=== PATIENT | male | born 1945 | race African-American/Black ===

== ENCOUNTER 2019-06-19 14:10 | Inpatient (IN) | payer BC, MEDICARE ==
[2019-06-19] VITALS (7 sets, daily range): BP systolic 67–169; BP diastolic 46–110
[~2019-06-19] VITALS: Ht 175.3 cm; Wt 95.7 kg
[~2019-06-19 14:10] MED LIST: ASPI-482 PO; ATOR40TA59 PO; CARV12.5 PO; RAMI10CA53 PO
[2019-06-19 14:32] LABS: BASO % 0 % (0-3); EOS % 0 % (0-3); HEMATOCRIT 39.2 % (39.0-53.0); HEMOGLOBIN 12.8 g/dL (13.0-17.5); LYMPH # 0.7 x10^3/uL (1.0-4.8); LYMPH % 13 % (24-48); MEAN CORPUSCULAR HEMOGLOBIN 30 pg (25-35); MEAN CORPUSCULAR HGB CONC 33 g/dL (31-37); MEAN CORPUSCULAR VOLUME 92 fL (79-100); MONO # 0.4 x10^3/uL (0.0-1.1); MONO % 8 % (0-9); NEUT # 4.1 x10^3/uL (1.8-7.7); NEUT % 79 % (31-73); PLATELET COUNT 268 x10^3/uL (140-400); RED BLOOD COUNT 4.26 x10^6/uL (4.30-5.70); RED CELL DISTRIBUTION WIDTH 16.9 % (11.5-14.5); WHITE BLOOD COUNT 5.2 x10^3/uL (4.0-11.0)
[2019-06-19 14:36] LABS: BILIRUBIN,URINE SMALL (NEG); CLARITY,URINE CLEAR; COLOR,URINE AMBER; NITRITE,URINE NEGATIVE (NEG); PROTEIN,URINE 30 mg/dL (NEG-TRACE)
[2019-06-19 14:44] LABS: SQUAMOUS EPITHELIAL CELL,UR FEW /LPF
[2019-06-19 14:45] LABS: AMORPHOUS SEDIMENT,UR PRESENT /HPF; BACTERIA,URINE 0 /HPF (0-FEW)
[2019-06-19 14:45] LABS: CALCIUM 8.6 mg/dL (8.5-10.1); GFR 88.1; POTASSIUM 3.9 mmol/L (3.5-5.1)
[2019-06-19 14:59] LABS: ALBUMIN 1.7 g/dL (3.4-5.0); ALBUMIN/GLOBULIN RATIO 0.3 (1.0-1.7); TOTAL BILIRUBIN 0.9 mg/dL (0.2-1.0); TOTAL PROTEIN 6.6 g/dL (6.4-8.2)
--- NOTE | 2019-06-19 15:04 | RAD ---
Single view chest dated 06/19/2019. No comparison available. CLINICAL INDICATION: Shortness breath. FINDINGS: Single upright portable exam performed. Heart and mediastinal contours within normal limits. There is a 3-lead left subclavian pacer/AICD in place with leads projected to the right atrium, right ventricle and coronary sinus. Patchy and linear opacities throughout both lungs, right greater than left. No consolidation or pleural effusion. No pneumothorax. IMPRESSION: Patchy bilateral airspace disease, noncardiogenic edema versus atypical infection. Viral pneumonitis not excluded. Electronically signed by: Iván Sosa MD (06/19/2019 3:01 PM) [facility] [place]
--- NOTE | 2019-06-19 15:21 | PHYS DOC ---
Adult General Chief Complaint Chief Complaint: ALTERED MENTAL STATUS [facility] HPI Patient is a 74 year old male presents via EMS from senior living for evaluation of altered mental status. Per EMS patient with progressively worse altered mental status x24 hours. Patient is alert. But unable to obtain any history from the patient. Patient is also febrile. Patient with a recent pacemaker/defibrillator placement. Review of Systems Review of Systems Constitutional: Denies fever or chills [] Eyes: Denies change in visual acuity, redness, or eye pain [] HENT: Denies nasal congestion or sore throat [] Respiratory: Denies cough or shortness of breath [] Cardiovascular: No additional information not addressed in HPI [] GI: Denies abdominal pain, nausea, vomiting, bloody stools or diarrhea [] : Denies dysuria or hematuria [] Musculoskeletal: Denies back pain or joint pain [] Integument: Denies rash or skin lesions [] Neurologic: Denies headache, focal weakness or sensory changes [] Endocrine: Denies polyuria or polydipsia [] All other systems were reviewed and found to be within normal limits, except as documented in this note. Current Medications Current Medications Current Medications Medications (Trade) Dose Ordered Sig/Evon Start Time Stop Time Status Last Admin Dose Admin Piperacillin Sod/ Tazobactam Sod 4.5 gm/Sodium Chloride 100 ml @ 200 mls/hr 1X ONCE 06/19/19 16:00 06/19/19 16:29 DC 06/19/19 16:50 200 MLS/HR Vancomycin HCl 1.25 gm/Sodium Chloride 250 ml @ 166.667 mls/hr 1X ONCE 06/19/19 16:00 06/19/19 17:29 DC 06/19/19 16:51 166.667 MLS/HR Allergies Allergies Allergies Coded Allergies Type Severity Reaction Last Updated Verified egg Allergy Intermediate Nausea and Vomiting 06/19/19 Yes Physical Exam Physical Exam Constitutional: Well developed, well nourished, no acute distress, non-toxic appearance. [] HENT: Normocephalic, atraumatic, bilateral external ears normal, oropharynx moist, no oral exudates, nose normal. [] Eyes: PERRLA, EOMI, conjunctiva normal, no discharge. [] Neck: Normal range of motion, no tenderness, supple, no stridor. [] Cardiovascular:Heart rate regular rhythm, no murmur [] Lungs & Thorax: Bilateral breath sounds clear to auscultation [] Abdomen: Bowel sounds normal, soft, no tenderness, no masses, no pulsatile masses. [] Skin: Warm, dry, no erythema, no rash. [] Back: No tenderness, no CVA tenderness. [] Extremities: No tenderness, no cyanosis, no clubbing, ROM intact, no edema. [] Neurologic: Alert and oriented X 3, normal motor function, normal sensory function, no focal deficits noted. [] Psychologic: Affect normal, judgement normal, mood normal. [] Current Patient Data Vital Signs Vital Signs Date Time Temp Pulse Resp B/P (MAP) Pulse Ox O2 Delivery O2 Flow Rate FiO2 06/19/19 14:10 100.3 89 22 133/88 (103) 93 Nasal Cannula 4.0 100.3 Lab Values Laboratory Tests Test 06/19/19 14:12 06/19/19 14:30 White Blood Count 5.2 x10^3/uL (4.0-11.0) Red Blood Count 4.26 x10^6/uL (4.30-5.70) L Hemoglobin 12.8 g/dL (13.0-17.5) L Hematocrit 39.2 % (39.0-53.0) Mean Corpuscular Volume 92 fL (79-100) Mean Corpuscular Hemoglobin 30 pg (25-35) Mean Corpuscular Hemoglobin Concent 33 g/dL (31-37) Red Cell Distribution Width 16.9 % (11.5-14.5) H Platelet Count 268 x10^3/uL (140-400) Neutrophils (%) (Auto) 79 % (31-73) H Lymphocytes (%) (Auto) 13 % (24-48) L Monocytes (%) (Auto) 8 % (0-9) Eosinophils (%) (Auto) 0 % (0-3) Basophils (%) (Auto) 0 % (0-3) Neutrophils # (Auto) 4.1 x10^3/uL (1.8-7.7) Lymphocytes # (Auto) 0.7 x10^3/uL (1.0-4.8) L Monocytes # (Auto) 0.4 x10^3/uL (0.0-1.1) Eosinophils # (Auto) 0.0 x10^3/uL (0.0-0.7) Basophils # (Auto) 0.0 x10^3/uL (0.0-0.2) Sodium Level 140 mmol/L (136-145) Potassium Level 3.9 mmol/L (3.5-5.1) Chloride Level 105 mmol/L (98-107) Carbon Dioxide Level 27 mmol/L (21-32) Anion Gap 8 (6-14) Blood Urea Nitrogen 13 mg/dL (8-26) Creatinine 1.0 mg/dL (0.7-1.3) Estimated GFR (Cockcroft-Gault) 88.1 BUN/Creatinine Ratio 13 (6-20) Glucose Level 102 mg/dL (70-99) H Lactic Acid Level 1.6 mmol/L (0.4-2.0) Calcium Level 8.6 mg/dL (8.5-10.1) Total Bilirubin 0.9 mg/dL (0.2-1.0) Aspartate Amino Transferase (AST) 86 U/L (15-37) H Alanine Aminotransferase (ALT) 58 U/L (16-63) Alkaline Phosphatase 68 U/L (46-116) Troponin I Quantitative 2.518 ng/mL (0.000-0.055) LH-Fhd-L-Type Natriuretic Peptide 3527 pg/mL (0-449) H Total Protein 6.6 g/dL (6.4-8.2) Albumin 1.7 g/dL (3.4-5.0) L Albumin/Globulin Ratio 0.3 (1.0-1.7) L Urine Collection Type Unknown Urine Color [place] Urine Clarity Clear Urine pH 6.0 (<5.0-8.0) Urine Specific [place] 1.025 (1.000-1.030) Urine Protein 30 mg/dL (NEG-TRACE) Urine Glucose (UA) Negative mg/dL (NEG) Urine Ketones (Stick) Negative mg/dL (NEG) Urine Blood Negative (NEG) Urine Nitrite Negative (NEG) Urine Bilirubin Small (NEG) Urine Urobilinogen Dipstick 2.0 mg/dL (0.2 mg/dL) Urine Leukocyte Esterase Negative (NEG) Urine RBC 3-5 /HPF (0-2) Urine WBC 1-4 /HPF (0-4) Urine Squamous Epithelial Cells Few /LPF Urine Transitional Epithelial Cells Few /LPF Urine Amorphous Sediment Present /HPF Urine Bacteria 0 /HPF (0-FEW) Urine Mucus Marked /LPF Laboratory Tests 06/19/19 14:12 Laboratory Tests 06/19/19 14:12 EKG EKG [] Radiology/Procedures Radiology/Procedures [] Impressions: IMPRESSION: Patchy bilateral airspace disease, noncardiogenic edema versus atypical infection. Viral pneumonitis not excluded. Course & Med Decision Making Course & Med Decision Making Pertinent Labs and Imaging studies reviewed. (See chart for details) [] Patient admitted to Dr Guthrie-- consult to pulmonology and cardiology. Dr Salazar--- Recommend single dose of Lovenox. Dr Soto-- Recommends treatment with vancomycin and Zosyn and Plaquenil. Dragon Disclaimer Dragon Disclaimer This electronic medical record was generated, in whole or in part, using a voice recognition dictation system. Departure Departure Impression: Primary Impression: Altered mental status Additional Impressions: Elevated brain natriuretic peptide (BNP) level Suspected COVID-19 virus infection Elevated troponin Disposition: ADMITTED INPATIENT Admitting Physician: KATIE Condition: GUARDED Referrals: EDY CUETO MD (PCP) Problem Qualifiers Primary Impression: Altered mental status Altered mental status type: unspecified Qualified Codes: R41.82 - Altered mental status, unspecified MARY MONTERROSO I DO Jun 19, 2019 15:21
--- NOTE | 2019-06-19 15:50 | PDOC1 ---
History and Physical Date of Admission Date of Admission DATE: 06/19/19 TIME: 15:47 Identification/Chief Complaint Chief Complaint ALTERED MENTAL STATUS seen in er 74 year old male presents via EMS from alf for evaluation of altered mental status. Per EMS patient with progressively worse altered mental status x24 hours. Patient is alert. But unable to obtain accurate history from the patient. Patient // febrile. low-grade Patient with a recent pacemaker/defibrillator placement. Past Medical History Past Medical History Colorectal screening, with history of colonic polyps, 2016 Cardiovascular: HTN, Hyperlipidemia Pulmonary: COPD Musculoskeletal: Osteoarthritis Family History Family History: High Cholestrol, Hypertension Social History Smoke: Quit ALCOHOL: none Drugs: None Current Medications Current Medications Current Medications Piperacillin Sod/ Tazobactam Sod 4.5 gm/Sodium Chloride 100 ml @ 200 mls/hr 1X ONCE IV ; Start 06/19/19 at 16:00; Stop 06/19/19 at 16:29 Vancomycin HCl 1.25 gm/Sodium Chloride 250 ml @ 166.667 mls/hr 1X ONCE IV ; Start 06/19/19 at 16:00; Stop 06/19/19 at 17:29 Active Scripts Active Reported Coreg (Carvedilol) 12.5 Mg Tablet 1 Tab PO BID Ramipril 10 Mg Capsule 1 Cap PO DAILY Atorvastatin Calcium 40 Mg Tablet 1 Tab PO DAILY Aspir 81 (Aspirin) 81 Mg Tablet.dr 1 Tab PO DAILY Allergies Allergies: Coded Allergies: egg (Verified Allergy, Intermediate, Nausea and Vomiting, 06/19/19) ROS Review of System HENT: Denies nasal congestion or sore throat [] Respiratory: Denies cough or shortness of breath [] Cardiovascular: No additional information not addressed in HPI [] GI: Denies abdominal pain, nausea, vomiting, bloody stools or diarrhea [] : Denies dysuria or hematuria [] Musculoskeletal: Denies back pain or joint pain [] Integument: Denies rash or skin lesions [] Neurologic: Denies headache, focal weakness or sensory changes [] Endocrine: Denies polyuria or polydipsia [] 14 pt systems were reviewed and found to be within normal limits, except as documented General: YES: Fatigue Hematological and Lymphatic: No: Bleeding Problems, Blood Clots, Blood Transf usions, Brusing, Night Sweats, Pallor, Swollen Lymph Nodes, Other Gastrointestinal: No Nausea, No Vomiting, No Abdominal Pain, No Diarrhea, No Constipation, No Melena, No Hematochezia, No Other Musculoskeletal: Yes Gait Disturbance Physical Exam Physical Exam confused to details HENT: Normocephalic, atraumatic, bilateral external ears normal, oropharynx moist, no oral exudates, nose normal. [] Eyes: PERRLA, EOMI, conjunctiva normal, no discharge. [] Neck: Normal range of motion, no tenderness, supple, no stridor. [] Cardiovascular:Heart rate regular rhythm, no murmur [] Lungs & Thorax: Bilateral breath sounds clear to auscultation, diminished [] Abdomen: Bowel sounds normal, soft, no tenderness, no masses, no pulsatile masses. [] Skin: Warm, dry, no erythema, no rash. [] Back: No tenderness, no CVA tenderness. [] Extremities: No tenderness, no cyanosis, no clubbing, ROM intact, no edema. [] Lungs: Normal air movement Breasts: Not examined Abdomen: Normal bowel sounds, Soft Rectal Exam: not examined Extremities: No cyanosis Neuro: Cranial nerves 3-12 NL Vitals Vitals Vital Signs Date Time Temp Pulse Resp B/P (MAP) Pulse Ox O2 Delivery O2 Flow Rate FiO2 06/19/19 14:10 100.3 89 22 133/88 (103) 93 Nasal Cannula 4.0 100.3 Labs Labs Laboratory Tests Test 06/19/19 14:12 06/19/19 14:30 White Blood Count 5.2 x10^3/uL (4.0-11.0) Red Blood Count 4.26 x10^6/uL (4.30-5.70) Hemoglobin 12.8 g/dL (13.0-17.5) Hematocrit 39.2 % (39.0-53.0) Mean Corpuscular Volume 92 fL (79-100) Mean Corpuscular Hemoglobin 30 pg (25-35) Mean Corpuscular Hemoglobin Concent 33 g/dL (31-37) Red Cell Distribution Width 16.9 % (11.5-14.5) Platelet Count 268 x10^3/uL (140-400) Neutrophils (%) (Auto) 79 % (31-73) Lymphocytes (%) (Auto) 13 % (24-48) Monocytes (%) (Auto) 8 % (0-9) Eosinophils (%) (Auto) 0 % (0-3) Basophils (%) (Auto) 0 % (0-3) Neutrophils # (Auto) 4.1 x10^3/uL (1.8-7.7) Lymphocytes # (Auto) 0.7 x10^3/uL (1.0-4.8) Monocytes # (Auto) 0.4 x10^3/uL (0.0-1.1) Eosinophils # (Auto) 0.0 x10^3/uL (0.0-0.7) Basophils # (Auto) 0.0 x10^3/uL (0.0-0.2) Sodium Level 140 mmol/L (136-145) Potassium Level 3.9 mmol/L (3.5-5.1) Chloride Level 105 mmol/L (98-107) Carbon Dioxide Level 27 mmol/L (21-32) Anion Gap 8 (6-14) Blood Urea Nitrogen 13 mg/dL (8-26) Creatinine 1.0 mg/dL (0.7-1.3) Estimated GFR (Cockcroft-Gault) 88.1 BUN/Creatinine Ratio 13 (6-20) Glucose Level 102 mg/dL (70-99) Lactic Acid Level 1.6 mmol/L (0.4-2.0) Calcium Level 8.6 mg/dL (8.5-10.1) Total Bilirubin 0.9 mg/dL (0.2-1.0) Aspartate Amino Transf (AST/SGOT) 86 U/L (15-37) Alanine Aminotransferase (ALT/SGPT) 58 U/L (16-63) Alkaline Phosphatase 68 U/L (46-116) Troponin I Quantitative 2.518 ng/mL (0.000-0.055) Total Protein 6.6 g/dL (6.4-8.2) Albumin 1.7 g/dL (3.4-5.0) Albumin/Globulin Ratio 0.3 (1.0-1.7) Urine Collection Type Unknown Urine Color [place] Urine Clarity Clear Urine pH 6.0 (<5.0-8.0) Urine Specific [place] 1.025 (1.000-1.030) Urine Protein 30 mg/dL (NEG-TRACE) Urine Glucose (UA) Negative mg/dL (NEG) Urine Ketones (Stick) Negative mg/dL (NEG) Urine Blood Negative (NEG) Urine Nitrite Negative (NEG) Urine Bilirubin Small (NEG) Urine Urobilinogen Dipstick 2.0 mg/dL (0.2 mg/dL) Urine Leukocyte Esterase Negative (NEG) Urine RBC 3-5 /HPF (0-2) Urine WBC 1-4 /HPF (0-4) Urine Squamous Epithelial Cells Few /LPF Urine Transitional Epithelial Cells Few /LPF Urine Amorphous Sediment Present /HPF Urine Bacteria 0 /HPF (0-FEW) Urine Mucus Marked /LPF Laboratory Tests Test 06/19/19 14:12 06/19/19 14:30 White Blood Count 5.2 x10^3/uL (4.0-11.0) Red Blood Count 4.26 x10^6/uL (4.30-5.70) Hemoglobin 12.8 g/dL (13.0-17.5) Hematocrit 39.2 % (39.0-53.0) Mean Corpuscular Volume 92 fL (79-100) Mean Corpuscular Hemoglobin 30 pg (25-35) Mean Corpuscular Hemoglobin Concent 33 g/dL (31-37) Red Cell Distribution Width 16.9 % (11.5-14.5) Platelet Count 268 x10^3/uL (140-400) Neutrophils (%) (Auto) 79 % (31-73) Lymphocytes (%) (Auto) 13 % (24-48) Monocytes (%) (Auto) 8 % (0-9) Eosinophils (%) (Auto) 0 % (0-3) Basophils (%) (Auto) 0 % (0-3) Neutrophils # (Auto) 4.1 x10^3/uL (1.8-7.7) Lymphocytes # (Auto) 0.7 x10^3/uL (1.0-4.8) Monocytes # (Auto) 0.4 x10^3/uL (0.0-1.1) Eosinophils # (Auto) 0.0 x10^3/uL (0.0-0.7) Basophils # (Auto) 0.0 x10^3/uL (0.0-0.2) Sodium Level 140 mmol/L (136-145) Potassium Level 3.9 mmol/L (3.5-5.1) Chloride Level 105 mmol/L (98-107) Carbon Dioxide Level 27 mmol/L (21-32) Anion Gap 8 (6-14) Blood Urea Nitrogen 13 mg/dL (8-26) Creatinine 1.0 mg/dL (0.7-1.3) Estimated GFR (Cockcroft-Gault) 88.1 BUN/Creatinine Ratio 13 (6-20) Glucose Level 102 mg/dL (70-99) Lactic Acid Level 1.6 mmol/L (0.4-2.0) Calcium Level 8.6 mg/dL (8.5-10.1) Total Bilirubin 0.9 mg/dL (0.2-1.0) Aspartate Amino Transf (AST/SGOT) 86 U/L (15-37) Alanine Aminotransferase (ALT/SGPT) 58 U/L (16-63) Alkaline Phosphatase 68 U/L (46-116) Troponin I Quantitative 2.518 ng/mL (0.000-0.055) Total Protein 6.6 g/dL (6.4-8.2) Albumin 1.7 g/dL (3.4-5.0) Albumin/Globulin Ratio 0.3 (1.0-1.7) Urine Collection Type Unknown Urine Color [place] Urine Clarity Clear Urine pH 6.0 (<5.0-8.0) Urine Specific [place] 1.025 (1.000-1.030) Urine Protein 30 mg/dL (NEG-TRACE) Urine Glucose (UA) Negative mg/dL (NEG) Urine Ketones (Stick) Negative mg/dL (NEG) Urine Blood Negative (NEG) Urine Nitrite Negative (NEG) Urine Bilirubin Small (NEG) Urine Urobilinogen Dipstick 2.0 mg/dL (0.2 mg/dL) Urine Leukocyte Esterase Negative (NEG) Urine RBC 3-5 /HPF (0-2) Urine WBC 1-4 /HPF (0-4) Urine Squamous Epithelial Cells Few /LPF Urine Transitional Epithelial Cells Few /LPF Urine Amorphous Sediment Present /HPF Urine Bacteria 0 /HPF (0-FEW) Urine Mucus Marked /LPF Images Images CT HEAD WO CONTRAST History: Altered mental status. Comparison: None. Technique: Noncontrast CT imaging was performed of the head. Exposure: One or more of the following individualized dose reduction techniques were utilized for this examination: 1. Automated exposure control 2. Adjustment of the mA and/or kV according to patient size 3. Use of iterative reconstruction technique. Findings: No intracranial hemorrhage. No mass effect. No hydrocephalus. Several chronic left frontal, parietal and temporal infarcts. Additional chronic right frontal infarcts. Additional foci of decreased attenuation within the hemispheric white matter, most often due to chronic microvascular ischemia. Mild to moderate brain parenchymal volume loss. Imaged orbits are unremarkable. Imaged paranasal sinuses and mastoid air cells are clear. No acute calvarial fracture. Impression: 1. No acute intracranial abnormality. 2. Several chronic infarcts bilaterally. Electronically signed by: Prateek Dukes DO (06/19/2019 3:47 PM) [place] [id number] DICTATED and SIGNED BY: PRATEEK DUKES DO DATE: 06/19/19 1547 Single view chest dated 06/19/2019. No comparison available. CLINICAL INDICATION: Shortness breath. FINDINGS: Single upright portable exam performed. Heart and mediastinal contours within normal limits. There is a 3-lead left subclavian pacer/AICD in place with leads projected to the right atrium, right ventricle and coronary sinus. Patchy and linear opacities throughout both lungs, right greater than left. No consolidation or pleural effusion. No pneumothorax. IMPRESSION: Patchy bilateral airspace disease, noncardiogenic edema versus atypical infection. Viral pneumonitis not excluded. Electronically signed by: Iván Sosa MD (06/19/2019 3:01 PM) [facility] [place] DICTATED and SIGNED BY: IVÁN SOSA MD DATE: 06/19/19 1501 VTE Prophylaxis Ordered VTE Prophylaxis Devices: No VTE Pharmacological Prophylaxi: Yes Assessment/Plan Assessment/Plan IMPRESSION: 1. Patchy bilateral airspace disease, noncardiogenic edema versus atypical infection. POSSIBLE Viral pneumonitis ? covid-19 2. ACUTE HYPOXIC RESP FAILURE 3. ACUTE NSTEMI 4. No acute intracranial abnormality. 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 chronic right frontal infarcts. foci of decreased attenuation within the hemispheric white matter, most often due to chronic microvascular ischemia. Mild to moderate brain parenchymal volume loss. 6. acute metabolic encephalopathy 7. severe protein-caloric malnutrition PLAN ADMIT CONSULT PULM CONSULT CARDIOLOGY NOW D/W ER O2 SUPPORT neurology consult covid 19 ag, cvc bed lovenox 75 mg sq bid emperic iv antibiotics 36 min cc time JACOB LAWSON MD Jun 19, 2019 15:50
[2019-06-19] MEDS ORDERED: VANCOMYCIN 1.25 GM in IV NORMAL SALINE 250ML 250 ML IV ONE (16:00)
[2019-06-19] MEDS ORDERED: PIPERACILLIN/TAZOBACTAM 4.5 GM in IV NORMAL SALINE 100ML 100 ML IV ONE (16:00)
[2019-06-19] MEDS ORDERED: FUROSEMIDE 40 MG/4 ML VIAL. IVP ONE (17:00)
[2019-06-19] MEDS ORDERED: DOCUSATE SODIUM 100 MG CAPSULE. PO PRN (17:45)
[2019-06-19] MEDS ORDERED: cloNIDine HCL 0.1 MG TABLET PO PRN (17:45)
[2019-06-19] MEDS ORDERED: ACETAMINOPHEN 325 MG TABLET. PO PRN (17:45)
[2019-06-19] MEDS ORDERED: 0.9 % SODIUM CHLORIDE 10 ML DISP.SYRIN. IV PRN (17:45)
[2019-06-19] MEDS ORDERED: guaiFENesin ORAL 200 MG/10 ML LIQUID. PO PRN (17:45)
[2019-06-19] MEDS ORDERED: SODIUM PHOSPHATES 19/7GM 133 ML ENEMA. PR PRN (17:45)
[2019-06-19] MEDS ORDERED: ACETAMINOPHEN 650 MG SUPP.RECT. PR PRN (17:45)
[2019-06-19] MEDS: IV NORMAL SALINE 1000ML BAG 1,000 ML IV SCH (18:00)
[2019-06-19] MEDS ORDERED: ENOXAPARIN 40 MG/0.4 ML SYRINGE. SQ SCH (18:00)
[2019-06-19] MEDS: IPRATRPIUM/ALBUTEROL 0.5/2.5MG 3 ML NEBU. NEB SCH ×2 (18:00→21:03)
[2019-06-19] MEDS ORDERED: PIPERACILLIN/TAZOBACTAM 3.375 GM in IV NORMAL SALINE 50ML 50 ML IV SCH (18:00)
[2019-06-19] MEDS: VANCOMYCIN PER PHARMACY MC PRN (19:13)
[2019-06-19 19:32] LABS: BASE EXCESS ABG 2 mmol/L (-3-3); HCO3 ABG 24 mmol/L (21-28); PCO2 ABG 33 mmHg (35-46); SAT O2 ABG 83 % (92-99)
[2019-06-19 19:41] LABS: FIO2 ABG 32
[2019-06-19] MEDS ORDERED: HYDROXYCHLOROQUINE 200 MG TABLET PO ONE (20:00)
[2019-06-19] MEDS ORDERED: PROPOFOL 100 ML IV ONE (20:33)
--- NOTE | 2019-06-19 20:37 | PDOC ---
Provider Note Provider Note Anesthesia note; Called for intubation Covid 19 patient. 7.5 oet #3 Glidescope breath sounds bilateral, equal, positive color change on EtCO2 indicator secured in place by Resp Therapist 223 cm at teeth. Chest x ray to be done. Dariel PRASAD TELECOMMUNICATIONS REPAIRER Jun 19, 2019 20:37
[2019-06-19] MEDS ORDERED: HYDROXYCHLOROQUINE 200 MG TABLET PO SCH (21:00)
[2019-06-19] MEDS ORDERED: MORPHINE SULFATE 4 MG/ML VIAL. IV PRN (21:15)
[2019-06-19] MEDS ORDERED: PROPOFOL 100 ML IV PRN (21:15)
[2019-06-19] MEDS ORDERED: MORPHINE SULFATE 2 MG/ML VIAL. IV PRN (21:15)
[2019-06-19] MEDS ORDERED: fentaNYL PF VIAL 100 MCG/2 ML VIAL IV PRN ×2 (21:15)
[2019-06-19] MEDS: MIDAZOLAM HCL 50 MG in IV NORMAL SALINE 50ML 50 ML IV PRN (21:53)
[2019-06-19 21:54] LABS: BASE EXCESS COOX 0 mmol/L (-3-3); HCO3 COOX 24 mmol/L (21-28); METHEMOGLOBIN 0.7 % (0.0-1.9); PCO2 COOX 36 mmHg (35-46); PO2 COOX 121 mmHg (65-108); SAT O2 COOX 98 % (92-99)
--- NOTE | 2019-06-19 23:56 | RAD ---
INDICATION: Status post intubation and enteric tube placement COMPARISON: Chest x-ray from earlier same day TECHNIQUE: Single view of the chest and abdomen obtained. FINDINGS: CHEST: Single view obtained. AICD is identified. Endotracheal tube midthoracic trachea. Enteric tube is seen coursing towards the diaphragm. Repeat demonstration of patchy opacities at the bilateral lungs. ABDOMEN: Single view obtained. Enteric tube is seen coursing below the diaphragm with the tip near midline projecting over expected location of stomach. IMPRESSION: * Interval placement of endotracheal and enteric tube. * Patchy opacities in bilateral lungs again could be infectious in nature or secondary to edema. Electronically signed by: Kash Gunter MD (06/19/2019 11:53 PM) [id number]
[2019-06-20] VITALS (25 sets, daily range): BP systolic 77–116; BP diastolic 53–72
[2019-06-20] MEDS: PIPERACILLIN/TAZOBACTAM 3.375 GM in IV NORMAL SALINE 50ML 50 ML IV SCH ×5 (00:05→23:57)
[2019-06-20] MEDS ORDERED: ASPI81TA59 PO (00:39)
[2019-06-20] MEDS ORDERED: MEXI250C PO (00:39)
[2019-06-20] MEDS ORDERED: AMIO200T4 PO (00:39)
[2019-06-20] MEDS ORDERED: METO100T7 PO (00:39)
[2019-06-20] MEDS: MIDAZOLAM HCL 50 MG in IV NORMAL SALINE 50ML 50 ML IV PRN (01:38)
[2019-06-20 05:19] LABS: BASO % 1 % (0-3); EOS % 1 % (0-3); HEMATOCRIT 37.4 % (39.0-53.0); HEMOGLOBIN 12.1 g/dL (13.0-17.5); LYMPH # 0.6 x10^3/uL (1.0-4.8); LYMPH % 9 % (24-48); MEAN CORPUSCULAR HEMOGLOBIN 30 pg (25-35); MEAN CORPUSCULAR HGB CONC 33 g/dL (31-37); MEAN CORPUSCULAR VOLUME 92 fL (79-100); MONO # 0.3 x10^3/uL (0.0-1.1); MONO % 5 % (0-9); NEUT # 5.2 x10^3/uL (1.8-7.7); NEUT % 84 % (31-73); PLATELET COUNT 263 x10^3/uL (140-400); RED BLOOD COUNT 4.06 x10^6/uL (4.30-5.70); RED CELL DISTRIBUTION WIDTH 16.9 % (11.5-14.5); WHITE BLOOD COUNT 6.2 x10^3/uL (4.0-11.0)
[2019-06-20] MEDS: IPRATRPIUM/ALBUTEROL 0.5/2.5MG 3 ML NEBU. NEB SCH ×3 (06:00→14:00)
[2019-06-20] MEDS: VANCOMYCIN 1 GM in IV NORMAL SALINE 250ML 250 ML IV SCH ×2 (06:42→16:26)
[2019-06-20] MEDS: IV NORMAL SALINE 1000ML BAG 1,000 ML IV SCH (07:59)
[2019-06-20] MEDS: CHLORHEXIDINE 0.12% 15 ML MOUTHWASH. MM SCH ×2 (08:00→22:08)
[2019-06-20] MEDS: MIDAZOLAM HCL 100 MG in IV NORMAL SALINE 100ML 100 ML IV PRN ×2 (08:00→22:10)
[2019-06-20 08:53] LABS: ALBUMIN 1.6 g/dL (3.4-5.0); ALBUMIN/GLOBULIN RATIO 0.4 (1.0-1.7); CALCIUM 7.9 mg/dL (8.5-10.1); GFR 88.1; POTASSIUM 3.6 mmol/L (3.5-5.1); TOTAL BILIRUBIN 1.5 mg/dL (0.2-1.0); TOTAL PROTEIN 5.5 g/dL (6.4-8.2)
--- NOTE | 2019-06-20 09:15 | RAD ---
PORTABLE CHEST 1V History: Respiratory failure Comparison: June 19, 2019 Findings: Multifocal pulmonary consolidations, increased within the lung bases. Low lung volumes. Small left pleural effusion. Left-sided pacemaker. Stable endotracheal tube and enteric tube. Impression: 1. Multifocal pulmonary consolidations, increased within the lung bases. Electronically signed by: Prateek Valentino DO (06/20/2019 9:12 AM) [id number]
[2019-06-20 09:29] LABS: BASE EXCESS ABG 2 mmol/L (-3-3); HCO3 ABG 26 mmol/L (21-28); PCO2 ABG 38 mmHg (35-46); PO2 ABG 69 mmHg (65-108); SAT O2 ABG 94 % (92-99)
[2019-06-20] MEDS ORDERED: HYDROXYCHLOROQUINE 200 MG TABLET PO ONE (09:30)
--- NOTE | 2019-06-20 09:34 | PDOC ---
PULMONARY PROGRESS NOTES Vitals Vital Signs Date Time Temp Pulse Resp B/P (MAP) Pulse Ox O2 Delivery O2 Flow Rate FiO2 06/20/19 08:00 Mechanical Ventilator 06/20/19 08:00 99.1 95 22 81/58 (66) 100 99.1 06/19/19 20:30 4.0 Labs Laboratory Tests Test 06/19/19 14:12 06/19/19 14:30 06/19/19 19:09 06/19/19 19:40 White Blood Count 5.2 x10^3/uL (4.0-11.0) Red Blood Count 4.26 x10^6/uL (4.30-5.70) Hemoglobin 12.8 g/dL (13.0-17.5) Hematocrit 39.2 % (39.0-53.0) Mean Corpuscular Volume 92 fL (79-100) Mean Corpuscular Hemoglobin 30 pg (25-35) Mean Corpuscular Hemoglobin Concent 33 g/dL (31-37) Red Cell Distribution Width 16.9 % (11.5-14.5) Platelet Count 268 x10^3/uL (140-400) Neutrophils (%) (Auto) 79 % (31-73) Lymphocytes (%) (Auto) 13 % (24-48) Monocytes (%) (Auto) 8 % (0-9) Eosinophils (%) (Auto) 0 % (0-3) Basophils (%) (Auto) 0 % (0-3) Neutrophils # (Auto) 4.1 x10^3/uL (1.8-7.7) Lymphocytes # (Auto) 0.7 x10^3/uL (1.0-4.8) Monocytes # (Auto) 0.4 x10^3/uL (0.0-1.1) Eosinophils # (Auto) 0.0 x10^3/uL (0.0-0.7) Basophils # (Auto) 0.0 x10^3/uL (0.0-0.2) Sodium Level 140 mmol/L (136-145) Potassium Level 3.9 mmol/L (3.5-5.1) Chloride Level 105 mmol/L (98-107) Carbon Dioxide Level 27 mmol/L (21-32) Anion Gap 8 (6-14) Blood Urea Nitrogen 13 mg/dL (8-26) Creatinine 1.0 mg/dL (0.7-1.3) Estimated GFR (Cockcroft-Gault) 88.1 BUN/Creatinine Ratio 13 (6-20) Glucose Level 102 mg/dL (70-99) Lactic Acid Level 1.6 mmol/L (0.4-2.0) Calcium Level 8.6 mg/dL (8.5-10.1) Total Bilirubin 0.9 mg/dL (0.2-1.0) Aspartate Amino Transf (AST/SGOT) 86 U/L (15-37) Alanine Aminotransferase (ALT/SGPT) 58 U/L (16-63) Alkaline Phosphatase 68 U/L (46-116) Troponin I Quantitative 2.518 ng/mL (0.000-0.055) 2.369 ng/mL (0.000-0.055) NV-Jsz-V-Type Natriuretic Peptide 3527 pg/mL (0-449) Total Protein 6.6 g/dL (6.4-8.2) Albumin 1.7 g/dL (3.4-5.0) Albumin/Globulin Ratio 0.3 (1.0-1.7) Urine Collection Type Unknown Urine Color [place] Urine Clarity Clear Urine pH 6.0 (<5.0-8.0) Urine Specific [place] 1.025 (1.000-1.030) Urine Protein 30 mg/dL (NEG-TRACE) Urine Glucose (UA) Negative mg/dL (NEG) Urine Ketones (Stick) Negative mg/dL (NEG) Urine Blood Negative (NEG) Urine Nitrite Negative (NEG) Urine Bilirubin Small (NEG) Urine Urobilinogen Dipstick 2.0 mg/dL (0.2 mg/dL) Urine Leukocyte Esterase Negative (NEG) Urine RBC 3-5 /HPF (0-2) Urine WBC 1-4 /HPF (0-4) Urine Squamous Epithelial Cells Few /LPF Urine Transitional Epithelial Cells Few /LPF Urine Amorphous Sediment Present /HPF Urine Bacteria 0 /HPF (0-FEW) Urine Mucus Marked /LPF O2 Saturation 83 % (92-99) Arterial Blood pH 7.48 (7.35-7.45) Arterial Blood pCO2 at Patient Temp 33 mmHg (35-46) Arterial Blood pO2 at Patient Temp 45 mmHg (65-108) Arterial Blood HCO3 24 mmol/L (21-28) Arterial Blood Base Excess 2 mmol/L (-3-3) FiO2 32 Test 06/19/19 21:05 06/20/19 05:00 O2 Saturation 98 % (92-99) Arterial Blood pH 7.44 (7.35-7.45) Arterial Blood pCO2 at Patient Temp 36 mmHg (35-46) Arterial Blood pO2 at Patient Temp 121 mmHg (65-108) Arterial Blood HCO3 24 mmol/L (21-28) Arterial Blood Base Excess 0 mmol/L (-3-3) Oxyhemoglobin 97.0 % Methemoglobin 0.7 % (0.0-1.9) Carbon Monoxide, Quantitative 0.3 % (0.0-1.9) FiO2 100 White Blood Count 6.2 x10^3/uL (4.0-11.0) Red Blood Count 4.06 x10^6/uL (4.30-5.70) Hemoglobin 12.1 g/dL (13.0-17.5) Hematocrit 37.4 % (39.0-53.0) Mean Corpuscular Volume 92 fL (79-100) Mean Corpuscular Hemoglobin 30 pg (25-35) Mean Corpuscular Hemoglobin Concent 33 g/dL (31-37) Red Cell Distribution Width 16.9 % (11.5-14.5) Platelet Count 263 x10^3/uL (140-400) Neutrophils (%) (Auto) 84 % (31-73) Lymphocytes (%) (Auto) 9 % (24-48) Monocytes (%) (Auto) 5 % (0-9) Eosinophils (%) (Auto) 1 % (0-3) Basophils (%) (Auto) 1 % (0-3) Neutrophils # (Auto) 5.2 x10^3/uL (1.8-7.7) Lymphocytes # (Auto) 0.6 x10^3/uL (1.0-4.8) Monocytes # (Auto) 0.3 x10^3/uL (0.0-1.1) Eosinophils # (Auto) 0.0 x10^3/uL (0.0-0.7) Basophils # (Auto) 0.0 x10^3/uL (0.0-0.2) Sodium Level 141 mmol/L (136-145) Potassium Level 3.6 mmol/L (3.5-5.1) Chloride Level 106 mmol/L (98-107) Carbon Dioxide Level 26 mmol/L (21-32) Anion Gap 9 (6-14) Blood Urea Nitrogen 14 mg/dL (8-26) Creatinine 1.0 mg/dL (0.7-1.3) Estimated GFR (Cockcroft-Gault) 88.1 BUN/Creatinine Ratio 14 (6-20) Glucose Level 95 mg/dL (70-99) Calcium Level 7.9 mg/dL (8.5-10.1) Total Bilirubin 1.5 mg/dL (0.2-1.0) Aspartate Amino Transf (AST/SGOT) 71 U/L (15-37) Alanine Aminotransferase (ALT/SGPT) 57 U/L (16-63) Alkaline Phosphatase 70 U/L (46-116) Troponin I Quantitative 1.815 ng/mL (0.000-0.055) Total Protein 5.5 g/dL (6.4-8.2) Albumin 1.6 g/dL (3.4-5.0) Albumin/Globulin Ratio 0.4 (1.0-1.7) Procalcitonin 0.86 ng/mL (0.00-0.10) Laboratory Tests Test 06/19/19 14:12 06/19/19 14:30 06/19/19 19:09 06/19/19 19:40 White Blood Count 5.2 x10^3/uL (4.0-11.0) Red Blood Count 4.26 x10^6/uL (4.30-5.70) Hemoglobin 12.8 g/dL (13.0-17.5) Hematocrit 39.2 % (39.0-53.0) Mean Corpuscular Volume 92 fL (79-100) Mean Corpuscular Hemoglobin 30 pg (25-35) Mean Corpuscular Hemoglobin Concent 33 g/dL (31-37) Red Cell Distribution Width 16.9 % (11.5-14.5) Platelet Count 268 x10^3/uL (140-400) Neutrophils (%) (Auto) 79 % (31-73) Lymphocytes (%) (Auto) 13 % (24-48) Monocytes (%) (Auto) 8 % (0-9) Eosinophils (%) (Auto) 0 % (0-3) Basophils (%) (Auto) 0 % (0-3) Neutrophils # (Auto) 4.1 x10^3/uL (1.8-7.7) Lymphocytes # (Auto) 0.7 x10^3/uL (1.0-4.8) Monocytes # (Auto) 0.4 x10^3/uL (0.0-1.1) Eosinophils # (Auto) 0.0 x10^3/uL (0.0-0.7) Basophils # (Auto) 0.0 x10^3/uL (0.0-0.2) Sodium Level 140 mmol/L (136-145) Potassium Level 3.9 mmol/L (3.5-5.1) Chloride Level 105 mmol/L (98-107) Carbon Dioxide Level 27 mmol/L (21-32) Anion Gap 8 (6-14) Blood Urea Nitrogen 13 mg/dL (8-26) Creatinine 1.0 mg/dL (0.7-1.3) Estimated GFR (Cockcroft-Gault) 88.1 BUN/Creatinine Ratio 13 (6-20) Glucose Level 102 mg/dL (70-99) Lactic Acid Level 1.6 mmol/L (0.4-2.0) Calcium Level 8.6 mg/dL (8.5-10.1) Total Bilirubin 0.9 mg/dL (0.2-1.0) Aspartate Amino Transf (AST/SGOT) 86 U/L (15-37) Alanine Aminotransferase (ALT/SGPT) 58 U/L (16-63) Alkaline Phosphatase 68 U/L (46-116) Troponin I Quantitative 2.518 ng/mL (0.000-0.055) 2.369 ng/mL (0.000-0.055) IG-Fop-G-Type Natriuretic Peptide 3527 pg/mL (0-449) Total Protein 6.6 g/dL (6.4-8.2) Albumin 1.7 g/dL (3.4-5.0) Albumin/Globulin Ratio 0.3 (1.0-1.7) Urine Collection Type Unknown Urine Color [place] Urine Clarity Clear Urine pH 6.0 (<5.0-8.0) Urine Specific [place] 1.025 (1.000-1.030) Urine Protein 30 mg/dL (NEG-TRACE) Urine Glucose (UA) Negative mg/dL (NEG) Urine Ketones (Stick) Negative mg/dL (NEG) Urine Blood Negative (NEG) Urine Nitrite Negative (NEG) Urine Bilirubin Small (NEG) Urine Urobilinogen Dipstick 2.0 mg/dL (0.2 mg/dL) Urine Leukocyte Esterase Negative (NEG) Urine RBC 3-5 /HPF (0-2) Urine WBC 1-4 /HPF (0-4) Urine Squamous Epithelial Cells Few /LPF Urine Transitional Epithelial Cells Few /LPF Urine Amorphous Sediment Present /HPF Urine Bacteria 0 /HPF (0-FEW) Urine Mucus Marked /LPF O2 Saturation 83 % (92-99) Arterial Blood pH 7.48 (7.35-7.45) Arterial Blood pCO2 at Patient Temp 33 mmHg (35-46) Arterial Blood pO2 at Patient Temp 45 mmHg (65-108) Arterial Blood HCO3 24 mmol/L (21-28) Arterial Blood Base Excess 2 mmol/L (-3-3) FiO2 32 Test 06/19/19 21:05 06/20/19 05:00 O2 Saturation 98 % (92-99) Arterial Blood pH 7.44 (7.35-7.45) Arterial Blood pCO2 at Patient Temp 36 mmHg (35-46) Arterial Blood pO2 at Patient Temp 121 mmHg (65-108) Arterial Blood HCO3 24 mmol/L (21-28) Arterial Blood Base Excess 0 mmol/L (-3-3) Oxyhemoglobin 97.0 % Methemoglobin 0.7 % (0.0-1.9) Carbon Monoxide, Quantitative 0.3 % (0.0-1.9) FiO2 100 White Blood Count 6.2 x10^3/uL (4.0-11.0) Red Blood Count 4.06 x10^6/uL (4.30-5.70) Hemoglobin 12.1 g/dL (13.0-17.5) Hematocrit 37.4 % (39.0-53.0) Mean Corpuscular Volume 92 fL (79-100) Mean Corpuscular Hemoglobin 30 pg (25-35) Mean Corpuscular Hemoglobin Concent 33 g/dL (31-37) Red Cell Distribution Width 16.9 % (11.5-14.5) Platelet Count 263 x10^3/uL (140-400) Neutrophils (%) (Auto) 84 % (31-73) Lymphocytes (%) (Auto) 9 % (24-48) Monocytes (%) (Auto) 5 % (0-9) Eosinophils (%) (Auto) 1 % (0-3) Basophils (%) (Auto) 1 % (0-3) Neutrophils # (Auto) 5.2 x10^3/uL (1.8-7.7) Lymphocytes # (Auto) 0.6 x10^3/uL (1.0-4.8) Monocytes # (Auto) 0.3 x10^3/uL (0.0-1.1) Eosinophils # (Auto) 0.0 x10^3/uL (0.0-0.7) Basophils # (Auto) 0.0 x10^3/uL (0.0-0.2) Sodium Level 141 mmol/L (136-145) Potassium Level 3.6 mmol/L (3.5-5.1) Chloride Level 106 mmol/L (98-107) Carbon Dioxide Level 26 mmol/L (21-32) Anion Gap 9 (6-14) Blood Urea Nitrogen 14 mg/dL (8-26) Creatinine 1.0 mg/dL (0.7-1.3) Estimated GFR (Cockcroft-Gault) 88.1 BUN/Creatinine Ratio 14 (6-20) Glucose Level 95 mg/dL (70-99) Calcium Level 7.9 mg/dL (8.5-10.1) Total Bilirubin 1.5 mg/dL (0.2-1.0) Aspartate Amino Transf (AST/SGOT) 71 U/L (15-37) Alanine Aminotransferase (ALT/SGPT) 57 U/L (16-63) Alkaline Phosphatase 70 U/L (46-116) Troponin I Quantitative 1.815 ng/mL (0.000-0.055) Total Protein 5.5 g/dL (6.4-8.2) Albumin 1.6 g/dL (3.4-5.0) Albumin/Globulin Ratio 0.4 (1.0-1.7) Procalcitonin 0.86 ng/mL (0.00-0.10) Medications Active Scripts Medications Dose Route/Sig Max Daily Dose Days Date Category Mexiletine Hcl 250 Mg Capsule 450 Mg PO BID 06/20/19 Reported Metoprolol Tartrate 100 Mg Tablet 1 Tab PO DAILY 06/20/19 Reported Children's Aspirin (Aspirin) 81 Mg Tab.chew 81 Mg PO DAILY 06/20/19 Reported Amiodarone Hcl 200 Mg Tablet 1 Tab PO DAILY 06/20/19 Reported Impression . Full note dictated, suspect cover 19 viral, with viral pneumonia, sepsis, ISABELL BARCLAY MD Jun 20, 2019 09:34
[2019-06-20 09:51] LABS: FIO2 ABG 60%+5
--- NOTE | 2019-06-20 10:13 | CONS ---
DATE OF CONSULTATION: 06/20/2019 ATTENDING PHYSICIAN: Dr. Geoffrey Guthrie. CONSULTING PHYSICIAN: Isabell Barclay MD REASON FOR CONSULTATION: The patient seen in pulmonary consultation at the request of Dr. Guthrie for vent management, acute respiratory failure, COVID suspect. HISTORY OF PRESENT ILLNESS: The patient is a 74-year-old who presented via EMS from [facility] with comorbidities of hypertension, hyperlipidemia, COPD, osteoarthritis and age over 65. He presented with decreased mental status, progressively worse. No further history was obtained at this time. Apparently, he had a low-grade fever. He also had a recent pacemaker defibrillator placement. The patient initially was hypoxic. He was admitted to the COVID unit and placed on a nonrebreather. He had a T-max of 100.3. He was placed in isolation from the very beginning. His arterial blood gas revealed a pH of 7.48, PaCO2 of 33, pO2 of 45. His white count was not elevated. He was initially empirically started on Plaquenil, a broad spectrum antibiotic, as a result of his previous admission to the hospital for his pacemaker insertion. The patient immediately deteriorated and eventually required intubation by nurse leaf size picker. His imaging studies were reviewed. There are multifocal consolidations in both lungs. This morning, he is on assist control ventilation, tidal volume of 400, rate of 20, 60%, 5 of PEEP. He is sedated. Hemodynamically, he has been stable. PAST MEDICAL HISTORY: 1. Hypertension. 2. Hyperlipidemia. 3. COPD. 4. Osteoarthritis. 5. Recent pacemaker defibrillator placement. Suspect he has coronary artery disease possibly with decreased cardiac function. PAST SURGICAL HISTORY: As above. FAMILY HISTORY: Hyperlipidemia, hypertension. SOCIAL HISTORY: He has a history of tobacco use, but apparently he quit. CURRENT MEDICATIONS: List was reviewed. HOME MEDICATIONS: List was likewise reviewed. REVIEW OF SYSTEMS: Unobtainable secondary to the patient's condition. PHYSICAL EXAMINATION: GENERAL: The patient was in the intensive care unit, on mechanical ventilation. VITAL SIGNS: Noted as indicated above. He is currently hemodynamically stable. HEENT: Eyes, sclerae were nonicteric. NECK: Jugular venous distention is not elevated. No lymphadenopathy. CHEST: Full expansion. LUNGS: Adequate flow with no wheezes. CARDIOVASCULAR: Regular rate and rhythm with S1 and S2. No S3. ABDOMEN: Soft, nontender, nondistended. EXTREMITIES: No clubbing, cyanosis or edema. NEUROLOGIC: The patient was sedated. LABORATORY DATA: Labs were reviewed. White count was not elevated. He did have on the differential decreased lymphocyte count. Arterial blood gas yesterday after intubation, pH 7.44, PaCO2 of 36, pO2 of 121. Electrolytes were noted. Total bilirubin was elevated. Lactic acid was 1.6. Troponin was elevated. Troponin maximum was 2.39. BNP was elevated. Procalcitonin was 0.86. Albumin was low. Chest x-ray, as indicated above. IMPRESSION: 1. Acute respiratory failure, multifactorial. 2. Acute respiratory distress syndrome. 3. COVID-19 suspect. 4. Bilateral infiltrates compatible with pneumonia, gram-negative, possibly gram-positive, possibly viral. 5. Toxic metabolic encephalopathy. 6. Chronic anemia. 7. Elevated troponin. 8. Elevated total bilirubin. 9. Severe protein malnutrition, present upon admission. 10. Recent pacemaker defibrillator placement. DISCUSSION: As indicated above, the patient presents with comorbidities and high suspect for COVID, complex medical decision making. 1. We will proceed with current mechanical ventilation and make adjustments on minute ventilation to normalize pH. 2. Maintain tidal volumes at 4-5 mL/kg. 3. Broad spectrum antibiotics, we will add Zithromax. 4. Continue hydroxychloroquine. 5. Monitor EKG for prolongation of QT interval. 6. If the patient deteriorates, we will consider tocilizumab. We will monitor fibrinogen and Ddimer levels for signs of ongoing inflammatory response. 7. DVT and GI prophylaxis. 8. Nutritional support with tube feeding. Total cumulative critical care time of 65 minutes reviewing data, labs, chest x-ray, making adjustments on mechanical ventilation, and discussing case with Dr. Licea and Dr. Guthrie. ISABELL BARCLAY MD DR: GREER/chris JOB#: [id number] / [id number]
[2019-06-20] MEDS: AZITHROMYCIN 250 MG in IV NORMAL SALINE 250ML 250 ML IV SCH (10:35)
--- NOTE | 2019-06-20 11:34 | PDOC2 ---
CONSULT Date of Consult Date of Consult DATE: 06/20/19 TIME: 11:27 Reason for Consult Reason for Consult: Heart failure, AICD Referring Physician Referring Physician: Dr. Guthrie Identification/Chief Complaint Chief Complaint Decreased level of consciousness Source Source: Chart review History of Present Illness Reason for Visit: The patient is a 74-year-old male who was initially brought to the emergency room from his [place] [facility] for decreased mental status. Patient has progressively deteriorated since admission and required intubation yesterday for respiratory failure. Initial troponin was 2.369 but has decreased to 1.8. BNP is elevated at 3527. Patient is being treated for possible coded 19 infection and remains on a ventilator today. He has a baseline history of hypertension, hyperlipidemia and COPD. We have been able to find some old records. He apparently is usually treated at [facility] where he received a rep lacement of ICD on 06/16/19. He carries a diagnosis of a nonischemic cardiomyopathy with an ejection fraction of 35-40% as well as chronic kidney disease and dementia. Past Medical History Cardiovascular: CHF, HTN, Hyperlipidemia, Other (ventricular tachycardia) Pulmonary: COPD CENTRAL NERVOUS SYSTEM: Dementia Musculoskeletal: Osteoarthritis Past Surgical History Past Surgical History: Other (ICD placement with recent replacement as above.) Family History Family History: High Cholestrol, Hypertension Social History Quit ALCOHOL: none Drugs: None Current Problem List Problem List Problems Medical Problems: (1) Altered mental status Status: Acute (2) Elevated brain natriuretic peptide (BNP) level Status: Acute (3) Elevated troponin Status: Acute (4) Suspected COVID-19 virus infection Status: Acute Current Medications Current Medications Current Medications Piperacillin Sod/ Tazobactam Sod 4.5 gm/Sodium Chloride 100 ml @ 200 mls/hr 1X ONCE IV Last administered on 06/19/19at 16:50; Start 06/19/19 at 16:00; Stop 06/19/19 at 16:29; Status DC Vancomycin HCl 1.25 gm/Sodium Chloride 250 ml @ 166.667 mls/hr 1X ONCE IV Last administered on 06/19/19at 16:51; Start 06/19/19 at 16:00; Stop 06/19/19 at 17:29; Status DC Hydroxychloroquine Sulfate (Plaquenil) 400 mg BID PO ; Start 06/19/19 at 21:00; Status UNV Enoxaparin Sodium (Lovenox 80mg Syringe) 75 mg 1X ONCE SQ Last administered on 06/19/19at 16:51; Start 06/19/19 at 16:30; Stop 06/19/19 at 16:31; Status DC Furosemide (Lasix) 40 mg 1X ONCE IVP Last administered on 06/19/19at 16:51; Start 06/19/19 at 17:00; Stop 06/19/19 at 17:01; Status DC Sodium Chloride (Normal Saline Flush) 3 ml QSHIFT PRN IV AFTER MEDS AND BLOOD DRAWS; Start 06/19/19 at 17:45 Sodium Chloride 1,000 ml @ 65 mls/hr [id number] IV Last administered on 06/20/19at 07:59; Start 06/19/19 at 17:31 Acetaminophen (Tylenol) 650 mg PRN Q4HRS PRN PO TEMP OVER 100.4F OR MILD PAIN; Start 06/19/19 at 17:45 Acetaminophen (Tylenol Supp) 650 mg PRN Q4HRS PRN ID TEMP OVER 100.4F OR MILD PAIN; Start 06/19/19 at 17:45 Clonidine HCl (Catapres) 0.1 mg PRN Q6HRS PRN PO SBP>160 OR DBP>90; Start 06/19/19 at 17:45 Sodium Monofluorophosphate (Fleet Adult) 133 ml PRN DAILY PRN ID CONSTIPATION; Start 06/19/19 at 17:45 Docusate Sodium (Colace) 100 mg PRN BID PRN PO CONSTIPATION; Start 06/19/19 at 17:45 Albuterol/ Ipratropium (Duoneb) 3 ml Q4HRS W/A NEB ; Start 06/19/19 at 18:00 Guaifenesin (Robitussin) 200 mg PRN Q4HRS PRN PO COUGH; Start 06/19/19 at 17:45 Enoxaparin Sodium (Lovenox 40mg Syringe) 40 mg Q24H SQ ; Start 06/19/19 at 18:00; Status UNV Vancomycin HCl (Vanco Per Pharmacy) 1 each PRN DAILY PRN MC SEE COMMENTS Last administered on 06/19/19at 19:13; Start 06/19/19 at 17:45 Piperacillin Sod/ Tazobactam Sod 3.375 gm/Sodium Chloride 50 ml @ 100 mls/hr Q 6HRS IV ; Start 06/19/19 at 18:00; Status Cancel Enoxaparin Sodium (Lovenox Per Pharmacy Treatment Dosing) 1 each PRN DAILY PRN MC SEE COMMENTS; Start 06/19/19 at 17:45 Piperacillin Sod/ Tazobactam Sod 3.375 gm/Sodium Chloride 50 ml @ 100 mls/hr Q6HRS IV Last administered on 06/20/19at 06:18; Start 06/20/19 at 00:00 Enoxaparin Sodium (Lovenox 80mg Syringe) 70 mg Q12HR SQ Last administered on 06/20/19at 08:00; Start 06/20/19 at 09:00 Vancomycin HCl 1 gm/Sodium Chloride 250 ml @ 250 mls/hr Q12H IV Last a dministered on 06/20/19at 06:42; Start 06/20/19 at 05:00 Vancomycin HCl (Vancomycin Trough Level) 1 each 1X ONCE MC ; Start 06/21/19 at 04:30; Stop 06/21/19 at 04:31 Hydroxychloroquine Sulfate (Plaquenil) 400 mg 1X ONCE PO Last administered on 06/20/19at 00:07; Start 06/19/19 at 20:00; Stop 06/19/19 at 20:01; Status DC Propofol 100 ml @ As Directed STK-MED ONCE IV ; Start 06/19/19 at 20:33; Stop 06/19/19 at 20:34; Status DC Fentanyl Citrate 30 ml @ 0 mls/hr CONT PRN IV SEE PROTOCOL Last administered on 06/19/19at 22:22; Start 06/19/19 at 21:15 Propofol 100 ml @ 0 mls/hr CONT PRN IV SEE PROTOCOL; Start 06/19/19 at 21:15 Fentanyl Citrate (Fentanyl 2ml Vial) 25 mcg PRN Q1HR PRN IV SEE COMMENTS; Start 06/19/19 at 21:15 Fentanyl Citrate (Fentanyl 2ml Vial) 50 mcg PRN Q1HR PRN IV SEE COMMENTS; Start 06/19/19 at 21:15 Chlorhexidine Gluconate (Peridex) 15 ml BID MM Last administered on 06/20/19at 08:00; Start 06/20/19 at 09:00 Morphine Sulfate (Morphine Sulfate) 2 mg PRN Q1HR PRN IV SEE COMMENTS.; Start 06/19/19 at 21:15 Morphine Sulfate (Morphine Sulfate) 4 mg PRN Q1HR PRN IV SEE COMMENTS.; Start 06/19/19 at 21:15 Midazolam HCl 50 mg/Sodium Chloride 50 ml @ 0 mls/hr CONT PRN IV SEE PROTOCOL Last administered on 06/20/19at 01:38; Start 06/19/19 at 21:15; Stop 06/20/19 at 07:27; Status DC Midazolam HCl 100 mg/Sodium Chloride 100 ml @ 6 mls/hr CONT PRN IV SEE PROTOCOL Last administered on 06/20/19at 08:00; Start 06/20/19 at 07:30 Hydroxychloroquine Sulfate (Plaquenil) 200 mg BID PO ; Start 06/20/19 at 21:00; Stop 06/24/19 at 09:01 Azithromycin 250 mg/Sodium Chloride 250 ml @ 250 mls/hr Q24H IV Last administered on 06/20/19at 10:35; Start 06/20/19 at 10:00 Hydroxychloroquine Sulfate (Plaquenil) 400 mg 1X ONCE PO Last administered on 06/20/19at 10:35; Start 06/20/19 at 09:30; Stop 06/20/19 at 09:44; Status DC Active Scripts Active Reported Mexiletine Hcl 250 Mg Capsule 450 Mg PO BID Metoprolol Tartrate 100 Mg Tablet 1 Tab PO DAILY Children's Aspirin (Aspirin) 81 Mg Tab.chew 81 Mg PO DAILY Amiodarone Hcl 200 Mg Tablet 1 Tab PO DAILY Allergies Allergies: Coded Allergies: egg (Verified Allergy, Intermediate, Nausea and Vomiting, 06/19/19) ROS Review of System Not obtainable Vitals VITALS Vital Signs Date Time Temp Pulse Resp B/P (MAP) Pulse Ox O2 Delivery O2 Flow Rate FiO2 06/20/19 10:00 90 20 103/61 (75) 96 Ventilator 06/20/19 08:00 99.1 99.1 06/19/19 20:30 4.0 Labs Labs Laboratory Tests Test 06/19/19 14:12 06/19/19 14:30 06/19/19 19:09 06/19/19 19:40 White Blood Count 5.2 x10^3/uL (4.0-11.0) Red Blood Count 4.26 x10^6/uL (4.30-5.70) Hemoglobin 12.8 g/dL (13.0-17.5) Hematocrit 39.2 % (39.0-53.0) Mean Corpuscular Volume 92 fL (79-100) Mean Corpuscular Hemoglobin 30 pg (25-35) Mean Corpuscular Hemoglobin Concent 33 g/dL (31-37) Red Cell Distribution Width 16.9 % (11.5-14.5) Platelet Count 268 x10^3/uL (140-400) Neutrophils (%) (Auto) 79 % (31-73) Lymphocytes (%) (Auto) 13 % (24-48) Monocytes (%) (Auto) 8 % (0-9) Eosinophils (%) (Auto) 0 % (0-3) Basophils (%) (Auto) 0 % (0-3) Neutrophils # (Auto) 4.1 x10^3/uL (1.8-7.7) Lymphocytes # (Auto) 0.7 x10^3/uL (1.0-4.8) Monocytes # (Auto) 0.4 x10^3/uL (0.0-1.1) Eosinophils # (Auto) 0.0 x10^3/uL (0.0-0.7) Basophils # (Auto) 0.0 x10^3/uL (0.0-0.2) Sodium Level 140 mmol/L (136-145) Potassium Level 3.9 mmol/L (3.5-5.1) Chloride Level 105 mmol/L (98-107) Carbon Dioxide Level 27 mmol/L (21-32) Anion Gap 8 (6-14) Blood Urea Nitrogen 13 mg/dL (8-26) Creatinine 1.0 mg/dL (0.7-1.3) Estimated GFR (Cockcroft-Gault) 88.1 BUN/Creatinine Ratio 13 (6-20) Glucose Level 102 mg/dL (70-99) Lactic Acid Level 1.6 mmol/L (0.4-2.0) Calcium Level 8.6 mg/dL (8.5-10.1) Total Bilirubin 0.9 mg/dL (0.2-1.0) Aspartate Amino Transf (AST/SGOT) 86 U/L (15-37) Alanine Aminotransferase (ALT/SGPT) 58 U/L (16-63) Alkaline Phosphatase 68 U/L (46-116) Troponin I Quantitative 2.518 ng/mL (0.000-0.055) 2.369 ng/mL (0.000-0.055) XC-Caq-C-Type Natriuretic Peptide 3527 pg/mL (0-449) Total Protein 6.6 g/dL (6.4-8.2) Albumin 1.7 g/dL (3.4-5.0) Albumin/Globulin Ratio 0.3 (1.0-1.7) Urine Collection Type Unknown Urine Color [place] Urine Clarity Clear Urine pH 6.0 (<5.0-8.0) Urine Specific [place] 1.025 (1.000-1.030) Urine Protein 30 mg/dL (NEG-TRACE) Urine Glucose (UA) Negative mg/dL (NEG) Urine Ketones (Stick) Negative mg/dL (NEG) Urine Blood Negative (NEG) Urine Nitrite Negative (NEG) Urine Bilirubin Small (NEG) Urine Urobilinogen Dipstick 2.0 mg/dL (0.2 mg/dL) Urine Leukocyte Esterase Negative (NEG) Urine RBC 3-5 /HPF (0-2) Urine WBC 1-4 /HPF (0-4) Urine Squamous Epithelial Cells Few /LPF Urine Transitional Epithelial Cells Few /LPF Urine Amorphous Sediment Present /HPF Urine Bacteria 0 /HPF (0-FEW) Urine Mucus Marked /LPF O2 Saturation 83 % (92-99) Arterial Blood pH 7.48 (7.35-7.45) Arterial Blood pCO2 at Patient Temp 33 mmHg (35-46) Arterial Blood pO2 at Patient Temp 45 mmHg (65-108) Arterial Blood HCO3 24 mmol/L (21-28) Arterial Blood Base Excess 2 mmol/L (-3-3) FiO2 32 Test 06/19/19 21:05 06/20/19 05:00 06/20/19 08:00 O2 Saturation 98 % (92-99) 94 % (92-99) Arterial Blood pH 7.44 (7.35-7.45) 7.44 (7.35-7.45) Arterial Blood pCO2 at Patient Temp 36 mmHg (35-46) 38 mmHg (35-46) Arterial Blood pO2 at Patient Temp 121 mmHg (65-108) 69 mmHg (65-108) Arterial Blood HCO3 24 mmol/L (21-28) 26 mmol/L (21-28) Arterial Blood Base Excess 0 mmol/L (-3-3) 2 mmol/L (-3-3) Oxyhemoglobin 97.0 % Methemoglobin 0.7 % (0.0-1.9) Carbon Monoxide, Quantitative 0.3 % (0.0-1.9) FiO2 100 60%+5 White Blood Count 6.2 x10^3/uL (4.0-11.0) Red Blood Count 4.06 x10^6/uL (4.30-5.70) Hemoglobin 12.1 g/dL (13.0-17.5) Hematocrit 37.4 % (39.0-53.0) Mean Corpuscular Volume 92 fL (79-100) Mean Corpuscular Hemoglobin 30 pg (25-35) Mean Corpuscular Hemoglobin Concent 33 g/dL (31-37) Red Cell Distribution Width 16.9 % (11.5-14.5) Platelet Count 263 x10^3/uL (140-400) Neutrophils (%) (Auto) 84 % (31-73) Lymphocytes (%) (Auto) 9 % (24-48) Monocytes (%) (Auto) 5 % (0-9) Eosinophils (%) (Auto) 1 % (0-3) Basophils (%) (Auto) 1 % (0-3) Neutrophils # (Auto) 5.2 x10^3/uL (1.8-7.7) Lymphocytes # (Auto) 0.6 x10^3/uL (1.0-4.8) Monocytes # (Auto) 0.3 x10^3/uL (0.0-1.1) Eosinophils # (Auto) 0.0 x10^3/uL (0.0-0.7) Basophils # (Auto) 0.0 x10^3/uL (0.0-0.2) Sodium Level 141 mmol/L (136-145) Potassium Level 3.6 mmol/L (3.5-5.1) Chloride Level 106 mmol/L (98-107) Carbon Dioxide Level 26 mmol/L (21-32) Anion Gap 9 (6-14) Blood Urea Nitrogen 14 mg/dL (8-26) Creatinine 1.0 mg/dL (0.7-1.3) Estimated GFR (Cockcroft-Gault) 88.1 BUN/Creatinine Ratio 14 (6-20) Glucose Level 95 mg/dL (70-99) Calcium Level 7.9 mg/dL (8.5-10.1) Total Bilirubin 1.5 mg/dL (0.2-1.0) Aspartate Amino Transf (AST/SGOT) 71 U/L (15-37) Alanine Aminotransferase (ALT/SGPT) 57 U/L (16-63) Alkaline Phosphatase 70 U/L (46-116) Troponin I Quantitative 1.815 ng/mL (0.000-0.055) Total Protein 5.5 g/dL (6.4-8.2) Albumin 1.6 g/dL (3.4-5.0) Albumin/Globulin Ratio 0.4 (1.0-1.7) Procalcitonin 0.86 ng/mL (0.00-0.10) Laboratory Tests Test 06/19/19 14:12 06/19/19 14:30 06/19/19 19:09 06/19/19 19:40 White Blood Count 5.2 x10^3/uL (4.0-11.0) Red Blood Count 4.26 x10^6/uL (4.30-5.70) Hemoglobin 12.8 g/dL (13.0-17.5) Hematocrit 39.2 % (39.0-53.0) Mean Corpuscular Volume 92 fL (79-100) Mean Corpuscular Hemoglobin 30 pg (25-35) Mean Corpuscular Hemoglobin Concent 33 g/dL (31-37) Red Cell Distribution Width 16.9 % (11.5-14.5) Platelet Count 268 x10^3/uL (140-400) Neutrophils (%) (Auto) 79 % (31-73) Lymphocytes (%) (Auto) 13 % (24-48) Monocytes (%) (Auto) 8 % (0-9) Eosinophils (%) (Auto) 0 % (0-3) Basophils (%) (Auto) 0 % (0-3) Neutrophils # (Auto) 4.1 x10^3/uL (1.8-7.7) Lymphocytes # (Auto) 0.7 x10^3/uL (1.0-4.8) Monocytes # (Auto) 0.4 x10^3/uL (0.0-1.1) Eosinophils # (Auto) 0.0 x10^3/uL (0.0-0.7) Basophils # (Auto) 0.0 x10^3/uL (0.0-0.2) Sodium Level 140 mmol/L (136-145) Potassium Level 3.9 mmol/L (3.5-5.1) Chloride Level 105 mmol/L (98-107) Carbon Dioxide Level 27 mmol/L (21-32) Anion Gap 8 (6-14) Blood Urea Nitrogen 13 mg/dL (8-26) Creatinine 1.0 mg/dL (0.7-1.3) Estimated GFR (Cockcroft-Gault) 88.1 BUN/Creatinine Ratio 13 (6-20) Glucose Level 102 mg/dL (70-99) Lactic Acid Level 1.6 mmol/L (0.4-2.0) Calcium Level 8.6 mg/dL (8.5-10.1) Total Bilirubin 0.9 mg/dL (0.2-1.0) Aspartate Amino Transf (AST/SGOT) 86 U/L (15-37) Alanine Aminotransferase (ALT/SGPT) 58 U/L (16-63) Alkaline Phosphatase 68 U/L (46-116) Troponin I Quantitative 2.518 ng/mL (0.000-0.055) 2.369 ng/mL (0.000-0.055) CT-Lky-R-Type Natriuretic Peptide 3527 pg/mL (0-449) Total Protein 6.6 g/dL (6.4-8.2) Albumin 1.7 g/dL (3.4-5.0) Albumin/Globulin Ratio 0.3 (1.0-1.7) Urine Collection Type Unknown Urine Color [place] Urine Clarity Clear Urine pH 6.0 (<5.0-8.0) Urine Specific [place] 1.025 (1.000-1.030) Urine Protein 30 mg/dL (NEG-TRACE) Urine Glucose (UA) Negative mg/dL (NEG) Urine Ketones (Stick) Negative mg/dL (NEG) Urine Blood Negative (NEG) Urine Nitrite Negative (NEG) Urine Bilirubin Small (NEG) Urine Urobilinogen Dipstick 2.0 mg/dL (0.2 mg/dL) Urine Leukocyte Esterase Negative (NEG) Urine RBC 3-5 /HPF (0-2) Urine WBC 1-4 /HPF (0-4) Urine Squamous Epithelial Cells Few /LPF Urine Transitional Epithelial Cells Few /LPF Urine Amorphous Sediment Present /HPF Urine Bacteria 0 /HPF (0-FEW) Urine Mucus Marked /LPF O2 Saturation 83 % (92-99) Arterial Blood pH 7.48 (7.35-7.45) Arterial Blood pCO2 at Patient Temp 33 mmHg (35-46) Arterial Blood pO2 at Patient Temp 45 mmHg (65-108) Arterial Blood HCO3 24 mmol/L (21-28) Arterial Blood Base Excess 2 mmol/L (-3-3) FiO2 32 Test 06/19/19 21:05 06/20/19 05:00 06/20/19 08:00 O2 Saturation 98 % (92-99) 94 % (92-99) Arterial Blood pH 7.44 (7.35-7.45) 7.44 (7.35-7.45) Arterial Blood pCO2 at Patient Temp 36 mmHg (35-46) 38 mmHg (35-46) Arterial Blood pO2 at Patient Temp 121 mmHg (65-108) 69 mmHg (65-108) Arterial Blood HCO3 24 mmol/L (21-28) 26 mmol/L (21-28) Arterial Blood Base Excess 0 mmol/L (-3-3) 2 mmol/L (-3-3) Oxyhemoglobin 97.0 % Methemoglobin 0.7 % (0.0-1.9) Carbon Monoxide, Quantitative 0.3 % (0.0-1.9) FiO2 100 60%+5 White Blood Count 6.2 x10^3/uL (4.0-11.0) Red Blood Count 4.06 x10^6/uL (4.30-5.70) Hemoglobin 12.1 g/dL (13.0-17.5) Hematocrit 37.4 % (39.0-53.0) Mean Corpuscular Volume 92 fL (79-100) Mean Corpuscular Hemoglobin 30 pg (25-35) Mean Corpuscular Hemoglobin Concent 33 g/dL (31-37) Red Cell Distribution Width 16.9 % (11.5-14.5) Platelet Count 263 x10^3/uL (140-400) Neutrophils (%) (Auto) 84 % (31-73) Lymphocytes (%) (Auto) 9 % (24-48) Monocytes (%) (Auto) 5 % (0-9) Eosinophils (%) (Auto) 1 % (0-3) Basophils (%) (Auto) 1 % (0-3) Neutrophils # (Auto) 5.2 x10^3/uL (1.8-7.7) Lymphocytes # (Auto) 0.6 x10^3/uL (1.0-4.8) Monocytes # (Auto) 0.3 x10^3/uL (0.0-1.1) Eosinophils # (Auto) 0.0 x10^3/uL (0.0-0.7) Basophils # (Auto) 0.0 x10^3/uL (0.0-0.2) Sodium Level 141 mmol/L (136-145) Potassium Level 3.6 mmol/L (3.5-5.1) Chloride Level 106 mmol/L (98-107) Carbon Dioxide Level 26 mmol/L (21-32) Anion Gap 9 (6-14) Blood Urea Nitrogen 14 mg/dL (8-26) Creatinine 1.0 mg/dL (0.7-1.3) Estimated GFR (Cockcroft-Gault) 88.1 BUN/Creatinine Ratio 14 (6-20) Glucose Level 95 mg/dL (70-99) Calcium Level 7.9 mg/dL (8.5-10.1) Total Bilirubin 1.5 mg/dL (0.2-1.0) Aspartate Amino Transf (AST/SGOT) 71 U/L (15-37) Alanine Aminotransferase (ALT/SGPT) 57 U/L (16-63) Alkaline Phosphatase 70 U/L (46-116) Troponin I Quantitative 1.815 ng/mL (0.000-0.055) Total Protein 5.5 g/dL (6.4-8.2) Albumin 1.6 g/dL (3.4-5.0) Albumin/Globulin Ratio 0.4 (1.0-1.7) Procalcitonin 0.86 ng/mL (0.00-0.10) Images Images CT head scan shows no acute changes. It does show several chronic infarcts bilaterally. Chest x-ray shows patchy bilateral airspace disease. Assessment/Plan Assessment/Plan 1. Respiratory failure. Patient has been intubated. He is continuing on pulmonary treatments. He is a possible Covid 19 patient. From a cardiac viewpoint is ejection fraction is moderately decreased at 35-40%. We continue treatments and will consider mild diuresis as tolerated. 2. Nonischemic cardiomyopathy as per research Hospital Notes. Continue present treatments. Mild diuresis if tolerated. 3. AICD in place. 4. Hypertension. Continue present treatments and monitor. 5. Hyperlipidemia. 6. Minimally elevated troponin at 2.3 on admission which is now decreased to 1.8. We'll continue present medical treatment and monitor. Thank you for allowing us to participate in the care of your patient. JENY DE PAZ MD Jun 20, 2019 11:34
[2019-06-20] MEDS ORDERED: ACETAMINOPHEN 650 MG/20.3 ML SOLUTION. PEG PRN (12:30)
[2019-06-20 13:16] LABS: INFLUENZA A PATIENT NEGATIVE (NEGATIVE); INFLUENZA B PATIENT NEGATIVE (NEGATIVE)
--- NOTE | 2019-06-20 13:40 | PDOC ---
[facility] [facility] PROGRESS NOTE Chief Complaint Chief Complaint Respiratory failure requiring intubation and mechanical ventilation 1. Patchy bilateral airspace disease, noncardiogenic edema versus atypical infection. POSSIBLE Viral pneumonitis ? covid-19 2. ACUTE HYPOXIC RESP FAILURE 3. ACUTE NSTEMI 4. No acute intracranial abnormality. 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 chronic right frontal infarcts. foci of decreased attenuation within the hemispheric white matter, most often due to chronic microvascular ischemia. Mild to moderate brain parenchymal volume loss. 6. acute metabolic encephalopathy 7. severe protein-caloric malnutrition History of Present Illness History of Present Illness [id number] Patient seen in the ICU Currently mechanically ventilated with assist control/20/400/60% Sedated with fentanyl and Versed and propofol Discussed with RN Chart reviewed Vitals/I&O Vitals/I&O: Vital Signs Date Time Temp Pulse Resp B/P (MAP) Pulse Ox O2 Delivery O2 Flow Rate FiO2 06/20/19 13:00 92 20 95/65 (75) 99 Ventilator 06/20/19 12:00 101.5 101.5 06/19/19 20:30 4.0 I & O 06/19/19 06/19/19 06/20/19 15:00 23:00 07:00 Intake Total 100 ml 637 ml Output Total 200 ml 695 ml Balance -100 ml -58 ml Physical Exam General: Other (sedated and intubated) Heart: Regular rate Abdomen: Normal bowel sounds, Soft Extremities: No cyanosis Skin: No rashes, No breakdown Labs Labs: Laboratory Tests Test 06/19/19 14:12 06/19/19 14:30 06/19/19 19:09 06/19/19 19:40 White Blood Count 5.2 x10^3/uL (4.0-11.0) Red Blood Count 4.26 x10^6/uL (4.30-5.70) Hemoglobin 12.8 g/dL (13.0-17.5) Hematocrit 39.2 % (39.0-53.0) Mean Corpuscular Volume 92 fL (79-100) Mean Corpuscular Hemoglobin 30 pg (25-35) Mean Corpuscular Hemoglobin Concent 33 g/dL (31-37) Red Cell Distribution Width 16.9 % (11.5-14.5) Platelet Count 268 x10^3/uL (140-400) Neutrophils (%) (Auto) 79 % (31-73) Lymphocytes (%) (Auto) 13 % (24-48) Monocytes (%) (Auto) 8 % (0-9) Eosinophils (%) (Auto) 0 % (0-3) Basophils (%) (Auto) 0 % (0-3) Neutrophils # (Auto) 4.1 x10^3/uL (1.8-7.7) Lymphocytes # (Auto) 0.7 x10^3/uL (1.0-4.8) Monocytes # (Auto) 0.4 x10^3/uL (0.0-1.1) Eosinophils # (Auto) 0.0 x10^3/uL (0.0-0.7) Basophils # (Auto) 0.0 x10^3/uL (0.0-0.2) Sodium Level 140 mmol/L (136-145) Potassium Level 3.9 mmol/L (3.5-5.1) Chloride Level 105 mmol/L (98-107) Carbon Dioxide Level 27 mmol/L (21-32) Anion Gap 8 (6-14) Blood Urea Nitrogen 13 mg/dL (8-26) Creatinine 1.0 mg/dL (0.7-1.3) Estimated GFR (Cockcroft-Gault) 88.1 BUN/Creatinine Ratio 13 (6-20) Glucose Level 102 mg/dL (70-99) Lactic Acid Level 1.6 mmol/L (0.4-2.0) Calcium Level 8.6 mg/dL (8.5-10.1) Total Bilirubin 0.9 mg/dL (0.2-1.0) Aspartate Amino Transf (AST/SGOT) 86 U/L (15-37) Alanine Aminotransferase (ALT/SGPT) 58 U/L (16-63) Alkaline Phosphatase 68 U/L (46-116) Troponin I Quantitative 2.518 ng/mL (0.000-0.055) 2.369 ng/mL (0.000-0.055) HH-Lsf-Q-Type Natriuretic Peptide 3527 pg/mL (0-449) Total Protein 6.6 g/dL (6.4-8.2) Albumin 1.7 g/dL (3.4-5.0) Albumin/Globulin Ratio 0.3 (1.0-1.7) Urine Collection Type Unknown Urine Color [place] Urine Clarity Clear Urine pH 6.0 (<5.0-8.0) Urine Specific [place] 1.025 (1.000-1.030) Urine Protein 30 mg/dL (NEG-TRACE) Urine Glucose (UA) Negative mg/dL (NEG) Urine Ketones (Stick) Negative mg/dL (NEG) Urine Blood Negative (NEG) Urine Nitrite Negative (NEG) Urine Bilirubin Small (NEG) Urine Urobilinogen Dipstick 2.0 mg/dL (0.2 mg/dL) Urine Leukocyte Esterase Negative (NEG) Urine RBC 3-5 /HPF (0-2) Urine WBC 1-4 /HPF (0-4) Urine Squamous Epithelial Cells Few /LPF Urine Transitional Epithelial Cells Few /LPF Urine Amorphous Sediment Present /HPF Urine Bacteria 0 /HPF (0-FEW) Urine Mucus Marked /LPF O2 Saturation 83 % (92-99) Arterial Blood pH 7.48 (7.35-7.45) Arterial Blood pCO2 at Patient Temp 33 mmHg (35-46) Arterial Blood pO2 at Patient Temp 45 mmHg (65-108) Arterial Blood HCO3 24 mmol/L (21-28) Arterial Blood Base Excess 2 mmol/L (-3-3) FiO2 32 Test 06/19/19 21:05 06/20/19 05:00 06/20/19 08:00 06/20/19 12:15 O2 Saturation 98 % (92-99) 94 % (92-99) Arterial Blood pH 7.44 (7.35-7.45) 7.44 (7.35-7.45) Arterial Blood pCO2 at Patient Temp 36 mmHg (35-46) 38 mmHg (35-46) Arterial Blood pO2 at Patient Temp 121 mmHg (65-108) 69 mmHg (65-108) Arterial Blood HCO3 24 mmol/L (21-28) 26 mmol/L (21-28) Arterial Blood Base Excess 0 mmol/L (-3-3) 2 mmol/L (-3-3) Oxyhemoglobin 97.0 % Methemoglobin 0.7 % (0.0-1.9) Carbon Monoxide, Quantitative 0.3 % (0.0-1.9) FiO2 100 60%+5 White Blood Count 6.2 x10^3/uL (4.0-11.0) Red Blood Count 4.06 x10^6/uL (4.30-5.70) Hemoglobin 12.1 g/dL (13.0-17.5) Hematocrit 37.4 % (39.0-53.0) Mean Corpuscular Volume 92 fL (79-100) Mean Corpuscular Hemoglobin 30 pg (25-35) Mean Corpuscular Hemoglobin Concent 33 g/dL (31-37) Red Cell Distribution Width 16.9 % (11.5-14.5) Platelet Count 263 x10^3/uL (140-400) Neutrophils (%) (Auto) 84 % (31-73) Lymphocytes (%) (Auto) 9 % (24-48) Monocytes (%) (Auto) 5 % (0-9) Eosinophils (%) (Auto) 1 % (0-3) Basophils (%) (Auto) 1 % (0-3) Neutrophils # (Auto) 5.2 x10^3/uL (1.8-7.7) Lymphocytes # (Auto) 0.6 x10^3/uL (1.0-4.8) Monocytes # (Auto) 0.3 x10^3/uL (0.0-1.1) Eosinophils # (Auto) 0.0 x10^3/uL (0.0-0.7) Basophils # (Auto) 0.0 x10^3/uL (0.0-0.2) Sodium Level 141 mmol/L (136-145) Potassium Level 3.6 mmol/L (3.5-5.1) Chloride Level 106 mmol/L (98-107) Carbon Dioxide Level 26 mmol/L (21-32) Anion Gap 9 (6-14) Blood Urea Nitrogen 14 mg/dL (8-26) Creatinine 1.0 mg/dL (0.7-1.3) Estimated GFR (Cockcroft-Gault) 88.1 BUN/Creatinine Ratio 14 (6-20) Glucose Level 95 mg/dL (70-99) Calcium Level 7.9 mg/dL (8.5-10.1) Total Bilirubin 1.5 mg/dL (0.2-1.0) Aspartate Amino Transf (AST/SGOT) 71 U/L (15-37) Alanine Aminotransferase (ALT/SGPT) 57 U/L (16-63) Alkaline Phosphatase 70 U/L (46-116) Troponin I Quantitative 1.815 ng/mL (0.000-0.055) Total Protein 5.5 g/dL (6.4-8.2) Albumin 1.6 g/dL (3.4-5.0) Albumin/Globulin Ratio 0.4 (1.0-1.7) Procalcitonin 0.86 ng/mL (0.00-0.10) Influenza Type A Antigen Negative (NEGATIVE) Influenza Type B Antigen Negative (NEGATIVE) Assessment and Plan Assessmemt and Plan Problems Medical Problems: (1) Altered mental status Status: Acute (2) Elevated brain natriuretic peptide (BNP) level Status: Acute (3) Elevated troponin Status: Acute (4) Suspected COVID-19 virus infection Status: Acute 1. Patchy bilateral airspace disease, noncardiogenic edema versus atypical infection. POSSIBLE Viral pneumonitis ? covid-19 2. ACUTE HYPOXIC RESP FAILURE 3. ACUTE NSTEMI 4. No acute intracranial abnormality. 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 chronic right frontal infarcts. foci of decreased attenuation within the hemispheric white matter, most often due to chronic microvascular ischemia. Mild to moderate brain parenchymal volume loss. 6. acute metabolic encephalopathy 7. severe protein-caloric malnutrition Plan ICU monitoring Vent weaning IV antibiotics Cardiology and pulmonary consultations O2 SUPPORT neurology consult covid 19 ag, cvc bed lovenox 75 mg sq bid emperic iv antibiotics Home meds He is critically ill Total time 32 minutes Comment Review of Relevant I have reviewed the following items abdelrahman (where applicable) has been applied. Medications: Current Medications Medications (Trade) Dose Ordered Sig/Evon Route PRN Reason Start Time Stop Time Status Last Admin Dose Admin Piperacillin Sod/ Tazobactam Sod 4.5 gm/Sodium Chloride 100 ml @ 200 mls/hr 1X ONCE IV 06/19/19 16:00 06/19/19 16:29 DC 06/19/19 16:50 Vancomycin HCl 1.25 gm/Sodium Chloride 250 ml @ 166.667 mls/hr 1X ONCE IV 06/19/19 16:00 06/19/19 17:29 DC 06/19/19 16:51 Enoxaparin Sodium (Lovenox 80mg Syringe) 75 mg 1X ONCE SQ 06/19/19 16:30 06/19/19 16:31 DC 06/19/19 16:51 Furosemide (Lasix) 40 mg 1X ONCE IVP 06/19/19 17:00 06/19/19 17:01 DC 06/19/19 16:51 Sodium Chloride 1,000 ml @ 65 mls/hr [id number] IV 06/19/19 17:31 06/20/19 07:59 Vancomycin HCl (Vanco Per Pharmacy) 1 each PRN DAILY PRN MC SEE COMMENTS 06/19/19 17:45 06/19/19 19:13 Piperacillin Sod/ Tazobactam Sod 3.375 gm/Sodium Chloride 50 ml @ 100 mls/hr Q6HRS IV 06/20/19 00:00 06/20/19 12:01 Enoxaparin Sodium (Lovenox 80mg Syringe) 70 mg Q12HR SQ 06/20/19 09:00 06/20/19 08:00 Vancomycin HCl 1 gm/Sodium Chloride 250 ml @ 250 mls/hr Q12H IV 06/20/19 05:00 06/20/19 06:42 Hydroxychloroquine Sulfate (Plaquenil) 400 mg 1X ONCE PO 06/19/19 20:00 06/19/19 20:01 DC 06/20/19 00:07 Fentanyl Citrate 30 ml @ 0 mls/hr CONT PRN IV SEE PROTOCOL 06/19/19 21:15 06/20/19 11:58 Chlorhexidine Gluconate (Peridex) 15 ml BID MM 06/20/19 09:00 06/20/19 08:00 Midazolam HCl 50 mg/Sodium Chloride 50 ml @ 0 mls/hr CONT PRN IV SEE PROTOCOL 06/19/19 21:15 06/20/19 07:27 DC 06/20/19 01:38 Midazolam HCl 100 mg/Sodium Chloride 100 ml @ 6 mls/hr CONT PRN IV SEE PROTOCOL 06/20/19 07:30 06/20/19 08:00 Azithromycin 250 mg/Sodium Chloride 250 ml @ 250 mls/hr Q24H IV 06/20/19 10:00 06/20/19 10:35 Hydroxychloroquine Sulfate (Plaquenil) 400 mg 1X ONCE PO 06/20/19 09:30 06/20/19 09:44 DC 06/20/19 10:35 YESSICA EUGENE III DO Jun 20, 2019 13:40
[2019-06-20] MEDS ORDERED: ANTI-COAG MONITOR BY PHARMACY. MC PRN (14:30)
[2019-06-20] MEDS: VANCOMYCIN PER PHARMACY MC PRN (14:45)
--- NOTE | 2019-06-20 15:09 | PDOC2 ---
NEUROLOGY CONSULT Date of Admission Date of Admission DATE: 06/20/19 TIME: 14:55 Reason for Consult Reason for Consult: IMPRESSION: Hypoxic encephalopathy. Metabolic encephalopathy. Respiratory failure. Elevated T 99.9 degree. Multifocal pulmonary consolidation. Shock, BP 67/46 mmHg. CHF. Cardiomyopathy. COPD. HTN. HLD. OA. RECOMMENDATIONS/PLAN: Life support in ICU at the present time. Treat medical diseases. Lab: see orders. Poor prognosis. History of Present Illness This is a 74-year-old AA male patient with PMH of hypertension, hyperlipidemia and COPD and other medical diseases was initially brought to the emergency room from his [facility] for decreased mental status. Patient has progressively deteriorated since admission and required intubation due to respiratory failure. His 02 dropped to 45%. Initial troponin was 2.369 but has decreased to 1.8. BNP is elevated at 3527. He was treated at [facility] where he received a replacement of ICD on 06/16/19. He carries a diagnosis of a nonischemic cardiomyopathy with an ejection fraction of 35-40% as well as chronic kidney disease and dementia. Past Medical History Cardiovascular: CHF, HTN, Hyperlipidemia, Other (ventricular tachycardia) Pulmonary: COPD CENTRAL NERVOUS SYSTEM: Dementia Musculoskeletal: Osteoarthritis Past Surgical History ICD placement with recent replacement. Family History High Cholestrol, Hypertension Social History Quit ALCOHOL: none Drugs: None Allergies Coded Allergies: Egg (Verified Allergy, Intermediate, Nausea and Vomiting, 06/19/19) MEDICATIONS: Refer to MAR REVIEW OF SYSTEMS: Constitutional: No malnutrition, weight loss, cachexia. Head: No traumatic brain or head injury. Skin: No edema, or rash. Ear: No infection. Eyes: No vision loss or color blindness. Nose: No bleeding or purulent discharges. Hearing: Hearing decrease. Neck: No injury. Cardiac: CHF, cardiomyopathy, ICD Placement, HTN, HLD. Pulmonary: COPD. GI: No GI ulcer, GI bleeding. Urinary/genital: UTI. Endocrinologic: No cousin face, craniofacial dysmorphism, polydactyly. Skeletomuscular: OA. Neurological: see HP. Psychiatric: Denies drug use/abuse. Otherwise, not [id number] review of systems. PHYSICAL EXAMINATION: General appearance is in subacute distress. HEENT: Normocephalic and nontraumatic. Eyes, nose, ears, and throat are unremarkable. Neck is supple. No lymphadenopathy. Cardiovascular: S1, S2. Pulmonary: On vent.. Abdomen: Bowel sounds are weak. Extremities: No rash, lesions. NEUROLOGICAL EXAMINATION: On vent. Unresponsive. Not oriented to time, place and person. Pupils about 1.5 mm, insensitive to light stimuli. EOMI not able to elicited. CN: no focal findings. Muscle tone: Decreased. Muscle strength: No movements to pain stimuli. DTR: 0-1 Plantar reflex: No response bilaterally Gait: not able to walk. Sensory exam: no response to stimuli. Not able to access cerebellar signs. F-T-N test not performed in unresponsive state. Current Medications Current Medications Current Medications Piperacillin Sod/ Tazobactam Sod 4.5 gm/Sodium Chloride 100 ml @ 200 mls/hr 1X ONCE IV Last administered on 06/19/19at 16:50; Start 06/19/19 at 16:00; Stop 06/19/19 at 16:29; Status DC Vancomycin HCl 1.25 gm/Sodium Chloride 250 ml @ 166.667 mls/hr 1X ONCE IV Last administered on 06/19/19at 16:51; Start 06/19/19 at 16:00; Stop 06/19/19 at 17:29; Status DC Hydroxychloroquine Sulfate (Plaquenil) 400 mg BID PO ; Start 06/19/19 at 21:00; Status UNV Enoxaparin Sodium (Lovenox 80mg Syringe) 75 mg 1X ONCE SQ Last administered on 06/19/19at 16:51; Start 06/19/19 at 16:30; Stop 06/19/19 at 16:31; Status DC Furosemide (Lasix) 40 mg 1X ONCE IVP Last administered on 06/19/19at 16:51; Start 06/19/19 at 17:00; Stop 06/19/19 at 17:01; Status DC Sodium Chloride (Normal Saline Flush) 3 ml QSHIFT PRN IV AFTER MEDS AND BLOOD DRAWS; Start 06/19/19 at 17:45 Sodium Chloride 1,000 ml @ 65 mls/hr [id number] IV Last administered on 06/20/19at 07:59; Start 06/19/19 at 17:31 Acetaminophen (Tylenol) 650 mg PRN Q4HRS PRN PO TEMP OVER 100.4F OR MILD PAIN; Start 06/19/19 at 17:45 Acetaminophen (Tylenol Supp) 650 mg PRN Q4HRS PRN DE TEMP OVER 100.4F OR MILD PAIN; Start 06/19/19 at 17:45 Clonidine HCl (Catapres) 0.1 mg PRN Q6HRS PRN PO SBP>160 OR DBP>90; Start 06/19/19 at 17:45 Sodium Monofluorophosphate (Fleet Adult) 133 ml PRN DAILY PRN DE CONSTIPATION; Start 06/19/19 at 17:45 Docusate Sodium (Colace) 100 mg PRN BID PRN PO CONSTIPATION; Start 06/19/19 at 17:45 Albuterol/ Ipratropium (Duoneb) 3 ml Q4HRS W/A NEB ; Start 06/19/19 at 18:00 Guaifenesin (Robitussin) 200 mg PRN Q4HRS PRN PO COUGH; Start 06/19/19 at 17:45 Enoxaparin Sodium (Lovenox 40mg Syringe) 40 mg Q24H SQ ; Start 06/19/19 at 18:00; Status UNV Vancomycin HCl (Vanco Per Pharmacy) 1 each PRN DAILY PRN MC SEE COMMENTS Last administered on 06/20/19at 14:45; Start 06/19/19 at 17:45 Piperacillin Sod/ Tazobactam Sod 3.375 gm/Sodium Chloride 50 ml @ 100 mls/hr Q6HRS IV ; Start 06/19/19 at 18:00; Status Cancel Enoxaparin Sodium (Lovenox Per Pharmacy Treatment Dosing) 1 each PRN DAILY PRN MC SEE COMMENTS; Start 06/19/19 at 17:45 Piperacillin Sod/ Tazobactam Sod 3.375 gm/Sodium Chloride 50 ml @ 100 mls/hr Q6HRS IV Last administered on 06/20/19at 12:01; Start 06/20/19 at 00:00 Enoxaparin Sodium (Lovenox 80mg Syringe) 70 mg Q12HR SQ Last administered on 06/20/19at 08:00; Start 06/20/19 at 09:00 Vancomycin HCl 1 gm/Sodium Chloride 250 ml @ 250 mls/hr Q12H IV Last administered on 06/20/19at 06:42; Start 06/20/19 at 05:00 Vancomycin HCl (Vancomycin Trough Level) 1 each 1X ONCE MC ; Start 06/21/19 at 04:30; Stop 06/21/19 at 04:31 Hydroxychloroquine Sulfate (Plaquenil) 400 mg 1X ONCE PO Last administered on 06/20/19at 00:07; Start 06/19/19 at 20:00; Stop 06/19/19 at 20:01; Status DC Propofol 100 ml @ As Directed STK-MED ONCE IV ; Start 06/19/19 at 20:33; Stop 06/19/19 at 20:34; Status DC Fentanyl Citrate 30 ml @ 0 mls/hr CONT PRN IV SEE PROTOCOL Last administered on 06/20/19at 11:58; Start 06/19/19 at 21:15 Propofol 100 ml @ 0 mls/hr CONT PRN IV SEE PROTOCOL; Start 06/19/19 at 21:15 Fentanyl Citrate (Fentanyl 2ml Vial) 25 mcg PRN Q1HR PRN IV SEE COMMENTS; Start 06/19/19 at 21:15 Fentanyl Citrate (Fentanyl 2ml Vial) 50 mcg PRN Q1HR PRN IV SEE COMMENTS; Start 06/19/19 at 21:15 Chlorhexidine Gluconate (Peridex) 15 ml BID MM Last administered on 06/20/19at 08:00; Start 06/20/19 at 09:00 Morphine Sulfate (Morphine Sulfate) 2 mg PRN Q1HR PRN IV SEE COMMENTS.; Start 06/19/19 at 21:15 Morphine Sulfate (Morphine Sulfate) 4 mg PRN Q1HR PRN IV SEE COMMENTS.; Start 06/19/19 at 21:15 Midazolam HCl 50 mg/Sodium Chloride 50 ml @ 0 mls/hr CONT PRN IV SEE PROTOCOL Last administered on 06/20/19at 01:38; Start 06/19/19 at 21:15; Stop 06/20/19 at 07:27; Status DC Midazolam HCl 100 mg/Sodium Chloride 100 ml @ 6 mls/hr CONT PRN IV SEE PROTOCOL Last administered on 06/20/19at 08:00; Start 06/20/19 at 07:30 Hydroxychloroquine Sulfate (Plaquenil) 200 mg BID PO ; Start 06/20/19 at 21:00; Stop 06/24/19 at 09:01 Azithromycin 250 mg/Sodium Chloride 250 ml @ 250 mls/hr Q24H IV Last administered on 06/20/19at 10:35; Start 3/29/20 at 10:00 Hydroxychloroquine Sulfate (Plaquenil) 400 mg 1X ONCE PO Last administered on 06/20/19at 10:35; Start 06/20/19 at 09:30; Stop 06/20/19 at 09:44; Status DC Acetaminophen (Tylenol) 650 mg PRN Q6HRS PRN PEG MILD PAIN / TEMP; Start 06/20/19 at 12:30 Info (Anti-Coagulation Monitoring By Pharmacy) 1 each PRN DAILY PRN MC SEE COMMENTS; Start 06/20/19 at 14:30 Active Scripts Active Reported Mexiletine Hcl 250 Mg Capsule 450 Mg PO BID Metoprolol Tartrate 100 Mg Tablet 1 Tab PO DAILY Children's Aspirin (Aspirin) 81 Mg Tab.chew 81 Mg PO DAILY Amiodarone Hcl 200 Mg Tablet 1 Tab PO DAILY Allergies Allergies: Allergies Coded Allergies Type Severity Reaction Last Updated Verified egg Allergy Intermediate Nausea and Vomiting 06/19/19 Yes ROS Review of System The patient denies any associated fevers, chills, headache, ear pain, rhinorrhea, sore throat, stiff neck, productive cough, chest pain, shortness of breath, back or flank pain, abdominal pain, nausea, vomiting, diarrhea, constipation, dysuria, rash, numbness, weakness, tingling, incontinence, difficulty ambulating, or diaphoresis. Physical Exam Physical Exam General: Well developed, well nourished, no acute distress, well appearing HEENT: Pupils equally round and reactive to light, EOMI, no discharge, normal conjunctiva Neck: Supple, no nuchal rigidity, no JVD, trachea midline, no tenderness Cardiac: RRR, no murmurs, no gallops, no rubs Chest/Lungs: CTAB, no wheeze, no rhonchi, no crackles Abdomen: soft, non-distended, no guarding, no peritoneal signs, non-tender Back: No tenderness Extremities: no edema, pulses intact, non-tender,capillary refill <3 sec bilateral upper and lower extremities, Neuro: Alert and oriented x 4, no focal deficits, normal speech Vitals Vitals: Vital Signs Date Time Temp Pulse Resp B/P (MAP) Pulse Ox O2 Delivery O2 Flow Rate FiO2 06/20/19 14:00 93 20 105/69 (81) 99 Ventilator 06/20/19 12:00 101.5 101.5 06/19/19 20:30 4.0 Labs Labs Laboratory Tests Test 06/19/19 14:12 06/19/19 14:30 06/19/19 19:09 06/19/19 19:40 White Blood Count 5.2 x10^3/uL (4.0-11.0) Red Blood Count 4.26 x10^6/uL (4.30-5.70) Hemoglobin 12.8 g/dL (13.0-17.5) Hematocrit 39.2 % (39.0-53.0) Mean Corpuscular Volume 92 fL (79-100) Mean Corpuscular Hemoglobin 30 pg (25-35) Mean Corpuscular Hemoglobin Concent 33 g/dL (31-37) Red Cell Distribution Width 16.9 % (11.5-14.5) Platelet Count 268 x10^3/uL (140-400) Neutrophils (%) (Auto) 79 % (31-73) Lymphocytes (%) (Auto) 13 % (24-48) Monocytes (%) (Auto) 8 % (0-9) Eosinophils (%) (Auto) 0 % (0-3) Basophils (%) (Auto) 0 % (0-3) Neutrophils # (Auto) 4.1 x10^3/uL (1.8-7.7) Lymphocytes # (Auto) 0.7 x10^3/uL (1.0-4.8) Monocytes # (Auto) 0.4 x10^3/uL (0.0-1.1) Eosinophils # (Auto) 0.0 x10^3/uL (0.0-0.7) Basophils # (Auto) 0.0 x10^3/uL (0.0-0.2) Sodium Level 140 mmol/L (136-145) Potassium Level 3.9 mmol/L (3.5-5.1) Chloride Level 105 mmol/L (98-107) Carbon Dioxide Level 27 mmol/L (21-32) Anion Gap 8 (6-14) Blood Urea Nitrogen 13 mg/dL (8-26) Creatinine 1.0 mg/dL (0.7-1.3) Estimated GFR (Cockcroft-Gault) 88.1 BUN/Creatinine Ratio 13 (6-20) Glucose Level 102 mg/dL (70-99) Lactic Acid Level 1.6 mmol/L (0.4-2.0) Calcium Level 8.6 mg/dL (8.5-10.1) Total Bilirubin 0.9 mg/dL (0.2-1.0) Aspartate Amino Transf (AST/SGOT) 86 U/L (15-37) Alanine Aminotransferase (ALT/SGPT) 58 U/L (16-63) Alkaline Phosphatase 68 U/L (46-116) Troponin I Quantitative 2.518 ng/mL (0.000-0.055) 2.369 ng/mL (0.000-0.055) GS-Hio-N-Type Natriuretic Peptide 3527 pg/mL (0-449) Total Protein 6.6 g/dL (6.4-8.2) Albumin 1.7 g/dL (3.4-5.0) Albumin/Globulin Ratio 0.3 (1.0-1.7) Urine Collection Type Unknown Urine Color [place]ár[place] Urine Clarity Clear Urine pH 6.0 (<5.0-8.0) Urine Specific [place] 1.025 (1.000-1.030) Urine Protein 30 mg/dL (NEG-TRACE) Urine Glucose (UA) Negative mg/dL (NEG) Urine Ketones (Stick) Negative mg/dL (NEG) Urine Blood Negative (NEG) Urine Nitrite Negative (NEG) Urine Bilirubin Small (NEG) Urine Urobilinogen Dipstick 2.0 mg/dL (0.2 mg/dL) Urine Leukocyte Esterase Negative (NEG) Urine RBC 3-5 /HPF (0-2) Urine WBC 1-4 /HPF (0-4) Urine Squamous Epithelial Cells Few /LPF Urine Transitional Epithelial Cells Few /LPF Urine Amorphous Sediment Present /HPF Urine Bacteria 0 /HPF (0-FEW) Urine Mucus Marked /LPF O2 Saturation 83 % (92-99) Arterial Blood pH 7.48 (7.35-7.45) Arterial Blood pCO2 at Patient Temp 33 mmHg (35-46) Arterial Blood pO2 at Patient Temp 45 mmHg (65-108) Arterial Blood HCO3 24 mmol/L (21-28) Arterial Blood Base Excess 2 mmol/L (-3-3) FiO2 32 Test 06/19/19 21:05 06/20/19 05:00 06/20/19 08:00 06/20/19 12:15 O2 Saturation 98 % (92-99) 94 % (92-99) Arterial Blood pH 7.44 (7.35-7.45) 7.44 (7.35-7.45) Arterial Blood pCO2 at Patient Temp 36 mmHg (35-46) 38 mmHg (35-46) Arterial Blood pO2 at Patient Temp 121 mmHg (65-108) 69 mmHg (65-108) Arterial Blood HCO3 24 mmol/L (21-28) 26 mmol/L (21-28) Arterial Blood Base Excess 0 mmol/L (-3-3) 2 mmol/L (-3-3) Oxyhemoglobin 97.0 % Methemoglobin 0.7 % (0.0-1.9) Carbon Monoxide, Quantitative 0.3 % (0.0-1.9) FiO2 100 60%+5 White Blood Count 6.2 x10^3/uL (4.0-11.0) Red Blood Count 4.06 x10^6/uL (4.30-5.70) Hemoglobin 12.1 g/dL (13.0-17.5) Hematocrit 37.4 % (39.0-53.0) Mean Corpuscular Volume 92 fL (79-100) Mean Corpuscular Hemoglobin 30 pg (25-35) Mean Corpuscular Hemoglobin Concent 33 g/dL (31-37) Red Cell Distribution Width 16.9 % (11.5-14.5) Platelet Count 263 x10^3/uL (140-400) Neutrophils (%) (Auto) 84 % (31-73) Lymphocytes (%) (Auto) 9 % (24-48) Monocytes (%) (Auto) 5 % (0-9) Eosinophils (%) (Auto) 1 % (0-3) Basophils (%) (Auto) 1 % (0-3) Neutrophils # (Auto) 5.2 x10^3/uL (1.8-7.7) Lymphocytes # (Auto) 0.6 x10^3/uL (1.0-4.8) Monocytes # (Auto) 0.3 x10^3/uL (0.0-1.1) Eosinophils # (Auto) 0.0 x10^3/uL (0.0-0.7) Basophils # (Auto) 0.0 x10^3/uL (0.0-0.2) Sodium Level 141 mmol/L (136-145) Potassium Level 3.6 mmol/L (3.5-5.1) Chloride Level 106 mmol/L (98-107) Carbon Dioxide Level 26 mmol/L (21-32) Anion Gap 9 (6-14) Blood Urea Nitrogen 14 mg/dL (8-26) Creatinine 1.0 mg/dL (0.7-1.3) Estimated GFR (Cockcroft-Gault) 88.1 BUN/Creatinine Ratio 14 (6-20) Glucose Level 95 mg/dL (70-99) Calcium Level 7.9 mg/dL (8.5-10.1) Total Bilirubin 1.5 mg/dL (0.2-1.0) Aspartate Amino Transf (AST/SGOT) 71 U/L (15-37) Alanine Aminotransferase (ALT/SGPT) 57 U/L (16-63) Alkaline Phosphatase 70 U/L (46-116) Troponin I Quantitative 1.815 ng/mL (0.000-0.055) Total Protein 5.5 g/dL (6.4-8.2) Albumin 1.6 g/dL (3.4-5.0) Albumin/Globulin Ratio 0.4 (1.0-1.7) Procalcitonin 0.86 ng/mL (0.00-0.10) Influenza Type A Antigen Negative (NEGATIVE) Influenza Type B Antigen Negative (NEGATIVE) Laboratory Tests Test 06/19/19 19:09 06/19/19 19:40 06/19/19 21:05 06/20/19 05:00 O2 Saturation 83 % (92-99) 98 % (92-99) Arterial Blood pH 7.48 (7.35-7.45) 7.44 (7.35-7.45) Arterial Blood pCO2 at Patient Temp 33 mmHg (35-46) 36 mmHg (35-46) Arterial Blood pO2 at Patient Temp 45 mmHg (65-108) 121 mmHg (65-108) Arterial Blood HCO3 24 mmol/L (21-28) 24 mmol/L (21-28) Arterial Blood Base Excess 2 mmol/L (-3-3) 0 mmol/L (-3-3) FiO2 32 100 Troponin I Quantitative 2.369 ng/mL (0.000-0.055) 1.815 ng/mL (0.000-0.055) Oxyhemoglobin 97.0 % Methemoglobin 0.7 % (0.0-1.9) Carbon Monoxide, Quantitative 0.3 % (0.0-1.9) White Blood Count 6.2 x10^3/uL (4.0-11.0) Red Blood Count 4.06 x10^6/uL (4.30-5.70) Hemoglobin 12.1 g/dL (13.0-17.5) Hematocrit 37.4 % (39.0-53.0) Mean Corpuscular Volume 92 fL (79-100) Mean Corpuscular Hemoglobin 30 pg (25-35) Mean Corpuscular Hemoglobin Concent 33 g/dL (31-37) Red Cell Distribution Width 16.9 % (11.5-14.5) Platelet Count 263 x10^3/uL (140-400) Neutrophils (%) (Auto) 84 % (31-73) Lymphocytes (%) (Auto) 9 % (24-48) Monocytes (%) (Auto) 5 % (0-9) Eosinophils (%) (Auto) 1 % (0-3) Basophils (%) (Auto) 1 % (0-3) Neutrophils # (Auto) 5.2 x10^3/uL (1.8-7.7) Lymphocytes # (Auto) 0.6 x10^3/uL (1.0-4.8) Monocytes # (Auto) 0.3 x10^3/uL (0.0-1.1) Eosinophils # (Auto) 0.0 x10^3/uL (0.0-0.7) Basophils # (Auto) 0.0 x10^3/uL (0.0-0.2) Sodium Level 141 mmol/L (136-145) Potassium Level 3.6 mmol/L (3.5-5.1) Chloride Level 106 mmol/L (98-107) Carbon Dioxide Level 26 mmol/L (21-32) Anion Gap 9 (6-14) Blood Urea Nitrogen 14 mg/dL (8-26) Creatinine 1.0 mg/dL (0.7-1.3) Estimated GFR (Cockcroft-Gault) 88.1 BUN/Creatinine Ratio 14 (6-20) Glucose Level 95 mg/dL (70-99) Calcium Level 7.9 mg/dL (8.5-10.1) Total Bilirubin 1.5 mg/dL (0.2-1.0) Aspartate Amino Transf (AST/SGOT) 71 U/L (15-37) Alanine Aminotransferase (ALT/SGPT) 57 U/L (16-63) Alkaline Phosphatase 70 U/L (46-116) Total Protein 5.5 g/dL (6.4-8.2) Albumin 1.6 g/dL (3.4-5.0) Albumin/Globulin Ratio 0.4 (1.0-1.7) Procalcitonin 0.86 ng/mL (0.00-0.10) Test 06/20/19 08:00 06/20/19 12:15 O2 Saturation 94 % (92-99) Arterial Blood pH 7.44 (7.35-7.45) Arterial Blood pCO2 at Patient Temp 38 mmHg (35-46) Arterial Blood pO2 at Patient Temp 69 mmHg (65-108) Arterial Blood HCO3 26 mmol/L (21-28) Arterial Blood Base Excess 2 mmol/L (-3-3) FiO2 60%+5 Influenza Type A Antigen Negative (NEGATIVE) Influenza Type B Antigen Negative (NEGATIVE) CINDY CANNON MD Jun 20, 2019 15:09
[2019-06-20] MEDS ORDERED: IPRATRPIUM/ALBUTEROL 0.5/2.5MG 3 ML NEBU. NEB PRN (17:15)
[2019-06-20] MEDS: HYDROXYCHLOROQUINE 200 MG TABLET PO SCH (22:08)
[2019-06-21] VITALS (23 sets, daily range): BP systolic 92–147; BP diastolic 52–90
[2019-06-21] MEDS: IV NORMAL SALINE 1000ML BAG 1,000 ML IV SCH ×2 (00:33→22:04)
[2019-06-21 05:03] LABS: CREATININE 0.9 mg/dL (0.7-1.3); GFR 99.5
[2019-06-21] MEDS: VANCOMYCIN PER PHARMACY MC PRN (05:45)
[2019-06-21] MEDS: PIPERACILLIN/TAZOBACTAM 3.375 GM in IV NORMAL SALINE 50ML 50 ML IV SCH ×4 (05:52→23:38)
[2019-06-21] MEDS: VANCOMYCIN 1.25 GM in IV NORMAL SALINE 250ML 250 ML IV SCH ×2 (06:09→17:23)
--- NOTE | 2019-06-21 08:28 | PDOC ---
PULMONARY PROGRESS NOTES Subjective Patient sedated, assist control ventilation. 50% FiO2 5 PEEP Vitals Vital Signs Date Time Temp Pulse Resp B/P (MAP) Pulse Ox O2 Delivery O2 Flow Rate FiO2 06/21/19 06:12 22 100 Ventilator 06/20/19 18:00 88 112/72 (85) 06/20/19 16:00 100.6 100.6 Cardiovascular: S1, S2 Abdomen: Soft Extremities: No Edema Skin: Warm Labs Laboratory Tests Test 06/19/19 14:12 06/19/19 14:30 06/19/19 19:09 06/19/19 19:40 White Blood Count 5.2 x10^3/uL (4.0-11.0) Red Blood Count 4.26 x10^6/uL (4.30-5.70) Hemoglobin 12.8 g/dL (13.0-17.5) Hematocrit 39.2 % (39.0-53.0) Mean Corpuscular Volume 92 fL (79-100) Mean Corpuscular Hemoglobin 30 pg (25-35) Mean Corpuscular Hemoglobin Concent 33 g/dL (31-37) Red Cell Distribution Width 16.9 % (11.5-14.5) Platelet Count 268 x10^3/uL (140-400) Neutrophils (%) (Auto) 79 % (31-73) Lymphocytes (%) (Auto) 13 % (24-48) Monocytes (%) (Auto) 8 % (0-9) Eosinophils (%) (Auto) 0 % (0-3) Basophils (%) (Auto) 0 % (0-3) Neutrophils # (Auto) 4.1 x10^3/uL (1.8-7.7) Lymphocytes # (Auto) 0.7 x10^3/uL (1.0-4.8) Monocytes # (Auto) 0.4 x10^3/uL (0.0-1.1) Eosinophils # (Auto) 0.0 x10^3/uL (0.0-0.7) Basophils # (Auto) 0.0 x10^3/uL (0.0-0.2) Sodium Level 140 mmol/L (136-145) Potassium Level 3.9 mmol/L (3.5-5.1) Chloride Level 105 mmol/L (98-107) Carbon Dioxide Level 27 mmol/L (21-32) Anion Gap 8 (6-14) Blood Urea Nitrogen 13 mg/dL (8-26) Creatinine 1.0 mg/dL (0.7-1.3) Estimated GFR (Cockcroft-Gault) 88.1 BUN/Creatinine Ratio 13 (6-20) Glucose Level 102 mg/dL (70-99) Lactic Acid Level 1.6 mmol/L (0.4-2.0) Calcium Level 8.6 mg/dL (8.5-10.1) Total Bilirubin 0.9 mg/dL (0.2-1.0) Aspartate Amino Transf (AST/SGOT) 86 U/L (15-37) Alanine Aminotransferase (ALT/SGPT) 58 U/L (16-63) Alkaline Phosphatase 68 U/L (46-116) Troponin I Quantitative 2.518 ng/mL (0.000-0.055) 2.369 ng/mL (0.000-0.055) OV-Ekm-[id number]-Type Natriuretic Peptide 3527 pg/mL (0-449) Total Protein 6.6 g/dL (6.4-8.2) Albumin 1.7 g/dL (3.4-5.0) Albumin/Globulin Ratio 0.3 (1.0-1.7) Urine Collection Type Unknown Urine Color [place]ár[place] Urine Clarity Clear Urine pH 6.0 (<5.0-8.0) Urine Specific [place] 1.025 (1.000-1.030) Urine Protein 30 mg/dL (NEG-TRACE) Urine Glucose (UA) Negative mg/dL (NEG) Urine Ketones (Stick) Negative mg/dL (NEG) Urine Blood Negative (NEG) Urine Nitrite Negative (NEG) Urine Bilirubin Small (NEG) Urine Urobilinogen Dipstick 2.0 mg/dL (0.2 mg/dL) Urine Leukocyte Esterase Negative (NEG) Urine RBC 3-5 /HPF (0-2) Urine WBC 1-4 /HPF (0-4) Urine Squamous Epithelial Cells Few /LPF Urine Transitional Epithelial Cells Few /LPF Urine Amorphous Sediment Present /HPF Urine Bacteria 0 /HPF (0-FEW) Urine Mucus Marked /LPF O2 Saturation 83 % (92-99) Arterial Blood pH 7.48 (7.35-7.45) Arterial Blood pCO2 at Patient Temp 33 mmHg (35-46) Arterial Blood pO2 at Patient Temp 45 mmHg (65-108) Arterial Blood HCO3 24 mmol/L (21-28) Arterial Blood Base Excess 2 mmol/L (-3-3) FiO2 32 Test 06/19/19 21:05 06/20/19 05:00 06/20/19 08:00 06/20/19 12:15 O2 Saturation 98 % (92-99) 94 % (92-99) Arterial Blood pH 7.44 (7.35-7.45) 7.44 (7.35-7.45) Arterial Blood pCO2 at Patient Temp 36 mmHg (35-46) 38 mmHg (35-46) Arterial Blood pO2 at Patient Temp 121 mmHg (65-108) 69 mmHg (65-108) Arterial Blood HCO3 24 mmol/L (21-28) 26 mmol/L (21-28) Arterial Blood Base Excess 0 mmol/L (-3-3) 2 mmol/L (-3-3) Oxyhemoglobin 97.0 % Methemoglobin 0.7 % (0.0-1.9) Carbon Monoxide, Quantitative 0.3 % (0.0-1.9) FiO2 100 60%+5 White Blood Count 6.2 x10^3/uL (4.0-11.0) Red Blood Count 4.06 x10^6/uL (4.30-5.70) Hemoglobin 12.1 g/dL (13.0-17.5) Hematocrit 37.4 % (39.0-53.0) Mean Corpuscular Volume 92 fL (79-100) Mean Corpuscular Hemoglobin 30 pg (25-35) Mean Corpuscular Hemoglobin Concent 33 g/dL (31-37) Red Cell Distribution Width 16.9 % (11.5-14.5) Platelet Count 263 x10^3/uL (140-400) Neutrophils (%) (Auto) 84 % (31-73) Lymphocytes (%) (Auto) 9 % (24-48) Monocytes (%) (Auto) 5 % (0-9) Eosinophils (%) (Auto) 1 % (0-3) Basophils (%) (Auto) 1 % (0-3) Neutrophils # (Auto) 5.2 x10^3/uL (1.8-7.7) Lymphocytes # (Auto) 0.6 x10^3/uL (1.0-4.8) Monocytes # (Auto) 0.3 x10^3/uL (0.0-1.1) Eosinophils # (Auto) 0.0 x10^3/uL (0.0-0.7) Basophils # (Auto) 0.0 x10^3/uL (0.0-0.2) Sodium Level 141 mmol/L (136-145) Potassium Level 3.6 mmol/L (3.5-5.1) Chloride Level 106 mmol/L (98-107) Carbon Dioxide Level 26 mmol/L (21-32) Anion Gap 9 (6-14) Blood Urea Nitrogen 14 mg/dL (8-26) Creatinine 1.0 mg/dL (0.7-1.3) Estimated GFR (Cockcroft-Gault) 88.1 BUN/Creatinine Ratio 14 (6-20) Glucose Level 95 mg/dL (70-99) Calcium Level 7.9 mg/dL (8.5-10.1) Total Bilirubin 1.5 mg/dL (0.2-1.0) Aspartate Amino Transf (AST/SGOT) 71 U/L (15-37) Alanine Aminotransferase (ALT/SGPT) 57 U/L (16-63) Alkaline Phosphatase 70 U/L (46-116) Troponin I Quantitative 1.815 ng/mL (0.000-0.055) Total Protein 5.5 g/dL (6.4-8.2) Albumin 1.6 g/dL (3.4-5.0) Albumin/Globulin Ratio 0.4 (1.0-1.7) Procalcitonin 0.86 ng/mL (0.00-0.10) Influenza Type A Antigen Negative (NEGATIVE) Influenza Type B Antigen Negative (NEGATIVE) Test 06/21/19 04:30 Creatinine 0.9 mg/dL (0.7-1.3) Estimated GFR (Cockcroft-Gault) 99.5 Vancomycin Level Trough 12.0 mcg/mL (10.0-20.0) Vancomycin Last Dose Date 06/20/19 Vancomycin Last Dose Time 1700 Laboratory Tests Test 06/20/19 12:15 06/21/19 04:30 Influenza Type A Antigen Negative (NEGATIVE) Influenza Type B Antigen Negative (NEGATIVE) Creatinine 0.9 mg/dL (0.7-1.3) Estimated GFR (Cockcroft-Gault) 99.5 Vancomycin Level Trough 12.0 mcg/mL (10.0-20.0) Vancomycin Last Dose Date 06/20/19 Vancomycin Last Dose Time 1700 Medications Active Scripts Medications Dose Route/Sig Max Daily Dose Days Date Category Mexiletine Hcl 250 Mg Capsule 450 Mg PO BID 06/20/19 Reported Metoprolol Tartrate 100 Mg Tablet 1 Tab PO DAILY 06/20/19 Reported Children's Aspirin (Aspirin) 81 Mg Tab.chew 81 Mg PO DAILY 06/20/19 Reported Amiodarone Hcl 200 Mg Tablet 1 Tab PO DAILY 06/20/19 Reported Impression . IMPRESSION: 1. Acute respiratory failure, multifactorial. 2. Acute respiratory distress syndrome. 3. COVID-19 suspect. 4. Bilateral infiltrates compatible with pneumonia, gram-negative, possibly gram-positive, possibly viral. 5. Toxic metabolic encephalopathy. 6. Chronic anemia. 7. Elevated troponin. 8. Elevated total bilirubin. 9. Severe protein malnutrition, present upon admission. 10. Recent pacemaker defibrillator placement. Labs reviewed white count 5.2 Arterial blood gas PO2 of 55 on 50% Plan . Increase PEEP to 7 Continue assist control ventilation maintain tidal volumes of 4 to 5 cc/kg Continue Zithromax broad-spectrum antibiotics Nutritional support start tube feeding DVT GI prophylaxis Spoke with RN, RT, Dr. Pizarro Total cumulative critical care time of 35 minutes reviewing data, labs, adjusting mechanical ventilation, reviewing x-ray ISABELL BARCLAY MD Jun 21, 2019 08:28
[2019-06-21] MEDS: ENOXAPARIN 40 MG/0.4 ML SYRINGE. SQ SCH (09:26)
[2019-06-21] MEDS: CHLORHEXIDINE 0.12% 15 ML MOUTHWASH. MM SCH ×2 (09:26→22:04)
[2019-06-21] MEDS: HYDROXYCHLOROQUINE 200 MG TABLET PO SCH ×2 (09:27→22:05)
[2019-06-21] MEDS: AZITHROMYCIN 250 MG in IV NORMAL SALINE 250ML 250 ML IV SCH (09:27)
[2019-06-21 09:53] LABS: BASE EXCESS ABG 1 mmol/L (-3-3); HCO3 ABG 26 mmol/L (21-28); PCO2 ABG 41 mmHg (35-46); PO2 ABG 55 mmHg (65-108); SAT O2 ABG 89 % (92-99)
[2019-06-21 10:19] LABS: FIO2 ABG 50
--- NOTE | 2019-06-21 10:46 | EKG ---
[facility] [address] [place] [address] Test Date: 2019-06-19 Test Time: 14:16:35 Pat Name: SOTO GREGG Department: Room: 105 1 Gender: M [employer] [facility] Representative: : [id number] Requested By: JACOB LAWSON Order Number: [id number] Reading MD: Satnam Crockett MD Measurements Intervals [place] Rate: 89 P: 24 CT: 178 QRS: -35 QRSD: 116 T: 87 QT: 400 QTc: 494 Interpretive Statements SINUS RHYTHM NON-SPECIFIC ST/T CHANGES LAD Electronically Signed On 06-21-2019 11:59:32 CDT by Satnam Crockett MD
--- NOTE | 2019-06-21 11:41 | PDOC ---
[employer] PROGRESS NOTE Chief Complaint Chief Complaint Respiratory failure requiring intubation and mechanical ventilation 1. Patchy bilateral airspace disease, noncardiogenic edema versus atypical infection. POSSIBLE Viral pneumonitis ? covid-19 2. ACUTE HYPOXIC RESP FAILURE 3. ACUTE NSTEMI 4. No acute intracranial abnormality. 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 chronic right frontal infarcts. foci of decreased attenuation within the hemispheric white matter, most often due to chronic microvascular ischemia. Mild to moderate brain parenchymal volume loss. 6. acute metabolic encephalopathy 7. severe protein-caloric malnutrition History of Present Illness History of Present Illness [id number] Patient seen and examined in the ICU He is intubated and sedated with fentanyl and Versed Chart reviewed Discussed with RN He is critically ill Covid testing is still pending [id number] Patient seen in the ICU Currently mechanically ventilated with assist control/20/400/60% Sedated with fentanyl and Versed and propofol Discussed with RN Chart reviewed Vitals/I&O Vitals/I&O: Vital Signs Date Time Temp Pulse Resp B/P (MAP) Pulse Ox O2 Delivery O2 Flow Rate FiO2 06/21/19 11:00 93 26 103/60 (74) 99 Ventilator 06/21/19 09:00 98.2 98.2 I & O 06/20/19 06/20/19 06/21/19 15:00 23:00 07:00 Intake Total 1104 ml 1014 ml Output Total 380 ml 160 ml 250 ml Balance -380 ml 944 ml 764 ml Physical Exam General: Other (sedated and intubated) Heart: Regular rate Abdomen: Normal bowel sounds, Soft Extremities: No cyanosis Skin: No rashes, No breakdown Labs Labs: Laboratory Tests Test 06/20/19 12:15 06/21/19 04:30 06/21/19 08:30 Influenza Type A Antigen Negative (NEGATIVE) Influenza Type B Antigen Negative (NEGATIVE) Creatinine 0.9 mg/dL (0.7-1.3) Estimated GFR (Cockcroft-Gault) 99.5 Vancomycin Level Trough 12.0 mcg/mL (10.0-20.0) Vancomycin Last Dose Date 06/20/19 Vancomycin Last Dose Time 1700 O2 Saturation 89 % (92-99) Arterial Blood pH 7.41 (7.35-7.45) Arterial Blood pCO2 at Patient Temp 41 mmHg (35-46) Arterial Blood pO2 at Patient Temp 55 mmHg (65-108) Arterial Blood HCO3 26 mmol/L (21-28) Arterial Blood Base Excess 1 mmol/L (-3-3) FiO2 50 Review of Systems Review of Systems: Unable to obtain Assessment and Plan Assessmemt and Plan Problems Medical Problems: (1) Altered mental status Status: Acute (2) Elevated brain natriuretic peptide (BNP) level Status: Acute (3) Elevated troponin Status: Acute (4) Suspected COVID-19 virus infection Status: Acute 1. Patchy bilateral airspace disease, noncardiogenic edema versus atypical infection. POSSIBLE Viral pneumonitis ? covid-19 2. ACUTE HYPOXIC RESP FAILURE 3. ACUTE NSTEMI 4. No acute intracranial abnormality. 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 chronic right frontal infarcts. foci of decreased attenuation within the hemispheric white matter, most often due to chronic microvascular ischemia. Mild to moderate brain parenchymal volume loss. 6. acute metabolic encephalopathy 7. severe protein-caloric malnutrition Plan ICU monitoring Vent weaning IV antibiotics Cardiology and pulmonary consultations O2 SUPPORT neurology consult covid 19 ag lovenox 75 mg sq bid Home meds He is still very critically ill Total time 31 minutes Comment Review of Relevant I have reviewed the following items abdelrahman (where applicable) has been applied. Medications: Current Medications Medications (Trade) Dose Ordered Sig/Evon Route PRN Reason Start Time Stop Time Status Last Admin Dose Admin Vancomycin HCl (Vancomycin Trough Level) 1 each 1X ONCE MC 06/21/19 04:30 06/21/19 04:31 DC 06/21/19 04:30 Hydroxychloroquine Sulfate (Plaquenil) 200 mg BID PO 06/20/19 21:00 06/24/19 09:01 06/21/19 09:27 Acetaminophen (Tylenol) 650 mg PRN Q6HRS PRN PEG MILD PAIN / TEMP 06/20/19 12:30 06/20/19 16:26 Enoxaparin Sodium (Lovenox 40mg Syringe) 40 mg Q24H SQ 06/21/19 09:00 06/21/19 09:26 Vancomycin HCl 1.25 gm/Sodium Chloride 250 ml @ 167 mls/hr Q12H IV 06/21/19 06:00 06/21/19 06:09 YESSICA EUGENE III DO Jun 21, 2019 11:41
[2019-06-21] MEDS: MIDAZOLAM HCL 100 MG in IV NORMAL SALINE 100ML 100 ML IV PRN (11:45)
--- NOTE | 2019-06-21 14:45 | PDOC ---
PROGRESS NOTES Assessment Assessment Hypoxic encephalopathy. Metabolic encephalopathy. Respiratory failure. Elevated T 99.9 degree. Multifocal pulmonary consolidation. Shock, BP 67/46 mmHg. CHF. Cardiomyopathy. COPD. HTN. HLD. OA. RECOMMENDATIONS/PLAN: Life support in ICU at the present time. Treat medical diseases. Poor prognosis. History of Present Illness This is a 74-year-old AA male patient with PMH of hypertension, hyperlipidemia and COPD and other medical diseases was initially brought to the emergency room from his [facility] for decreased mental status. Patient has progressively deteriorated since admission and required intubation due to respiratory failure. His 02 dropped to 45%. Initial troponin was 2.369 but has decreased to 1.8. BNP is elevated at 3527. He was treated at [facility] where he received a replacement of ICD on 06/16/19. He carries a diagnosis of a non-ischemic cardiomyopathy with an ejection fraction of 35-40% as well as chronic kidney disease and dementia. Past Medical History Cardiovascular: CHF, HTN, Hyperlipidemia, Other (ventricular tachycardia) Pulmonary: COPD CENTRAL NERVOUS SYSTEM: Dementia Musculoskeletal: Osteoarthritis Past Surgical History ICD placement with recent replacement. Family History High Cholestrol, Hypertension Social History Quit ALCOHOL: none Drugs: None Allergies Coded Allergies: Egg (Verified Allergy, Intermediate, Nausea and Vomiting, 06/19/19) MEDICATIONS: Refer to MAR REVIEW OF SYSTEMS: Constitutional: No malnutrition, weight loss, cachexia. Head: No traumatic brain or head injury. Skin: No edema, or rash. Ear: No infection. Eyes: No vision loss or color blindness. Nose: No bleeding or purulent discharges. Hearing: Hearing decrease. Neck: No injury. Cardiac: CHF, cardiomyopathy, ICD Placement, HTN, HLD. Pulmonary: COPD. GI: No GI ulcer, GI bleeding. Urinary/genital: UTI. Endocrinologic: No cousin face, craniofacial dysmorphism, polydactyly. Skeletomuscular: OA. Neurological: see HP. Psychiatric: Denies drug use/abuse. Otherwise, not [id number] review of systems. PHYSICAL EXAMINATION: General appearance is in subacute distress. HEENT: Normocephalic and nontraumatic. Eyes, nose, ears, and throat are unremarkable. Neck is supple. No lymphadenopathy. Cardiovascular: S1, S2. Pulmonary: On vent.. Abdomen: Bowel sounds are weak. Extremities: No rash, lesions. NEUROLOGICAL EXAMINATION: On vent. Unresponsive. Not oriented to time, place and person. Pupils about 1.5 mm, insensitive to light stimuli. EOMI not able to elicited. CN: no focal findings. Muscle tone: Decreased. Muscle strength: No obvious movements to pain stimuli. DTR: 0-1 Plantar reflex: No response bilaterally Gait: not able to walk. Sensory exam: no response to stimuli. Not able to access cerebellar signs. F-T-N test not performed in unresponsive state. Objective Objective Vital Signs Date Time Temp Pulse Resp B/P (MAP) Pulse Ox O2 Delivery O2 Flow Rate FiO2 06/21/19 12:30 99 Ventilator 06/21/19 12:00 98.5 82 24 99/69 (79) 98.5 Intake and Output 06/21/19 07:00 Intake Total 2118 ml Output Total 790 ml Balance 1328 ml Intake IV Total 2118 ml Output Urine Total 790 ml Vitals Signs Vitals VS - Last 72 Hours, by Label Date Time Temp Pulse Resp B/P (MAP) Pulse Ox O2 Delivery O2 Flow Rate FiO2 06/21/19 12:30 99 Ventilator 06/21/19 12:00 98.5 82 24 99/69 (79) 99 Ventilator 98.5 06/21/19 12:00 Mechanical Ventilator 06/21/19 11:00 93 26 103/60 (74) 99 Ventilator 06/21/19 10:00 91 26 103/63 (76) 98 Ventilator 06/21/19 09:00 98.2 90 26 111/61 (78) 98 Ventilator 98.2 06/21/19 08:30 100 Ventilator 06/21/19 08:00 Mechanical Ventilator 06/21/19 08:00 92 23 98/69 (79) 99 Ventilator 06/21/19 07:00 94 28 100/72 (81) 98 Ventilator 06/21/19 06:40 22 98 Ventilator 06/21/19 06:12 22 100 Ventilator 06/21/19 06:00 94 20 99/65 (76) 100 Ventilator 06/21/19 05:00 96 30 127/73 (91) 98 Ventilator 06/21/19 04:33 100 Ventilator 06/21/19 04:00 98.8 94 26 92/57 (69) 98 Ventilator 98.8 06/21/19 04:00 Mechanical Ventilator 06/21/19 03:00 94 22 92/76 (81) 97 Ventilator 06/21/19 02:19 100 Ventilator 06/21/19 02:00 86 22 107/66 (80) 99 Ventilator 06/21/19 01:00 86 22 108/69 (82) 99 Ventilator 06/21/19 00:00 Mechanical Ventilator 06/20/19 23:59 98.9 86 24 116/69 (85) 99 Ventilator 98.9 06/20/19 23:00 86 24 102/57 (72) 100 Ventilator 06/20/19 22:59 100 Ventilator 06/20/19 22:00 84 22 93/53 (66) 100 Ventilator 06/20/19 21:00 84 20 101/65 (77) 100 Ventilator 06/20/19 20:09 100 Ventilator 06/20/19 20:00 97.8 86 20 97/56 (70) 100 Ventilator 97.8 06/20/19 20:00 Mechanical Ventilator 06/20/19 19:00 84 20 100/65 (77) 100 Ventilator 06/20/19 18:00 88 24 112/72 (85) 100 Ventilator 06/20/19 17:00 86 20 79/61 (67) 100 Ventilator 06/20/19 16:00 Mechanical Ventilator 06/20/19 16:00 100.6 92 20 108/69 (82) 99 Ventilator 100.6 06/20/19 15:00 90 20 103/65 (78) 99 Ventilator 06/20/19 14:00 93 20 105/69 (81) 99 Ventilator 06/20/19 13:00 92 20 95/65 (75) 99 Ventilator 06/20/19 12:28 22 99 Ventilator 06/20/19 12:00 101.5 92 20 102/71 (81) 99 Ventilator 101.5 06/20/19 11:58 20 99 Ventilator 06/20/19 11:26 100 Ventilator 06/20/19 11:00 94 20 91/66 (74) 97 Ventilator 06/20/19 10:00 90 20 103/61 (75) 96 Ventilator 06/20/19 09:00 95 20 91/60 (70) 100 Ventilator 06/20/19 08:00 Mechanical Ventilator 06/20/19 08:00 99.1 95 22 81/58 (66) 100 Ventilator 99.1 06/20/19 07:45 99 Ventilator 06/20/19 07:00 92 20 88/63 (71) 100 Ventilator Laboratory Laboratory Laboratory Tests Test 06/21/19 04:30 06/21/19 08:30 Creatinine 0.9 mg/dL (0.7-1.3) Estimated GFR (Cockcroft-Gault) 99.5 Vancomycin Level Trough 12.0 mcg/mL (10.0-20.0) Vancomycin Last Dose Date 06/20/19 Vancomycin Last Dose Time 1700 O2 Saturation 89 % (92-99) Arterial Blood pH 7.41 (7.35-7.45) Arterial Blood pCO2 at Patient Temp 41 mmHg (35-46) Arterial Blood pO2 at Patient Temp 55 mmHg (65-108) Arterial Blood HCO3 26 mmol/L (21-28) Arterial Blood Base Excess 1 mmol/L (-3-3) FiO2 50 Microbiology 06/20/19 Blood Culture - Preliminary, Resulted NO GROWTH AFTER 1 DAY Medication Medications Current Medications Albuterol/ Ipratropium (Duoneb) 3 ml PRN Q4HRS PRN NEB SHORTNESS OF BREATH; Start 06/20/19 at 17:15; Stop 06/20/19 at 17:30; Status DC Enoxaparin Sodium (Lovenox 40mg Syringe) 40 mg Q24H SQ Last administered on 06/21/19at 09:26; Start 06/21/19 at 09:00 Hydroxychloroquine Sulfate (Plaquenil) 200 mg BID PO Last administered on 06/21/19at 09:27; Start 06/20/19 at 21:00; Stop 06/24/19 at 09:01 Vancomycin HCl (Vancomycin Trough Level) 1 each 1X ONCE MC Last administered on 06/21/19at 04:30; Start 06/21/19 at 04:30; Stop 06/21/19 at 04:31; Status DC Vancomycin HCl (Vancomycin Trough Level) 1 each 1X ONCE MC ; Start 06/22/19 at 17:30; Stop 06/22/19 at 17:31 Vancomycin HCl 1.25 gm/Sodium Chloride 250 ml @ 167 mls/hr Q12H IV Last administered on 06/21/19at 06:09; Start 06/21/19 at 06:00 Comment Review of Relevant I have reviewed the following items abdelrahman (where applicable) has been applied. CINDY CANNON MD Jun 21, 2019 14:45
--- NOTE | 2019-06-21 15:29 | PDOC ---
PROGRESS NOTES Subjective Subjective Patient seen and evaluated. Objective Objective Vital Signs Date Time Temp Pulse Resp B/P (MAP) Pulse Ox O2 Delivery O2 Flow Rate FiO2 06/21/19 12:30 99 Ventilator 06/21/19 12:00 98.5 82 24 99/69 (79) 98.5 06/19/19 20:30 4.0 Intake and Output 06/21/19 07:00 Intake Total 2118 ml Output Total 790 ml Balance 1328 ml Intake IV Total 2118 ml Output Urine Total 790 ml Assessment Assessment Problems Medical Problems: (1) Altered mental status Status: Acute (2) Elevated brain natriuretic peptide (BNP) level Status: Acute (3) Elevated troponin Status: Acute (4) Suspected COVID-19 virus infection Status: Acute 1. Respiratory failure. Patient ramains on a ventilator. Followed by pulmonary. He is a possible Covid 19 patient. His ejection fraction is moderately decreased at 35-40%. We continue treatments and will consider mild diuresis as tolerated. 2. Nonischemic cardiomyopathy as per research Hospital Notes. Continue present treatments. Mild diuresis as tolerated. 3. AICD in place. Rhythm stable. 4. Hypertension. Continue present treatments and monitor. 5. Hyperlipidemia. 6. Minimally elevated troponin at 2.3 on admission which is now decreased to 1.8. We'll continue present medical treatment and monitor. Comment Review of Relevant I have reviewed the following items abdelrahman (where applicable) has been applied. Labs Laboratory Tests Test 06/19/19 19:09 06/19/19 19:40 06/19/19 21:05 06/20/19 05:00 O2 Saturation 83 % (92-99) 98 % (92-99) Arterial Blood pH 7.48 (7.35-7.45) 7.44 (7.35-7.45) Arterial Blood pCO2 at Patient Temp 33 mmHg (35-46) 36 mmHg (35-46) Arterial Blood pO2 at Patient Temp 45 mmHg (65-108) 121 mmHg (65-108) Arterial Blood HCO3 24 mmol/L (21-28) 24 mmol/L (21-28) Arterial Blood Base Excess 2 mmol/L (-3-3) 0 mmol/L (-3-3) FiO2 32 100 Troponin I Quantitative 2.369 ng/mL (0.000-0.055) 1.815 ng/mL (0.000-0.055) Oxyhemoglobin 97.0 % Methemoglobin 0.7 % (0.0-1.9) Carbon Monoxide, Quantitative 0.3 % (0.0-1.9) White Blood Count 6.2 x10^3/uL (4.0-11.0) Red Blood Count 4.06 x10^6/uL (4.30-5.70) Hemoglobin 12.1 g/dL (13.0-17.5) Hematocrit 37.4 % (39.0-53.0) Mean Corpuscular Volume 92 fL (79-100) Mean Corpuscular Hemoglobin 30 pg (25-35) Mean Corpuscular Hemoglobin Concent 33 g/dL (31-37) Red Cell Distribution Width 16.9 % (11.5-14.5) Platelet Count 263 x10^3/uL (140-400) Neutrophils (%) (Auto) 84 % (31-73) Lymphocytes (%) (Auto) 9 % (24-48) Monocytes (%) (Auto) 5 % (0-9) Eosinophils (%) (Auto) 1 % (0-3) Basophils (%) (Auto) 1 % (0-3) Neutrophils # (Auto) 5.2 x10^3/uL (1.8-7.7) Lymphocytes # (Auto) 0.6 x10^3/uL (1.0-4.8) Monocytes # (Auto) 0.3 x10^3/uL (0.0-1.1) Eosinophils # (Auto) 0.0 x10^3/uL (0.0-0.7) Basophils # (Auto) 0.0 x10^3/uL (0.0-0.2) Sodium Level 141 mmol/L (136-145) Potassium Level 3.6 mmol/L (3.5-5.1) Chloride Level 106 mmol/L (98-107) Carbon Dioxide Level 26 mmol/L (21-32) Anion Gap 9 (6-14) Blood Urea Nitrogen 14 mg/dL (8-26) Creatinine 1.0 mg/dL (0.7-1.3) Estimated GFR (Cockcroft-Gault) 88.1 BUN/Creatinine Ratio 14 (6-20) Glucose Level 95 mg/dL (70-99) Calcium Level 7.9 mg/dL (8.5-10.1) Total Bilirubin 1.5 mg/dL (0.2-1.0) Aspartate Amino Transf (AST/SGOT) 71 U/L (15-37) Alanine Aminotransferase (ALT/SGPT) 57 U/L (16-63) Alkaline Phosphatase 70 U/L (46-116) Total Protein 5.5 g/dL (6.4-8.2) Albumin 1.6 g/dL (3.4-5.0) Albumin/Globulin Ratio 0.4 (1.0-1.7) Procalcitonin 0.86 ng/mL (0.00-0.10) Test 06/20/19 08:00 06/20/19 12:15 06/21/19 04:30 06/21/19 08:30 O2 Saturation 94 % (92-99) 89 % (92-99) Arterial Blood pH 7.44 (7.35-7.45) 7.41 (7.35-7.45) Arterial Blood pCO2 at Patient Temp 38 mmHg (35-46) 41 mmHg (35-46) Arterial Blood pO2 at Patient Temp 69 mmHg (65-108) 55 mmHg (65-108) Arterial Blood HCO3 26 mmol/L (21-28) 26 mmol/L (21-28) Arterial Blood Base Excess 2 mmol/L (-3-3) 1 mmol/L (-3-3) FiO2 60%+5 50 Influenza Type A Antigen Negative (NEGATIVE) Influenza Type B Antigen Negative (NEGATIVE) Creatinine 0.9 mg/dL (0.7-1.3) Estimated GFR (Cockcroft-Gault) 99.5 Vancomycin Level Trough 12.0 mcg/mL (10.0-20.0) Vancomycin Last Dose Date 06/20/19 Vancomycin Last Dose Time 1700 Laboratory Tests Test 06/21/19 04:30 06/21/19 08:30 Creatinine 0.9 mg/dL (0.7-1.3) Estimated GFR (Cockcroft-Gault) 99.5 Vancomycin Level Trough 12.0 mcg/mL (10.0-20.0) Vancomycin Last Dose Date 06/20/19 Vancomycin Last Dose Time 1700 O2 Saturation 89 % (92-99) Arterial Blood pH 7.41 (7.35-7.45) Arterial Blood pCO2 at Patient Temp 41 mmHg (35-46) Arterial Blood pO2 at Patient Temp 55 mmHg (65-108) Arterial Blood HCO3 26 mmol/L (21-28) Arterial Blood Base Excess 1 mmol/L (-3-3) FiO2 50 Microbiology 06/20/19 Blood Culture - Preliminary, Resulted NO GROWTH AFTER 1 DAY Medications Current Medications Piperacillin Sod/ Tazobactam Sod 4.5 gm/Sodium Chloride 100 ml @ 200 mls/hr 1X ONCE IV Last administered on 06/19/19at 16:50; Start 06/19/19 at 16:00; Stop 06/19/19 at 16:29; Status DC Vancomycin HCl 1.25 gm/Sodium Chloride 250 ml @ 166.667 mls/hr 1X ONCE IV Last administered on 06/19/19at 16:51; Start 06/19/19 at 16:00; Stop 06/19/19 at 17:29; Status DC Hydroxychloroquine Sulfate (Plaquenil) 400 mg BID PO ; Start 06/19/19 at 21:00; Status UNV Enoxaparin Sodium (Lovenox 80mg Syringe) 75 mg 1X ONCE SQ Last administered on 06/19/19at 16:51; Start 06/19/19 at 16:30; Stop 06/19/19 at 16:31; Status DC Furosemide (Lasix) 40 mg 1X ONCE IVP Last administered on 06/19/19at 16:51; Start 06/19/19 at 17:00; Stop 06/19/19 at 17:01; Status DC Sodium Chloride (Normal Saline Flush) 3 ml QSHIFT PRN IV AFTER MEDS AND BLOOD DRAWS; Start 06/19/19 at 17:45 Sodium Chloride 1,000 ml @ 65 mls/hr [id number] IV Last administered on 06/21/19at 00:33; Start 06/19/19 at 17:31 Acetaminophen (Tylenol) 650 mg PRN Q4HRS PRN PO TEMP OVER 100.4F OR MILD PAIN; Start 06/19/19 at 17:45 Acetaminophen (Tylenol Supp) [address]N Q4HRS [address] TEMP OVER 100.4F OR MILD PAIN; Start 06/19/19 at 17:45 Clonidine HCl (Catapres) 0.1 mg PRN Q6HRS PRN PO SBP>160 OR DBP>90; Start 06/19/19 at 17:45 Sodium Monofluorophosphate (Fleet Adult) 133 [address]N DAILY PRN CT CONSTIPATION; Start 06/19/19 at 17:45 Docusate Sodium (Colace) 100 mg PRN BID PRN PO CONSTIPATION; Start 06/19/19 at 17:45 Albuterol/ Ipratropium (Duoneb) 3 ml Q4HRS W/A NEB ; Start 06/19/19 at 18:00; Stop 06/20/19 at 17:12; Status DC Guaifenesin (Robitussin) 200 mg PRN Q4HRS PRN PO COUGH; Start 06/19/19 at 17:45 Enoxaparin Sodium (Lovenox 40mg Syringe) 40 mg Q24H SQ ; Start 06/19/19 at 18:00; Status UNV Vancomycin HCl (Vanco Per Pharmacy) 1 each PRN DAILY PRN MC SEE COMMENTS Last administered on 06/21/19at 05:45; Start 06/19/19 at 17:45 Piperacillin Sod/ Tazobactam Sod 3.375 gm/Sodium Chloride 50 ml @ 100 mls/hr Q6HRS IV ; Start 06/19/19 at 18:00; Status Cancel Enoxaparin Sodium (Lovenox Per Pharmacy Treatment Dosing) 1 each PRN DAILY PRN MC SEE COMMENTS; Start 06/19/19 at 17:45; Stop 06/20/19 at 15:01; Status DC Piperacillin Sod/ Tazobactam Sod 3.375 gm/Sodium Chloride 50 ml @ 100 mls/hr Q6HRS IV Last administered on 06/21/19at 12:28; Start 06/20/19 at 00:00 Enoxaparin Sodium (Lovenox 80mg Syringe) 70 mg Q12HR SQ Last administered on 06/20/19at 08:00; Start 06/20/19 at 09:00; Stop 06/20/19 at 15:01; Status DC Vancomycin HCl 1 gm/Sodium Chloride 250 ml @ 250 mls/hr Q12H IV Last administered on 06/20/19at 16:26; Start 06/20/19 at 05:00; Stop 06/21/19 at 05:34; Status DC Vancomycin HCl (Vancomycin Trough Level) 1 each 1X ONCE MC Last administered on 06/21/19at 04:30; Start 06/21/19 at 04:30; Stop 06/21/19 at 04:31; Status DC Hydroxychloroquine Sulfate (Plaquenil) 400 mg 1X ONCE PO Last administered on 06/20/19at 00:07; Start 06/19/19 at 20:00; Stop 06/19/19 at 20:01; Status DC Propofol 100 ml @ As Directed STK-MED ONCE IV ; Start 06/19/19 at 20:33; Stop 06/19/19 at 20:34; Status DC Fentanyl Citrate 30 ml @ 0 mls/hr CONT PRN IV SEE PROTOCOL Last administered on 06/21/19at 06:12; Start 06/19/19 at 21:15 Propofol 100 ml @ 0 mls/hr CONT PRN IV SEE PROTOCOL; Start 06/19/19 at 21:15 Fentanyl Citrate (Fentanyl 2ml Vial) 25 mcg PRN Q1HR PRN IV SEE COMMENTS; Start 06/19/19 at 21:15 Fentanyl Citrate (Fentanyl 2ml Vial) 50 mcg PRN Q1HR PRN IV SEE COMMENTS; Start 06/19/19 at 21:15 Chlorhexidine Gluconate (Peridex) 15 ml BID MM Last administered on 06/21/19at 09:26; Start 06/20/19 at 09:00 Morphine Sulfate (Morphine Sulfate) 2 mg PRN Q1HR PRN IV SEE COMMENTS.; Start 06/19/19 at 21:15 Morphine Sulfate (Morphine Sulfate) 4 mg PRN Q1HR PRN IV SEE COMMENTS.; Start 06/19/19 at 21:15 Midazolam HCl 50 mg/Sodium Chloride 50 ml @ 0 mls/hr CONT PRN IV SEE PROTOCOL Last administered on 06/20/19at 01:38; Start 06/19/19 at 21:15; Stop 06/20/19 at 07:27; Status DC Midazolam HCl 100 mg/Sodium Chloride 100 ml @ 6 mls/hr CONT PRN IV SEE PROTOCOL Last administered on 06/21/19at 11:45; Start 06/20/19 at 07:30 Hydroxychloroquine Sulfate (Plaquenil) 200 mg BID PO Last administered on 06/21/19at 09:27; Start 06/20/19 at 21:00; Stop 06/24/19 at 09:01 Azithromycin 250 mg/Sodium Chloride 250 ml @ 250 mls/hr Q24H IV Last administered on 06/21/19at 09:27; Start 06/20/19 at 10:00 Hydroxychloroquine Sulfate (Plaquenil) 400 mg 1X ONCE PO Last administered on 06/20/19at 10:35; Start 06/20/19 at 09:30; Stop 06/20/19 at 09:44; Status DC Acetaminophen (Tylenol) 650 mg PRN Q6HRS PRN PEG MILD PAIN / TEMP Last adminis tered on 06/20/19at 16:26; Start 06/20/19 at 12:30 Info (Anti-Coagulation Monitoring By Pharmacy) 1 each PRN DAILY PRN MC SEE CO MMENTS; Start 06/20/19 at 14:30 Enoxaparin Sodium (Lovenox 40mg Syringe) 40 mg Q24H SQ Last administered on 06/21/19at 09:26; Start 06/21/19 at 09:00 Albuterol/ Ipratropium (Duoneb) 3 ml PRN Q4HRS PRN NEB SHORTNESS OF BREATH; Start 06/20/19 at 17:15; Stop 06/20/19 at 17:30; Status DC Vancomycin HCl 1.25 gm/Sodium Chloride 250 ml @ 167 mls/hr Q12H IV Last administered on 06/21/19at 06:09; Start 06/21/19 at 06:00 Vancomycin HCl (Vancomycin Trough Level) 1 each 1X ONCE MC ; Start 06/22/19 at 17:30; Stop 06/22/19 at 17:31 Active Scripts Active Reported Mexiletine Hcl 250 Mg Capsule 450 Mg PO BID Metoprolol Tartrate 100 Mg Tablet 1 Tab PO DAILY Children's Aspirin (Aspirin) 81 Mg Tab.chew 81 Mg PO DAILY Amiodarone Hcl 200 Mg Tablet 1 Tab PO DAILY Vitals/I & O Vital Sign - Last 24 Hours 06/20/19 06/20/19 06/20/19 06/20/19 16:00 16:00 17:00 18:00 Temp 100.6 100.6 Pulse 92 86 88 Resp 20 20 24 B/P (MAP) 108/69 (82) 79/61 (67) 112/72 (85) Pulse Ox 99 100 100 O2 Delivery Ventilator Mechanical Ventilator Ventilator Ventilator 3/29/06/20/19 06/20/19 06/20/19 19:00 20:00 20:00 20:09 Temp 97.8 97.8 Pulse 84 86 Resp B/P (MAP) 100/65 (77) 97/56 (70) Pulse Ox 100 100 100 O2 Delivery Ventilator Mechanical Ventilator Ventilator Ventilator 06/20/19 06/20/19 06/20/19 06/20/19 21:00 22:00 22:59 23:00 Pulse 84 84 86 Resp B/P (MAP) 101/65 (77) 93/53 (66) 102/57 (72) Pulse Ox 100 100 100 100 O2 Delivery Ventilator Ventilator Ventilator Ventilator 06/20/19 06/21/19 06/21/19 06/21/19 23:59 00:00 01:00 02:00 Temp 98.9 98.9 Pulse 86 86 86 Resp B/P (MAP) 116/69 (85) 108/69 (82) 107/66 (80) Pulse Ox 99 99 99 O2 Delivery Ventilator Mechanical Ventilator Ventilator Ventilator 06/21/19 06/21/19 06/21/19 06/21/19 02:19 03:00 04:00 04:00 Temp 98.8 98.8 Pulse 94 94 Resp B/P (MAP) 92/76 (81) 92/57 (69) Pulse Ox 100 97 98 O2 Delivery Ventilator Ventilator Mechanical Ventilator Ventilator 06/21/19 06/21/19 06/21/19 06/21/19 04:33 05:00 06:00 06:12 Pulse 96 94 Resp B/P (MAP) 127/73 (91) 99/65 (76) Pulse Ox 100 98 100 100 O2 Delivery Ventilator Ventilator Ventilator Ventilator 06/21/19 06/21/19 06/21/19 06/21/19 06:40 07:00 08:00 08:00 Pulse 94 92 Resp 23 B/P (MAP) 100/72 (81) 98/69 (79) Pulse Ox 98 98 99 O2 Delivery Ventilator Ventilator Ventilator Mechanical Ventilator 06/21/19 06/21/19 06/21/19 06/21/19 08:30 09:00 10:00 11:00 Temp 98.2 98.2 Pulse 90 91 93 Resp B/P (MAP) 111/61 (78) 103/63 (76) 103/60 (74) Pulse Ox 100 98 98 99 O2 Delivery Ventilator Ventilator Ventilator Ventilator 06/21/19 06/21/19 06/21/19 12:00 12:00 12:30 Temp 98.5 98.5 Pulse 82 Resp 24 B/P (MAP) 99/69 (79) Pulse Ox 99 99 O2 Delivery Mechanical Ventilator Ventilator Ventilator Intake and Output 06/20/19 06/20/19 06/21/19 15:00 23:00 07:00 Intake Total 1104 ml 1014 ml Output Total 380 ml 160 ml 250 ml Balance -380 ml 944 ml 764 ml JENY DE PAZ MD Jun 21, 2019 15:29
[2019-06-21 17:40] LABS: D-DIMER 10.83 ug/mlFEU (0.00-0.50)
[2019-06-22] VITALS (23 sets, daily range): BP systolic 83–139; BP diastolic 46–79
[2019-06-22] MEDS: PIPERACILLIN/TAZOBACTAM 3.375 GM in IV NORMAL SALINE 50ML 50 ML IV SCH ×3 (05:04→17:43)
[2019-06-22 05:09] LABS: RED BLOOD COUNT 3.34 x10^6/uL (4.30-5.70); RED CELL DISTRIBUTION WIDTH 17.1 % (11.5-14.5)
[2019-06-22 05:28] LABS: ALBUMIN 1.1 g/dL (3.4-5.0); CALCIUM 7.6 mg/dL (8.5-10.1); CREATININE 0.7 mg/dL (0.7-1.3); DIRECT BILIRUBIN 0.6 mg/dL (0.0-0.2); POTASSIUM 3.1 mmol/L (3.5-5.1); TOTAL BILIRUBIN 0.8 mg/dL (0.2-1.0); TOTAL PROTEIN 5.2 g/dL (6.4-8.2)
[2019-06-22] MEDS: VANCOMYCIN 1.25 GM in IV NORMAL SALINE 250ML 250 ML IV SCH ×2 (05:48→17:43)
[2019-06-22] MEDS: VANCOMYCIN PER PHARMACY MC PRN (08:00)
--- NOTE | 2019-06-22 08:57 | PDOC ---
PULMONARY PROGRESS NOTES Subjective Patient sedated, assist control ventilation. 50% FiO2 5 PEEP sedated, no pressors Vitals Vital Signs Date Time Temp Pulse Resp B/P (MAP) Pulse Ox O2 Delivery O2 Flow Rate FiO2 06/22/19 08:00 98.5 82 26 91/62 (72) 97 Ventilator 98.5 06/22/19 05:17 4.0 Comments virtual exam done via telemedicine no respiratory distress, sedated no obvious rash no edema Labs Laboratory Tests Test 06/20/19 12:15 06/21/19 04:30 06/21/19 08:30 06/21/19 17:00 Influenza Type A Antigen Negative (NEGATIVE) Influenza Type B Antigen Negative (NEGATIVE) Creatinine 0.9 mg/dL (0.7-1.3) Estimated GFR (Cockcroft-Gault) 99.5 Vancomycin Level Trough 12.0 mcg/mL (10.0-20.0) Vancomycin Last Dose Date 06/20/19 Vancomycin Last Dose Time 1700 O2 Saturation 89 % (92-99) Arterial Blood pH 7.41 (7.35-7.45) Arterial Blood pCO2 at Patient Temp 41 mmHg (35-46) Arterial Blood pO2 at Patient Temp 55 mmHg (65-108) Arterial Blood HCO3 26 mmol/L (21-28) Arterial Blood Base Excess 1 mmol/L (-3-3) FiO2 50 Fibrinogen 702 mg/dL (200-440) D-Dimer (Mila) 10.83 ug/mlFEU (0.00-0.50) Test 06/22/19 04:45 White Blood Count 5.0 x10^3/uL (4.0-11.0) Red Blood Count 3.34 x10^6/uL (4.30-5.70) Hemoglobin 10.0 g/dL (13.0-17.5) Hematocrit 31.0 % (39.0-53.0) Mean Corpuscular Volume 93 fL (79-100) Mean Corpuscular Hemoglobin 30 pg (25-35) Mean Corpuscular Hemoglobin Concent 32 g/dL (31-37) Red Cell Distribution Width 17.1 % (11.5-14.5) Platelet Count 258 x10^3/uL (140-400) Sodium Level 141 mmol/L (136-145) Potassium Level 3.1 mmol/L (3.5-5.1) Chloride Level 109 mmol/L (98-107) Carbon Dioxide Level 25 mmol/L (21-32) Anion Gap 7 (6-14) Blood Urea Nitrogen 14 mg/dL (8-26) Creatinine 0.7 mg/dL (0.7-1.3) Estimated GFR (Cockcroft-Gault) 133.0 Glucose Level 109 mg/dL (70-99) Calcium Level 7.6 mg/dL (8.5-10.1) Total Bilirubin 0.8 mg/dL (0.2-1.0) Direct Bilirubin 0.6 mg/dL (0.0-0.2) Aspartate Amino Transf (AST/SGOT) 34 U/L (15-37) Alanine Aminotransferase (ALT/SGPT) 25 U/L (16-63) Alkaline Phosphatase 60 U/L (46-116) Total Protein 5.2 g/dL (6.4-8.2) Albumin 1.1 g/dL (3.4-5.0) Laboratory Tests Test 06/21/19 17:00 06/22/19 04:45 Fibrinogen 702 mg/dL (200-440) D-Dimer (Mila) 10.83 ug/mlFEU (0.00-0.50) White Blood Count 5.0 x10^3/uL (4.0-11.0) Red Blood Count 3.34 x10^6/uL (4.30-5.70) Hemoglobin 10.0 g/dL (13.0-17.5) Hematocrit 31.0 % (39.0-53.0) Mean Corpuscular Volume 93 fL (79-100) Mean Corpuscular Hemoglobin 30 pg (25-35) Mean Corpuscular Hemoglobin Concent 32 g/dL (31-37) Red Cell Distribution Width 17.1 % (11.5-14.5) Platelet Count 258 x10^3/uL (140-400) Sodium Level 141 mmol/L (136-145) Potassium Level 3.1 mmol/L (3.5-5.1) Chloride Level 109 mmol/L (98-107) Carbon Dioxide Level 25 mmol/L (21-32) Anion Gap 7 (6-14) Blood Urea Nitrogen 14 mg/dL (8-26) Creatinine 0.7 mg/dL (0.7-1.3) Estimated GFR (Cockcroft-Gault) 133.0 Glucose Level 109 mg/dL (70-99) Calcium Level 7.6 mg/dL (8.5-10.1) Total Bilirubin 0.8 mg/dL (0.2-1.0) Direct Bilirubin 0.6 mg/dL (0.0-0.2) Aspartate Amino Transf (AST/SGOT) 34 U/L (15-37) Alanine Aminotransferase (ALT/SGPT) 25 U/L (16-63) Alkaline Phosphatase 60 U/L (46-116) Total Protein 5.2 g/dL (6.4-8.2) Albumin 1.1 g/dL (3.4-5.0) Medications Active Scripts Medications Dose Route/Sig Max Daily Dose Days Date Category Mexiletine Hcl 250 Mg Capsule 450 Mg PO BID 06/20/19 Reported Metoprolol Tartrate 100 Mg Tablet 1 Tab PO DAILY 06/20/19 Reported Children's Aspirin (Aspirin) 81 Mg Tab.chew 81 Mg PO DAILY 06/20/19 Reported Amiodarone Hcl 200 Mg Tablet 1 Tab PO DAILY 06/20/19 Reported Comments CXR 06/21 P Impression . IMPRESSION: 1. Acute respiratory failure due to COVID-19 suspected pneumonia/ ARDS 2. Acute respiratory distress syndrome. 3. COVID-19 suspect. 4. Bilateral infiltrates compatible with pneumonia, gram-negative, possibly gram-positive, possibly viral. 5. Toxic metabolic encephalopathy. 6. Chronic anemia. 7. Elevated troponin. 8. Elevated total bilirubin, improved 9. Severe protein malnutrition, present upon admission. 10. Recent pacemaker defibrillator placement. Plan . Continue AC mode, Low TV, Adjust FIO2 and PEEP according to ABG Follow up daily CXR Plaquenil per protocol Continue Zithromax along with broad-spectrum antibiotics Vanc/ Zosyn Nutritional support with tube feeding Continue sedation DVT GI prophylaxis Spoke with RN, RT,/ Prognosis guarded Total cumulative critical care time of 35 minutes reviewing data, labs, adjusting mechanical ventilation, reviewing x-ray ANTOINETTE BARBER MD Jun 22, 2019 08:57
[2019-06-22] MEDS: CHLORHEXIDINE 0.12% 15 ML MOUTHWASH. MM SCH ×2 (09:27→21:16)
[2019-06-22] MEDS: HYDROXYCHLOROQUINE 200 MG TABLET PO SCH ×2 (09:27→21:15)
[2019-06-22] MEDS: ENOXAPARIN 40 MG/0.4 ML SYRINGE. SQ SCH (09:27)
--- NOTE | 2019-06-22 10:21 | RAD ---
EXAM: CHEST 1 VIEW History: Ventilation, Covid COMPARISON: 06/20/2019 TECHNIQUE: Single portable radiograph of the chest FINDINGS: Mild cardiomegaly. Left-sided cardiac pacer AICD is identified. Right-sided PICC line projects in the SVC/RA junction. Diffuse patchy airspace opacities in the bilateral lungs are unchanged. IMPRESSION: Unchanged diffuse patchy airspace opacities identified in the bilateral lungs. Electronically signed by: Dillon Horton MD (06/22/2019 10:18 AM) [id number]
[2019-06-22 10:41] LABS: BASE EXCESS IS ARTERIAL -1 mmol/L (0-3); HCO3 IS ARTERIAL 24 mmol/L (21-28); PCO2 IS ARTERIAL 42 mmHg (35-45); PH IS ARTERIAL 7.37 (7.35-7.45); PO2 IS ARTERIAL 48 mmHg (75-100); SAT O2 IS ARTERIAL 82 % (95-99); TCO2 IS ARTERIAL 26 mmol/L (21-32)
[2019-06-22 10:42] LABS: BASE EXCESS IS ARTERIAL -1 mmol/L (0-3); HCO3 IS ARTERIAL 25 mmol/L (21-28); PCO2 IS ARTERIAL 43 mmHg (35-45); PH IS ARTERIAL 7.36 (7.35-7.45); PO2 IS ARTERIAL 45 mmHg (75-100); SAT O2 IS ARTERIAL 79 % (95-99); TCO2 IS ARTERIAL 26 mmol/L (21-32)
[2019-06-22] MEDS ORDERED: FUROSEMIDE 40 MG/4 ML VIAL. IVP ONE (11:45)
--- NOTE | 2019-06-22 11:59 | PDOC ---
OCHOA GOYAL SCREEN HANDLER 06/22/19 1159: CARDIO Progress Notes Date and Time Date of Service 06/22/2019 Time of Evaluation 0950 Subjective Subjective: Other (sedated) Vitals Vitals Vital Signs Date Time Temp Pulse Resp B/P (MAP) Pulse Ox O2 Delivery O2 Flow Rate FiO2 06/22/19 09:04 97 Ventilator 06/22/19 08:00 98.5 82 26 91/62 (72) 98.5 06/22/19 05:17 4.0 Weight Weight [ ] Input and Output Intake and Output Intake and Output 06/22/19 07:00 Intake Total 2961 ml Output Total 1115 ml Balance 1846 ml Intake IV Total 2361 ml Tube Feeding 600 ml Output Urine Total 1115 ml Laboratory Labs Laboratory Tests Test 06/21/19 17:00 06/22/19 04:45 06/22/19 09:18 06/22/19 10:29 Fibrinogen 702 mg/dL (200-440) D-Dimer (Mila) 10.83 ug/mlFEU (0.00-0.50) White Blood Count 5.0 x10^3/uL (4.0-11.0) Red Blood Count 3.34 x10^6/uL (4.30-5.70) Hemoglobin 10.0 g/dL (13.0-17.5) Hematocrit 31.0 % (39.0-53.0) Mean Corpuscular Volume 93 fL (79-100) Mean Corpuscular Hemoglobin 30 pg (25-35) Mean Corpuscular Hemoglobin Concent 32 g/dL (31-37) Red Cell Distribution Width 17.1 % (11.5-14.5) Platelet Count 258 x10^3/uL (140-400) Sodium Level 141 mmol/L (136-145) Potassium Level 3.1 mmol/L (3.5-5.1) Chloride Level 109 mmol/L (98-107) Carbon Dioxide Level 25 mmol/L (21-32) Anion Gap 7 (6-14) Blood Urea Nitrogen 14 mg/dL (8-26) Creatinine 0.7 mg/dL (0.7-1.3) Estimated GFR (Cockcroft-Gault) 133.0 Glucose Level 109 mg/dL (70-99) Calcium Level 7.6 mg/dL (8.5-10.1) Total Bilirubin 0.8 mg/dL (0.2-1.0) Direct Bilirubin 0.6 mg/dL (0.0-0.2) Aspartate Amino Transf (AST/SGOT) 34 U/L (15-37) Alanine Aminotransferase (ALT/SGPT) 25 U/L (16-63) Alkaline Phosphatase 60 U/L (46-116) Total Protein 5.2 g/dL (6.4-8.2) Albumin 1.1 g/dL (3.4-5.0) Bedside Arterial pH 7.37 (7.35-7.45) 7.36 (7.35-7.45) Bedside Arterial pCO2 42 mmHg (35-45) 43 mmHg (35-45) Bedside Arterial pO2 48 mmHg (75-100) 45 mmHg (75-100) Arterial Blood HCO3 24 mmol/L (21-28) 25 mmol/L (21-28) Bedside Arterial Blood O2 Sat 82 % (95-99) 79 % (95-99) Bedside FiO2 60.0 50.0 Microbiology Micro Microbiology 06/20/19 Blood Culture - Preliminary, Resulted NO GROWTH AFTER 2 DAYS Physical Exam Other Exams Deferred, discussed with RN. Intubated with vent, Rhythm stable. No pressors. Assessment Assessment 1. Acute respiratory failure with ARDS/PNA/CHF/COPD/Covid-19 2. Acute on chronic diastolic systolic CHF 3. NICM: EF at 35-40% 4. NSTEMI: Troponin 2.3, possibly demand mediated, type 2 5. Sepsis/shock: BP better, no pressor 6. Hypoxic/metabolic encephalopathy 7. AICD 8. HTN 9. HLP 10. Severe protein malnutrition 11. Hx of VT Recommendations 1. Lasix x1. Replace K and check Mg. 2. Restart amiodarone 200 mg home dose and mexilitine for VT suppression via OG, ASA. Resume metoprolol at lower dose 3. Follow with [facility] 4. Follow pulmonary recommendation. 5. Supportive care BECCA BURLESON MD 06/22/19 1406: CARDIO Progress Notes Plan Plan Patient seen examination deferred due to current a virus concerns and lack of personal protective equipment. Chart reviewed extensively. Agree with above nurse practitioner note. No acute events overnight. Respiratory status is stable. Chest x-ray remains with bilateral infiltrates. Cardiac biventricular devices in place. Telemetry is unremarkable. Troponin elevation likely secondary to acute stress (Type 2). Supportive care. OCHOA GOYAL APRN Jun 22, 2019 11:59 BECCA BURLESON MD Jun 22, 2019 14:06
[2019-06-22] MEDS ORDERED: ALBUMIN HUMAN 25% 100 ML IV ONE (12:00)
[2019-06-22 12:13] LABS: CHOLESTEROL/HDL RATIO 8.7
[2019-06-22] MEDS: AZITHROMYCIN 250 MG in IV NORMAL SALINE 250ML 250 ML IV SCH (12:21)
[2019-06-22] MEDS: POTASSIUM CHLORIDE 20MEQ 100 ML IV SCH ×2 (12:25→13:29)
[2019-06-22] MEDS: MEXILETINE HCL 200 MG CAPSULE PO SCH ×2 (12:27→21:00)
[2019-06-22] MEDS: METOPROLOL TART IMMED RELEASE 25 MG TABLET. PO SCH ×2 (13:00→21:15)
--- NOTE | 2019-06-22 13:57 | PDOC ---
PROGRESS NOTES Assessment Assessment Covid-19 disease, confirmed on 06/21/19. Hypoxic encephalopathy. Metabolic encephalopathy. Respiratory failure. T 99.9 degree, but not to the category of fever (100.4 degree). Multifocal pulmonary consolidation. Shock, BP 67/46 mmHg. CHF. Cardiomyopathy. COPD. HTN. HLD. OA. RECOMMENDATIONS/PLAN: Life support in ICU at the present time. Treat medical diseases. Poor prognosis. History of Present Illness This is a 74-year-old AA male patient with PMH of hypertension, hyperlipidemia and COPD and other medical diseases was [facility] status. Patient has progressively deteriorated since admission and required intubation due to respiratory failure. His 02 dropped to 45%. Initial troponin was 2.369 but has decreased to 1.8. BNP is elevated at 3527. He was treated at [facility] where he received a replacement of ICD on 06/16/19. He carries a diagnosis of a non-ischemic cardiomyopathy with an ejection fraction of 35-40% as well as chronic kidney disease and dementia. Past Medical History Cardiovascular: CHF, HTN, Hyperlipidemia, Other (ventricular tachycardia) Pulmonary: COPD CENTRAL NERVOUS SYSTEM: Dementia Musculoskeletal: Osteoarthritis Past Surgical History ICD placement with recent replacement. Family History High Cholestrol, Hypertension Social History Quit ALCOHOL: none Drugs: None Allergies Coded Allergies: Egg (Verified Allergy, Intermediate, Nausea and Vomiting, 06/19/19) MEDICATIONS: Refer to MAR REVIEW OF SYSTEMS: Constitutional: No malnutrition, weight loss, cachexia. Head: No traumatic brain or head injury. Skin: No edema, or rash. Ear: No infection. Eyes: No vision loss or color blindness. Nose: No bleeding or purulent discharges. Hearing: Hearing decrease. Neck: No injury. Cardiac: CHF, cardiomyopathy, ICD Placement, HTN, HLD. Pulmonary: COPD. GI: No GI ulcer, GI bleeding. Urinary/genital: UTI. Endocrinologic: No cousin face, craniofacial dysmorphism, polydactyly. Skeletomuscular: OA. Neurological: see HP. Psychiatric: Denies drug use/abuse. Otherwise, not [id number] review of systems. NEUROLOGICAL EXAMINATION: On vent. Unresponsive. Chart reviewed. Objective Objective Vital Signs Date Time Temp Pulse Resp B/P (MAP) Pulse Ox O2 Delivery O2 Flow Rate FiO2 06/22/19 13:35 99 06/22/19 13:00 107 99/58 06/22/19 11:36 Ventilator 06/22/19 11:00 26 06/22/19 08:00 98.5 98.5 06/22/19 05:17 4.0 Intake and Output 06/22/19 07:00 Intake Total 2961 ml Output Total 1115 ml Balance 1846 ml Intake IV Total 2361 ml Tube Feeding 600 ml Output Urine Total 1115 ml Vitals Signs Vitals VS - Last 72 Hours, by Label Date Time Temp Pulse Resp B/P (MAP) Pulse Ox O2 Delivery O2 Flow Rate FiO2 06/22/19 13:35 99 06/22/19 13:00 107 99/58 06/22/19 11:36 98 Ventilator 06/22/19 11:00 90 26 90/74 (79) 98 Ventilator 06/22/19 10:00 90 26 101/63 (76) 98 Ventilator 06/22/19 09:04 97 Ventilator 06/22/19 09:00 86 18 101/60 (74) 97 Ventilator 06/22/19 08:00 98.5 82 26 91/62 (72) 97 Ventilator 98.5 06/22/19 07:45 Mechanical Ventilator 06/22/19 07:00 82 17 91/58 (69) 99 Ventilator 06/22/19 06:00 82 26 96/57 (70) 98 Ventilator 06/22/19 05:17 100 4.0 06/22/19 05:00 98.6 86 30 96/48 (64) 98 Ventilator 98.6 06/22/19 04:00 Mechanical Ventilator 06/22/19 04:00 100 4.0 06/22/19 04:00 98.6 86 31 98/46 (63) 100 Ventilator 98.6 06/22/19 03:20 99 Ventilator 06/22/19 03:00 88 31 93/52 (66) 100 Ventilator 06/22/19 02:56 89 31 98/68 (78) 99 Ventilator 06/22/19 01:00 98 30 96/72 (80) 98 Ventilator 06/21/19 23:59 Mechanical Ventilator 06/21/19 23:59 96 30 98/68 (78) 99 Ventilator 06/21/19 23:00 94 30 94/65 (75) 98 Ventilator 06/21/19 22:25 100 Ventilator 06/21/19 22:00 99.3 96 30 94/67 (76) 99 Ventilator 99.3 06/21/19 21:00 102 30 108/58 (75) 98 Ventilator 06/21/19 20:00 Mechanical Ventilator 06/21/19 20:00 102 30 126/64 (84) 98 Ventilator 06/21/19 19:50 100 Ventilator 06/21/19 19:00 102 30 126/64 (84) 98 Ventilator 06/21/19 18:00 106 34 111/65 (80) 100 Ventilator 06/21/19 17:43 Ventilator 06/21/19 17:13 99 Ventilator 06/21/19 17:00 98.2 102 34 147/90 (109) 99 Ventilator 98.2 06/21/19 16:11 100 Ventilator 06/21/19 16:00 100 30 147/90 (109) 99 Ventilator 06/21/19 16:00 Mechanical Ventilator 06/21/19 15:00 106 30 122/52 (75) 98 Ventilator 06/21/19 14:00 94 30 97 Ventilator 06/21/19 13:00 92 31 110/73 (85) 99 Ventilator 06/21/19 12:30 99 Ventilator 06/21/19 12:00 98.5 82 24 99/69 (79) 99 Ventilator 98.5 06/21/19 12:00 Mechanical Ventilator 06/21/19 11:00 93 26 103/60 (74) 99 Ventilator 06/21/19 10:00 91 26 103/63 (76) 98 Ventilator 06/21/19 09:00 98.2 90 26 111/61 (78) 98 Ventilator 98.2 06/21/19 08:30 100 Ventilator 06/21/19 08:00 Mechanical Ventilator 06/21/19 08:00 92 23 98/69 (79) 99 Ventilator 06/21/19 07:00 94 28 100/72 (81) 98 Ventilator Laboratory Laboratory Laboratory Tests Test 06/21/19 17:00 06/22/19 04:45 06/22/19 09:18 06/22/19 10:29 Fibrinogen 702 mg/dL (200-440) D-Dimer (Mila) 10.83 ug/mlFEU (0.00-0.50) White Blood Count 5.0 x10^3/uL (4.0-11.0) Red Blood Count 3.34 x10^6/uL (4.30-5.70) Hemoglobin 10.0 g/dL (13.0-17.5) Hematocrit 31.0 % (39.0-53.0) Mean Corpuscular Volume 93 fL (79-100) Mean Corpuscular Hemoglobin 30 pg (25-35) Mean Corpuscular Hemoglobin Concent 32 g/dL (31-37) Red Cell Distribution Width 17.1 % (11.5-14.5) Platelet Count 258 x10^3/uL (140-400) Sodium Level 141 mmol/L (136-145) Potassium Level 3.1 mmol/L (3.5-5.1) Chloride Level 109 mmol/L (98-107) Carbon Dioxide Level 25 mmol/L (21-32) Anion Gap 7 (6-14) Blood Urea Nitrogen 14 mg/dL (8-26) Creatinine 0.7 mg/dL (0.7-1.3) Estimated GFR (Cockcroft-Gault) 133.0 Glucose Level 109 mg/dL (70-99) Calcium Level 7.6 mg/dL (8.5-10.1) Magnesium Level 2.0 mg/dL (1.8-2.4) Total Bilirubin 0.8 mg/dL (0.2-1.0) Direct Bilirubin 0.6 mg/dL (0.0-0.2) Aspartate Amino Transf (AST/SGOT) 34 U/L (15-37) Alanine Aminotransferase (ALT/SGPT) 25 U/L (16-63) Alkaline Phosphatase 60 U/L (46-116) Total Protein 5.2 g/dL (6.4-8.2) Albumin 1.1 g/dL (3.4-5.0) Triglycerides Level 105 mg/dL (0-150) Cholesterol Level 96 mg/dL (0-200) LDL Cholesterol, Calculated 64 mg/dL (0-100) VLDL Cholesterol, Calculated 21 mg/dL (0-40) Non-HDL Cholesterol Calculated 85 mg/dL (0-129) HDL Cholesterol 11 mg/dL (40-60) Cholesterol/HDL Ratio 8.7 Bedside Arterial pH 7.37 (7.35-7.45) 7.36 (7.35-7.45) Bedside Arterial pCO2 42 mmHg (35-45) 43 mmHg (35-45) Bedside Arterial pO2 48 mmHg (75-100) 45 mmHg (75-100) Arterial Blood HCO3 24 mmol/L (21-28) 25 mmol/L (21-28) Bedside Arterial Blood O2 Sat 82 % (95-99) 79 % (95-99) Bedside FiO2 60.0 50.0 Microbiology 06/20/19 Blood Culture - Preliminary, Resulted NO GROWTH AFTER 2 DAYS Medication Medications Current Medications Albumin Human 100 ml @ 100 mls/hr 1X ONCE IV Last administered on 06/22/19at 12:26; Start 06/22/19 at 12:00; Stop 06/22/19 at 12:59; Status DC Famotidine (Pepcid Vial) 20 mg BID IVP ; Start 06/22/19 at 21:00 Furosemide (Lasix) 40 mg 1X ONCE IVP Last administered on 06/22/19at 12:22; Start 06/22/19 at 11:45; Stop 06/22/19 at 11:47; Status DC Metoprolol Tartrate (Lopressor) 12.5 mg BID PO ; Start 06/22/19 at 13:00 Mexiletine HCl (Mexitil) 400 mg BID PO Last administered on 06/22/19at 12:27; Start 06/22/19 at 13:00 Potassium Chloride/Water 100 ml @ 100 mls/hr Q1H IV Last administered on 06/22/19at 13:29; Start 06/22/19 at 12:00; Stop 06/22/19 at 13:59 Vancomycin HCl (Vancomycin Trough Level) 1 each 1X ONCE MC ; Start 06/22/19 at 17:30; Stop 06/22/19 at 17:31 Comment Review of Relevant I have reviewed the following items abdelrahman (where applicable) has been applied. CINDY CANNON MD Jun 22, 2019 13:57
--- NOTE | 2019-06-22 14:11 | PDOC ---
[facility] [facility] PROGRESS NOTE Chief Complaint Chief Complaint Respiratory failure requiring intubation and mechanical ventilation Covid 19 syndrome 1. Patchy bilateral airspace disease, noncardiogenic edema versus atypical infection. 2. ACUTE HYPOXIC RESP FAILURE 3. ACUTE NSTEMI 4. No acute intracranial abnormality. 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 chronic right frontal infarcts. foci of decreased attenuation within the hemispheric white matter, most often due to chronic microvascular ischemia. Mild to moderate brain parenchymal volume loss. 6. acute metabolic encephalopathy 7. severe protein-caloric malnutrition History of Present Illness History of Present Illness [id number] Patient seen and examined in the ICU He remains critically ill and intubated Before meals/20/400/50% with 8 of PEEP Has OG feeds running Chart reviewed Discussed with RN Prognosis extremely guarded [id number] Patient seen and examined in the ICU He is intubated and sedated with fentanyl and Versed Chart reviewed Discussed with RN He is critically ill Covid testing is still pending [id number] Patient seen in the ICU Currently mechanically ventilated with assist control/20/400/60% Sedated with fentanyl and Versed and propofol Discussed with RN Chart reviewed Vitals/I&O Vitals/I&O: Vital Signs Date Time Temp Pulse Resp B/P (MAP) Pulse Ox O2 Delivery O2 Flow Rate FiO2 06/22/19 13:35 99 06/22/19 13:00 108 25 94/67 (76) Ventilator 06/22/19 12:00 99.1 99.1 06/22/19 05:17 4.0 I & O 06/21/19 06/21/19 06/22/19 15:00 23:00 07:00 Intake Total 1097 ml 1864 ml Output Total 245 ml 320 ml 550 ml Balance -245 ml 777 ml 1314 ml Physical Exam General: Other (sedated and intubated) Heart: Regular rate Abdomen: Normal bowel sounds, Soft Extremities: No cyanosis Skin: No rashes, No breakdown Labs Labs: Laboratory Tests Test 06/21/19 17:00 06/22/19 04:45 06/22/19 09:18 06/22/19 10:29 Fibrinogen 702 mg/dL (200-440) D-Dimer (Mila) 10.83 ug/mlFEU (0.00-0.50) White Blood Count 5.0 x10^3/uL (4.0-11.0) Red Blood Count 3.34 x10^6/uL (4.30-5.70) Hemoglobin 10.0 g/dL (13.0-17.5) Hematocrit 31.0 % (39.0-53.0) Mean Corpuscular Volume 93 fL (79-100) Mean Corpuscular Hemoglobin 30 pg (25-35) Mean Corpuscular Hemoglobin Concent 32 g/dL (31-37) Red Cell Distribution Width 17.1 % (11.5-14.5) Platelet Count 258 x10^3/uL (140-400) Sodium Level 141 mmol/L (136-145) Potassium Level 3.1 mmol/L (3.5-5.1) Chloride Level 109 mmol/L (98-107) Carbon Dioxide Level 25 mmol/L (21-32) Anion Gap 7 (6-14) Blood Urea Nitrogen 14 mg/dL (8-26) Creatinine 0.7 mg/dL (0.7-1.3) Estimated GFR (Cockcroft-Gault) 133.0 Glucose Level 109 mg/dL (70-99) Calcium Level 7.6 mg/dL (8.5-10.1) Magnesium Level 2.0 mg/dL (1.8-2.4) Total Bilirubin 0.8 mg/dL (0.2-1.0) Direct Bilirubin 0.6 mg/dL (0.0-0.2) Aspartate Amino Transf (AST/SGOT) 34 U/L (15-37) Alanine Aminotransferase (ALT/SGPT) 25 U/L (16-63) Alkaline Phosphatase 60 U/L (46-116) Total Protein 5.2 g/dL (6.4-8.2) Albumin 1.1 g/dL (3.4-5.0) Triglycerides Level 105 mg/dL (0-150) Cholesterol Level 96 mg/dL (0-200) LDL Cholesterol, Calculated 64 mg/dL (0-100) VLDL Cholesterol, Calculated 21 mg/dL (0-40) Non-HDL Cholesterol Calculated 85 mg/dL (0-129) HDL Cholesterol 11 mg/dL (40-60) Cholesterol/HDL Ratio 8.7 Bedside Arterial pH 7.37 (7.35-7.45) 7.36 (7.35-7.45) Bedside Arterial pCO2 42 mmHg (35-45) 43 mmHg (35-45) Bedside Arterial pO2 48 mmHg (75-100) 45 mmHg (75-100) Arterial Blood HCO3 24 mmol/L (21-28) 25 mmol/L (21-28) Bedside Arterial Blood O2 Sat 82 % (95-99) 79 % (95-99) Bedside FiO2 60.0 50.0 Review of Systems Review of Systems: Unable to obtain Assessment and Plan Assessmemt and Plan Problems Medical Problems: (1) Altered mental status Status: Acute (2) Elevated brain natriuretic peptide (BNP) level Status: Acute (3) Elevated troponin Status: Acute (4) Suspected COVID-19 virus infection Status: Acut Covid 19 syndrome 1. Patchy bilateral airspace disease, noncardiogenic edema versus atypical infection. 2. ACUTE HYPOXIC RESP FAILURE 3. ACUTE NSTEMI 4. No acute intracranial abnormality. 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 chronic right frontal infarcts. foci of decreased attenuation within the hemispheric white matter, most often due to chronic microvascular ischemia. Mild to moderate brain parenchymal volume loss. 6. acute metabolic encephalopathy 7. severe protein-caloric malnutrition Plan Plaque 1 ill azithromycin and Zosyn Added multiple vitamin ICU monitoring Vent weaning Cardiology and pulmonary consultations O2 SUPPORT neurology consult lovenox 75 mg sq bid Home meds He remains very critically ill Total time 38 minutes Comment Review of Relevant I have reviewed the following items abdelrahman (where applicable) has been applied. Medications: Current Medications Medications (Trade) Dose Ordered Sig/Evon Route PRN Reason Start Time Stop Time Status Last Admin Dose Admin Furosemide (Lasix) 40 mg 1X ONCE IVP 06/22/19 11:45 06/22/19 11:47 DC 06/22/19 12:22 Potassium Chloride/Water 100 ml @ 100 mls/hr Q1H IV 06/22/19 12:00 06/22/19 13:59 DC 06/22/19 13:29 Albumin Human 100 ml @ 100 mls/hr 1X ONCE IV 06/22/19 12:00 06/22/19 12:59 DC 06/22/19 12:26 Mexiletine HCl (Mexitil) 400 mg BID PO 06/22/19 13:00 06/22/19 12:27 YESSICA EUGENE III DO Jun 22, 2019 14:11
[2019-06-22] MEDS: MIDAZOLAM HCL 100 MG in IV NORMAL SALINE 100ML 100 ML IV PRN (15:57)
[2019-06-22] MEDS: IV NORMAL SALINE 1000ML BAG 1,000 ML IV SCH ×2 (16:28→22:31)
[2019-06-22] MEDS: FAMOTIDINE 20 MG/2 ML VIAL IVP SCH (21:15)
[2019-06-23] VITALS (22 sets, daily range): BP systolic 90–118; BP diastolic 54–80
[2019-06-23] MEDS: PIPERACILLIN/TAZOBACTAM 3.375 GM in IV NORMAL SALINE 50ML 50 ML IV SCH ×5 (00:01→23:38)
[2019-06-23] MEDS: MIDAZOLAM HCL 100 MG in IV NORMAL SALINE 100ML 100 ML IV PRN ×2 (02:07→11:14)
[2019-06-23 05:55] LABS: CALCIUM 7.8 mg/dL (8.5-10.1); CREATININE 0.8 mg/dL (0.7-1.3); POTASSIUM 3.4 mmol/L (3.5-5.1)
--- NOTE | 2019-06-23 05:55 | EKG ---
[facility] [address] [place] [address] Test Date: 2019-06-23 Test Time: 03:56:06 Pat Name: SOTO GREGG Department: Room: 105 1 Gender: M [employer]: : 1945 Requested By: OCHOA GOYAL Order Number: [id number] Reading MD: Javier Mendez Measurements Intervals [place] Rate: 84 P: 39 SD: 176 QRS: -39 QRSD: 130 T: 90 QT: 400 QTc: 476 Interpretive Statements SINUS RHYTHM LEFT ANTERIOR FASCICULAR BLOCK NON SPECIFIC INTRAVENTRICULAR BLOCK QRS(T) CONTOUR ABNORMALITY CONSIDER ANTEROSEPTAL MYOCARDIAL DAMAGE Electronically Signed On 06-23-2019 11:15:31 CDT by Javier Mendez
[2019-06-23 06:09] LABS: VANC TR 16.4 mcg/mL (10.0-20.0)
[2019-06-23 06:12] LABS: BASO % 1 % (0-3); EOS # 0.1 x10^3/uL (0.0-0.7); EOS % 2 % (0-3); HEMATOCRIT 29.7 % (39.0-53.0); HEMOGLOBIN 9.6 g/dL (13.0-17.5); LYMPH # 0.3 x10^3/uL (1.0-4.8); LYMPH % 6 % (24-48); MEAN CORPUSCULAR HEMOGLOBIN 30 pg (25-35); MEAN CORPUSCULAR HGB CONC 32 g/dL (31-37); MEAN CORPUSCULAR VOLUME 93 fL (79-100); MONO # 0.4 x10^3/uL (0.0-1.1); MONO % 7 % (0-9); NEUT # 4.2 x10^3/uL (1.8-7.7); NEUT % 84 % (31-73); PLATELET COUNT 224 x10^3/uL (140-400); RED CELL DISTRIBUTION WIDTH 17.1 % (11.5-14.5)
[2019-06-23] MEDS: VANCOMYCIN PER PHARMACY MC PRN ×2 (06:17→13:37)
[2019-06-23] MEDS: VANCOMYCIN 1.25 GM in IV NORMAL SALINE 250ML 250 ML IV SCH ×2 (06:31→17:13)
[2019-06-23 06:45] LABS: % ATYL 1 % (0-0); % BANDS 5 % (0-9); % EOS 1 % (0-5); % LYMPHS 5 % (24-48); % MONOS 5 % (0-10); % SEGS 83 % (35-66); PLT ESTIMATE ADEQUATE (ADEQUATE)
[2019-06-23 06:47] LABS: ANISOCYTOSIS SLIGHT; OVALOCYTES FEW
[2019-06-23] MEDS ORDERED: ALBUMIN HUMAN 25% 100 ML IV ONE (08:00)
[2019-06-23] MEDS ORDERED: FUROSEMIDE 40 MG/4 ML VIAL. IVP ONE (08:00)
[2019-06-23] MEDS ORDERED: POTASSIUM CHLORIDE 20MEQ 100 ML IV ONE (08:30)
[2019-06-23] MEDS: HYDROXYCHLOROQUINE 200 MG TABLET PO SCH ×2 (08:33→21:07)
[2019-06-23] MEDS: ZINC SULFATE 220 MG CAPSULE. PO SCH (08:33)
[2019-06-23] MEDS: FAMOTIDINE 20 MG/2 ML VIAL IVP SCH ×2 (08:35→21:07)
[2019-06-23] MEDS: ASCORBIC ACID 500 MG TABLET PO SCH (08:36)
[2019-06-23] MEDS: AZITHROMYCIN 250 MG in IV NORMAL SALINE 250ML 250 ML IV SCH (08:36)
[2019-06-23] MEDS: ENOXAPARIN 40 MG/0.4 ML SYRINGE. SQ SCH (08:36)
[2019-06-23] MEDS: CHLORHEXIDINE 0.12% 15 ML MOUTHWASH. MM SCH ×2 (08:37→21:07)
--- NOTE | 2019-06-23 09:06 | PDOC ---
PULMONARY PROGRESS NOTES Subjective Patient sedated, assist control ventilation. 50% FiO2 8 PEEP sedated, no pressors Vitals Vital Signs Date Time Temp Pulse Resp B/P (MAP) Pulse Ox O2 Delivery O2 Flow Rate FiO2 06/23/19 06:10 18 Ventilator 06/23/19 06:00 98.5 88 97/54 (68) 99 98.5 06/23/19 06:00 4.0 Comments visuall exam done no respiratory distress, sedated no obvious rash no edema Labs Laboratory Tests Test 06/21/19 17:00 06/22/19 04:45 06/22/19 09:18 06/22/19 10:29 Fibrinogen 702 mg/dL (200-440) D-Dimer (Mila) 10.83 ug/mlFEU (0.00-0.50) White Blood Count 5.0 x10^3/uL (4.0-11.0) Red Blood Count 3.34 x10^6/uL (4.30-5.70) Hemoglobin 10.0 g/dL (13.0-17.5) Hematocrit 31.0 % (39.0-53.0) Mean Corpuscular Volume 93 fL (79-100) Mean Corpuscular Hemoglobin 30 pg (25-35) Mean Corpuscular Hemoglobin Concent 32 g/dL (31-37) Red Cell Distribution Width 17.1 % (11.5-14.5) Platelet Count 258 x10^3/uL (140-400) Sodium Level 141 mmol/L (136-145) Potassium Level 3.1 mmol/L (3.5-5.1) Chloride Level 109 mmol/L (98-107) Carbon Dioxide Level 25 mmol/L (21-32) Anion Gap 7 (6-14) Blood Urea Nitrogen 14 mg/dL (8-26) Creatinine 0.7 mg/dL (0.7-1.3) Estimated GFR (Cockcroft-Gault) 133.0 Glucose Level 109 mg/dL (70-99) Calcium Level 7.6 mg/dL (8.5-10.1) Magnesium Level 2.0 mg/dL (1.8-2.4) Total Bilirubin 0.8 mg/dL (0.2-1.0) Direct Bilirubin 0.6 mg/dL (0.0-0.2) Aspartate Amino Transf (AST/SGOT) 34 U/L (15-37) Alanine Aminotransferase (ALT/SGPT) 25 U/L (16-63) Alkaline Phosphatase 60 U/L (46-116) Total Protein 5.2 g/dL (6.4-8.2) Albumin 1.1 g/dL (3.4-5.0) Triglycerides Level 105 mg/dL (0-150) Cholesterol Level 96 mg/dL (0-200) LDL Cholesterol, Calculated 64 mg/dL (0-100) VLDL Cholesterol, Calculated 21 mg/dL (0-40) Non-HDL Cholesterol Calculated 85 mg/dL (0-129) HDL Cholesterol 11 mg/dL (40-60) Cholesterol/HDL Ratio 8.7 Bedside Arterial pH 7.37 (7.35-7.45) 7.36 (7.35-7.45) Bedside Arterial pCO2 42 mmHg (35-45) 43 mmHg (35-45) Bedside Arterial pO2 48 mmHg (75-100) 45 mmHg (75-100) Arterial Blood HCO3 24 mmol/L (21-28) 25 mmol/L (21-28) Bedside Arterial Blood O2 Sat 82 % (95-99) 79 % (95-99) Bedside FiO2 60.0 50.0 Test 06/23/19 05:30 06/23/19 06:00 Sodium Level 143 mmol/L (136-145) Potassium Level 3.4 mmol/L (3.5-5.1) Chloride Level 109 mmol/L (98-107) Carbon Dioxide Level 28 mmol/L (21-32) Anion Gap 6 (6-14) Blood Urea Nitrogen 15 mg/dL (8-26) Creatinine 0.8 mg/dL (0.7-1.3) Estimated GFR (Cockcroft-Gault) 114.0 Glucose Level 123 mg/dL (70-99) Calcium Level 7.8 mg/dL (8.5-10.1) Vancomycin Level Trough 16.4 mcg/mL (10.0-20.0) Vancomycin Last Dose Date 06/22/19 Vancomycin Last Dose Time 1800 White Blood Count 5.0 x10^3/uL (4.0-11.0) Red Blood Count 3.20 x10^6/uL (4.30-5.70) Hemoglobin 9.6 g/dL (13.0-17.5) Hematocrit 29.7 % (39.0-53.0) Mean Corpuscular Volume 93 fL (79-100) Mean Corpuscular Hemoglobin 30 pg (25-35) Mean Corpuscular Hemoglobin Concent 32 g/dL (31-37) Red Cell Distribution Width 17.1 % (11.5-14.5) Platelet Count 224 x10^3/uL (140-400) Neutrophils (%) (Auto) 84 % (31-73) Lymphocytes (%) (Auto) 6 % (24-48) Monocytes (%) (Auto) 7 % (0-9) Eosinophils (%) (Auto) 2 % (0-3) Basophils (%) (Auto) 1 % (0-3) Neutrophils # (Auto) 4.2 x10^3/uL (1.8-7.7) Lymphocytes # (Auto) 0.3 x10^3/uL (1.0-4.8) Monocytes # (Auto) 0.4 x10^3/uL (0.0-1.1) Eosinophils # (Auto) 0.1 x10^3/uL (0.0-0.7) Basophils # (Auto) 0.0 x10^3/uL (0.0-0.2) Segmented Neutrophils % 83 % (35-66) Band Neutrophils % 5 % (0-9) Lymphocytes % 5 % (24-48) Atypical Lymphocytes % (Manual) 1 % (0-0) Monocytes % 5 % (0-10) Eosinophils % 1 % (0-5) Platelet Estimate Adequate (ADEQUATE) Large Platelets Occ Anisocytosis Slight Ovalocytes Few Laboratory Tests Test 06/22/19 09:18 06/22/19 10:29 06/23/19 05:30 06/23/19 06:00 Bedside Arterial pH 7.37 (7.35-7.45) 7.36 (7.35-7.45) Bedside Arterial pCO2 42 mmHg (35-45) 43 mmHg (35-45) Bedside Arterial pO2 48 mmHg (75-100) 45 mmHg (75-100) Arterial Blood HCO3 24 mmol/L (21-28) 25 mmol/L (21-28) Bedside Arterial Blood O2 Sat 82 % (95-99) 79 % (95-99) Bedside FiO2 60.0 50.0 Sodium Level 143 mmol/L (136-145) Potassium Level 3.4 mmol/L (3.5-5.1) Chloride Level 109 mmol/L (98-107) Carbon Dioxide Level 28 mmol/L (21-32) Anion Gap 6 (6-14) Blood Urea Nitrogen 15 mg/dL (8-26) Creatinine 0.8 mg/dL (0.7-1.3) Estimated GFR (Cockcroft-Gault) 114.0 Glucose Level 123 mg/dL (70-99) Calcium Level 7.8 mg/dL (8.5-10.1) Vancomycin Level Trough 16.4 mcg/mL (10.0-20.0) Vancomycin Last Dose Date 06/22/19 Vancomycin Last Dose Time 1800 White Blood Count 5.0 x10^3/uL (4.0-11.0) Red Blood Count 3.20 x10^6/uL (4.30-5.70) Hemoglobin 9.6 g/dL (13.0-17.5) Hematocrit 29.7 % (39.0-53.0) Mean Corpuscular Volume 93 fL (79-100) Mean Corpuscular Hemoglobin 30 pg (25-35) Mean Corpuscular Hemoglobin Concent 32 g/dL (31-37) Red Cell Distribution Width 17.1 % (11.5-14.5) Platelet Count 224 x10^3/uL (140-400) Neutrophils (%) (Auto) 84 % (31-73) Lymphocytes (%) (Auto) 6 % (24-48) Monocytes (%) (Auto) 7 % (0-9) Eosinophils (%) (Auto) 2 % (0-3) Basophils (%) (Auto) 1 % (0-3) Neutrophils # (Auto) 4.2 x10^3/uL (1.8-7.7) Lymphocytes # (Auto) 0.3 x10^3/uL (1.0-4.8) Monocytes # (Auto) 0.4 x10^3/uL (0.0-1.1) Eosinophils # (Auto) 0.1 x10^3/uL (0.0-0.7) Basophils # (Auto) 0.0 x10^3/uL (0.0-0.2) Segmented Neutrophils % 83 % (35-66) Band Neutrophils % 5 % (0-9) Lymphocytes % 5 % (24-48) Atypical Lymphocytes % (Manual) 1 % (0-0) Monocytes % 5 % (0-10) Eosinophils % 1 % (0-5) Platelet Estimate Adequate (ADEQUATE) Large Platelets Occ Anisocytosis Slight Ovalocytes Few Medications Active Scripts Medications Dose Route/Sig Max Daily Dose Days Date Category Mexiletine Hcl 250 Mg Capsule 450 Mg PO BID 06/20/19 Reported Metoprolol Tartrate 100 Mg Tablet 1 Tab PO DAILY 06/20/19 Reported Children's Aspirin (Aspirin) 81 Mg Tab.chew 81 Mg PO DAILY 06/20/19 Reported Amiodarone Hcl 200 Mg Tablet 1 Tab PO DAILY 06/20/19 Reported Comments CXR 06/21 reviewed Impression . IMPRESSION: 1. Acute respiratory failure due to COVID-19 pneumonia/ ARDS 2. Acute respiratory distress syndrome. 3. COVID-19 4. Bilateral infiltrates compatible with pneumonia, gram-negative, possibly gram-positive, possibly viral. 5. Toxic metabolic encephalopathy. 6. Chronic anemia. 7. Elevated troponin. 8. Elevated total bilirubin, improved 9. Severe protein malnutrition, present upon admission. 10. Recent pacemaker defibrillator placement. Plan . Continue AC mode, Low TV, Adjust FIO2 and PEEP according to ABG Follow up daily CXR Plaquenil per protocol Continue Zithromax along with broad-spectrum antibiotics Vanc/ Zosyn Nutritional support with tube feeding Continue sedation DVT GI prophylaxis Spoke with RN, RT,/ Prognosis guarded Total cumulative critical care time of 30 minutes reviewing data, labs, adjusting mechanical ventilation, reviewing x-ray ANTOINETTE BARBER MD Jun 23, 2019 09:06
--- NOTE | 2019-06-23 09:25 | PDOC ---
OCHOA [employer]YAL [employer] 06/23/19 0925: CARDIO Progress Notes Date and Time Date of Service 06/23/2019 Time of Evaluation 0930 Subjective Subjective: Other (sedated) Vitals Vitals Vital Signs Date Time Temp Pulse Resp B/P (MAP) Pulse Ox O2 Delivery O2 Flow Rate FiO2 06/23/19 06:10 18 Ventilator 06/23/19 06:00 98.5 88 97/54 (68) 99 98.5 06/23/19 06:00 4.0 Weight Weight [ ] Input and Output Intake and Output Intake and Output 06/23/19 07:00 Intake Total 3214 ml Output Total 2680 ml Balance 534 ml Intake IV Total 1514 ml Tube Feeding 1250 ml Other 450 ml Output Urine Total 2680 ml Laboratory Labs Laboratory Tests Test 06/22/19 10:29 06/23/19 05:30 06/23/19 06:00 Bedside Arterial pH 7.36 (7.35-7.45) Bedside Arterial pCO2 43 mmHg (35-45) Bedside Arterial pO2 45 mmHg (75-100) Arterial Blood HCO3 25 mmol/L (21-28) Bedside Arterial Blood O2 Sat 79 % (95-99) Bedside FiO2 50.0 Sodium Level 143 mmol/L (136-145) Potassium Level 3.4 mmol/L (3.5-5.1) Chloride Level 109 mmol/L (98-107) Carbon Dioxide Level 28 mmol/L (21-32) Anion Gap 6 (6-14) Blood Urea Nitrogen 15 mg/dL (8-26) Creatinine 0.8 mg/dL (0.7-1.3) Estimated GFR (Cockcroft-Gault) 114.0 Glucose Level 123 mg/dL (70-99) Calcium Level 7.8 mg/dL (8.5-10.1) Vancomycin Level Trough 16.4 mcg/mL (10.0-20.0) Vancomycin Last Dose Date 06/22/19 Vancomycin Last Dose Time 1800 White Blood Count 5.0 x10^3/uL (4.0-11.0) Red Blood Count 3.20 x10^6/uL (4.30-5.70) Hemoglobin 9.6 g/dL (13.0-17.5) Hematocrit 29.7 % (39.0-53.0) Mean Corpuscular Volume 93 fL (79-100) Mean Corpuscular Hemoglobin 30 pg (25-35) Mean Corpuscular Hemoglobin Concent 32 g/dL (31-37) Red Cell Distribution Width 17.1 % (11.5-14.5) Platelet Count 224 x10^3/uL (140-400) Neutrophils (%) (Auto) 84 % (31-73) Lymphocytes (%) (Auto) 6 % (24-48) Monocytes (%) (Auto) 7 % (0-9) Eosinophils (%) (Auto) 2 % (0-3) Basophils (%) (Auto) 1 % (0-3) Neutrophils # (Auto) 4.2 x10^3/uL (1.8-7.7) Lymphocytes # (Auto) 0.3 x10^3/uL (1.0-4.8) Monocytes # (Auto) 0.4 x10^3/uL (0.0-1.1) Eosinophils # (Auto) 0.1 x10^3/uL (0.0-0.7) Basophils # (Auto) 0.0 x10^3/uL (0.0-0.2) Segmented Neutrophils % 83 % (35-66) Band Neutrophils % 5 % (0-9) Lymphocytes % 5 % (24-48) Atypical Lymphocytes % (Manual) 1 % (0-0) Monocytes % 5 % (0-10) Eosinophils % 1 % (0-5) Platelet Estimate Adequate (ADEQUATE) Large Platelets Occ Anisocytosis Slight Ovalocytes Few Microbiology Micro Microbiology 06/20/19 Blood Culture - Preliminary, Resulted NO GROWTH AFTER 3 DAYS Physical Exam Other Exams Limited exam, Pt is intubated and sedated, not requiring pressors. Diffuse patchy opacities per CXR, tolerating vent setting, SR no significant ectopies. Assessment Assessment 1. Acute respiratory failure with ARDS/PNA/CHF/COPD/Covid-19 2. Acute on chronic diastolic systolic CHF 3. NICM: EF at 35-40%. 4. NSTEMI: peaked troponin 2.3, possibly demand mediated, type 2 5. Sepsis/shock: BP better, no pressor 6. Hypoxic/metabolic encephalopathy 7. AICD 8. HTN: controlled 9. HLP 10. Severe protein malnutrition 11. Hx of VT Recommendations 1. Lasix therapy, IV x1 today. Replace K 2. Continue amiodarone 200 mg home dose and mexilitine for VT suppression via OG, ASA. QTc currently at 476, monitor QTc with associated use of plaquenil and zithromax. Continue metoprolol. 3. Follow with [facility] 4. Follow pulmonary recommendation. 5. Supportive care BECCA BURLESON MD 06/23/19 1254: CARDIO Progress Notes Plan Plan Pt. seen and examined from hallway. No new changes from a CV standpoint CXR looks worse today. Discussed with nursing. Lasix and albumin being given. Supportive care. QTc stable on telemetry. Pt. is protected with ICD in place at this time for any arrhythmias. If any arrhythmias do occur, will consider amiodarone and I will discuss with his primary EP at [facility] regarding with holding mexiletine. Thanks Will follow along. Critically ill. OCHOA [employer]AL [employer] Jun 23, 2019 09:25 BECCA BURLESON MD Jun 23, 2019 12:54
[2019-06-23] MEDS ORDERED: ALTEPLASE 1MG SYRINGE. INT CAT ONE (09:30)
[2019-06-23] MEDS ORDERED: VECURONIUM BOLUS 10 MG VIAL. IV ONE (09:30)
[2019-06-23 09:45] LABS: BASE EXCESS ABG 1 mmol/L (-3-3); HCO3 ABG 27 mmol/L (21-28); PCO2 ABG 50 mmHg (35-46); PO2 ABG 56 mmHg (65-108); SAT O2 ABG 87 % (92-99)
[2019-06-23 09:46] LABS: FIO2 ABG 50
[2019-06-23] MEDS: MEXILETINE HCL 200 MG CAPSULE PO SCH (10:12)
[2019-06-23] MEDS: METOPROLOL TART IMMED RELEASE 25 MG TABLET. PO SCH ×2 (10:14→21:07)
--- NOTE | 2019-06-23 10:31 | RAD ---
CHEST AP ONLY History: Ventilator. Respiratory failure. Covid positive. Comparison: June 22, 2019 Findings: Diffuse interstitial and alveolar opacities, increased within the left lung base. Stable endotracheal tube, enteric tube and right sided central line. Stable left-sided pacemaker/ICD. No pneumothorax. Possible small pleural effusions. Impression: 1. Diffuse interstitial and alveolar opacities, increased within the left lung base. 2. Possible small pleural effusions. Electronically signed by: Prateek Valentino DO (06/23/2019 10:28 AM) [id number]
--- NOTE | 2019-06-23 11:03 | PDOC ---
PROGRESS NOTES Chief Complaint Chief Complaint Respiratory failure requiring intubation and mechanical ventilation Covid 19 syndrome 1. Patchy bilateral airspace disease, noncardiogenic edema versus atypical inf ection. 2. ACUTE HYPOXIC RESP FAILURE 3. ACUTE NSTEMI 4. No acute intracranial abnormality. 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 chronic right frontal infarcts. foci of decreased attenuation within the hemispheric white matter, most often due to chronic microvascular ischemia. Mild to moderate brain parenchymal volume loss. 6. acute metabolic encephalopathy 7. severe protein-caloric malnutrition History of Present Illness History of Present Illness 06/23/2019 no new changes, remains critically ill discussed with nursing staff at bedside, further recommendations based on clinical course. [id number] Patient seen and examined in the ICU He remains critically ill and intubated Before meals/20/400/50% with 8 of PEEP Has OG feeds running Chart reviewed Discussed with RN Prognosis extremely guarded [id number] Patient seen and examined in the ICU He is intubated and sedated with fentanyl and Versed Chart reviewed Discussed with RN He is critically ill Covid testing is still pending [id number] Patient seen in the ICU Currently mechanically ventilated with assist control/20/400/60% Sedated with fentanyl and Versed and propofol Discussed with RN Chart reviewed Vitals Vitals Vital Signs Date Time Temp Pulse Resp B/P (MAP) Pulse Ox O2 Delivery O2 Flow Rate FiO2 06/23/19 10:14 103 113/66 06/23/19 08:30 100 Ventilator 06/23/19 06:10 18 06/23/19 06:00 98.5 98.5 06/23/19 06:00 4.0 Physical Exam General: Other (sedated and intubated) Heart: Regular rate Lungs: Other (coarse breath sounds. ) Abdomen: Normal bowel sounds, Soft Extremities: No cyanosis Skin: No rashes, No breakdown Labs LABS Laboratory Tests Test 06/23/19 05:30 06/23/19 06:00 06/23/19 09:40 Sodium Level 143 mmol/L (136-145) Potassium Level 3.4 mmol/L (3.5-5.1) Chloride Level 109 mmol/L (98-107) Carbon Dioxide Level 28 mmol/L (21-32) Anion Gap 6 (6-14) Blood Urea Nitrogen 15 mg/dL (8-26) Creatinine 0.8 mg/dL (0.7-1.3) Estimated GFR (Cockcroft-Gault) 114.0 Glucose Level 123 mg/dL (70-99) Calcium Level 7.8 mg/dL (8.5-10.1) Vancomycin Level Trough 16.4 mcg/mL (10.0-20.0) Vancomycin Last Dose Date 06/22/19 Vancomycin Last Dose Time 1800 White Blood Count 5.0 x10^3/uL (4.0-11.0) Red Blood Count 3.20 x10^6/uL (4.30-5.70) Hemoglobin 9.6 g/dL (13.0-17.5) Hematocrit 29.7 % (39.0-53.0) Mean Corpuscular Volume 93 fL (79-100) Mean Corpuscular Hemoglobin 30 pg (25-35) Mean Corpuscular Hemoglobin Concent 32 g/dL (31-37) Red Cell Distribution Width 17.1 % (11.5-14.5) Platelet Count 224 x10^3/uL (140-400) Neutrophils (%) (Auto) 84 % (31-73) Lymphocytes (%) (Auto) 6 % (24-48) Monocytes (%) (Auto) 7 % (0-9) Eosinophils (%) (Auto) 2 % (0-3) Basophils (%) (Auto) 1 % (0-3) Neutrophils # (Auto) 4.2 x10^3/uL (1.8-7.7) Lymphocytes # (Auto) 0.3 x10^3/uL (1.0-4.8) Monocytes # (Auto) 0.4 x10^3/uL (0.0-1.1) Eosinophils # (Auto) 0.1 x10^3/uL (0.0-0.7) Basophils # (Auto) 0.0 x10^3/uL (0.0-0.2) Segmented Neutrophils % 83 % (35-66) Band Neutrophils % 5 % (0-9) Lymphocytes % 5 % (24-48) Atypical Lymphocytes % (Manual) 1 % (0-0) Monocytes % 5 % (0-10) Eosinophils % 1 % (0-5) Platelet Estimate Adequate (ADEQUATE) Large Platelets Occ Anisocytosis Slight Ovalocytes Few O2 Saturation 87 % (92-99) Arterial Blood pH 7.36 (7.35-7.45) Arterial Blood pCO2 at Patient Temp 50 mmHg (35-46) Arterial Blood pO2 at Patient Temp 56 mmHg (65-108) Arterial Blood HCO3 27 mmol/L (21-28) Arterial Blood Base Excess 1 mmol/L (-3-3) FiO2 50 Assessment and Plan Assessmemt and Plan Problems Medical Problems: (1) Altered mental status Status: Acute (2) Elevated brain natriuretic peptide (BNP) level Status: Acute (3) Elevated troponin Status: Acute (4) Suspected COVID-19 virus infection Status: Acute Comment Review of Relevant I have reviewed the following items abdelrahman (where applicable) has been applied. Labs Laboratory Tests Test 06/21/19 17:00 06/22/19 04:45 06/22/19 09:18 06/22/19 10:29 Fibrinogen 702 mg/dL (200-440) D-Dimer (Mila) 10.83 ug/mlFEU (0.00-0.50) White Blood Count 5.0 x10^3/uL (4.0-11.0) Red Blood Count 3.34 x10^6/uL (4.30-5.70) Hemoglobin 10.0 g/dL (13.0-17.5) Hematocrit 31.0 % (39.0-53.0) Mean Corpuscular Volume 93 fL (79-100) Mean Corpuscular Hemoglobin 30 pg (25-35) Mean Corpuscular Hemoglobin Concent 32 g/dL (31-37) Red Cell Distribution Width 17.1 % (11.5-14.5) Platelet Count 258 x10^3/uL (140-400) Sodium Level 141 mmol/L (136-145) Potassium Level 3.1 mmol/L (3.5-5.1) Chloride Level 109 mmol/L (98-107) Carbon Dioxide Level 25 mmol/L (21-32) Anion Gap 7 (6-14) Blood Urea Nitrogen 14 mg/dL (8-26) Creatinine 0.7 mg/dL (0.7-1.3) Estimated GFR (Cockcroft-Gault) 133.0 Glucose Level 109 mg/dL (70-99) Calcium Level 7.6 mg/dL (8.5-10.1) Magnesium Level 2.0 mg/dL (1.8-2.4) Total Bilirubin 0.8 mg/dL (0.2-1.0) Direct Bilirubin 0.6 mg/dL (0.0-0.2) Aspartate Amino Transf (AST/SGOT) 34 U/L (15-37) Alanine Aminotransferase (ALT/SGPT) 25 U/L (16-63) Alkaline Phosphatase 60 U/L (46-116) Total Protein 5.2 g/dL (6.4-8.2) Albumin 1.1 g/dL (3.4-5.0) Triglycerides Level 105 mg/dL (0-150) Cholesterol Level 96 mg/dL (0-200) LDL Cholesterol, Calculated 64 mg/dL (0-100) VLDL Cholesterol, Calculated 21 mg/dL (0-40) Non-HDL Cholesterol Calculated 85 mg/dL (0-129) HDL Cholesterol 11 mg/dL (40-60) Cholesterol/HDL Ratio 8.7 Bedside Arterial pH 7.37 (7.35-7.45) 7.36 (7.35-7.45) Bedside Arterial pCO2 42 mmHg (35-45) 43 mmHg (35-45) Bedside Arterial pO2 48 mmHg (75-100) 45 mmHg (75-100) Arterial Blood HCO3 24 mmol/L (21-28) 25 mmol/L (21-28) Bedside Arterial Blood O2 Sat 82 % (95-99) 79 % (95-99) Bedside FiO2 60.0 50.0 Test 06/23/19 05:30 06/23/19 06:00 06/23/19 09:40 Sodium Level 143 mmol/L (136-145) Potassium Level 3.4 mmol/L (3.5-5.1) Chloride Level 109 mmol/L (98-107) Carbon Dioxide Level 28 mmol/L (21-32) Anion Gap 6 (6-14) Blood Urea Nitrogen 15 mg/dL (8-26) Creatinine 0.8 mg/dL (0.7-1.3) Estimated GFR (Cockcroft-Gault) 114.0 Glucose Level 123 mg/dL (70-99) Calcium Level 7.8 mg/dL (8.5-10.1) Vancomycin Level Trough 16.4 mcg/mL (10.0-20.0) Vancomycin Last Dose Date 06/22/19 Vancomycin Last Dose Time 1800 White Blood Count 5.0 x10^3/uL (4.0-11.0) Red Blood Count 3.20 x10^6/uL (4.30-5.70) Hemoglobin 9.6 g/dL (13.0-17.5) Hematocrit 29.7 % (39.0-53.0) Mean Corpuscular Volume 93 fL (79-100) Mean Corpuscular Hemoglobin 30 pg (25-35) Mean Corpuscular Hemoglobin Concent 32 g/dL (31-37) Red Cell Distribution Width 17.1 % (11.5-14.5) Platelet Count 224 x10^3/uL (140-400) Neutrophils (%) (Auto) 84 % (31-73) Lymphocytes (%) (Auto) 6 % (24-48) Monocytes (%) (Auto) 7 % (0-9) Eosinophils (%) (Auto) 2 % (0-3) Basophils (%) (Auto) 1 % (0-3) Neutrophils # (Auto) 4.2 x10^3/uL (1.8-7.7) Lymphocytes # (Auto) 0.3 x10^3/uL (1.0-4.8) Monocytes # (Auto) 0.4 x10^3/uL (0.0-1.1) Eosinophils # (Auto) 0.1 x10^3/uL (0.0-0.7) Basophils # (Auto) 0.0 x10^3/uL (0.0-0.2) Segmented Neutrophils % 83 % (35-66) Band Neutrophils % 5 % (0-9) Lymphocytes % 5 % (24-48) Atypical Lymphocytes % (Manual) 1 % (0-0) Monocytes % 5 % (0-10) Eosinophils % 1 % (0-5) Platelet Estimate Adequate (ADEQUATE) Large Platelets Occ Anisocytosis Slight Ovalocytes Few O2 Saturation 87 % (92-99) Arterial Blood pH 7.36 (7.35-7.45) Arterial Blood pCO2 at Patient Temp 50 mmHg (35-46) Arterial Blood pO2 at Patient Temp 56 mmHg (65-108) Arterial Blood HCO3 27 mmol/L (21-28) Arterial Blood Base Excess 1 mmol/L (-3-3) FiO2 50 Laboratory Tests Test 06/23/19 05:30 06/23/19 06:00 06/23/19 09:40 Sodium Level 143 mmol/L (136-145) Potassium Level 3.4 mmol/L (3.5-5.1) Chloride Level 109 mmol/L (98-107) Carbon Dioxide Level 28 mmol/L (21-32) Anion Gap 6 (6-14) Blood Urea Nitrogen 15 mg/dL (8-26) Creatinine 0.8 mg/dL (0.7-1.3) Estimated GFR (Cockcroft-Gault) 114.0 Glucose Level 123 mg/dL (70-99) Calcium Level 7.8 mg/dL (8.5-10.1) Vancomycin Level Trough 16.4 mcg/mL (10.0-20.0) Vancomycin Last Dose Date 06/22/19 Vancomycin Last Dose Time 1800 White Blood Count 5.0 x10^3/uL (4.0-11.0) Red Blood Count 3.20 x10^6/uL (4.30-5.70) Hemoglobin 9.6 g/dL (13.0-17.5) Hematocrit 29.7 % (39.0-53.0) Mean Corpuscular Volume 93 fL (79-100) Mean Corpuscular Hemoglobin 30 pg (25-35) Mean Corpuscular Hemoglobin Concent 32 g/dL (31-37) Red Cell Distribution Width 17.1 % (11.5-14.5) Platelet Count 224 x10^3/uL (140-400) Neutrophils (%) (Auto) 84 % (31-73) Lymphocytes (%) (Auto) 6 % (24-48) Monocytes (%) (Auto) 7 % (0-9) Eosinophils (%) (Auto) 2 % (0-3) Basophils (%) (Auto) 1 % (0-3) Neutrophils # (Auto) 4.2 x10^3/uL (1.8-7.7) Lymphocytes # (Auto) 0.3 x10^3/uL (1.0-4.8) Monocytes # (Auto) 0.4 x10^3/uL (0.0-1.1) Eosinophils # (Auto) 0.1 x10^3/uL (0.0-0.7) Basophils # (Auto) 0.0 x10^3/uL (0.0-0.2) Segmented Neutrophils % 83 % (35-66) Band Neutrophils % 5 % (0-9) Lymphocytes % 5 % (24-48) Atypical Lymphocytes % (Manual) 1 % (0-0) Monocytes % 5 % (0-10) Eosinophils % 1 % (0-5) Platelet Estimate Adequate (ADEQUATE) Large Platelets Occ Anisocytosis Slight Ovalocytes Few O2 Saturation 87 % (92-99) Arterial Blood pH 7.36 (7.35-7.45) Arterial Blood pCO2 at Patient Temp 50 mmHg (35-46) Arterial Blood pO2 at Patient Temp 56 mmHg (65-108) Arterial Blood HCO3 27 mmol/L (21-28) Arterial Blood Base Excess 1 mmol/L (-3-3) FiO2 50 Microbiology 06/20/19 Blood Culture - Preliminary, Resulted NO GROWTH AFTER 3 DAYS Medications Current Medications Piperacillin Sod/ Tazobactam Sod 4.5 gm/Sodium Chloride 100 ml @ 200 mls/hr 1X ONCE IV Last administered on 06/19/19at 16:50; Start 06/19/19 at 16:00; Stop 06/19/19 at 16:29; Status DC Vancomycin HCl 1.25 gm/Sodium Chloride 250 ml @ 166.667 mls/hr 1X ONCE IV Last administered on 06/19/19at 16:51; Start 06/19/19 at 16:00; Stop 06/19/19 at 17:29; Status DC Hydroxychloroquine Sulfate (Plaquenil) 400 mg BID PO ; Start 06/19/19 at 21:00; Status UNV Enoxaparin Sodium (Lovenox 80mg Syringe) 75 mg 1X ONCE SQ Last administered on 06/19/19at 16:51; Start 06/19/19 at 16:30; Stop 06/19/19 at 16:31; Status DC Furosemide (Lasix) 40 mg 1X ONCE IVP Last administered on 06/19/19at 16:51; Start 06/19/19 at 17:00; Stop 06/19/19 at 17:01; Status DC Sodium Chloride (Normal Saline Flush) 3 ml QSHIFT PRN IV AFTER MEDS AND BLOOD DRAWS; Start 06/19/19 at 17:45 Sodium Chloride 1,000 ml @ 65 mls/hr [id number] IV Last administered on 06/22/19at 16:28; Start 06/19/19 at 17:31 Acetaminophen (Tylenol) 650 mg PRN Q4HRS PRN PO TEMP OVER 100.4F OR MILD PAIN; Start 06/19/19 at 17:45 Acetaminophen (Tylenol Supp) 650 mg PRN Q4HRS PRN AR TEMP OVER 100.4F OR MILD PAIN; Start 06/19/19 at 17:45 Clonidine HCl (Catapres) 0.1 mg PRN Q6HRS PRN PO SBP>160 OR DBP>90; Start 06/19/19 at 17:45 Sodium Monofluorophosphate (Fleet Adult) 133 ml PRN DAILY PRN AR CONSTIPATION; Start 06/19/19 at 17:45 Docusate Sodium (Colace) 100 mg PRN BID PRN PO CONSTIPATION; Start 06/19/19 at 17:45 Albuterol/ Ipratropium (Duoneb) 3 ml Q4HRS W/A NEB ; Start 06/19/19 at 18:00; Stop 06/20/19 at 17:12; Status DC Guaifenesin (Robitussin) 200 mg PRN Q4HRS PRN PO COUGH; Start 06/19/19 at 17:45 Enoxaparin Sodium (Lovenox 40mg Syringe) 40 mg Q24H SQ ; Start 06/19/19 at 18:00; Status UNV Vancomycin HCl (Vanco Per Pharmacy) 1 each PRN DAILY PRN MC SEE COMMENTS Last administered on 06/23/19at 06:17; Start 06/19/19 at 17:45 Piperacillin Sod/ Tazobactam Sod 3.375 gm/Sodium Chloride 50 ml @ 100 mls/hr Q6HRS IV ; Start 06/19/19 at 18:00; Status Cancel Enoxaparin Sodium (Lovenox Per Pharmacy Treatment Dosing) 1 each PRN DAILY PRN MC SEE COMMENTS; Start 06/19/19 at 17:45; Stop 06/20/19 at 15:01; Status DC Piperacillin Sod/ Tazobactam Sod 3.375 gm/Sodium Chloride 50 ml @ 100 mls/hr Q6HRS IV Last administered on 06/23/19at 05:37; Start 06/20/19 at 00:00 Enoxaparin Sodium (Lovenox 80mg Syringe) 70 mg Q12HR SQ Last administered on 06/20/19at 08:00; Start 06/20/19 at 09:00; Stop 06/20/19 at 15:01; Status DC Vancomycin HCl 1 gm/Sodium Chloride 250 ml @ 250 mls/hr Q12H IV Last administered on 06/20/19at 16:26; Start 06/20/19 at 05:00; Stop 06/21/19 at 05:34; Status DC Vancomycin HCl (Vancomycin Trough Level) 1 each 1X ONCE MC Last administered on 06/21/19at 04:30; Start 06/21/19 at 04:30; Stop 06/21/19 at 04:31; Status DC Hydroxychloroquine Sulfate (Plaquenil) 400 mg 1X ONCE PO Last administered on 06/20/19at 00:07; Start 06/19/19 at 20:00; Stop 06/19/19 at 20:01; Status DC Propofol 100 ml @ As Directed STK-MED ONCE IV ; Start 06/19/19 at 20:33; Stop 06/19/19 at 20:34; Status DC Fentanyl Citrate 30 ml @ 0 mls/hr CONT PRN IV SEE PROTOCOL Last administered on 06/23/19at 05:38; Start 06/19/19 at 21:15 Propofol 100 ml @ 0 mls/hr CONT PRN IV SEE PROTOCOL; Start 06/19/19 at 21:15 Fentanyl Citrate (Fentanyl 2ml Vial) 25 mcg PRN Q1HR PRN IV SEE COMMENTS; Start 06/19/19 at 21:15 Fentanyl Citrate (Fentanyl 2ml Vial) 50 mcg PRN Q1HR PRN IV SEE COMMENTS; Start 06/19/19 at 21:15 Chlorhexidine Gluconate (Peridex) 15 ml BID MM Last administered on 06/23/19at 08:37; Start 06/20/19 at 09:00 Morphine Sulfate (Morphine Sulfate) 2 mg PRN Q1HR PRN IV SEE COMMENTS.; Start 06/19/19 at 21:15 Morphine Sulfate (Morphine Sulfate) 4 mg PRN Q1HR PRN IV SEE COMMENTS.; Start 06/19/19 at 21:15 Midazolam HCl 50 mg/Sodium Chloride 50 ml @ 0 mls/hr CONT PRN IV SEE PROTOCOL Last administered on 06/20/19at 01:38; Start 06/19/19 at 21:15; Stop 06/20/19 at 07:27; Status DC Midazolam HCl 100 mg/Sodium Chloride 100 ml @ 6 mls/hr CONT PRN IV SEE PROTOCOL Last administered on 06/23/19at 02:07; Start 06/20/19 at 07:30 Hydroxychloroquine Sulfate (Plaquenil) 200 mg BID PO Last administered on 06/23/19at 08:33; Start 06/20/19 at 21:00; Stop 06/24/19 at 09:01 Azithromycin 250 mg/Sodium Chloride 250 ml @ 250 mls/hr Q24H IV Last administered on 06/23/19at 08:36; Start 06/20/19 at 10:00 Hydroxychloroquine Sulfate (Plaquenil) 400 mg 1X ONCE PO Last administered on 06/20/19at 10:35; Start 06/20/19 at 09:30; Stop 06/20/19 at 09:44; Status DC Acetaminophen (Tylenol) 650 mg PRN Q6HRS PRN PEG MILD PAIN / TEMP Last administered on 06/20/19at 16:26; Start 06/20/19 at 12:30 Info (Anti-Coagulation Monitoring By Pharmacy) 1 each PRN DAILY PRN MC SEE COMMENTS; Start 06/20/19 at 14:30; Status Cancel Enoxaparin Sodium (Lovenox 40mg Syringe) 40 mg Q24H SQ Last administered on 06/23/19at 08:36; Start 06/21/19 at 09:00 Albuterol/ Ipratropium (Duoneb) 3 ml PRN Q4HRS PRN NEB SHORTNESS OF BREATH; Start 06/20/19 at 17:15; Stop 06/20/19 at 17:30; Status DC Vancomycin HCl 1.25 gm/Sodium Chloride 250 ml @ 167 mls/hr Q12H IV Last administered on 06/23/19at 06:31; Start 06/21/19 at 06:00 Vancomycin HCl (Vancomycin Trough Level) 1 each 1X ONCE MC Last administered on 06/22/19at 17:30; Start 06/22/19 at 17:30; Stop 06/22/19 at 17:31; Status DC Famotidine (Pepcid Vial) 20 mg BID IVP Last administered on 06/23/19at 08:35; S tart 06/22/19 at 21:00 Furosemide (Lasix) 40 mg 1X ONCE IVP Last administered on 06/22/19at 12:22; Start 06/22/19 at 11:45; Stop 06/22/19 at 11:47; Status DC Potassium Chloride/Water 100 ml @ 100 mls/hr Q1H IV Last administered on 06/22/19at 13:29; Start 06/22/19 at 12:00; Stop 06/22/19 at 13:59; Status DC Albumin Human 100 ml @ 100 mls/hr 1X ONCE IV Last administered on 06/22/19at 12:26; Start 06/22/19 at 12:00; Stop 06/22/19 at 12:59; Status DC Mexiletine HCl (Mexitil) 400 mg BID PO Last administered on 06/23/19at 10:12; Start 06/22/19 at 13:00 Metoprolol Tartrate (Lopressor) 12.5 mg BID PO Last administered on 06/23/19at 10:14; Start 06/22/19 at 13:00 Ascorbic Acid (Vitamin C) 500 mg DAILY PO Last administered on 06/23/19at 08:36; Start 06/23/19 at 09:00 Zinc Sulfate (Orazinc) 220 mg DAILY PO Last administered on 06/23/19at 08:33; Start 06/23/19 at 09:00 Vancomycin HCl (Vancomycin Trough Level) 1 each 1X ONCE MC Last administered on 06/23/19at 05:30; Start 06/23/19 at 05:30; Stop 06/23/19 at 05:31; Status DC Albumin Human 100 ml @ 100 mls/hr 1X ONCE IV Last administered on 06/23/19at 08:35; Start 06/23/19 at 08:00; Stop 06/23/19 at 08:59; Status DC Furosemide (Lasix) 40 mg 1X ONCE IVP Last administered on 06/23/19at 08:35; Start 06/23/19 at 08:00; Stop 06/23/19 at 08:01; Status DC Potassium Chloride/Water 100 ml @ 100 mls/hr 1X ONCE IV Last administered on 06/23/19at 10:15; Start 06/23/19 at 08:30; Stop 06/23/19 at 09:29; Status DC Alteplase, Recombinant (Cathflo For Central Catheter Clearance) 1 mg 1X ONCE I NT CAT Last administered on 06/23/19at 10:16; Start 06/23/19 at 09:30; Stop 06/23/19 at 09:31; Status DC Vecuronium Rosine (Norcuron Bolus) 6 mg 1X ONCE IV Last administered on 06/23/19at 09:25; Start 06/23/19 at 09:30; Stop 06/23/19 at 09:31; Status DC Furosemide (Lasix) 40 mg DAILY PO ; Start 06/24/19 at 09:00 Potassium Bicarbonate (Potassium Effervescent Tablet) 20 meq DAILY PEG ; Start 06/24/19 at 09:00 Active Scripts Active Reported Mexiletine Hcl 250 Mg Capsule 450 Mg PO BID Metoprolol Tartrate 100 Mg Tablet 1 Tab PO DAILY Children's Aspirin (Aspirin) 81 Mg Tab.chew 81 Mg PO DAILY Amiodarone Hcl 200 Mg Tablet 1 Tab PO DAILY Vitals/I & O Vital Sign - Last 24 Hours 06/22/19 06/22/19 06/22/19 06/22/19 11:36 12:00 12:00 13:00 Temp 99.1 99.1 Pulse 94 107 Resp 26 B/P (MAP) 139/49 (79) 99/58 Pulse Ox 98 100 O2 Delivery Ventilator Mechanical Ventilator Ventilator 06/22/19 06/22/19 06/22/19 06/22/19 13:00 13:35 14:00 14:05 Pulse 108 100 Resp 25 32 B/P (MAP) 94/67 (76) 100/62 (75) Pulse Ox 99 99 100 100 O2 Delivery Ventilator Ventilator Ventilator 06/22/19 06/22/19 06/22/19 06/22/19 15:00 15:50 16:00 16:00 Temp 99.6 99.6 Pulse 100 109 Resp 18 28 B/P (MAP) 98/71 (80) 110/79 (89) Pulse Ox 100 98 99 O2 Delivery Ventilator Ventilator Ventilator Mechanical Ventilator 06/22/19 06/22/19 06/22/19 06/22/19 17:00 18:00 19:00 20:00 Pulse 108 108 102 Resp 32 31 20 B/P (MAP) 90/56 (67) 109/74 (86) 90/64 (73) Pulse Ox 100 100 100 O2 Delivery Ventilator Ventilator Ventilator Mechanical Ventilator 06/22/19 06/22/19 06/22/19/31/20 20:00 20:05 21:00 21:15 Temp 98.6 98.6 Pulse 102 107 102 Resp 20 20 B/P (MAP) 94/64 (74) 92/56 (68) Pulse Ox 100 100 100 O2 Delivery Ventilator Ventilator Ventilator 06/22/19 06/22/19 06/22/19 06/22/19 21:21 21:51 22:00 23:00 Pulse 79 86 Resp 20 20 20 B/P (MAP) 84/51 (62) 91/58 (69) Pulse Ox 97 100 O2 Delivery Ventilator Ventilator 06/22/19 06/23/19 06/23/19 06/23/19 23:40 00:00 00:00 01:00 Temp 98.6 98.6 Pulse 86 87 Resp 20 B/P (MAP) 92/58 (69) 93/60 (71) Pulse Ox 100 99 100 O2 Delivery Ventilator Mechanical Ventilator Ventilator Ventilator 06/23/19 06/23/19 06/23/19 06/23/19 02:00 03:00 03:44 05:00 Pulse 84 83 Resp 20 B/P (MAP) 94/68 (77) 90/62 (71) Pulse Ox 100 99 100 O2 Delivery Ventilator Ventilator Ventilator Mechanical Ventilator O2 Flow Rate 4.0 06/23/19 06/23/19 06/23/19 06/23/19 05:38 06:00 06:00 06:10 Temp 98.5 98.5 Pulse 88 Resp 18 B/P (MAP) 97/54 (68) Pulse Ox 99 O2 Delivery Ventilator Mechanical Ventilator Ventilator Ventilator O2 Flow Rate 4.0 06/23/19 06/23/19 08:30 10:14 Pulse 103 B/P (MAP) 113/66 Pulse Ox 100 O2 Delivery Ventilator Intake and Output 06/22/19 06/22/19 06/23/19 15:00 23:00 07:00 Intake Total 850 ml 2064 ml 300 ml Output Total 1020 ml 1480 ml 180 ml Balance -170 ml 584 ml 120 ml BABAK BUTT MD Jun 23, 2019 11:03
--- NOTE | 2019-06-23 14:22 | PDOC ---
PROGRESS NOTES Assessment Assessment Covid-19 disease, confirmed by Covid test report on 06/21/19. Hypoxic encephalopathy. Metabolic encephalopathy. Respiratory failure. T 99.9 degree, but not to the category of fever (100.4 degree). Multifocal pulmonary consolidation. Shock, BP 67/46 mmHg. CHF. Cardiomyopathy. COPD. HTN. HLD. OA. RECOMMENDATIONS/PLAN: Life support in ICU at the present time. Treat medical diseases. Poor prognosis. History of Present Illness This is a 74-year-old AA male patient with PMH of hypertension, hyperlipidemia and COPD and other medical diseases was initially brought to the emergency room from his [place] [facility] for decreased mental status. Patient has progressively deteriorated since admission and required intubation due to respiratory failure. His 02 dropped to 45%. Initial troponin was 2.369 but has decreased to 1.8. BNP is elevated at 3527. He was treated at [facility] where he received a replacement of ICD on 06/16/19. He carries a diagnosis of a non-ischemic cardiomyopathy with an ejection fraction of 35-40% as well as chronic kidney disease and dementia. Past Medical History Cardiovascular: CHF, HTN, Hyperlipidemia, Other (ventricular tachycardia) Pulmonary: COPD CENTRAL NERVOUS SYSTEM: Dementia Musculoskeletal: Osteoarthritis Past Surgical History ICD placement with recent replacement. Family History High Cholestrol, Hypertension Social History Quit ALCOHOL: none Drugs: None Allergies Coded Allergies: Egg (Verified Allergy, Intermediate, Nausea and Vomiting, 06/19/19) MEDICATIONS: Refer to MAR REVIEW OF SYSTEMS: Constitutional: No malnutrition, weight loss, cachexia. Head: No traumatic brain or head injury. Skin: No edema, or rash. Ear: No infection. Eyes: No vision loss or color blindness. Nose: No bleeding or purulent discharges. Hearing: Hearing decrease. Neck: No injury. Cardiac: CHF, cardiomyopathy, ICD Placement, HTN, HLD. Pulmonary: COPD. GI: No GI ulcer, GI bleeding. Urinary/genital: UTI. Endocrinologic: No cousin face, craniofacial dysmorphism, polydactyly. Skeletomuscular: OA. Neurological: see HP. Psychiatric: Denies drug use/abuse. Otherwise, not [id number] review of systems. NEUROLOGICAL EXAMINATION: On vent. Unresponsive. Chart reviewed. Objective Objective Vital Signs Date Time Temp Pulse Resp B/P (MAP) Pulse Ox O2 Delivery O2 Flow Rate FiO2 06/23/19 12:45 100 BiPAP/CPAP 4.0 06/23/19 11:00 104 31 118/70 (86) 06/23/19 08:00 98.2 98.2 Intake and Output 06/23/19 07:00 Intake Total 3214 ml Output Total 2680 ml Balance 534 ml Intake IV Total 1514 ml Tube Feeding 1250 ml Other 450 ml Output Urine Total 2680 ml Vitals Signs Vitals VS - Last 72 Hours, by Label Date Time Temp Pulse Resp B/P (MAP) Pulse Ox O2 Delivery O2 Flow Rate FiO2 06/23/19 12:45 100 BiPAP/CPAP 4.0 06/23/19 12:00 100 Ventilator 06/23/19 12:00 Mechanical Ventilator 06/23/19 11:00 104 31 118/70 (86) 100 Ventilator 06/23/19 10:14 103 113/66 06/23/19 10:00 108 25 113/66 (82) 100 Ventilator 06/23/19 09:00 100 30 102/68 (79) 100 Ventilator 06/23/19 08:30 100 Ventilator 06/23/19 08:00 Mechanical Ventilator 06/23/19 08:00 98.2 94 30 102/61 (75) 100 Ventilator 98.2 06/23/19 07:00 92 30 95/65 (75) 100 Ventilator 06/23/19 06:10 18 Ventilator 06/23/19 06:00 98.5 88 24 97/54 (68) 99 Ventilator 98.5 06/23/19 06:00 Mechanical Ventilator 4.0 06/23/19 05:38 20 Ventilator 06/23/19 05:00 Mechanical Ventilator 4.0 06/23/19 03:44 100 Ventilator 06/23/19 03:00 83 20 90/62 (71) 99 Ventilator 06/23/19 02:00 84 20 94/68 (77) 100 Ventilator 06/23/19 01:00 87 20 93/60 (71) 100 Ventilator 06/23/19 00:00 98.6 86 20 92/58 (69) 99 Ventilator 98.6 06/23/19 00:00 Mechanical Ventilator 06/22/19 23:40 100 Ventilator 06/22/19 23:00 86 20 91/58 (69) 100 Ventilator 06/22/19 22:00 79 20 84/51 (62) 97 Ventilator 06/22/19 21:51 20 06/22/19 21:21 20 06/22/19 21:15 102 06/22/19 21:00 107 20 92/56 (68) 100 Ventilator 06/22/19 20:05 100 Ventilator 06/22/19 20:00 98.6 102 20 94/64 (74) 100 Ventilator 98.6 06/22/19 20:00 Mechanical Ventilator 06/22/19 19:00 102 20 90/64 (73) 100 Ventilator 06/22/19 18:00 108 31 109/74 (86) 100 Ventilator 06/22/19 17:00 108 32 90/56 (67) 100 Ventilator 06/22/19 16:00 Mechanical Ventilator 06/22/19 16:00 99.6 109 28 110/79 (89) 99 Ventilator 99.6 06/22/19 15:50 98 Ventilator 06/22/19 15:00 100 18 98/71 (80) 100 Ventilator 06/22/19 14:05 100 Ventilator 06/22/19 14:00 100 32 100/62 (75) 100 Ventilator 06/22/19 13:35 99 06/22/19 13:00 108 25 94/67 (76) 99 Ventilator 06/22/19 13:00 107 99/58 06/22/19 12:00 99.1 94 26 139/49 (79) 100 Ventilator 99.1 06/22/19 12:00 Mechanical Ventilator 06/22/19 11:36 98 Ventilator 06/22/19 11:00 90 26 90/74 (79) 98 Ventilator 06/22/19 10:00 90 26 101/63 (76) 98 Ventilator 06/22/19 09:04 97 Ventilator 06/22/19 09:00 86 18 101/60 (74) 97 Ventilator 06/22/19 08:00 98.5 82 26 91/62 (72) 97 Ventilator 98.5 06/22/19 07:45 Mechanical Ventilator 06/22/19 07:00 82 17 91/58 (69) 99 Ventilator Laboratory Laboratory Laboratory Tests Test 06/23/19 05:30 06/23/19 06:00 06/23/19 09:40 Sodium Level 143 mmol/L (136-145) Potassium Level 3.4 mmol/L (3.5-5.1) Chloride Level 109 mmol/L (98-107) Carbon Dioxide Level 28 mmol/L (21-32) Anion Gap 6 (6-14) Blood Urea Nitrogen 15 mg/dL (8-26) Creatinine 0.8 mg/dL (0.7-1.3) Estimated GFR (Cockcroft-Gault) 114.0 Glucose Level 123 mg/dL (70-99) Calcium Level 7.8 mg/dL (8.5-10.1) Vancomycin Level Trough 16.4 mcg/mL (10.0-20.0) Vancomycin Last Dose Date 06/22/19 Vancomycin Last Dose Time 1800 White Blood Count 5.0 x10^3/uL (4.0-11.0) Red Blood Count 3.20 x10^6/uL (4.30-5.70) Hemoglobin 9.6 g/dL (13.0-17.5) Hematocrit 29.7 % (39.0-53.0) Mean Corpuscular Volume 93 fL (79-100) Mean Corpuscular Hemoglobin 30 pg (25-35) Mean Corpuscular Hemoglobin Concent 32 g/dL (31-37) Red Cell Distribution Width 17.1 % (11.5-14.5) Platelet Count 224 x10^3/uL (140-400) Neutrophils (%) (Auto) 84 % (31-73) Lymphocytes (%) (Auto) 6 % (24-48) Monocytes (%) (Auto) 7 % (0-9) Eosinophils (%) (Auto) 2 % (0-3) Basophils (%) (Auto) 1 % (0-3) Neutrophils # (Auto) 4.2 x10^3/uL (1.8-7.7) Lymphocytes # (Auto) 0.3 x10^3/uL (1.0-4.8) Monocytes # (Auto) 0.4 x10^3/uL (0.0-1.1) Eosinophils # (Auto) 0.1 x10^3/uL (0.0-0.7) Basophils # (Auto) 0.0 x10^3/uL (0.0-0.2) Segmented Neutrophils % 83 % (35-66) Band Neutrophils % 5 % (0-9) Lymphocytes % 5 % (24-48) Atypical Lymphocytes % (Manual) 1 % (0-0) Monocytes % 5 % (0-10) Eosinophils % 1 % (0-5) Platelet Estimate Adequate (ADEQUATE) Large Platelets Occ Anisocytosis Slight Ovalocytes Few O2 Saturation 87 % (92-99) Arterial Blood pH 7.36 (7.35-7.45) Arterial Blood pCO2 at Patient Temp 50 mmHg (35-46) Arterial Blood pO2 at Patient Temp 56 mmHg (65-108) Arterial Blood HCO3 27 mmol/L (21-28) Arterial Blood Base Excess 1 mmol/L (-3-3) FiO2 50 Microbiology 06/20/19 Blood Culture - Preliminary, Resulted NO GROWTH AFTER 3 DAYS Medication Medications Current Medications Albumin Human 100 ml @ 100 mls/hr 1X ONCE IV Last administered on 06/23/19at 08:35; Start 06/23/19 at 08:00; Stop 06/23/19 at 08:59; Status DC Alteplase, Recombinant (Cathflo For Central Catheter Clearance) 1 mg 1X ONCE INT CAT Last administered on 06/23/19at 10:16; Start 06/23/19 at 09:30; Stop 06/23/19 at 09:31; Status DC Amiodarone HCl (Cordarone) 400 mg DAILY PO ; Start 06/24/19 at 09:00 Ascorbic Acid (Vitamin C) 500 mg DAILY PO Last administered on 06/23/19at 08:36; Start 06/23/19 at 09:00 Famotidine (Pepcid Vial) 20 mg BID IVP Last administered on 06/23/19at 08:35; Start 06/22/19 at 21:00 Furosemide (Lasix) 40 mg 1X ONCE IVP Last administered on 06/23/19at 08:35; Start 06/23/19 at 08:00; Stop 06/23/19 at 08:01; Status DC Furosemide (Lasix) 40 mg DAILY PO ; Start 06/24/19 at 09:00 Potassium Bicarbonate (Potassium Effervescent Tablet) 20 meq DAILY PEG ; Start 06/24/19 at 09:00 Potassium Chloride/Water 100 ml @ 100 mls/hr 1X ONCE IV Last administered on 06/23/19at 10:15; Start 06/23/19 at 08:30; Stop 06/23/19 at 09:29; Status DC Vancomycin HCl (Vancomycin Trough Level) 1 each 1X ONCE MC Last administered on 06/22/19at 17:30; Start 06/22/19 at 17:30; Stop 06/22/19 at 17:31; Status DC Vancomycin HCl (Vancomycin Trough Level) 1 each 1X ONCE MC Last administered on 06/23/19at 05:30; Start 06/23/19 at 05:30; Stop 06/23/19 at 05:31; Status DC Vecuronium [place] (Norcuron Bolus) 6 mg 1X ONCE IV Last administered on 06/23/19at 09:25; Start 06/23/19 at 09:30; Stop 06/23/19 at 09:31; Status DC Zinc Sulfate (Orazinc) 220 mg DAILY PO Last administered on 06/23/19at 08:33; Start 06/23/19 at 09:00 Comment Review of Relevant I have reviewed the following items abdelrahman (where applicable) has been applied. CINDY CANNON MD Jun 23, 2019 14:22
[2019-06-23] MEDS: IV NORMAL SALINE 1000ML BAG 1,000 ML IV SCH (14:34)
[2019-06-23 15:36] LABS: CREATININE 0.9 mg/dL (0.7-1.3); GFR 99.5; POTASSIUM 3.7 mmol/L (3.5-5.1)
[2019-06-24] VITALS (23 sets, daily range): BP systolic 80–119; BP diastolic 54–74
[2019-06-24] MEDS ORDERED: DEXTROSE 50% 25 GM / 50ML DISP.SYRIN. IV ONE (00:15)
[2019-06-24] MEDS: MIDAZOLAM HCL 100 MG in IV NORMAL SALINE 100ML 100 ML IV PRN ×2 (00:35→08:58)
[2019-06-24] MEDS: IV NORMAL SALINE 1000ML BAG 1,000 ML IV SCH ×3 (05:19→22:10)
[2019-06-24] MEDS: PIPERACILLIN/TAZOBACTAM 3.375 GM in IV NORMAL SALINE 50ML 50 ML IV SCH ×4 (05:25→22:53)
[2019-06-24] MEDS: VANCOMYCIN 1.25 GM in IV NORMAL SALINE 250ML 250 ML IV SCH ×2 (06:17→17:57)
--- NOTE | 2019-06-24 07:34 | PDOC ---
PULMONARY PROGRESS NOTES Subjective Patient sedated, assist control ventilation. now up to 700% FiO2 8 PEEP sedated, no pressors Vitals Vital Signs Date Time Temp Pulse Resp B/P (MAP) Pulse Ox O2 Delivery O2 Flow Rate FiO2 06/24/19 06:21 91 95/59 (71) Ventilator 06/24/19 06:00 22 98 06/24/19 05:30 98.2 98.2 06/23/19 18:42 4.0 Comments visuall exam done no respiratory distress, sedated no obvious rash no edema Labs Laboratory Tests Test 06/22/19 09:18 06/22/19 10:29 06/23/19 05:30 06/23/19 06:00 Bedside Arterial pH 7.37 (7.35-7.45) 7.36 (7.35-7.45) Bedside Arterial pCO2 42 mmHg (35-45) 43 mmHg (35-45) Bedside Arterial pO2 48 mmHg (75-100) 45 mmHg (75-100) Arterial Blood HCO3 24 mmol/L (21-28) 25 mmol/L (21-28) Bedside Arterial Blood O2 Sat 82 % (95-99) 79 % (95-99) Bedside FiO2 60.0 50.0 Sodium Level 143 mmol/L (136-145) Potassium Level 3.4 mmol/L (3.5-5.1) Chloride Level 109 mmol/L (98-107) Carbon Dioxide Level 28 mmol/L (21-32) Anion Gap 6 (6-14) Blood Urea Nitrogen 15 mg/dL (8-26) Creatinine 0.8 mg/dL (0.7-1.3) Estimated GFR (Cockcroft-Gault) 114.0 Glucose Level 123 mg/dL (70-99) Calcium Level 7.8 mg/dL (8.5-10.1) Vancomycin Level Trough 16.4 mcg/mL (10.0-20.0) Vancomycin Last Dose Date 06/22/19 Vancomycin Last Dose Time 1800 White Blood Count 5.0 x10^3/uL (4.0-11.0) Red Blood Count 3.20 x10^6/uL (4.30-5.70) Hemoglobin 9.6 g/dL (13.0-17.5) Hematocrit 29.7 % (39.0-53.0) Mean Corpuscular Volume 93 fL (79-100) Mean Corpuscular Hemoglobin 30 pg (25-35) Mean Corpuscular Hemoglobin Concent 32 g/dL (31-37) Red Cell Distribution Width 17.1 % (11.5-14.5) Platelet Count 224 x10^3/uL (140-400) Neutrophils (%) (Auto) 84 % (31-73) Lymphocytes (%) (Auto) 6 % (24-48) Monocytes (%) (Auto) 7 % (0-9) Eosinophils (%) (Auto) 2 % (0-3) Basophils (%) (Auto) 1 % (0-3) Neutrophils # (Auto) 4.2 x10^3/uL (1.8-7.7) Lymphocytes # (Auto) 0.3 x10^3/uL (1.0-4.8) Monocytes # (Auto) 0.4 x10^3/uL (0.0-1.1) Eosinophils # (Auto) 0.1 x10^3/uL (0.0-0.7) Basophils # (Auto) 0.0 x10^3/uL (0.0-0.2) Segmented Neutrophils % 83 % (35-66) Band Neutrophils % 5 % (0-9) Lymphocytes % 5 % (24-48) Atypical Lymphocytes % (Manual) 1 % (0-0) Monocytes % 5 % (0-10) Eosinophils % 1 % (0-5) Platelet Estimate Adequate (ADEQUATE) Large Platelets Occ Anisocytosis Slight Ovalocytes Few Test 06/23/19 09:40 06/23/19 15:12 06/24/19 00:03 06/24/19 00:42 O2 Saturation 87 % (92-99) Arterial Blood pH 7.36 (7.35-7.45) Arterial Blood pCO2 at Patient Temp 50 mmHg (35-46) Arterial Blood pO2 at Patient Temp 56 mmHg (65-108) Arterial Blood HCO3 27 mmol/L (21-28) Arterial Blood Base Excess 1 mmol/L (-3-3) FiO2 50 Sodium Level 143 mmol/L (136-145) Potassium Level 3.7 mmol/L (3.5-5.1) Chloride Level 107 mmol/L (98-107) Carbon Dioxide Level 29 mmol/L (21-32) Anion Gap 7 (6-14) Blood Urea Nitrogen 15 mg/dL (8-26) Creatinine 0.9 mg/dL (0.7-1.3) Estimated GFR (Cockcroft-Gault) 99.5 Glucose Level 116 mg/dL (70-99) Calcium Level 8.0 mg/dL (8.5-10.1) Glucose (Fingerstick) 56 mg/dL (70-99) 117 mg/dL (70-99) Laboratory Tests Test 06/23/19 09:40 06/23/19 15:12 06/24/19 00:03 06/24/19 00:42 O2 Saturation 87 % (92-99) Arterial Blood pH 7.36 (7.35-7.45) Arterial Blood pCO2 at Patient Temp 50 mmHg (35-46) Arterial Blood pO2 at Patient Temp 56 mmHg (65-108) Arterial Blood HCO3 27 mmol/L (21-28) Arterial Blood Base Excess 1 mmol/L (-3-3) FiO2 50 Sodium Level 143 mmol/L (136-145) Potassium Level 3.7 mmol/L (3.5-5.1) Chloride Level 107 mmol/L (98-107) Carbon Dioxide Level 29 mmol/L (21-32) Anion Gap 7 (6-14) Blood Urea Nitrogen 15 mg/dL (8-26) Creatinine 0.9 mg/dL (0.7-1.3) Estimated GFR (Cockcroft-Gault) 99.5 Glucose Level 116 mg/dL (70-99) Calcium Level 8.0 mg/dL (8.5-10.1) Glucose (Fingerstick) 56 mg/dL (70-99) 117 mg/dL (70-99) Medications Active Scripts Medications Dose Route/Sig Max Daily Dose Days Date Category Mexiletine Hcl 250 Mg Capsule 450 Mg PO BID 06/20/19 Reported Metoprolol Tartrate 100 Mg Tablet 1 Tab PO DAILY 06/20/19 Reported Children's Aspirin (Aspirin) 81 Mg Tab.chew 81 Mg PO DAILY 06/20/19 Reported Amiodarone Hcl 200 Mg Tablet 1 Tab PO DAILY 06/20/19 Reported Comments CXR 06/22 reviewed diffuse bilateral infiltrates Impression . IMPRESSION: 1. Acute respiratory failure due to COVID-19 pneumonia/ ARDS 2. Acute respiratory distress syndrome. 3. COVID-19 4. Bilateral infiltrates compatible with pneumonia, possible superimposed gram- negative, gram-positive, underlying viral. 5. Toxic metabolic encephalopathy. 6. Chronic anemia. 7. Elevated troponin. 8. Elevated total bilirubin, improved 9. Severe protein malnutrition, present upon admission. 10. Recent pacemaker defibrillator placement. Plan . Continue AC mode, Low TV, Adjust FIO2 and PEEP according to ABG , Fio2 requirement has increased Follow up CXR Prone positional per protocol Plaquenil per protocol Continue Zithromax along with broad-spectrum antibiotics Vanc/ Zosyn. dc Azithromycin at day 5 Nutritional support with tube feeding Continue sedation DVT GI prophylaxis Spoke with RN, RT,/ Prognosis guarded Total cumulative critical care time of 30 minutes reviewing data, labs, adjusting mechanical ventilation, reviewing x-ray ANTOINETTE BARBER MD Jun 24, 2019 07:34
[2019-06-24 08:34] LABS: BASE EXCESS ABG 0 mmol/L (-3-3); HCO3 ABG 26 mmol/L (21-28); PCO2 ABG 44 mmHg (35-46); PO2 ABG 60 mmHg (65-108); SAT O2 ABG 90 % (92-99)
[2019-06-24] MEDS: CHLORHEXIDINE 0.12% 15 ML MOUTHWASH. MM SCH ×2 (08:57→22:11)
[2019-06-24] MEDS: FAMOTIDINE 20 MG/2 ML VIAL IVP SCH ×2 (08:57→22:11)
[2019-06-24] MEDS: POTASSIUM BICARB 20 MEQ EFFERVESCENT TABLET. PEG SCH (08:57)
[2019-06-24] MEDS: AMIODARONE HCL 200 MG TABLET. PO SCH (08:57)
[2019-06-24] MEDS: AZITHROMYCIN 250 MG in IV NORMAL SALINE 250ML 250 ML IV SCH (08:58)
[2019-06-24] MEDS: ASCORBIC ACID 500 MG TABLET PO SCH (08:58)
[2019-06-24] MEDS: ENOXAPARIN 40 MG/0.4 ML SYRINGE. SQ SCH (08:58)
[2019-06-24] MEDS: FUROSEMIDE 40 MG TABLET. PO SCH (08:58)
[2019-06-24] MEDS: HYDROXYCHLOROQUINE 200 MG TABLET PO SCH (08:59)
[2019-06-24] MEDS: ZINC SULFATE 220 MG CAPSULE. PO SCH (08:59)
[2019-06-24] MEDS: METOPROLOL TART IMMED RELEASE 25 MG TABLET. PO SCH ×2 (09:00→21:00)
[2019-06-24 09:39] LABS: CALCIUM 7.7 mg/dL (8.5-10.1); CREATININE 0.9 mg/dL (0.7-1.3); GFR 99.5; MAGNESIUM 1.9 mg/dL (1.8-2.4); POTASSIUM 3.6 mmol/L (3.5-5.1)
--- NOTE | 2019-06-24 09:52 | PDOC ---
OCHOA [employer] 06/24/19 0952: CARDIO Progress Notes Date and Time Date of Service 06/24/2019 Time of Evaluation 0910 Subjective Subjective: Other (sedated) Vitals Vitals Vital Signs Date Time Temp Pulse Resp B/P (MAP) Pulse Ox O2 Delivery O2 Flow Rate FiO2 06/24/19 08:57 94 93/59 06/24/19 07:59 100 Ventilator 06/24/19 06:00 22 06/24/19 05:30 98.2 98.2 06/23/19 18:42 4.0 Weight Weight [ ] Input and Output Intake and Output Intake and Output 06/24/19 07:00 Intake Total 2866.6 ml Output Total 2350 ml Balance 516.6 ml Intake IV Total 2116.6 ml Tube Feeding 750 ml Output Urine Total 2350 ml Laboratory Labs Laboratory Tests Test 06/23/19 15:12 06/24/19 00:03 06/24/19 00:42 06/24/19 09:12 Sodium Level 143 mmol/L (136-145) 145 mmol/L (136-145) Potassium Level 3.7 mmol/L (3.5-5.1) 3.6 mmol/L (3.5-5.1) Chloride Level 107 mmol/L (98-107) 110 mmol/L (98-107) Carbon Dioxide Level 29 mmol/L (21-32) 29 mmol/L (21-32) Anion Gap 7 (6-14) 6 (6-14) Blood Urea Nitrogen 15 mg/dL (8-26) 15 mg/dL (8-26) Creatinine 0.9 mg/dL (0.7-1.3) 0.9 mg/dL (0.7-1.3) Estimated GFR (Cockcroft-Gault) 99.5 99.5 Glucose Level 116 mg/dL (70-99) 112 mg/dL (70-99) Calcium Level 8.0 mg/dL (8.5-10.1) 7.7 mg/dL (8.5-10.1) Glucose (Fingerstick) 56 mg/dL (70-99) 117 mg/dL (70-99) Magnesium Level 1.9 mg/dL (1.8-2.4) Microbiology Micro Microbiology 06/20/19 Blood Culture - Preliminary, Resulted NO GROWTH AFTER 4 DAYS Physical Exam Other Exams Limited exam. CXR reviewed. Pt is intubated and sedated. adequate UOP, Rhythm is stable SR with intermittent PVCs. No pressors warranted at this time. Discussed with RN. Assessment Assessment 1. Acute respiratory failure with ARDS/PNA/CHF/COPD/Covid-19 remains intubated 2. Acute on chronic diastolic systolic CHF 3. NICM: EF at 35-40%. 4. NSTEMI: peaked troponin 2.3, possibly demand mediated, type 2 5. Sepsis/shock: BP is stable, off pressor 6. Hypoxic/metabolic encephalopathy 7. AICD 8. HTN: controlled 9. HLP 10. Severe protein malnutrition 11. Hx of VT Recommendations 1. Lasix therapy, CXR in AM. 2. Pt is on 200 mg of amiodarone and 450 mg of mexilitine at home. His EP was contacted. Will DC mexilitine for now and place on 400 mg amiodarone with associated use of plaquenil and zithromax to QT prolongation. EKG in AM. Continue metoprolol. 3. Follow with [facility] 4. Follow pulmonary recommendation. 5. Supportive care JENY DE PAZ MD 06/24/19 1507: CARDIO Progress Notes Assessment Assessment Patient seen and evaluated Assessment 1. Acute respiratory failure with ARDS/PNA/CHF/COPD/Covid-19 remains intubated 2. Acute on chronic diastolic systolic CHF. Continuing Lasix. Monitoring lab. 3. NICM: EF at 35-40%. 4. NSTEMI: peaked troponin 2.3, possibly demand mediated, type 2 5. Sepsis/shock: BP is stable, off pressor 6. Hypoxic/metabolic encephalopathy 7. AICD 8. HTN: controlled 9. HLP 10. Severe protein malnutrition 11. Hx of VT. Holding mexilitine as above. OCHOA [employer]YAL [employer] Jun 24, 2019 09:52 JENY DE PAZ MD Jun 24, 2019 15:07
[2019-06-24 09:56] LABS: FIO2 ABG 70% +9
[2019-06-24] MEDS: fentaNYL HIGH DOSE PCA 55 ML IV PRN (11:30)
--- NOTE | 2019-06-24 13:16 | PDOC ---
PROGRESS NOTES Assessment Assessment Covid-19 disease, confirmed by Covid test report on 06/21/19. Hypoxic encephalopathy. Metabolic encephalopathy. Respiratory failure. T 99.9 degree. Multifocal pulmonary consolidation. Shock, BP 67/46 mmHg. CHF. Cardiomyopathy. COPD. HTN. HLD. OA. RECOMMENDATIONS/PLAN: Life support in ICU at the present time. Treat medical diseases. Poor prognosis. Neurology may signing off. Discussed with his nurse. HCT on 06/19/19: No acute findings. Past Medical History Cardiovascular: CHF, HTN, Hyperlipidemia, Other (ventricular tachycardia) Pulmonary: COPD CENTRAL NERVOUS SYSTEM: Dementia Musculoskeletal: Osteoarthritis Past Surgical History ICD placement with recent replacement. Family History High Cholestrol, Hypertension Social History Quit ALCOHOL: none Drugs: None Allergies Coded Allergies: Egg (Verified Allergy, Intermediate, Nausea and Vomiting, 06/19/19) MEDICATIONS: Refer to MAR REVIEW OF SYSTEMS: Constitutional: No malnutrition, weight loss, cachexia. Head: No traumatic brain or head injury. Skin: No edema, or rash. Ear: No infection. Eyes: No vision loss or color blindness. Nose: No bleeding or purulent discharges. Hearing: Hearing decrease. Neck: No injury. Cardiac: CHF, cardiomyopathy, ICD Placement, HTN, HLD. Pulmonary: COPD. GI: No GI ulcer, GI bleeding. Urinary/genital: UTI. Endocrinologic: No cousin face, craniofacial dysmorphism, polydactyly. Skeletomuscular: OA. Neurological: see HP. Psychiatric: Denies drug use/abuse. Otherwise, not -tichl review of systems. NEUROLOGICAL EXAMINATION: On vent. Unresponsive. No obvious improvement. Objective Objective Vital Signs Date Time Temp Pulse Resp B/P (MAP) Pulse Ox O2 Delivery O2 Flow Rate FiO2 06/24/19 12:00 95 4.0 06/24/19 11:33 Ventilator 06/24/19 09:00 94 93/59 06/24/19 06:00 22 06/24/19 05:30 98.2 98.2 Intake and Output 06/24/19 07:00 Intake Total 2866.6 ml Output Total 2350 ml Balance 516.6 ml Intake IV Total 2116.6 ml Tube Feeding 750 ml Output Urine Total 2350 ml Vitals Signs Vitals VS - Last 72 Hours, by Label Date Time Temp Pulse Resp B/P (MAP) Pulse Ox O2 Delivery O2 Flow Rate FiO2 06/24/19 12:00 95 4.0 06/24/19 11:33 95 Ventilator 06/24/19 11:30 100 Ventilator 06/24/19 09:00 94 93/59 06/24/19 08:57 94 93/59 06/24/19 08:00 Mechanical Ventilator 06/24/19 07:59 100 Ventilator 06/24/19 06:21 91 95/59 (71) Ventilator 06/24/19 06:00 90 22 80/58 (65) 98 Ventilator 06/24/19 05:30 98.2 98.2 06/24/19 05:00 90 24 84/59 (67) 99 Ventilator 06/24/19 04:00 Mechanical Ventilator 06/24/19 04:00 86 21 87/64 (72) 100 Ventilator 06/24/19 03:44 100 Ventilator 06/24/19 03:09 87 26 85/57 (66) 100 Ventilator 06/24/19 02:00 87 22 87/59 (68) 100 Ventilator 06/24/19 01:00 86 24 92/59 (70) 99 Ventilator 06/24/19 00:01 86 22 80/54 (63) 100 Ventilator 06/24/19 00:00 99.0 99.0 06/24/19 00:00 Mechanical Ventilator 06/23/19 23:24 99 Ventilator 06/23/19 23:00 90 19 97/63 (74) 100 Ventilator 06/23/19 22:00 94 28 106/67 (80) 98 Ventilator 06/23/19 21:07 100 100/68 06/23/19 21:00 102 29 108/63 (78) 99 Ventilator 06/23/19 20:36 99 Ventilator 06/23/19 20:00 Mechanical Ventilator 06/23/19 20:00 100.4 100 27 100/68 (79) 99 Ventilator 100.4 06/23/19 19:00 101 25 109/75 (86) 100 Ventilator 06/23/19 18:42 98 4.0 06/23/19 18:00 101 23 101/80 (87) 98 Ventilator 06/23/19 17:00 102 23 103/72 (82) 98 Ventilator 06/23/19 16:16 100 Ventilator 06/23/19 16:00 98.4 102 20 100/65 (77) 100 Ventilator 98.4 06/23/19 16:00 Mechanical Ventilator 06/23/19 15:00 106 23 100/75 (83) 96 Ventilator 06/23/19 14:00 100 24 109/72 (84) 97 Ventilator 06/23/19 13:15 100 4.0 06/23/19 13:00 90 20 102/69 (80) 96 Ventilator 06/23/19 12:45 100 BiPAP/CPAP 4.0 06/23/19 12:00 98.6 100 30 113/69 (84) 100 Ventilator 98.6 06/23/19 12:00 100 Ventilator 06/23/19 12:00 Mechanical Ventilator 06/23/19 11:00 104 31 118/70 (86) 100 Ventilator 06/23/19 10:14 103 113/66 06/23/19 10:00 108 25 113/66 (82) 100 Ventilator 06/23/19 09:00 100 30 102/68 (79) 100 Ventilator 06/23/19 08:30 100 Ventilator 06/23/19 08:00 Mechanical Ventilator 06/23/19 08:00 98.2 94 30 102/61 (75) 100 Ventilator 98.2 06/23/19 07:00 92 30 95/65 (75) 100 Ventilator Laboratory Laboratory Laboratory Tests Test 06/23/19 15:12 06/24/19 00:03 06/24/19 00:42 06/24/19 08:00 Sodium Level 143 mmol/L (136-145) Potassium Level 3.7 mmol/L (3.5-5.1) Chloride Level 107 mmol/L (98-107) Carbon Dioxide Level 29 mmol/L (21-32) Anion Gap 7 (6-14) Blood Urea Nitrogen 15 mg/dL (8-26) Creatinine 0.9 mg/dL (0.7-1.3) Estimated GFR (Cockcroft-Gault) 99.5 Glucose Level 116 mg/dL (70-99) Calcium Level 8.0 mg/dL (8.5-10.1) Glucose (Fingerstick) 56 mg/dL (70-99) 117 mg/dL (70-99) O2 Saturation 90 % (92-99) Arterial Blood pH 7.38 (7.35-7.45) Arterial Blood pCO2 at Patient Temp 44 mmHg (35-46) Arterial Blood pO2 at Patient Temp 60 mmHg (65-108) Arterial Blood HCO3 26 mmol/L (21-28) Arterial Blood Base Excess 0 mmol/L (-3-3) FiO2 70% +9 Test 06/24/19 09:12 Sodium Level 145 mmol/L (136-145) Potassium Level 3.6 mmol/L (3.5-5.1) Chloride Level 110 mmol/L (98-107) Carbon Dioxide Level 29 mmol/L (21-32) Anion Gap 6 (6-14) Blood Urea Nitrogen 15 mg/dL (8-26) Creatinine 0.9 mg/dL (0.7-1.3) Estimated GFR (Cockcroft-Gault) 99.5 Glucose Level 112 mg/dL (70-99) Calcium Level 7.7 mg/dL (8.5-10.1) Magnesium Level 1.9 mg/dL (1.8-2.4) Microbiology 06/20/19 Blood Culture - Preliminary, Resulted NO GROWTH AFTER 4 DAYS Medication Medications Current Medications Amiodarone HCl (Cordarone) 400 mg DAILY PO Last administered on 06/24/19at 08:57; Start 06/24/19 at 09:00 Dextrose (Dextrose 50%-Water Syringe) 12.5 gm 1X ONCE IV Last administered on 06/24/19at 00:22; Start 06/24/19 at 00:15; Stop 06/24/19 at 00:19; Status DC Fentanyl Citrate 55 ml @ 0 mls/hr CONT PRN IV SEE I/O RECORD Last administered on 06/24/19at 11:30; Start 06/24/19 at 09:15 Furosemide (Lasix) 40 mg DAILY PO Last administered on 06/24/19at 08:58; Start 06/24/19 at 09:00 Potassium Bicarbonate (Potassium Effervescent Tablet) 20 meq DAILY PEG Last administered on 06/24/19at 08:57; Start 06/24/19 at 09:00 Comment Review of Relevant I have reviewed the following items abdelrahman (where applicable) has been applied. CINDY CANNON MD Jun 24, 2019 13:15
[2019-06-24] MEDS ORDERED: VECURONIUM BOLUS 10 MG VIAL. IV ONE (14:15)
--- NOTE | 2019-06-24 14:16 | PDOC ---
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 ACUTE HYPOXIC RESP FAILURE ACUTE NSTEMI No acute intracranial abnormality. on ct head Several chronic infarcts bilaterally.Several chronic left frontal, parietal and temporal infarcts. chronic right frontal infarcts. foci of decreased attenuation within the hemispheric white matter, most often due to chronic microvascular ischemia. Mild to moderate brain parenchymal volume loss. Acute metabolic encephalopathy Severe protein-caloric malnutrition Plan: continue with supportive measures, grim prognosis ventilatory support follow recommendations from education consultant further recommendations based on clincal course. History of Present Illness History of Present Illness 06/23/2019 no new changes, remains critically ill discussed with nursing staff at bedside, further recommendations based on clinical course. [id number] Patient seen and examined in the ICU He remains critically ill and intubated Before meals/20/400/50% with 8 of PEEP Has OG feeds running Chart reviewed Discussed with RN Prognosis extremely guarded [id number] Patient seen and examined in the ICU He is intubated and sedated with fentanyl and Versed Chart reviewed Discussed with RN He is critically ill Covid testing is still pending [id number] Patient seen in the ICU Currently mechanically ventilated with assist control/20/400/60% Sedated with fentanyl and Versed and propofol Discussed with RN Chart reviewed Vitals Vitals Vital Signs Date Time Temp Pulse Resp B/P (MAP) Pulse Ox O2 Delivery O2 Flow Rate FiO2 06/24/19 12:00 95 4.0 06/24/19 11:33 Ventilator 06/24/19 09:00 94 93/59 06/24/19 06:00 22 06/24/19 05:30 98.2 98.2 Physical Exam General: Other (sedated and intubated) Heart: Regular rate Abdomen: Normal bowel sounds, Soft Extremities: No cyanosis Skin: No rashes, No breakdown Labs LABS Laboratory Tests Test 06/23/19 15:12 06/24/19 00:03 06/24/19 00:42 06/24/19 08:00 Sodium Level 143 mmol/L (136-145) Potassium Level 3.7 mmol/L (3.5-5.1) Chloride Level 107 mmol/L (98-107) Carbon Dioxide Level 29 mmol/L (21-32) Anion Gap 7 (6-14) Blood Urea Nitrogen 15 mg/dL (8-26) Creatinine 0.9 mg/dL (0.7-1.3) Estimated GFR (Cockcroft-Gault) 99.5 Glucose Level 116 mg/dL (70-99) Calcium Level 8.0 mg/dL (8.5-10.1) Glucose (Fingerstick) 56 mg/dL (70-99) 117 mg/dL (70-99) O2 Saturation 90 % (92-99) Arterial Blood pH 7.38 (7.35-7.45) Arterial Blood pCO2 at Patient Temp 44 mmHg (35-46) Arterial Blood pO2 at Patient Temp 60 mmHg (65-108) Arterial Blood HCO3 26 mmol/L (21-28) Arterial Blood Base Excess 0 mmol/L (-3-3) FiO2 70% +9 Test 06/24/19 09:12 Sodium Level 145 mmol/L (136-145) Potassium Level 3.6 mmol/L (3.5-5.1) Chloride Level 110 mmol/L (98-107) Carbon Dioxide Level 29 mmol/L (21-32) Anion Gap 6 (6-14) Blood Urea Nitrogen 15 mg/dL (8-26) Creatinine 0.9 mg/dL (0.7-1.3) Estimated GFR (Cockcroft-Gault) 99.5 Glucose Level 112 mg/dL (70-99) Calcium Level 7.7 mg/dL (8.5-10.1) Magnesium Level 1.9 mg/dL (1.8-2.4) Assessment and Plan Assessmemt and Plan Problems Medical Problems: (1) Altered mental status Status: Acute (2) Elevated brain natriuretic peptide (BNP) level Status: Acute (3) Elevated troponin Status: Acute (4) Suspected COVID-19 virus infection Status: Acute Comment Review of Relevant I have reviewed the following items abdelrahman (where applicable) has been applied. Labs Laboratory Tests Test 06/23/19 05:30 06/23/19 06:00 06/23/19 09:40 06/23/19 15:12 Sodium Level 143 mmol/L (136-145) 143 mmol/L (136-145) Potassium Level 3.4 mmol/L (3.5-5.1) 3.7 mmol/L (3.5-5.1) Chloride Level 109 mmol/L (98-107) 107 mmol/L (98-107) Carbon Dioxide Level 28 mmol/L (21-32) 29 mmol/L (21-32) Anion Gap 6 (6-14) 7 (6-14) Blood Urea Nitrogen 15 mg/dL (8-26) 15 mg/dL (8-26) Creatinine 0.8 mg/dL (0.7-1.3) 0.9 mg/dL (0.7-1.3) Estimated GFR (Cockcroft-Gault) 114.0 99.5 Glucose Level 123 mg/dL (70-99) 116 mg/dL (70-99) Calcium Level 7.8 mg/dL (8.5-10.1) 8.0 mg/dL (8.5-10.1) Vancomycin Level Trough 16.4 mcg/mL (10.0-20.0) Vancomycin Last Dose Date 06/22/19 Vancomycin Last Dose Time 1800 White Blood Count 5.0 x10^3/uL (4.0-11.0) Red Blood Count 3.20 x10^6/uL (4.30-5.70) Hemoglobin 9.6 g/dL (13.0-17.5) Hematocrit 29.7 % (39.0-53.0) Mean Corpuscular Volume 93 fL (79-100) Mean Corpuscular Hemoglobin 30 pg (25-35) Mean Corpuscular Hemoglobin Concent 32 g/dL (31-37) Red Cell Distribution Width 17.1 % (11.5-14.5) Platelet Count 224 x10^3/uL (140-400) Neutrophils (%) (Auto) 84 % (31-73) Lymphocytes (%) (Auto) 6 % (24-48) Monocytes (%) (Auto) 7 % (0-9) Eosinophils (%) (Auto) 2 % (0-3) Basophils (%) (Auto) 1 % (0-3) Neutrophils # (Auto) 4.2 x10^3/uL (1.8-7.7) Lymphocytes # (Auto) 0.3 x10^3/uL (1.0-4.8) Monocytes # (Auto) 0.4 x10^3/uL (0.0-1.1) Eosinophils # (Auto) 0.1 x10^3/uL (0.0-0.7) Basophils # (Auto) 0.0 x10^3/uL (0.0-0.2) Segmented Neutrophils % 83 % (35-66) Band Neutrophils % 5 % (0-9) Lymphocytes % 5 % (24-48) Atypical Lymphocytes % (Manual) 1 % (0-0) Monocytes % 5 % (0-10) Eosinophils % 1 % (0-5) Platelet Estimate Adequate (ADEQUATE) Large Platelets Occ Anisocytosis Slight Ovalocytes Few O2 Saturation 87 % (92-99) Arterial Blood pH 7.36 (7.35-7.45) Arterial Blood pCO2 at Patient Temp 50 mmHg (35-46) Arterial Blood pO2 at Patient Temp 56 mmHg (65-108) Arterial Blood HCO3 27 mmol/L (21-28) Arterial Blood Base Excess 1 mmol/L (-3-3) FiO2 50 Test 06/24/19 00:03 06/24/19 00:42 06/24/19 08:00 06/24/19 09:12 Glucose (Fingerstick) 56 mg/dL (70-99) 117 mg/dL (70-99) O2 Saturation 90 % (92-99) Arterial Blood pH 7.38 (7.35-7.45) Arterial Blood pCO2 at Patient Temp 44 mmHg (35-46) Arterial Blood pO2 at Patient Temp 60 mmHg (65-108) Arterial Blood HCO3 26 mmol/L (21-28) Arterial Blood Base Excess 0 mmol/L (-3-3) FiO2 70% +9 Sodium Level 145 mmol/L (136-145) Potassium Level 3.6 mmol/L (3.5-5.1) Chloride Level 110 mmol/L (98-107) Carbon Dioxide Level 29 mmol/L (21-32) Anion Gap 6 (6-14) Blood Urea Nitrogen 15 mg/dL (8-26) Creatinine 0.9 mg/dL (0.7-1.3) Estimated GFR (Cockcroft-Gault) 99.5 Glucose Level 112 mg/dL (70-99) Calcium Level 7.7 mg/dL (8.5-10.1) Magnesium Level 1.9 mg/dL (1.8-2.4) Laboratory Tests Test 06/23/19 15:12 06/24/19 00:03 06/24/19 00:42 06/24/19 08:00 Sodium Level 143 mmol/L (136-145) Potassium Level 3.7 mmol/L (3.5-5.1) Chloride Level 107 mmol/L (98-107) Carbon Dioxide Level 29 mmol/L (21-32) Anion Gap 7 (6-14) Blood Urea Nitrogen 15 mg/dL (8-26) Creatinine 0.9 mg/dL (0.7-1.3) Estimated GFR (Cockcroft-Gault) 99.5 Glucose Level 116 mg/dL (70-99) Calcium Level 8.0 mg/dL (8.5-10.1) Glucose (Fingerstick) 56 mg/dL (70-99) 117 mg/dL (70-99) O2 Saturation 90 % (92-99) Arterial Blood pH 7.38 (7.35-7.45) Arterial Blood pCO2 at Patient Temp 44 mmHg (35-46) Arterial Blood pO2 at Patient Temp 60 mmHg (65-108) Arterial Blood HCO3 26 mmol/L (21-28) Arterial Blood Base Excess 0 mmol/L (-3-3) FiO2 70% +9 Test 06/24/19 09:12 Sodium Level 145 mmol/L (136-145) Potassium Level 3.6 mmol/L (3.5-5.1) Chloride Level 110 mmol/L (98-107) Carbon Dioxide Level 29 mmol/L (21-32) Anion Gap 6 (6-14) Blood Urea Nitrogen 15 mg/dL (8-26) Creatinine 0.9 mg/dL (0.7-1.3) Estimated GFR (Cockcroft-Gault) 99.5 Glucose Level 112 mg/dL (70-99) Calcium Level 7.7 mg/dL (8.5-10.1) Magnesium Level 1.9 mg/dL (1.8-2.4) Microbiology 06/20/19 Blood Culture - Preliminary, Resulted NO GROWTH AFTER 4 DAYS Medications Current Medications Piperacillin Sod/ Tazobactam Sod 4.5 gm/Sodium Chloride 100 ml @ 200 mls/hr 1X ONCE IV Last administered on 06/19/19at 16:50; Start 06/19/19 at 16:00; Stop 06/19/19 at 16:29; Status DC Vancomycin HCl 1.25 gm/Sodium Chloride 250 ml @ 166.667 mls/hr 1X ONCE IV Last administered on 06/19/19at 16:51; Start 06/19/19 at 16:00; Stop 06/19/19 at 17:29; Status DC Hydroxychloroquine Sulfate (Plaquenil) 400 mg BID PO ; Start 06/19/19 at 21:00; Status UNV Enoxaparin Sodium (Lovenox 80mg Syringe) 75 mg 1X ONCE SQ Last administered on 06/19/19at 16:51; Start 06/19/19 at 16:30; Stop 06/19/19 at 16:31; Status DC Furosemide (Lasix) 40 mg 1X ONCE IVP Last administered on 06/19/19at 16:51; Start 06/19/19 at 17:00; Stop 06/19/19 at 17:01; Status DC Sodium Chloride (Normal Saline Flush) 3 ml QSHIFT PRN IV AFTER MEDS AND BLOOD DRAWS; Start 06/19/19 at 17:45 Sodium Chloride 1,000 ml @ 65 mls/hr [id number] IV Last administered on 06/24/19at 05:41; Start 06/19/19 at 17:31 Acetaminophen (Tylenol) 650 mg PRN Q4HRS PRN PO TEMP OVER 100.4F OR MILD PAIN; Start 06/19/19 at 17:45 Acetaminophen (Tylenol Supp) 650 mg PRN Q4HRS PRN PA TEMP OVER 100.4F OR MILD PAIN; Start 06/19/19 at 17:45 Clonidine HCl (Catapres) 0.1 mg PRN Q6HRS PRN PO SBP>160 OR DBP>90; Start 06/19/19 at 17:45 Sodium Monofluorophosphate (Fleet Adult) 133 ml PRN DAILY PRN PA CONSTIPATION; Start 06/19/19 at 17:45 Docusate Sodium (Colace) 100 mg PRN BID PRN PO CONSTIPATION; Start 06/19/19 at 17:45 Albuterol/ Ipratropium (Duoneb) 3 ml Q4HRS W/A NEB ; Start 06/19/19 at 18:00; Stop 06/20/19 at 17:12; Status DC Guaifenesin (Robitussin) 200 mg PRN Q4HRS PRN PO COUGH; Start 06/19/19 at 17:45 Enoxaparin Sodium (Lovenox 40mg Syringe) 40 mg Q24H SQ ; Start 06/19/19 at 18:00; Status UNV Vancomycin HCl (Vanco Per Pharmacy) 1 each PRN DAILY PRN MC SEE COMMENTS Last administered on 06/23/19at 13:37; Start 06/19/19 at 17:45 Piperacillin Sod/ Tazobactam Sod 3.375 gm/Sodium Chloride 50 ml @ 100 mls/hr Q6HRS IV ; Start 06/19/19 at 18:00; Status Cancel Enoxaparin Sodium (Lovenox Per Pharmacy Treatment Dosing) 1 each PRN DAILY PRN MC SEE COMMENTS; Start 06/19/19 at 17:45; Stop 06/20/19 at 15:01; Status DC Piperacillin Sod/ Tazobactam Sod 3.375 gm/Sodium Chloride 50 ml @ 100 mls/hr Q6HRS IV Last administered on 06/24/19at 11:31; Start 06/20/19 at 00:00 Enoxaparin Sodium (Lovenox 80mg Syringe) 70 mg Q12HR SQ Last administered on 06/20/19at 08:00; Start 06/20/19 at 09:00; Stop 06/20/19 at 15:01; Status DC Vancomycin HCl 1 gm/Sodium Chloride 250 ml @ 250 mls/hr Q12H IV Last administered on 06/20/19at 16:26; Start 06/20/19 at 05:00; Stop 06/21/19 at 05:34; Status DC Vancomycin HCl (Vancomycin Trough Level) 1 each 1X ONCE MC Last administered on 06/21/19at 04:30; Start 06/21/19 at 04:30; Stop 06/21/19 at 04:31; Status DC Hydroxychloroquine Sulfate (Plaquenil) 400 mg 1X ONCE PO Last administered on 06/20/19at 00:07; Start 06/19/19 at 20:00; Stop 06/19/19 at 20:01; Status DC Propofol 100 ml @ As Directed STK-MED ONCE IV ; Start 06/19/19 at 20:33; Stop 06/19/19 at 20:34; Status DC Fentanyl Citrate 30 ml @ 0 mls/hr CONT PRN IV SEE PROTOCOL Last administered on 06/24/19at 05:42; Start 06/19/19 at 21:15; Stop 06/24/19 at 09:02; Status DC Propofol 100 ml @ 0 mls/hr CONT PRN IV SEE PROTOCOL; Start 06/19/19 at 21:15 Fentanyl Citrate (Fentanyl 2ml Vial) 25 mcg PRN Q1HR PRN IV SEE COMMENTS; Start 06/19/19 at 21:15 Fentanyl Citrate (Fentanyl 2ml Vial) 50 mcg PRN Q1HR PRN IV SEE COMMENTS; Start 06/19/19 at 21:15 Chlorhexidine Gluconate (Peridex) 15 ml BID MM Last administered on 06/24/19at 08:57; Start 06/20/19 at 09:00 Morphine Sulfate (Morphine Sulfate) 2 mg PRN Q1HR PRN IV SEE COMMENTS.; Start 06/19/19 at 21:15 Morphine Sulfate (Morphine Sulfate) 4 mg PRN Q1HR PRN IV SEE COMMENTS.; Start 06/19/19 at 21:15 Midazolam HCl 50 mg/Sodium Chloride 50 ml @ 0 mls/hr CONT PRN IV SEE PROTOCOL Last administered on 06/20/19at 01:38; Start 06/19/19 at 21:15; Stop 06/20/19 at 07:27; Status DC Midazolam HCl 100 mg/Sodium Chloride 100 ml @ 6 mls/hr CONT PRN IV SEE PROTOCOL Last administered on 06/24/19at 08:58; Start 06/20/19 at 07:30 Hydroxychloroquine Sulfate (Plaquenil) 200 mg BID PO Last administered on 06/24/19at 08:59; Start 06/20/19 at 21:00; Stop 06/24/19 at 09:01; Status DC Azithromycin 250 mg/Sodium Chloride 250 ml @ 250 mls/hr Q24H IV Last administered on 06/24/19at 08:58; Start 06/20/19 at 10:00 Hydroxychloroquine Sulfate (Plaquenil) 400 mg 1X ONCE PO Last administered on 06/20/19at 10:35; Start 06/20/19 at 09:30; Stop 06/20/19 at 09:44; Status DC Acetaminophen (Tylenol) 650 mg PRN Q6HRS PRN PEG MILD PAIN / TEMP Last administered on 06/20/19at 16:26; Start 06/20/19 at 12:30 Info (Anti-Coagulation Monitoring By Pharmacy) 1 each PRN DAILY PRN MC SEE COMMENTS; Start 06/20/19 at 14:30; Status Cancel Enoxaparin Sodium (Lovenox 40mg Syringe) 40 mg Q24H SQ Last administered on 06/24/19at 08:58; Start 06/21/19 at 09:00 Albuterol/ Ipratropium (Duoneb) 3 ml PRN Q4HRS PRN NEB SHORTNESS OF BREATH; Start 06/20/19 at 17:15; Stop 06/20/19 at 17:30; Status DC Vancomycin HCl 1.25 gm/Sodium Chloride 250 ml @ 167 mls/hr Q12H IV Last administered on 06/24/19at 06:17; Start 06/21/19 at 06:00 Vancomycin HCl (Vancomycin Trough Level) 1 each 1X ONCE MC Last administered on 06/22/19at 17:30; Start 06/22/19 at 17:30; Stop 06/22/19 at 17:31; Status DC Famotidine (Pepcid Vial) 20 mg BID IVP Last administered on 06/24/19at 08:57; S tart 06/22/19 at 21:00 Furosemide (Lasix) 40 mg 1X ONCE IVP Last administered on 06/22/19at 12:22; Start 06/22/19 at 11:45; Stop 06/22/19 at 11:47; Status DC Potassium Chloride/Water 100 ml @ 100 mls/hr Q1H IV Last administered on 06/22/19at 13:29; Start 06/22/19 at 12:00; Stop 06/22/19 at 13:59; Status DC Albumin Human 100 ml @ 100 mls/hr 1X ONCE IV Last administered on 06/22/19at 12:26; Start 06/22/19 at 12:00; Stop 06/22/19 at 12:59; Status DC Mexiletine HCl (Mexitil) 400 mg BID PO Last administered on 06/23/19at 10:12; Start 06/22/19 at 13:00; Stop 06/23/19 at 13:21; Status DC Metoprolol Tartrate (Lopressor) 12.5 mg BID PO Last administered on 06/24/19at 09:00; Start 06/22/19 at 13:00 Ascorbic Acid (Vitamin C) 500 mg DAILY PO Last administered on 06/24/19at 08:58; Start 06/23/19 at 09:00 Zinc Sulfate (Orazinc) 220 mg DAILY PO Last administered on 06/24/19at 08:59; Start 06/23/19 at 09:00 Vancomycin HCl (Vancomycin Trough Level) 1 each 1X ONCE MC Last administered on 06/23/19at 05:30; Start 06/23/19 at 05:30; Stop 06/23/19 at 05:31; Status DC Albumin Human 100 ml @ 100 mls/hr 1X ONCE IV Last administered on 06/23/19at 08:35; Start 06/23/19 at 08:00; Stop 06/23/19 at 08:59; Status DC Furosemide (Lasix) 40 mg 1X ONCE IVP Last administered on 06/23/19at 08:35; Start 06/23/19 at 08:00; Stop 06/23/19 at 08:01; Status DC Potassium Chloride/Water 100 ml @ 100 mls/hr 1X ONCE IV Last administered on 06/23/19at 10:15; Start 06/23/19 at 08:30; Stop 06/23/19 at 09:29; Status DC Alteplase, Recombinant (Cathflo For Central Catheter Clearance) 1 mg 1X ONCE INT CAT Last administered on 06/23/19at 10:16; Start 06/23/19 at 09:30; Stop 06/23/19 at 09:31; Status DC Vecuronium [place] (Norcuron Bolus) 6 mg 1X ONCE IV Last administered on 06/23/19at 09:25; Start 06/23/19 at 09:30; Stop 06/23/19 at 09:31; Status DC Furosemide (Lasix) 40 mg DAILY PO Last administered on 06/24/19at 08:58; Start 06/24/19 at 09:00 Potassium Bicarbonate (Potassium Effervescent Tablet) 20 meq DAILY PEG Last administered on 06/24/19 08:57; Start 06/24/19 at 09:00 Amiodarone HCl (Cordarone) 400 mg DAILY PO Last administered on 06/24/19at 08:57; Start 06/24/19 at 09:00 Dextrose (Dextrose 50%-Water Syringe) 12.5 gm 1X ONCE IV Last administered on 06/24/19at 00:22; Start 06/24/19 at 00:15; Stop 06/24/19 at 00:19; Status DC Fentanyl Citrate 55 ml @ 0 mls/hr CONT PRN IV SEE I/O RECORD Last administered on 06/24/19at 11:30; Start 06/24/19 at 09:15 Vecuronium [place] (Norcuron Bolus) 6 mg 1X ONCE IV ; Start 06/24/19 at 14:15; Stop 06/24/19 at 14:16; Status UNV Active Scripts Active Reported Mexiletine Hcl 250 Mg Capsule 450 Mg PO BID Metoprolol Tartrate 100 Mg Tablet 1 Tab PO DAILY Children's Aspirin (Aspirin) 81 Mg Tab.chew 81 Mg PO DAILY Amiodarone Hcl 200 Mg Tablet 1 Tab PO DAILY Vitals/I & O Vital Sign - Last 24 Hours 06/23/19 06/23/19 06/23/19 06/23/19 15:00 16:00 16:00 16:16 Temp 98.4 98.4 Pulse 106 102 Resp 23 20 B/P (MAP) 100/75 (83) 100/65 (77) Pulse Ox 96 100 100 O2 Delivery Ventilator Mechanical Ventilator Ventilator Ventilator 06/23/19 06/23/19 06/23/19 06/23/19 17:00 18:00 18:42 19:00 Pulse 102 101 101 Resp 23 23 25 B/P (MAP) 103/72 (82) 101/80 (87) 109/75 (86) Pulse Ox 98 98 98 100 O2 Delivery Ventilator Ventilator Ventilator O2 Flow Rate 4.0 06/23/19 06/23/19 06/23/19 06/23/19 20:00 20:00 20:36 21:00 Temp 100.4 100.4 Pulse 100 102 Resp 27 29 B/P (MAP) 100/68 (79) 108/63 (78) Pulse Ox 99 99 99 O2 Delivery Ventilator Mechanical Ventilator Ventilator Ventilator 06/23/19 06/23/19 06/23/19 06/23/19 21:07 22:00 23:00 23:24 Pulse 100 94 90 Resp 28 19 B/P (MAP) 100/68 106/67 (80) 97/63 (74) Pulse Ox 98 100 99 O2 Delivery Ventilator Ventilator Ventilator 06/24/19 06/24/19 06/24/19 06/24/19 00:00 00:00 00:01 01:00 Temp 99.0 99.0 Pulse 86 86 Resp 24 B/P (MAP) 80/54 (63) 92/59 (70) Pulse Ox 100 99 O2 Delivery Mechanical Ventilator Ventilator Ventilator 06/24/19 06/24/19 06/24/19 06/24/19 02:00 03:09 03:44 04:00 Pulse 87 87 86 Resp 22 21 B/P (MAP) 87/59 (68) 85/57 (66) 87/64 (72) Pulse Ox 100 100 100 100 O2 Delivery Ventilator Ventilator Ventilator Ventilator 06/24/19 06/24/19 06/24/19 06/24/19 04:00 05:00 05:30 06:00 Temp 98.2 98.2 Pulse 90 90 Resp B/P (MAP) 84/59 (67) 80/58 (65) Pulse Ox 99 98 O2 Delivery Mechanical Ventilator Ventilator Ventilator 06/24/19 06/24/19 06/24/19 06/24/19 06:21 07:59 08:00 08:57 Pulse 91 94 B/P (MAP) 95/59 (71) 93/59 Pulse Ox 100 O2 Delivery Ventilator Ventilator Mechanical Ventilator 06/24/19 06/24/19 06/24/19 06/24/19 09:00 11:30 11:33 12:00 Pulse 94 B/P (MAP) 93/59 Pulse Ox 100 95 95 O2 Delivery Ventilator Ventilator O2 Flow Rate 4.0 Intake and Output 06/23/19 06/23/19 06/24/19 15:00 23:00 07:00 Intake Total 300 ml 1240 ml 1326.6 ml Output Total 1600 ml 475 ml 275 ml Balance -1300 ml 765 ml 1051.6 ml BABAK BUTT MD Jun 24, 2019 14:16
[2019-06-24] MEDS: AMINO AC 3%/ELECTROLYTE/GLYCER 1,000 ML IV SCH (14:55)
[2019-06-24] MEDS: VANCOMYCIN PER PHARMACY MC PRN (15:11)
--- NOTE | 2019-06-24 16:19 | RAD ---
VENOUS UPPER EXTREMITY RIGHT History: New onset right upper extremity edema. PICC line Comparison: None. Procedure: Color flow Doppler, Doppler spectral analysis, and 2D images are obtained with and without compression in the jugular vein, subclavian vein, axillary vein, brachial vein, radial vein, ulnar vein, and basilic and cephalic veins. Findings: Deep vein thrombosis within the right axillary and brachial veins. Unable to evaluate the right mid brachial vein due to overlying bandage from PICC. Forearm veins difficult to evaluate due to subcutaneous edema.Patent right internal jugular and subclavian veins. Superficial vein thrombosis within the right cephalic vein at the level of the forearm. IMPRESSION: 1. Deep vein thrombosis within the right axillary and brachial veins. 2. Superficial vein thrombosis within the right cephalic vein at the level of the forearm. FOR INTERNAL CODING PURPOSES Critical result: Findings discussed with patient's nurse at 06/24/2019 4:16 PM. RESULT CODE: (C) Electronically signed by: Prateek Valentino DO (06/24/2019 4:16 PM) [id number]
[2019-06-24] MEDS ORDERED: MIDAZOLAM PREMIX 100 MG/100 ML NS BAG. IV ONE (18:19)
[2019-06-24] MEDS ORDERED: VECURONIUM BOLUS 10 MG VIAL. IV PRN (19:00)
[2019-06-25] VITALS (33 sets, daily range): BP systolic 57–211; BP diastolic 41–121
[2019-06-25] MEDS: AMINO AC 3%/ELECTROLYTE/GLYCER 1,000 ML IV SCH ×2 (03:50→18:00)
[2019-06-25 06:29] LABS: CALCIUM 8.1 mg/dL (8.5-10.1); CREATININE 1.1 mg/dL (0.7-1.3); MAGNESIUM 2.1 mg/dL (1.8-2.4); POTASSIUM 4.1 mmol/L (3.5-5.1)
[2019-06-25] MEDS: PIPERACILLIN/TAZOBACTAM 3.375 GM in IV NORMAL SALINE 50ML 50 ML IV SCH ×4 (06:37→23:39)
[2019-06-25] MEDS: VANCOMYCIN 1.25 GM in IV NORMAL SALINE 250ML 250 ML IV SCH ×2 (06:39→18:38)
--- NOTE | 2019-06-25 07:50 | PDOC ---
PULMONARY PROGRESS NOTES Subjective Patient sedated, assist control ventilation. on 70% FiO2 10 of PEEP sedated, no pressors RN reports increase ET secretions multiple runs of V-tac, shocked by AICD Vitals Vital Signs Date Time Temp Pulse Resp B/P (MAP) Pulse Ox O2 Delivery O2 Flow Rate FiO2 06/25/19 05:08 100 Ventilator 06/25/19 02:00 102 22 94/72 (79) 06/25/19 00:00 98.7 98.7 06/24/19 12:00 4.0 Comments visuall exam done no respiratory distress, sedated no obvious rash no edema Labs Laboratory Tests Test 06/23/19 09:40 06/23/19 15:12 06/24/19 00:03 06/24/19 00:42 O2 Saturation 87 % (92-99) Arterial Blood pH 7.36 (7.35-7.45) Arterial Blood pCO2 at Patient Temp 50 mmHg (35-46) Arterial Blood pO2 at Patient Temp 56 mmHg (65-108) Arterial Blood HCO3 27 mmol/L (21-28) Arterial Blood Base Excess 1 mmol/L (-3-3) FiO2 50 Sodium Level 143 mmol/L (136-145) Potassium Level 3.7 mmol/L (3.5-5.1) Chloride Level 107 mmol/L (98-107) Carbon Dioxide Level 29 mmol/L (21-32) Anion Gap 7 (6-14) Blood Urea Nitrogen 15 mg/dL (8-26) Creatinine 0.9 mg/dL (0.7-1.3) Estimated GFR (Cockcroft-Gault) 99.5 Glucose Level 116 mg/dL (70-99) Calcium Level 8.0 mg/dL (8.5-10.1) Glucose (Fingerstick) 56 mg/dL (70-99) 117 mg/dL (70-99) Test 06/24/19 08:00 06/24/19 09:12 06/25/19 05:50 O2 Saturation 90 % (92-99) Arterial Blood pH 7.38 (7.35-7.45) Arterial Blood pCO2 at Patient Temp 44 mmHg (35-46) Arterial Blood pO2 at Patient Temp 60 mmHg (65-108) Arterial Blood HCO3 26 mmol/L (21-28) Arterial Blood Base Excess 0 mmol/L (-3-3) FiO2 70% +9 Sodium Level 145 mmol/L (136-145) 144 mmol/L (136-145) Potassium Level 3.6 mmol/L (3.5-5.1) 4.1 mmol/L (3.5-5.1) Chloride Level 110 mmol/L (98-107) 110 mmol/L (98-107) Carbon Dioxide Level 29 mmol/L (21-32) 29 mmol/L (21-32) Anion Gap 6 (6-14) 5 (6-14) Blood Urea Nitrogen 15 mg/dL (8-26) 20 mg/dL (8-26) Creatinine 0.9 mg/dL (0.7-1.3) 1.1 mg/dL (0.7-1.3) Estimated GFR (Cockcroft-Gault) 99.5 79.0 Glucose Level 112 mg/dL (70-99) 113 mg/dL (70-99) Calcium Level 7.7 mg/dL (8.5-10.1) 8.1 mg/dL (8.5-10.1) Magnesium Level 1.9 mg/dL (1.8-2.4) 2.1 mg/dL (1.8-2.4) Laboratory Tests Test 06/24/19 08:00 06/24/19 09:12 06/25/19 05:50 O2 Saturation 90 % (92-99) Arterial Blood pH 7.38 (7.35-7.45) Arterial Blood pCO2 at Patient Temp 44 mmHg (35-46) Arterial Blood pO2 at Patient Temp 60 mmHg (65-108) Arterial Blood HCO3 26 mmol/L (21-28) Arterial Blood Base Excess 0 mmol/L (-3-3) FiO2 70% +9 Sodium Level 145 mmol/L (136-145) 144 mmol/L (136-145) Potassium Level 3.6 mmol/L (3.5-5.1) 4.1 mmol/L (3.5-5.1) Chloride Level 110 mmol/L (98-107) 110 mmol/L (98-107) Carbon Dioxide Level 29 mmol/L (21-32) 29 mmol/L (21-32) Anion Gap 6 (6-14) 5 (6-14) Blood Urea Nitrogen 15 mg/dL (8-26) 20 mg/dL (8-26) Creatinine 0.9 mg/dL (0.7-1.3) 1.1 mg/dL (0.7-1.3) Estimated GFR (Cockcroft-Gault) 99.5 79.0 Glucose Level 112 mg/dL (70-99) 113 mg/dL (70-99) Calcium Level 7.7 mg/dL (8.5-10.1) 8.1 mg/dL (8.5-10.1) Magnesium Level 1.9 mg/dL (1.8-2.4) 2.1 mg/dL (1.8-2.4) Medications Active Scripts Medications Dose Route/Sig Max Daily Dose Days Date Category Mexiletine Hcl 250 Mg Capsule 450 Mg PO BID 06/20/19 Reported Metoprolol Tartrate 100 Mg Tablet 1 Tab PO DAILY 06/20/19 Reported Children's Aspirin (Aspirin) 81 Mg Tab.chew 81 Mg PO DAILY 06/20/19 Reported Amiodarone Hcl 200 Mg Tablet 1 Tab PO DAILY 06/20/19 Reported Comments CXR 06/24 reviewed diffuse bilateral infiltrates Impression . IMPRESSION: 1. Acute respiratory failure due to COVID-19 pneumonia/ ARDS 2. Acute respiratory distress syndrome. 3. COVID-19 4. Bilateral infiltrates compatible with pneumonia, possible superimposed gram- negative, gram-positive, underlying viral. 5. Toxic metabolic encephalopathy. 6. Chronic anemia. 7. Elevated troponin. 8. Elevated total bilirubin, improved 9. Severe protein malnutrition, present upon admission. 10. Recent pacemaker defibrillator placement. Plan . Continue AC mode, Low TV, Adjust FIO2 and PEEP according to ABG , Fio2 requirement has increased Follow up CXR Prone positional per protocol Plaquenil per protocol Continue Zithromax along with broad-spectrum antibiotics Vanc/ Zosyn. dc Azithromycin at day 5 Nutritional support with tube feeding Continue sedation DVT GI prophylaxis Cardiology f/u Spoke with RN, RT,/ Prognosis guarded/ now DNR Total cumulative critical care time of 30 minutes reviewing data, labs, adjusting mechanical ventilation, reviewing x-ray ANTOINETTE BARBER MD Jun 25, 2019 07:49
[2019-06-25 08:16] LABS: BASO % 0 % (0-3); EOS # 0.1 x10^3/uL (0.0-0.7); EOS % 2 % (0-3); LYMPH # 0.4 x10^3/uL (1.0-4.8); LYMPH % 7 % (24-48); MEAN CORPUSCULAR HEMOGLOBIN 30 pg (25-35); MEAN CORPUSCULAR HGB CONC 32 g/dL (31-37); MEAN CORPUSCULAR VOLUME 93 fL (79-100); MONO # 0.8 x10^3/uL (0.0-1.1); MONO % 13 % (0-9); NEUT # 4.9 x10^3/uL (1.8-7.7); NEUT % 79 % (31-73); PLATELET COUNT 238 x10^3/uL (140-400); RED CELL DISTRIBUTION WIDTH 17.8 % (11.5-14.5); WHITE BLOOD COUNT 6.2 x10^3/uL (4.0-11.0)
[2019-06-25] MEDS: MIDAZOLAM HCL 100 MG in IV NORMAL SALINE 100ML 100 ML IV PRN ×2 (08:20→15:57)
[2019-06-25] MEDS: AMIODARONE HCL 200 MG TABLET. PO SCH (08:26)
[2019-06-25] MEDS: CHLORHEXIDINE 0.12% 15 ML MOUTHWASH. MM SCH ×2 (08:26→20:31)
[2019-06-25] MEDS: ZINC SULFATE 220 MG CAPSULE. PO SCH (08:27)
[2019-06-25] MEDS: ASCORBIC ACID 500 MG TABLET PO SCH (08:27)
[2019-06-25] MEDS: FAMOTIDINE 20 MG/2 ML VIAL IVP SCH ×2 (08:27→20:32)
[2019-06-25] MEDS: FUROSEMIDE 40 MG TABLET. PO SCH (08:28)
[2019-06-25] MEDS: METOPROLOL TART IMMED RELEASE 25 MG TABLET. PO SCH ×3 (08:28→21:00)
--- NOTE | 2019-06-25 09:31 | PDOC ---
OCHOA GOYAL SOLDERER 06/25/19 0931: CARDIO Progress Notes Date and Time Date of Service 06/25/2019 Time of Evaluation 0910 Subjective Subjective: Other (sedated) Vitals Vitals Vital Signs Date Time Temp Pulse Resp B/P (MAP) Pulse Ox O2 Delivery O2 Flow Rate FiO2 06/25/19 08:26 93 99/59 06/25/19 06:00 22 100 Ventilator 06/25/19 04:00 98.7 98.7 06/24/19 12:00 4.0 Weight Weight [ ] Input and Output Intake and Output Intake and Output 06/25/19 07:00 Intake Total 2401 ml Output Total 1280 ml Balance 1121 ml Intake IV Total 1501 ml Tube Feeding 900 ml Output Urine Total 1280 ml Laboratory Labs Laboratory Tests Test 06/25/19 05:50 White Blood Count 6.2 x10^3/uL (4.0-11.0) Red Blood Count 3.00 x10^6/uL (4.30-5.70) Hemoglobin 9.0 g/dL (13.0-17.5) Hematocrit 28.0 % (39.0-53.0) Mean Corpuscular Volume 93 fL (79-100) Mean Corpuscular Hemoglobin 30 pg (25-35) Mean Corpuscular Hemoglobin Concent 32 g/dL (31-37) Red Cell Distribution Width 17.8 % (11.5-14.5) Platelet Count 238 x10^3/uL (140-400) Neutrophils (%) (Auto) 79 % (31-73) Lymphocytes (%) (Auto) 7 % (24-48) Monocytes (%) (Auto) 13 % (0-9) Eosinophils (%) (Auto) 2 % (0-3) Basophils (%) (Auto) 0 % (0-3) Neutrophils # (Auto) 4.9 x10^3/uL (1.8-7.7) Lymphocytes # (Auto) 0.4 x10^3/uL (1.0-4.8) Monocytes # (Auto) 0.8 x10^3/uL (0.0-1.1) Eosinophils # (Auto) 0.1 x10^3/uL (0.0-0.7) Basophils # (Auto) 0.0 x10^3/uL (0.0-0.2) Sodium Level 144 mmol/L (136-145) Potassium Level 4.1 mmol/L (3.5-5.1) Chloride Level 110 mmol/L (98-107) Carbon Dioxide Level 29 mmol/L (21-32) Anion Gap 5 (6-14) Blood Urea Nitrogen 20 mg/dL (8-26) Creatinine 1.1 mg/dL (0.7-1.3) Estimated GFR (Cockcroft-Gault) 79.0 Glucose Level 113 mg/dL (70-99) Calcium Level 8.1 mg/dL (8.5-10.1) Magnesium Level 2.1 mg/dL (1.8-2.4) Microbiology Micro Microbiology 06/20/19 Blood Culture - Final, Complete NO GROWTH AFTER 5 DAYS Physical Exam Other Exams Limited exam, Discussed with RN. Intubated with vent. BP is marginally low, adequate UOP. no changes respiratory marte. Sedated. CXR pending, labs reviewed and K and Mg are normalized. SR with bigeminal PVCs Assessment Assessment 1. Acute respiratory failure with ARDS/PNA/CHF/COPD/Covid-19 remains intubated 2. Acute on chronic diastolic systolic CHF 3. NICM: EF at 35-40%. 4. NSTEMI: peaked troponin 2.3, possibly demand mediated, type 2 5. Sepsis/shock: BP is stable but marginally low, off pressor 6. Hypoxic/metabolic encephalopathy 7. AICD 8. HTN: controlled 9. HLP 10. Severe protein malnutrition 11. Hx of VT 12. DVT RUE: on lovenox therapy per PCP Recommendations 1. Lasix therapy and add'l PRN, CXR today. 2. More ectopies today. check QTc and has completed plaquenil and zithromax. If QTc is within decent range then will restart home mexilitine and prior amiodarone dosing. May hold BB per BP trend 3. Follow with [facility] 4. Follow pulmonary recommendation. 5. Supportive care RINA HODGE MD 06/25/19 1252: CARDIO Progress Notes Assessment Assessment Agree with PHARMACOLOGY ASSOCIATE's assessment and plan. Patient with intermittent slow VT, had ICD shock therapies 3 times today. Patient has completed treatment with plaquenil and azithromycin Check EKG for QTc interval and resume mexiletine. Continue amiodarone OCHOA GOYAL SOLDERER Jun 25, 2019 09:31 RINA HODGE MD Jun 25, 2019 12:52
[2019-06-25 09:33] LABS: BASE EXCESS ABG 0 mmol/L (-3-3); HCO3 ABG 26 mmol/L (21-28); PCO2 ABG 48 mmHg (35-46); PO2 ABG 77 mmHg (65-108); SAT O2 ABG 95 % (92-99)
[2019-06-25] MEDS ORDERED: ALTEPLASE 1MG SYRINGE. INT CAT ONE (10:00)
[2019-06-25 11:05] LABS: PO2 ABG 45 mmHg (65-108)
--- NOTE | 2019-06-25 11:14 | EKG ---
[facility] [address] [place] [address] Test Date: 2019-06-25 Test Time: 11:00:43 Pat Name: SOTO GREGG Department: Room: 105 1 Gender: M Mat Puncher: : 1945 Requested By: OCHOA GOYAL Order Number: [id number] Reading MD: Satnam Crockett MD Measurements Intervals [place] Rate: 91 P: 54 MD: 166 QRS: -36 QRSD: 114 T: 61 QT: 424 QTc: 523 Interpretive Statements SINUS RHYTHM PVC'S Electronically Signed On 06-28-2019 10:30:51 CDT by Satnam Crockett MD
--- NOTE | 2019-06-25 11:38 | RAD ---
CHEST AP ONLY History: Ventilated patient. Respiratory failure. Comparison: June 23, 2019. Findings: Diffuse interstitial and alveolar opacities, unchanged. No pneumothorax. Possible small pleural effusions. Unchanged heart size. Stable endotracheal tube, enteric tube and right PICC. Stable left-sided pacemaker/ICD. Impression: 1. No significant interval change compared to prior. Electronically signed by: Prateek Valentino DO (06/25/2019 11:36 AM) [id number]
[2019-06-25] MEDS ORDERED: AMIODARONE 450 MG in IV DEXTROSE 5% 250 ML IV PRN (12:00)
[2019-06-25] MEDS ORDERED: AMIODARONE 150 MG in IV DEXTROSE 5% 100ML 100 ML IV ONE (12:00)
[2019-06-25 12:02] LABS: FIO2 ABG 70
--- NOTE | 2019-06-25 12:29 | PDOC ---
PROGRESS NOTES Assessment Assessment Covid-19 disease, confirmed by Covid test report on 06/21/19. Hypoxic encephalopathy. Metabolic encephalopathy. Respiratory failure. T 99.9 degree. Multifocal pulmonary consolidation. Shock, BP 67/46 mmHg. CHF. Cardiomyopathy. COPD. HTN. HLD. OA. RECOMMENDATIONS/PLAN: Life support in ICU at the present time. Treat medical diseases. Poor prognosis. Neurology may signing off. Discussed with his nurse on 06/24/19. HCT on 06/19/19: No acute findings. Past Medical History Cardiovascular: CHF, HTN, Hyperlipidemia, Other (ventricular tachycardia) Pulmonary: COPD CENTRAL NERVOUS SYSTEM: Dementia Musculoskeletal: Osteoarthritis Past Surgical History ICD placement with recent replacement. Family History High Cholestrol, Hypertension Social History Quit ALCOHOL: none Drugs: None Allergies Coded Allergies: Egg (Verified Allergy, Intermediate, Nausea and Vomiting, 06/19/19) MEDICATIONS: Refer to MAR REVIEW OF SYSTEMS: Constitutional: No malnutrition, weight loss, cachexia. Head: No traumatic brain or head injury. Skin: No edema, or rash. Ear: No infection. Eyes: No vision loss or color blindness. Nose: No bleeding or purulent discharges. Hearing: Hearing decrease. Neck: No injury. Cardiac: CHF, cardiomyopathy, ICD Placement, HTN, HLD. Pulmonary: COPD. GI: No GI ulcer, GI bleeding. Urinary/genital: UTI. Endocrinologic: No cousin face, craniofacial dysmorphism, polydactyly. Skeletomuscular: OA. Neurological: see HP. Psychiatric: Denies drug use/abuse. Otherwise, not -ifojx review of systems. NEUROLOGICAL EXAMINATION: On vent. Unresponsive. No obvious improvement on chart review. No improvement of lung changes on imaging. Objective Objective Vital Signs Date Time Temp Pulse Resp B/P (MAP) Pulse Ox O2 Delivery O2 Flow Rate FiO2 06/25/19 12:17 90 Ventilator 06/25/19 08:26 93 99/59 06/25/19 06:00 22 06/25/19 04:00 98.7 98.7 06/24/19 12:00 4.0 Intake and Output 06/25/19 07:00 Intake Total 2401 ml Output Total 1280 ml Balance 1121 ml Intake IV Total 1501 ml Tube Feeding 900 ml Output Urine Total 1280 ml Vitals Signs Vitals VS - Last 72 Hours, by Label Date Time Temp Pulse Resp B/P (MAP) Pulse Ox O2 Delivery O2 Flow Rate FiO2 06/25/19 12:17 90 Ventilator 06/25/19 08:50 100 Ventilator 06/25/19 08:26 93 99/59 06/25/19 08:00 Mechanical Ventilator 06/25/19 06:00 98 22 92/62 (72) 100 Ventilator 06/25/19 05:08 100 Ventilator 06/25/19 05:00 98 26 94/53 (67) 100 Ventilator 06/25/19 04:00 Mechanical Ventilator 06/25/19 04:00 98.7 98 27 86/63 (71) 100 Ventilator 98.7 06/25/19 03:00 100 29 94/57 (69) 100 Ventilator 06/25/19 02:00 102 22 94/72 (79) 100 Ventilator 06/25/19 01:00 104 22 82/57 (65) 100 Ventilator 06/25/19 00:51 100 Ventilator 06/25/19 00:00 Mechanical Ventilator 06/25/19 00:00 98.7 102 22 85/51 (62) 100 Ventilator 98.7 06/24/19 23:00 108 22 104/67 (79) 100 Ventilator 06/24/19 22:00 110 23 91/72 (78) 100 Ventilator 06/24/19 21:00 110 23 102/73 (83) 100 Ventilator 06/24/19 20:26 100 Ventilator 06/24/19 20:00 Mechanical Ventilator 06/24/19 20:00 98.2 112 24 105/70 (82) 100 Ventilator 98.2 06/24/19 18:00 116 20 102/73 (83) 98 Ventilator 06/24/19 17:00 112 27 97/68 (78) 98 Ventilator 06/24/19 16:00 Mechanical Ventilator 06/24/19 16:00 98.0 118 27 119/64 (82) 99 Ventilator 98.0 06/24/19 15:15 100 Ventilator 06/24/19 15:00 118 21 115/63 (80) 98 Ventilator 06/24/19 14:00 108 31 85/57 (66) 98 Ventilator 06/24/19 13:00 108 33 111/72 (85) 98 Ventilator 06/24/19 12:00 98.2 108 30 98/61 (73) 99 Ventilator 98.2 06/24/19 12:00 Mechanical Ventilator 06/24/19 12:00 95 4.0 06/24/19 11:33 95 Ventilator 06/24/19 11:30 100 Ventilator 06/24/19 11:00 104 22 97/74 (82) 98 Ventilator 06/24/19 10:00 104 22 110/73 (85) 98 Ventilator 06/24/19 09:00 96 22 93/59 (70) 98 Ventilator 06/24/19 09:00 94 93/59 06/24/19 08:57 94 93/59 06/24/19 08:00 Mechanical Ventilator 06/24/19 08:00 98.0 92 24 91/62 (72) 99 Ventilator 98.0 06/24/19 07:59 100 Ventilator Laboratory Laboratory Laboratory Tests Test 06/25/19 05:50 06/25/19 08:55 White Blood Count 6.2 x10^3/uL (4.0-11.0) Red Blood Count 3.00 x10^6/uL (4.30-5.70) Hemoglobin 9.0 g/dL (13.0-17.5) Hematocrit 28.0 % (39.0-53.0) Mean Corpuscular Volume 93 fL (79-100) Mean Corpuscular Hemoglobin 30 pg (25-35) Mean Corpuscular Hemoglobin Concent 32 g/dL (31-37) Red Cell Distribution Width 17.8 % (11.5-14.5) Platelet Count 238 x10^3/uL (140-400) Neutrophils (%) (Auto) 79 % (31-73) Lymphocytes (%) (Auto) 7 % (24-48) Monocytes (%) (Auto) 13 % (0-9) Eosinophils (%) (Auto) 2 % (0-3) Basophils (%) (Auto) 0 % (0-3) Neutrophils # (Auto) 4.9 x10^3/uL (1.8-7.7) Lymphocytes # (Auto) 0.4 x10^3/uL (1.0-4.8) Monocytes # (Auto) 0.8 x10^3/uL (0.0-1.1) Eosinophils # (Auto) 0.1 x10^3/uL (0.0-0.7) Basophils # (Auto) 0.0 x10^3/uL (0.0-0.2) Sodium Level 144 mmol/L (136-145) Potassium Level 4.1 mmol/L (3.5-5.1) Chloride Level 110 mmol/L (98-107) Carbon Dioxide Level 29 mmol/L (21-32) Anion Gap 5 (6-14) Blood Urea Nitrogen 20 mg/dL (8-26) Creatinine 1.1 mg/dL (0.7-1.3) Estimated GFR (Cockcroft-Gault) 79.0 Glucose Level 113 mg/dL (70-99) Calcium Level 8.1 mg/dL (8.5-10.1) Magnesium Level 2.1 mg/dL (1.8-2.4) O2 Saturation 95 % (92-99) Arterial Blood pH 7.35 (7.35-7.45) Arterial Blood pCO2 at Patient Temp 48 mmHg (35-46) Arterial Blood pO2 at Patient Temp 77 mmHg (65-108) Arterial Blood HCO3 26 mmol/L (21-28) Arterial Blood Base Excess 0 mmol/L (-3-3) FiO2 70 Microbiology 06/20/19 Blood Culture - Final, Complete NO GROWTH AFTER 5 DAYS Medication Medications Current Medications Alteplase, Recombinant (Cathflo For Central Catheter Clearance) 1 mg 1X ONCE INT CAT Last administered on 06/25/19at 10:07; Start 06/25/19 at 10:00; Stop 06/25/19 at 10:01; Status DC Amino Acids/ Glycerin/ Electrolytes 1,000 ml @ 80 mls/hr [id number] IV Last administered on 06/25/19at 03:50; Start 06/24/19 at 14:30 Amiodarone HCl (Cordarone) 200 mg DAILY PO ; Start 06/26/19 at 09:00 Amiodarone HCl 150 mg/Dextrose 103 ml @ 618 mls/hr 1X ONCE IV ; Start 06/25/19 at 12:00; Stop 06/25/19 at 12:09; Status DC Amiodarone HCl 450 mg/Dextrose 259 ml @ 0 mls/hr CONT PRN IV SEE I/O RECORD; S tart 06/25/19 at 12:00 Enoxaparin Sodium (Lovenox 80mg Syringe) 80 mg Q12HR SQ Last administered on 06/25/19at 08:29; Start 06/24/19 at 16:00 Mexiletine HCl (Mexitil) 400 mg BID PO ; Start 06/25/19 at 21:00 Norepinephrine Bitartrate 8 mg/ Dextrose 258 ml @ 16.254 mls/ hr CONT PRN IV PER PROTOCOL; Start 06/25/19 at 10:30 Vecuronium [place] (Norcuron Bolus) 6 mg 1X ONCE IV Last administered on 06/24/19at 14:41; Start 06/24/19 at 14:15; Stop 06/24/19 at 14:16; Status DC Vecuronium [place] (Norcuron Bolus) 6 mg Q6HRS PRN IV ANXIETY / AGITATION; Start 06/24/19 at 19:00 Comment Review of Relevant I have reviewed the following items abdelrahman (where applicable) has been applied. CINDY CANNON MD Jun 25, 2019 12:29
[2019-06-25] MEDS: POTASSIUM BICARB 20 MEQ EFFERVESCENT TABLET. PEG SCH (12:36)
[2019-06-25] MEDS: IV NORMAL SALINE 1000ML BAG 1,000 ML IV SCH (12:38)
[2019-06-25] MEDS: fentaNYL HIGH DOSE PCA 55 ML IV PRN (12:52)
[2019-06-25] MEDS ORDERED: MEXILETINE HCL 200 MG CAPSULE PO ONE (13:00)
--- NOTE | 2019-06-25 14:39 | RAD ---
PORTABLE CHEST 1V History: Central line placement. Comparison: June 25, 2019 Findings: Interval replacement right subclavian central line with tip projecting over the cavoatrial junction. Stable right PICC projecting over the right atrium. Diffuse interstitial and alveolar opacities, unchanged. Possible small pleural effusions. No pneumothorax. Stable left-sided pacemaker/ICD. Stable endotracheal tube and enteric tube. Unchanged heart size. Impression: 1. Interval placement right subclavian central line with tip projecting over the cavoatrial junction. No pneumothorax. Electronically signed by: Prateek Valentino DO (06/25/2019 2:37 PM) [id number]
--- NOTE | 2019-06-25 16:03 | PDOC ---
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 No acute intracranial abnormality. on ct head Several chronic infarcts bilaterally.Several chronic left frontal, parietal and temporal infarcts. chronic right frontal infarcts. foci of decreased attenuation within the hemispheric white matter, most often due to chronic microvascular ischemia. Mild to moderate brain parenchymal volume loss. Acute metabolic encephalopathy Severe protein-caloric malnutrition Plan: continue full anticoagulation guarded prognosis discussed code status with daugther over the phone decision made to change code status to DNR continue with supportive measures, ventilatory support follow recommendations from application development consultant further recommendations based on clincal course. History of Present Illness History of Present Illness 06/24/2019 patient had 3 shocks sicne yesterday, patient continues to require a significant amount of oxygen at 70 % fio2 and 10 of peep long conversation with daughter over the phone, reassurance provided, all concerns addressed to the best of my abilities. 06/23/2019 no new changes, remains critically ill discussed with nursing staff at bedside, further recommendations based on clinical course. [id number] Patient seen and examined in the ICU He remains critically ill and intubated Before meals/20/400/50% with 8 of PEEP Has OG feeds running Chart reviewed Discussed with RN Prognosis extremely guarded [id number] Patient seen and examined in the ICU He is intubated and sedated with fentanyl and Versed Chart reviewed Discussed with RN He is critically ill Covid testing is still pending [id number] Patient seen in the ICU Currently mechanically ventilated with assist control/20/400/60% Sedated with fentanyl and Versed and propofol Discussed with RN Chart reviewed Vitals Vitals Vital Signs Date Time Temp Pulse Resp B/P (MAP) Pulse Ox O2 Delivery O2 Flow Rate FiO2 06/25/19 14:39 20 98 Ventilator 06/25/19 14:15 110 92/62 (72) 06/25/19 12:30 99.1 99.1 06/24/19 12:00 4.0 Physical Exam General: Other (sedated and intubated) Heart: Regular rate Abdomen: Normal bowel sounds, Soft Extremities: No cyanosis Skin: No rashes, No breakdown Labs LABS Laboratory Tests Test 06/25/19 05:50 4/3/20 08:55 White Blood Count 6.2 x10^3/uL (4.0-11.0) Red Blood Count 3.00 x10^6/uL (4.30-5.70) Hemoglobin 9.0 g/dL (13.0-17.5) Hematocrit 28.0 % (39.0-53.0) Mean Corpuscular Volume 93 fL (79-100) Mean Corpuscular Hemoglobin 30 pg (25-35) Mean Corpuscular Hemoglobin Concent 32 g/dL (31-37) Red Cell Distribution Width 17.8 % (11.5-14.5) Platelet Count 238 x10^3/uL (140-400) Neutrophils (%) (Auto) 79 % (31-73) Lymphocytes (%) (Auto) 7 % (24-48) Monocytes (%) (Auto) 13 % (0-9) Eosinophils (%) (Auto) 2 % (0-3) Basophils (%) (Auto) 0 % (0-3) Neutrophils # (Auto) 4.9 x10^3/uL (1.8-7.7) Lymphocytes # (Auto) 0.4 x10^3/uL (1.0-4.8) Monocytes # (Auto) 0.8 x10^3/uL (0.0-1.1) Eosinophils # (Auto) 0.1 x10^3/uL (0.0-0.7) Basophils # (Auto) 0.0 x10^3/uL (0.0-0.2) Sodium Level 144 mmol/L (136-145) Potassium Level 4.1 mmol/L (3.5-5.1) Chloride Level 110 mmol/L (98-107) Carbon Dioxide Level 29 mmol/L (21-32) Anion Gap 5 (6-14) Blood Urea Nitrogen 20 mg/dL (8-26) Creatinine 1.1 mg/dL (0.7-1.3) Estimated GFR (Cockcroft-Gault) 79.0 Glucose Level 113 mg/dL (70-99) Calcium Level 8.1 mg/dL (8.5-10.1) Magnesium Level 2.1 mg/dL (1.8-2.4) O2 Saturation 95 % (92-99) Arterial Blood pH 7.35 (7.35-7.45) Arterial Blood pCO2 at Patient Temp 48 mmHg (35-46) Arterial Blood pO2 at Patient Temp 77 mmHg (65-108) Arterial Blood HCO3 26 mmol/L (21-28) Arterial Blood Base Excess 0 mmol/L (-3-3) FiO2 70 Assessment and Plan Assessmemt and Plan Problems Medical Problems: (1) Altered mental status Status: Acute (2) Elevated brain natriuretic peptide (BNP) level Status: Acute (3) Elevated troponin Status: Acute (4) Suspected COVID-19 virus infection Status: Acute Comment Review of Relevant I have reviewed the following items abdelrahman (where applicable) has been applied. Labs Laboratory Tests Test 06/24/19 00:03 06/24/19 00:42 06/24/19 08:00 06/24/19 09:12 Glucose (Fingerstick) 56 mg/dL (70-99) 117 mg/dL (70-99) O2 Saturation 90 % (92-99) Arterial Blood pH 7.38 (7.35-7.45) Arterial Blood pCO2 at Patient Temp 44 mmHg (35-46) Arterial Blood pO2 at Patient Temp 60 mmHg (65-108) Arterial Blood HCO3 26 mmol/L (21-28) Arterial Blood Base Excess 0 mmol/L (-3-3) FiO2 70% +9 Sodium Level 145 mmol/L (136-145) Potassium Level 3.6 mmol/L (3.5-5.1) Chloride Level 110 mmol/L (98-107) Carbon Dioxide Level 29 mmol/L (21-32) Anion Gap 6 (6-14) Blood Urea Nitrogen 15 mg/dL (8-26) Creatinine 0.9 mg/dL (0.7-1.3) Estimated GFR (Cockcroft-Gault) 99.5 Glucose Level 112 mg/dL (70-99) Calcium Level 7.7 mg/dL (8.5-10.1) Magnesium Level 1.9 mg/dL (1.8-2.4) Test 06/25/19 05:50 06/25/19 08:55 White Blood Count 6.2 x10^3/uL (4.0-11.0) Red Blood Count 3.00 x10^6/uL (4.30-5.70) Hemoglobin 9.0 g/dL (13.0-17.5) Hematocrit 28.0 % (39.0-53.0) Mean Corpuscular Volume 93 fL (79-100) Mean Corpuscular Hemoglobin 30 pg (25-35) Mean Corpuscular Hemoglobin Concent 32 g/dL (31-37) Red Cell Distribution Width 17.8 % (11.5-14.5) Platelet Count 238 x10^3/uL (140-400) Neutrophils (%) (Auto) 79 % (31-73) Lymphocytes (%) (Auto) 7 % (24-48) Monocytes (%) (Auto) 13 % (0-9) Eosinophils (%) (Auto) 2 % (0-3) Basophils (%) (Auto) 0 % (0-3) Neutrophils # (Auto) 4.9 x10^3/uL (1.8-7.7) Lymphocytes # (Auto) 0.4 x10^3/uL (1.0-4.8) Monocytes # (Auto) 0.8 x10^3/uL (0.0-1.1) Eosinophils # (Auto) 0.1 x10^3/uL (0.0-0.7) Basophils # (Auto) 0.0 x10^3/uL (0.0-0.2) Sodium Level 144 mmol/L (136-145) Potassium Level 4.1 mmol/L (3.5-5.1) Chloride Level 110 mmol/L (98-107) Carbon Dioxide Level 29 mmol/L (21-32) Anion Gap 5 (6-14) Blood Urea Nitrogen 20 mg/dL (8-26) Creatinine 1.1 mg/dL (0.7-1.3) Estimated GFR (Cockcroft-Gault) 79.0 Glucose Level 113 mg/dL (70-99) Calcium Level 8.1 mg/dL (8.5-10.1) Magnesium Level 2.1 mg/dL (1.8-2.4) O2 Saturation 95 % (92-99) Arterial Blood pH 7.35 (7.35-7.45) Arterial Blood pCO2 at Patient Temp 48 mmHg (35-46) Arterial Blood pO2 at Patient Temp 77 mmHg (65-108) Arterial Blood HCO3 26 mmol/L (21-28) Arterial Blood Base Excess 0 mmol/L (-3-3) FiO2 70 Laboratory Tests Test 06/25/19 05:50 06/25/19 08:55 White Blood Count 6.2 x10^3/uL (4.0-11.0) Red Blood Count 3.00 x10^6/uL (4.30-5.70) Hemoglobin 9.0 g/dL (13.0-17.5) Hematocrit 28.0 % (39.0-53.0) Mean Corpuscular Volume 93 fL (79-100) Mean Corpuscular Hemoglobin 30 pg (25-35) Mean Corpuscular Hemoglobin Concent 32 g/dL (31-37) Red Cell Distribution Width 17.8 % (11.5-14.5) Platelet Count 238 x10^3/uL (140-400) Neutrophils (%) (Auto) 79 % (31-73) Lymphocytes (%) (Auto) 7 % (24-48) Monocytes (%) (Auto) 13 % (0-9) Eosinophils (%) (Auto) 2 % (0-3) Basophils (%) (Auto) 0 % (0-3) Neutrophils # (Auto) 4.9 x10^3/uL (1.8-7.7) Lymphocytes # (Auto) 0.4 x10^3/uL (1.0-4.8) Monocytes # (Auto) 0.8 x10^3/uL (0.0-1.1) Eosinophils # (Auto) 0.1 x10^3/uL (0.0-0.7) Basophils # (Auto) 0.0 x10^3/uL (0.0-0.2) Sodium Level 144 mmol/L (136-145) Potassium Level 4.1 mmol/L (3.5-5.1) Chloride Level 110 mmol/L (98-107) Carbon Dioxide Level 29 mmol/L (21-32) Anion Gap 5 (6-14) Blood Urea Nitrogen 20 mg/dL (8-26) Creatinine 1.1 mg/dL (0.7-1.3) Estimated GFR (Cockcroft-Gault) 79.0 Glucose Level 113 mg/dL (70-99) Calcium Level 8.1 mg/dL (8.5-10.1) Magnesium Level 2.1 mg/dL (1.8-2.4) O2 Saturation 95 % (92-99) Arterial Blood pH 7.35 (7.35-7.45) Arterial Blood pCO2 at Patient Temp 48 mmHg (35-46) Arterial Blood pO2 at Patient Temp 77 mmHg (65-108) Arterial Blood HCO3 26 mmol/L (21-28) Arterial Blood Base Excess 0 mmol/L (-3-3) FiO2 70 Microbiology 06/20/19 Blood Culture - Final, Complete NO GROWTH AFTER 5 DAYS Medications Current Medications Piperacillin Sod/ Tazobactam Sod 4.5 gm/Sodium Chloride 100 ml @ 200 mls/hr 1X ONCE IV Last administered on 06/19/19at 16:50; Start 06/19/19 at 16:00; Stop 06/19/19 at 16:29; Status DC Vancomycin HCl 1.25 gm/Sodium Chloride 250 ml @ 166.667 mls/hr 1X ONCE IV Last administered on 06/19/19at 16:51; Start 06/19/19 at 16:00; Stop 06/19/19 at 17:29; Status DC Hydroxychloroquine Sulfate (Plaquenil) 400 mg BID PO ; Start 06/19/19 at 21:00; Status UNV Enoxaparin Sodium (Lovenox 80mg Syringe) 75 mg 1X ONCE SQ Last administered on 06/19/19at 16:51; Start 06/19/19 at 16:30; Stop 06/19/19 at 16:31; Status DC Furosemide (Lasix) 40 mg 1X ONCE IVP Last administered on 06/19/19at 16:51; Start 06/19/19 at 17:00; Stop 06/19/19 at 17:01; Status DC Sodium Chloride (Normal Saline Flush) 3 ml QSHIFT PRN IV AFTER MEDS AND BLOOD DRAWS; Start 06/19/19 at 17:45 Sodium Chloride 1,000 ml @ 65 mls/hr [id number] IV Last administered on 06/25/19at 12:38; Start 06/19/19 at 17:31 Acetaminophen (Tylenol) 650 mg PRN Q4HRS PRN PO TEMP OVER 100.4F OR MILD PAIN; Start 06/19/19 at 17:45 Acetaminophen (Tylenol Supp) 650 mg PRN Q4HRS PRN IA TEMP OVER 100.4F OR MILD PAIN; Start 06/19/19 at 17:45 Clonidine HCl (Catapres) 0.1 mg PRN Q6HRS PRN PO SBP>160 OR DBP>90; Start 06/19/19 at 17:45 Sodium Monofluorophosphate (Fleet Adult) 133 ml PRN DAILY PRN IA CONSTIPATION; Start 06/19/19 at 17:45 Docusate Sodium (Colace) 100 mg PRN BID PRN PO CONSTIPATION; Start 06/19/19 at 17:45 Albuterol/ Ipratropium (Duoneb) 3 ml Q4HRS W/A NEB ; Start 06/19/19 at 18:00; Stop 06/20/19 at 17:12; Status DC Guaifenesin (Robitussin) 200 mg PRN Q4HRS PRN PO COUGH; Start 06/19/19 at 17:45 Enoxaparin Sodium (Lovenox 40mg Syringe) 40 mg Q24H SQ ; Start 06/19/19 at 18:00; Status UNV Vancomycin HCl (Vanco Per Pharmacy) 1 each PRN DAILY PRN MC SEE COMMENTS Last administered on 06/24/19at 15:11; Start 06/19/19 at 17:45 Piperacillin Sod/ Tazobactam Sod 3.375 gm/Sodium Chloride 50 ml @ 100 mls/hr Q6HRS IV ; Start 06/19/19 at 18:00; Status Cancel Enoxaparin Sodium (Lovenox Per Pharmacy Treatment Dosing) 1 each PRN DAILY PRN MC SEE COMMENTS; Start 06/19/19 at 17:45; Stop 06/20/19 at 15:01; Status DC Piperacillin Sod/ Tazobactam Sod 3.375 gm/Sodium Chloride 50 ml @ 100 mls/hr Q6HRS IV Last administered on 06/25/19at 12:36; Start 06/20/19 at 00:00 Enoxaparin Sodium (Lovenox 80mg Syringe) 70 mg Q12HR SQ Last administered on 06/20/19at 08:00; Start 06/20/19 at 09:00; Stop 06/20/19 at 15:01; Status DC Vancomycin HCl 1 gm/Sodium Chloride 250 ml @ 250 mls/hr Q12H IV Last administered on 06/20/19at 16:26; Start 06/20/19 at 05:00; Stop 06/21/19 at 05:34; Status DC Vancomycin HCl (Vancomycin Trough Level) 1 each 1X ONCE MC Last administered on 06/21/19at 04:30; Start 06/21/19 at 04:30; Stop 06/21/19 at 04:31; Status DC Hydroxychloroquine Sulfate (Plaquenil) 400 mg 1X ONCE PO Last administered on 06/20/19at 00:07; Start 06/19/19 at 20:00; Stop 06/19/19 at 20:01; Status DC Propofol 100 ml @ As Directed STK-MED ONCE IV ; Start 06/19/19 at 20:33; Stop 06/19/19 at 20:34; Status DC Fentanyl Citrate 30 ml @ 0 mls/hr CONT PRN IV SEE PROTOCOL Last administered on 06/24/19at 05:42; Start 06/19/19 at 21:15; Stop 06/24/19 at 09:02; Status DC Propofol 100 ml @ 0 mls/hr CONT PRN IV SEE PROTOCOL; Start 06/19/19 at 21:15 Fentanyl Citrate (Fentanyl 2ml Vial) 25 mcg PRN Q1HR PRN IV SEE COMMENTS; Start 06/19/19 at 21:15 Fentanyl Citrate (Fentanyl 2ml Vial) 50 mcg PRN Q1HR PRN IV SEE COMMENTS; Start 06/19/19 at 21:15 Chlorhexidine Gluconate (Peridex) 15 ml BID MM Last administered on 06/25/19at 08:26; Start 06/20/19 at 09:00 Morphine Sulfate (Morphine Sulfate) 2 mg PRN Q1HR PRN IV SEE COMMENTS.; Start 06/19/19 at 21:15 Morphine Sulfate (Morphine Sulfate) 4 mg PRN Q1HR PRN IV SEE COMMENTS.; Start 06/19/19 at 21:15 Midazolam HCl 50 mg/Sodium Chloride 50 ml @ 0 mls/hr CONT PRN IV SEE PROTOCOL Last administered on 06/20/19at 01:38; Start 06/19/19 at 21:15; Stop 06/20/19 at 07:27; Status DC Midazolam HCl 100 mg/Sodium Chloride 100 ml @ 6 mls/hr CONT PRN IV SEE PROTOCOL Last administered on 06/25/19at 08:20; Start 06/20/19 at 07:30 Hydroxychloroquine Sulfate (Plaquenil) 200 mg BID PO Last administered on 06/24/19 08:59; Start 06/20/19 at 21:00; Stop 06/24/19 at 09:01; Status DC Azithromycin 250 mg/Sodium Chloride 250 ml @ 250 mls/hr Q24H IV Last administered on 06/24/19 08:58; Start 06/20/19 at 10:00; Stop 06/24/19 at 14:44; Status DC Hydroxychloroquine Sulfate (Plaquenil) 400 mg 1X ONCE PO Last administered on 06/20/19at 10:35; Start 06/20/19 at 09:30; Stop 06/20/19 at 09:44; Status DC Acetaminophen (Tylenol) 650 mg PRN Q6HRS PRN PEG MILD PAIN / TEMP Last administered on 06/20/19at 16:26; Start 06/20/19 at 12:30 Info (Anti-Coagulation Monitoring By Pharmacy) 1 each PRN DAILY PRN MC SEE COMMENTS; Start 06/20/19 at 14:30; Status Cancel Enoxaparin Sodium (Lovenox 40mg Syringe) 40 mg Q24H SQ Last administered on 06/24/19 08:58; Start 06/21/19 at 09:00; Stop 06/24/19 at 15:54; Status DC Albuterol/ Ipratropium (Duoneb) 3 ml PRN Q4HRS PRN NEB SHORTNESS OF BREATH; Start 06/20/19 at 17:15; Stop 06/20/19 at 17:30; Status DC Vancomycin HCl 1.25 gm/Sodium Chloride 250 ml @ 167 mls/hr Q12H IV Last administered on 06/25/19at 06:39; Start 06/21/19 at 06:00 Vancomycin HCl (Vancomycin Trough Level) 1 each 1X ONCE MC Last administered on 06/22/19at 17:30; Start 06/22/19 at 17:30; Stop 06/22/19 at 17:31; Status DC Famotidine (Pepcid Vial) 20 mg BID IVP Last administered on 06/25/19at 08:27; Start 06/22/19 at 21:00 Furosemide (Lasix) 40 mg 1X ONCE IVP Last administered on 06/22/19at 12:22; Start 06/22/19 at 11:45; Stop 06/22/19 at 11:47; Status DC Potassium Chloride/Water 100 ml @ 100 mls/hr Q1H IV Last administered on 06/22/19at 13:29; Start 06/22/19 at 12:00; Stop 06/22/19 at 13:59; Status DC Albumin Human 100 ml @ 100 mls/hr 1X ONCE IV Last administered on 06/22/19at 12:26; Start 06/22/19 at 12:00; Stop 06/22/19 at 12:59; Status DC Mexiletine HCl (Mexitil) 400 mg BID PO Last administered on 06/23/19at 10:12; Start 06/22/19 at 13:00; Stop 06/23/19 at 13:21; Status DC Metoprolol Tartrate (Lopressor) 12.5 mg BID PO Last administered on 06/24/19at 09:00; Start 06/22/19 at 13:00 Ascorbic Acid (Vitamin C) 500 mg DAILY PO Last administered on 06/25/19at 08:27; Start 06/23/19 at 09:00 Zinc Sulfate (Orazinc) 220 mg DAILY PO Last administered on 06/25/19at 08:27; Start 06/23/19 at 09:00 Vancomycin HCl (Vancomycin Trough Level) 1 each 1X ONCE MC Last administered on 06/23/19at 05:30; Start 06/23/19 at 05:30; Stop 06/23/19 at 05:31; Status DC Albumin Human 100 ml @ 100 mls/hr 1X ONCE IV Last administered on 06/23/19at 08:35; Start 06/23/19 at 08:00; Stop 06/23/19 at 08:59; Status DC Furosemide (Lasix) 40 mg 1X ONCE IVP Last administered on 06/23/19at 08:35; Start 06/23/19 at 08:00; Stop 06/23/19 at 08:01; Status DC Potassium Chloride/Water 100 ml @ 100 mls/hr 1X ONCE IV Last administered on 06/23/19at 10:15; Start 06/23/19 at 08:30; Stop 06/23/19 at 09:29; Status DC Alteplase, Recombinant (Cathflo For Central Catheter Clearance) 1 mg 1X ONCE INT CAT Last administered on 06/23/19at 10:16; Start 06/23/19 at 09:30; Stop 06/23/19 at 09:31; Status DC Vecuronium [place] (Norcuron Bolus) 6 mg 1X ONCE IV Last administered on 06/23/19at 09:25; Start 06/23/19 at 09:30; Stop 06/23/19 at 09:31; Status DC Furosemide (Lasix) 40 mg DAILY PO Last administered on 06/25/19 08:28; Start 06/24/19 at 09:00 Potassium Bicarbonate (Potassium Effervescent Tablet) 20 meq DAILY PEG Last administered on 06/25/19 12:36; Start 06/24/19 at 09:00 Amiodarone HCl (Cordarone) 400 mg DAILY PO Last administered on 06/25/19 08:26; Start 06/24/19 at 09:00; Stop 06/25/19 at 12:04; Status DC Dextrose (Dextrose 50%-Water Syringe) 12.5 gm 1X ONCE IV Last administered on 06/24/19 00:22; Start 06/24/19 at 00:15; Stop 06/24/19 at 00:19; Status DC Fentanyl Citrate 55 ml @ 0 mls/hr CONT PRN IV SEE I/O RECORD Last administered on 06/25/19 12:52; Start 06/24/19 at 09:15 Vecuronium [place] (Norcuron Bolus) 6 mg 1X ONCE IV Last administered on 06/24/19 14:41; Start 06/24/19 at 14:15; Stop 06/24/19 at 14:16; Status DC Amino Acids/ Glycerin/ Electrolytes 1,000 ml @ 80 mls/hr [id number] IV Last administered on 06/25/19 03:50; Start 06/24/19 at 14:30 Enoxaparin Sodium (Lovenox 80mg Syringe) 80 mg Q12HR SQ Last administered on 06/25/19 08:29; Start 06/24/19 at 16:00 Vecuronium [place] (Norcuron Bolus) 6 mg Q6HRS PRN IV ANXIETY / AGITATION; Start 06/24/19 at 19:00 Alteplase, Recombinant (Cathflo For Central Catheter Clearance) 1 mg 1X ONCE INT CAT Last administered on 06/25/19at 10:07; Start 06/25/19 at 10:00; Stop 06/25/19 at 10:01; Status DC Norepinephrine Bitartrate 8 mg/ Dextrose 258 ml @ 16.254 mls/ hr CONT PRN IV PER PROTOCOL; Start 06/25/19 at 10:30 Amiodarone HCl 150 mg/Dextrose 103 ml @ 618 mls/hr 1X ONCE IV Last administered on 06/25/19at 12:37; Start 06/25/19 at 12:00; Stop 06/25/19 at 12:09; Status DC Amiodarone HCl 450 mg/Dextrose 259 ml @ 0 mls/hr CONT PRN IV SEE I/O RECORD; Start 06/25/19 at 12:00 Amiodarone HCl (Cordarone) 200 mg DAILY PO ; Start 06/26/19 at 09:00 Mexiletine HCl (Mexitil) 400 mg BID PO ; Start 06/25/19 at 21:00 Mexiletine HCl (Mexitil) 400 mg 1X ONCE PO Last administered on 06/25/19at 12:53; Start 06/25/19 at 13:00; Stop 06/25/19 at 13:01; Status DC Active Scripts Active Reported Mexiletine Hcl 250 Mg Capsule 450 Mg PO BID Metoprolol Tartrate 100 Mg Tablet 1 Tab PO DAILY Children's Aspirin (Aspirin) 81 Mg Tab.chew 81 Mg PO DAILY Amiodarone Hcl 200 Mg Tablet 1 Tab PO DAILY Vitals/I & O Vital Sign - Last 24 Hours 06/24/19 06/24/19 06/24/19 06/24/19 16:00 16:00 17:00 18:00 Temp 98.0 98.0 Pulse 118 112 116 Resp 27 27 20 B/P (MAP) 119/64 (82) 97/68 (78) 102/73 (83) Pulse Ox 99 98 98 O2 Delivery Ventilator Mechanical Ventilator Ventilator Ventilator 06/24/19 06/24/19 06/24/19 06/24/19 20:00 20:00 20:26 21:00 Temp 98.2 98.2 Pulse 112 110 Resp 24 23 B/P (MAP) 105/70 (82) 102/73 (83) Pulse Ox 100 100 100 O2 Delivery Ventilator Mechanical Ventilator Ventilator Ventilator 4/2/20 4/2/20 4/3/20 4/3/20 22:00 23:00 00:00 00:00 Temp 98.7 98.7 Pulse 110 108 102 Resp 23 22 B/P (MAP) 91/72 (78) 104/67 (79) 85/51 (62) Pulse Ox 100 100 100 O2 Delivery Ventilator Ventilator Ventilator Mechanical Ventilator 06/25/19 06/25/19 06/25/19 06/25/19 00:51 01:00 02:00 03:00 Pulse 104 102 100 Resp 22 29 B/P (MAP) 82/57 (65) 94/72 (79) 94/57 (69) Pulse Ox 100 100 100 100 O2 Delivery Ventilator Ventilator Ventilator Ventilator 06/25/19 06/25/19 06/25/19 06/25/19 04:00 04:00 05:00 05:08 Temp 98.7 98.7 Pulse 98 98 Resp 27 26 B/P (MAP) 86/63 (71) 94/53 (67) Pulse Ox 100 100 100 O2 Delivery Ventilator Mechanical Ventilator Ventilator Ventilator 06/25/19 06/25/19 06/25/19 06/25/19 06:00 07:00 08:00 08:00 Pulse 98 96 92 Resp 22 26 25 B/P (MAP) 92/62 (72) 87/63 (71) 98/61 (73) Pulse Ox 100 100 100 O2 Delivery Ventilator Ventilator Ventilator Mechanical Ventilator 06/25/19 06/25/19 06/25/19 06/25/19 08:26 08:50 09:00 10:00 Pulse 93 90 92 Resp 22 28 B/P (MAP) 99/59 87/56 (66) 88/47 (61) Pulse Ox 100 100 100 O2 Delivery Ventilator Ventilator Ventilator 06/25/19 06/25/19 06/25/19 06/25/19 11:00 11:15 11:30 11:45 Pulse 84 104 108 102 Resp 21 B/P (MAP) 68/54 (59) 57/41 (46) 113/75 (88) 157/85 (109) Pulse Ox 97 O2 Delivery Ventilator 06/25/19 06/25/19 06/25/19 06/25/19 12:00 12:00 12:17 12:30 Temp 99.1 99.1 Pulse 104 118 Resp 57 B/P (MAP) 177/121 (139) 129/83 (98) Pulse Ox 89 90 O2 Delivery Ventilator Mechanical Ventilator Ventilator 06/25/19 06/25/19 06/25/19 06/25/19 12:37 12:45 12:52 13:00 Pulse 133 130 102 Resp 57 B/P (MAP) 129/83 123/86 (98) 138/68 (91) Pulse Ox 91 O2 Delivery Ventilator Ventilator 06/25/19 06/25/19 06/25/19 06/25/19 13:30 13:45 14:00 14:10 Pulse 104 102 102 102 Resp 20 32 B/P (MAP) 141/90 (107) 149/49 (82) 211/106 (141) 141/90 (107) Pulse Ox 94 94 O2 Delivery Ventilator Ventilator 06/25/19 06/25/19 14:15 14:39 Pulse 110 Resp 20 B/P (MAP) 92/62 (72) Pulse Ox 98 O2 Delivery Ventilator Intake and Output 06/24/19 06/24/19 06/25/19 15:00 23:00 07:00 Intake Total 600 ml 1501 ml 300 ml Output Total 440 ml 395 ml 470 ml Balance 160 ml 1106 ml -170 ml BABAK BUTT MD Jun 25, 2019 16:03
[2019-06-25] MEDS: MEXILETINE HCL 200 MG CAPSULE PO SCH (20:31)
[2019-06-25] MEDS ORDERED: MIDAZOLAM PREMIX 100 MG/100 ML NS BAG. IV ONE (23:48)
[2019-06-26] VITALS (24 sets, daily range): BP systolic 13–121; BP diastolic 59–84
[2019-06-26 05:35] LABS: BASO # 0.1 x10^3/uL (0.0-0.2); BASO % 1 % (0-3); EOS # 0.2 x10^3/uL (0.0-0.7); EOS % 2 % (0-3); HEMATOCRIT 30.1 % (39.0-53.0); HEMOGLOBIN 9.7 g/dL (13.0-17.5); LYMPH # 0.9 x10^3/uL (1.0-4.8); LYMPH % 9 % (24-48); MEAN CORPUSCULAR HEMOGLOBIN 30 pg (25-35); MEAN CORPUSCULAR HGB CONC 32 g/dL (31-37); MEAN CORPUSCULAR VOLUME 94 fL (79-100); MONO # 1.2 x10^3/uL (0.0-1.1); MONO % 13 % (0-9); NEUT # 7.3 x10^3/uL (1.8-7.7); NEUT % 76 % (31-73); PLATELET COUNT 348 x10^3/uL (140-400); RED BLOOD COUNT 3.21 x10^6/uL (4.30-5.70); RED CELL DISTRIBUTION WIDTH 18.2 % (11.5-14.5); WHITE BLOOD COUNT 9.6 x10^3/uL (4.0-11.0)
[2019-06-26] MEDS: PIPERACILLIN/TAZOBACTAM 3.375 GM in IV NORMAL SALINE 50ML 50 ML IV SCH ×4 (05:39→23:46)
[2019-06-26 05:54] LABS: CALCIUM 8.4 mg/dL (8.5-10.1); CREATININE 1.2 mg/dL (0.7-1.3); GFR 71.4; MAGNESIUM 2.3 mg/dL (1.8-2.4); PHOSPHORUS 2.6 mg/dL (2.6-4.7); POTASSIUM 4.4 mmol/L (3.5-5.1)
[2019-06-26] MEDS: VANCOMYCIN 1.25 GM in IV NORMAL SALINE 250ML 250 ML IV SCH ×2 (06:15→16:53)
[2019-06-26] MEDS: VANCOMYCIN PER PHARMACY MC PRN (07:34)
--- NOTE | 2019-06-26 07:58 | PDOC ---
PULMONARY PROGRESS NOTES Subjective Patient sedated, assist control ventilation. on 70% FiO2 10 of PEEP sedated, no pressors RN reports increase ET secretions multiple runs of V-tac, shocked by AICD now turned off per family Vitals Vital Signs Date Time Temp Pulse Resp B/P (MAP) Pulse Ox O2 Delivery O2 Flow Rate FiO2 06/26/19 06:00 103 26 93/78 (83) 100 Ventilator 06/26/19 04:20 98.6 98.6 Comments visuall exam done no respiratory distress, sedated no obvious rash no edema Labs Laboratory Tests Test 06/24/19 08:00 06/24/19 09:12 06/25/19 05:50 06/25/19 08:55 O2 Saturation 90 % (92-99) 95 % (92-99) Arterial Blood pH 7.38 (7.35-7.45) 7.35 (7.35-7.45) Arterial Blood pCO2 at Patient Temp 44 mmHg (35-46) 48 mmHg (35-46) Arterial Blood pO2 at Patient Temp 60 mmHg (65-108) 77 mmHg (65-108) Arterial Blood HCO3 26 mmol/L (21-28) 26 mmol/L (21-28) Arterial Blood Base Excess 0 mmol/L (-3-3) 0 mmol/L (-3-3) FiO2 70% +9 70 Sodium Level 145 mmol/L (136-145) 144 mmol/L (136-145) Potassium Level 3.6 mmol/L (3.5-5.1) 4.1 mmol/L (3.5-5.1) Chloride Level 110 mmol/L (98-107) 110 mmol/L (98-107) Carbon Dioxide Level 29 mmol/L (21-32) 29 mmol/L (21-32) Anion Gap 6 (6-14) 5 (6-14) Blood Urea Nitrogen 15 mg/dL (8-26) 20 mg/dL (8-26) Creatinine 0.9 mg/dL (0.7-1.3) 1.1 mg/dL (0.7-1.3) Estimated GFR (Cockcroft-Gault) 99.5 79.0 Glucose Level 112 mg/dL (70-99) 113 mg/dL (70-99) Calcium Level 7.7 mg/dL (8.5-10.1) 8.1 mg/dL (8.5-10.1) Magnesium Level 1.9 mg/dL (1.8-2.4) 2.1 mg/dL (1.8-2.4) White Blood Count 6.2 x10^3/uL (4.0-11.0) Red Blood Count 3.00 x10^6/uL (4.30-5.70) Hemoglobin 9.0 g/dL (13.0-17.5) Hematocrit 28.0 % (39.0-53.0) Mean Corpuscular Volume 93 fL (79-100) Mean Corpuscular Hemoglobin 30 pg (25-35) Mean Corpuscular Hemoglobin Concent 32 g/dL (31-37) Red Cell Distribution Width 17.8 % (11.5-14.5) Platelet Count 238 x10^3/uL (140-400) Neutrophils (%) (Auto) 79 % (31-73) Lymphocytes (%) (Auto) 7 % (24-48) Monocytes (%) (Auto) 13 % (0-9) Eosinophils (%) (Auto) 2 % (0-3) Basophils (%) (Auto) 0 % (0-3) Neutrophils # (Auto) 4.9 x10^3/uL (1.8-7.7) Lymphocytes # (Auto) 0.4 x10^3/uL (1.0-4.8) Monocytes # (Auto) 0.8 x10^3/uL (0.0-1.1) Eosinophils # (Auto) 0.1 x10^3/uL (0.0-0.7) Basophils # (Auto) 0.0 x10^3/uL (0.0-0.2) Test 06/26/19 05:00 06/26/19 05:56 White Blood Count 9.6 x10^3/uL (4.0-11.0) Red Blood Count 3.21 x10^6/uL (4.30-5.70) Hemoglobin 9.7 g/dL (13.0-17.5) Hematocrit 30.1 % (39.0-53.0) Mean Corpuscular Volume 94 fL (79-100) Mean Corpuscular Hemoglobin 30 pg (25-35) Mean Corpuscular Hemoglobin Concent 32 g/dL (31-37) Red Cell Distribution Width 18.2 % (11.5-14.5) Platelet Count 348 x10^3/uL (140-400) Neutrophils (%) (Auto) 76 % (31-73) Lymphocytes (%) (Auto) 9 % (24-48) Monocytes (%) (Auto) 13 % (0-9) Eosinophils (%) (Auto) 2 % (0-3) Basophils (%) (Auto) 1 % (0-3) Neutrophils # (Auto) 7.3 x10^3/uL (1.8-7.7) Lymphocytes # (Auto) 0.9 x10^3/uL (1.0-4.8) Monocytes # (Auto) 1.2 x10^3/uL (0.0-1.1) Eosinophils # (Auto) 0.2 x10^3/uL (0.0-0.7) Basophils # (Auto) 0.1 x10^3/uL (0.0-0.2) Sodium Level 141 mmol/L (136-145) Potassium Level 4.4 mmol/L (3.5-5.1) Chloride Level 108 mmol/L (98-107) Carbon Dioxide Level 27 mmol/L (21-32) Anion Gap 6 (6-14) Blood Urea Nitrogen 24 mg/dL (8-26) Creatinine 1.2 mg/dL (0.7-1.3) Estimated GFR (Cockcroft-Gault) 71.4 Glucose Level 121 mg/dL (70-99) Calcium Level 8.4 mg/dL (8.5-10.1) Phosphorus Level 2.6 mg/dL (2.6-4.7) Magnesium Level 2.3 mg/dL (1.8-2.4) Glucose (Fingerstick) 84 mg/dL (70-99) Laboratory Tests Test 06/25/19 08:55 06/26/19 05:00 06/26/19 05:56 O2 Saturation 95 % (92-99) Arterial Blood pH 7.35 (7.35-7.45) Arterial Blood pCO2 at Patient Temp 48 mmHg (35-46) Arterial Blood pO2 at Patient Temp 77 mmHg (65-108) Arterial Blood HCO3 26 mmol/L (21-28) Arterial Blood Base Excess 0 mmol/L (-3-3) FiO2 70 White Blood Count 9.6 x10^3/uL (4.0-11.0) Red Blood Count 3.21 x10^6/uL (4.30-5.70) Hemoglobin 9.7 g/dL (13.0-17.5) Hematocrit 30.1 % (39.0-53.0) Mean Corpuscular Volume 94 fL (79-100) Mean Corpuscular Hemoglobin 30 pg (25-35) Mean Corpuscular Hemoglobin Concent 32 g/dL (31-37) Red Cell Distribution Width 18.2 % (11.5-14.5) Platelet Count 348 x10^3/uL (140-400) Neutrophils (%) (Auto) 76 % (31-73) Lymphocytes (%) (Auto) 9 % (24-48) Monocytes (%) (Auto) 13 % (0-9) Eosinophils (%) (Auto) 2 % (0-3) Basophils (%) (Auto) 1 % (0-3) Neutrophils # (Auto) 7.3 x10^3/uL (1.8-7.7) Lymphocytes # (Auto) 0.9 x10^3/uL (1.0-4.8) Monocytes # (Auto) 1.2 x10^3/uL (0.0-1.1) Eosinophils # (Auto) 0.2 x10^3/uL (0.0-0.7) Basophils # (Auto) 0.1 x10^3/uL (0.0-0.2) Sodium Level 141 mmol/L (136-145) Potassium Level 4.4 mmol/L (3.5-5.1) Chloride Level 108 mmol/L (98-107) Carbon Dioxide Level 27 mmol/L (21-32) Anion Gap 6 (6-14) Blood Urea Nitrogen 24 mg/dL (8-26) Creatinine 1.2 mg/dL (0.7-1.3) Estimated GFR (Cockcroft-Gault) 71.4 Glucose Level 121 mg/dL (70-99) Calcium Level 8.4 mg/dL (8.5-10.1) Phosphorus Level 2.6 mg/dL (2.6-4.7) Magnesium Level 2.3 mg/dL (1.8-2.4) Glucose (Fingerstick) 84 mg/dL (70-99) Medications Active Scripts Medications Dose Route/Sig Max Daily Dose Days Date Category Mexiletine Hcl 250 Mg Capsule 450 Mg PO BID 06/20/19 Reported Metoprolol Tartrate 100 Mg Tablet 1 Tab PO DAILY 06/20/19 Reported Children's Aspirin (Aspirin) 81 Mg Tab.chew 81 Mg PO DAILY 06/20/19 Reported Amiodarone Hcl 200 Mg Tablet 1 Tab PO DAILY 06/20/19 Reported Comments CXR 06/24 reviewed diffuse bilateral infiltrates Impression . IMPRESSION: 1. Acute respiratory failure due to COVID-19 pneumonia/ ARDS 2. Acute respiratory distress syndrome. 3. COVID-19 4. Bilateral infiltrates compatible with pneumonia, possible superimposed gram- negative, gram-positive, underlying viral. 5. Toxic metabolic encephalopathy. 6. Chronic anemia. 7. Elevated troponin. 8. Elevated total bilirubin, improved 9. Severe protein malnutrition, present upon admission. 10. Recent pacemaker defibrillator placement. 11. V-Tac and shock via AICD Plan . Continue AC mode, Low TV, Adjust FIO2 and PEEP according to ABG , 60%FIO2/ 8 PEEP/ OK with permissive hypercapnia Follow up CXR Prone positional per protocol Plaquenil per protocol Continue Zithromax along with broad-spectrum antibiotics Vanc/ Zosyn. dc Azithromycin at day 5 Nutritional support with tube feeding Continue sedation DVT GI prophylaxis Cardiology f/u Spoke with RN, RT,/ Prognosis guarded/ now DNR/ AICD turned off per family request Total cumulative critical care time of 30 minutes reviewing data, labs, adjusting mechanical ventilation, reviewing x-ray ANTOINETTE BARBER MD Jun 26, 2019 07:58
[2019-06-26] MEDS: CHLORHEXIDINE 0.12% 15 ML MOUTHWASH. MM SCH ×2 (09:00→21:00)
[2019-06-26] MEDS: METOPROLOL TART IMMED RELEASE 25 MG TABLET. PO SCH ×2 (09:00→21:01)
[2019-06-26 10:10] LABS: BASE EXCESS ABG -3 mmol/L (-3-3); HCO3 ABG 24 mmol/L (21-28); PCO2 ABG 54 mmHg (35-46); PO2 ABG 72 mmHg (65-108); SAT O2 ABG 92 % (92-99)
[2019-06-26] MEDS: MIDAZOLAM HCL 100 MG in IV NORMAL SALINE 100ML 100 ML IV PRN ×2 (10:13→19:28)
[2019-06-26] MEDS: IV NORMAL SALINE 1000ML BAG 1,000 ML IV SCH ×2 (10:14→16:53)
[2019-06-26] MEDS: POTASSIUM BICARB 20 MEQ EFFERVESCENT TABLET. PEG SCH (10:15)
[2019-06-26] MEDS: FAMOTIDINE 20 MG/2 ML VIAL IVP SCH ×2 (10:15→20:59)
[2019-06-26] MEDS: AMINO AC 3%/ELECTROLYTE/GLYCER 1,000 ML IV SCH ×2 (10:15→14:41)
[2019-06-26] MEDS: MEXILETINE HCL 200 MG CAPSULE PO SCH ×2 (10:16→21:00)
[2019-06-26] MEDS: ASCORBIC ACID 500 MG TABLET PO SCH (10:16)
[2019-06-26] MEDS: FUROSEMIDE 40 MG TABLET. PO SCH (10:16)
[2019-06-26] MEDS: AMIODARONE HCL 200 MG TABLET. PO SCH (10:16)
[2019-06-26 10:19] LABS: FIO2 ABG 60
[2019-06-26] MEDS: fentaNYL HIGH DOSE PCA 55 ML IV PRN (11:49)
--- NOTE | 2019-06-26 11:58 | PDOC ---
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 No acute intracranial abnormality. on ct head Several chronic infarcts bilaterally.Several chronic left frontal, parietal and temporal infarcts. chronic right frontal infarcts. foci of decreased attenuation within the hemispheric white matter, most often due to chronic microvascular ischemia. Mild to moderate brain parenchymal volume loss. Acute metabolic encephalopathy Severe protein-caloric malnutrition Plan: continue full anticoagulation guarded prognosis discussed code status with daugther over the phone decision made to change code status to DNR continue with supportive measures, ventilatory support follow recommendations from risk consultant further recommendations based on clincal course. History of Present Illness History of Present Illness 06/24/2019 patient had 3 shocks sicne yesterday, patient continues to require a significant amount of oxygen at 70 % fio2 and 10 of peep long conversation with daughter over the phone, reassurance provided, all concerns addressed to the best of my abilities. 06/23/2019 no new changes, remains critically ill discussed with nursing staff at bedside, further recommendations based on clinical course. [id number] Patient seen and examined in the ICU He remains critically ill and intubated Before meals/20/400/50% with 8 of PEEP Has OG feeds running Chart reviewed Discussed with RN Prognosis extremely guarded [id number] Patient seen and examined in the ICU He is intubated and sedated with fentanyl and Versed Chart reviewed Discussed with RN He is critically ill Covid testing is still pending [id number] Patient seen in the ICU Currently mechanically ventilated with assist control/20/400/60% Sedated with fentanyl and Versed and propofol Discussed with RN Chart reviewed Vitals Vitals Vital Signs Date Time Temp Pulse Resp B/P (MAP) Pulse Ox O2 Delivery O2 Flow Rate FiO2 06/26/19 11:49 20 BiPAP/CPAP 06/26/19 11:00 86 109/67 (81) 100 06/26/19 08:00 98.1 98.1 Physical Exam General: Other (sedated and intubated) Heart: Regular rate Abdomen: Normal bowel sounds, Soft Extremities: No cyanosis Skin: No rashes, No breakdown Labs LABS Laboratory Tests Test 06/26/19 05:00 06/26/19 05:56 06/26/19 09:20 White Blood Count 9.6 x10^3/uL (4.0-11.0) Red Blood Count 3.21 x10^6/uL (4.30-5.70) Hemoglobin 9.7 g/dL (13.0-17.5) Hematocrit 30.1 % (39.0-53.0) Mean Corpuscular Volume 94 fL (79-100) Mean Corpuscular Hemoglobin 30 pg (25-35) Mean Corpuscular Hemoglobin Concent 32 g/dL (31-37) Red Cell Distribution Width 18.2 % (11.5-14.5) Platelet Count 348 x10^3/uL (140-400) Neutrophils (%) (Auto) 76 % (31-73) Lymphocytes (%) (Auto) 9 % (24-48) Monocytes (%) (Auto) 13 % (0-9) Eosinophils (%) (Auto) 2 % (0-3) Basophils (%) (Auto) 1 % (0-3) Neutrophils # (Auto) 7.3 x10^3/uL (1.8-7.7) Lymphocytes # (Auto) 0.9 x10^3/uL (1.0-4.8) Monocytes # (Auto) 1.2 x10^3/uL (0.0-1.1) Eosinophils # (Auto) 0.2 x10^3/uL (0.0-0.7) Basophils # (Auto) 0.1 x10^3/uL (0.0-0.2) Sodium Level 141 mmol/L (136-145) Potassium Level 4.4 mmol/L (3.5-5.1) Chloride Level 108 mmol/L (98-107) Carbon Dioxide Level 27 mmol/L (21-32) Anion Gap 6 (6-14) Blood Urea Nitrogen 24 mg/dL (8-26) Creatinine 1.2 mg/dL (0.7-1.3) Estimated GFR (Cockcroft-Gault) 71.4 Glucose Level 121 mg/dL (70-99) Calcium Level 8.4 mg/dL (8.5-10.1) Phosphorus Level 2.6 mg/dL (2.6-4.7) Magnesium Level 2.3 mg/dL (1.8-2.4) Glucose (Fingerstick) 84 mg/dL (70-99) O2 Saturation 92 % (92-99) Arterial Blood pH 7.27 (7.35-7.45) Arterial Blood pCO2 at Patient Temp 54 mmHg (35-46) Arterial Blood pO2 at Patient Temp 72 mmHg (65-108) Arterial Blood HCO3 24 mmol/L (21-28) Arterial Blood Base Excess -3 mmol/L (-3-3) FiO2 60 Assessment and Plan Assessmemt and Plan Problems Medical Problems: (1) Altered mental status Status: Acute (2) Elevated brain natriuretic peptide (BNP) level Status: Acute (3) Elevated troponin Status: Acute (4) Suspected COVID-19 virus infection Status: Acute Comment Review of Relevant I have reviewed the following items abdelrahman (where applicable) has been applied. Labs Laboratory Tests Test 06/25/19 05:50 06/25/19 08:55 06/26/19 05:00 06/26/19 05:56 White Blood Count 6.2 x10^3/uL (4.0-11.0) 9.6 x10^3/uL (4.0-11.0) Red Blood Count 3.00 x10^6/uL (4.30-5.70) 3.21 x10^6/uL (4.30-5.70) Hemoglobin 9.0 g/dL (13.0-17.5) 9.7 g/dL (13.0-17.5) Hematocrit 28.0 % (39.0-53.0) 30.1 % (39.0-53.0) Mean Corpuscular Volume 93 fL (79-100) 94 fL (79-100) Mean Corpuscular Hemoglobin 30 pg (25-35) 30 pg (25-35) Mean Corpuscular Hemoglobin Concent 32 g/dL (31-37) 32 g/dL (31-37) Red Cell Distribution Width 17.8 % (11.5-14.5) 18.2 % (11.5-14.5) Platelet Count 238 x10^3/uL (140-400) 348 x10^3/uL (140-400) Neutrophils (%) (Auto) 79 % (31-73) 76 % (31-73) Lymphocytes (%) (Auto) 7 % (24-48) 9 % (24-48) Monocytes (%) (Auto) 13 % (0-9) 13 % (0-9) Eosinophils (%) (Auto) 2 % (0-3) 2 % (0-3) Basophils (%) (Auto) 0 % (0-3) 1 % (0-3) Neutrophils # (Auto) 4.9 x10^3/uL (1.8-7.7) 7.3 x10^3/uL (1.8-7.7) Lymphocytes # (Auto) 0.4 x10^3/uL (1.0-4.8) 0.9 x10^3/uL (1.0-4.8) Monocytes # (Auto) 0.8 x10^3/uL (0.0-1.1) 1.2 x10^3/uL (0.0-1.1) Eosinophils # (Auto) 0.1 x10^3/uL (0.0-0.7) 0.2 x10^3/uL (0.0-0.7) Basophils # (Auto) 0.0 x10^3/uL (0.0-0.2) 0.1 x10^3/uL (0.0-0.2) Sodium Level 144 mmol/L (136-145) 141 mmol/L (136-145) Potassium Level 4.1 mmol/L (3.5-5.1) 4.4 mmol/L (3.5-5.1) Chloride Level 110 mmol/L (98-107) 108 mmol/L (98-107) Carbon Dioxide Level 29 mmol/L (21-32) 27 mmol/L (21-32) Anion Gap 5 (6-14) 6 (6-14) Blood Urea Nitrogen 20 mg/dL (8-26) 24 mg/dL (8-26) Creatinine 1.1 mg/dL (0.7-1.3) 1.2 mg/dL (0.7-1.3) Estimated GFR (Cockcroft-Gault) 79.0 71.4 Glucose Level 113 mg/dL (70-99) 121 mg/dL (70-99) Calcium Level 8.1 mg/dL (8.5-10.1) 8.4 mg/dL (8.5-10.1) Magnesium Level 2.1 mg/dL (1.8-2.4) 2.3 mg/dL (1.8-2.4) O2 Saturation 95 % (92-99) Arterial Blood pH 7.35 (7.35-7.45) Arterial Blood pCO2 at Patient Temp 48 mmHg (35-46) Arterial Blood pO2 at Patient Temp 77 mmHg (65-108) Arterial Blood HCO3 26 mmol/L (21-28) Arterial Blood Base Excess 0 mmol/L (-3-3) FiO2 70 Phosphorus Level 2.6 mg/dL (2.6-4.7) Glucose (Fingerstick) 84 mg/dL (70-99) Test 06/26/19 09:20 O2 Saturation 92 % (92-99) Arterial Blood pH 7.27 (7.35-7.45) Arterial Blood pCO2 at Patient Temp 54 mmHg (35-46) Arterial Blood pO2 at Patient Temp 72 mmHg (65-108) Arterial Blood HCO3 24 mmol/L (21-28) Arterial Blood Base Excess -3 mmol/L (-3-3) FiO2 60 Laboratory Tests Test 06/26/19 05:00 06/26/19 05:56 06/26/19 09:20 White Blood Count 9.6 x10^3/uL (4.0-11.0) Red Blood Count 3.21 x10^6/uL (4.30-5.70) Hemoglobin 9.7 g/dL (13.0-17.5) Hematocrit 30.1 % (39.0-53.0) Mean Corpuscular Volume 94 fL (79-100) Mean Corpuscular Hemoglobin 30 pg (25-35) Mean Corpuscular Hemoglobin Concent 32 g/dL (31-37) Red Cell Distribution Width 18.2 % (11.5-14.5) Platelet Count 348 x10^3/uL (140-400) Neutrophils (%) (Auto) 76 % (31-73) Lymphocytes (%) (Auto) 9 % (24-48) Monocytes (%) (Auto) 13 % (0-9) Eosinophils (%) (Auto) 2 % (0-3) Basophils (%) (Auto) 1 % (0-3) Neutrophils # (Auto) 7.3 x10^3/uL (1.8-7.7) Lymphocytes # (Auto) 0.9 x10^3/uL (1.0-4.8) Monocytes # (Auto) 1.2 x10^3/uL (0.0-1.1) Eosinophils # (Auto) 0.2 x10^3/uL (0.0-0.7) Basophils # (Auto) 0.1 x10^3/uL (0.0-0.2) Sodium Level 141 mmol/L (136-145) Potassium Level 4.4 mmol/L (3.5-5.1) Chloride Level 108 mmol/L (98-107) Carbon Dioxide Level 27 mmol/L (21-32) Anion Gap 6 (6-14) Blood Urea Nitrogen 24 mg/dL (8-26) Creatinine 1.2 mg/dL (0.7-1.3) Estimated GFR (Cockcroft-Gault) 71.4 Glucose Level 121 mg/dL (70-99) Calcium Level 8.4 mg/dL (8.5-10.1) Phosphorus Level 2.6 mg/dL (2.6-4.7) Magnesium Level 2.3 mg/dL (1.8-2.4) Glucose (Fingerstick) 84 mg/dL (70-99) O2 Saturation 92 % (92-99) Arterial Blood pH 7.27 (7.35-7.45) Arterial Blood pCO2 at Patient Temp 54 mmHg (35-46) Arterial Blood pO2 at Patient Temp 72 mmHg (65-108) Arterial Blood HCO3 24 mmol/L (21-28) Arterial Blood Base Excess -3 mmol/L (-3-3) FiO2 60 Microbiology 06/20/19 Blood Culture - Final, Complete NO GROWTH AFTER 5 DAYS Medications Current Medications Piperacillin Sod/ Tazobactam Sod 4.5 gm/Sodium Chloride 100 ml @ 200 mls/hr 1X ONCE IV Last administered on 06/19/19at 16:50; Start 06/19/19 at 16:00; Stop 06/19/19 at 16:29; Status DC Vancomycin HCl 1.25 gm/Sodium Chloride 250 ml @ 166.667 mls/hr 1X ONCE IV Last administered on 06/19/19at 16:51; Start 06/19/19 at 16:00; Stop 06/19/19 at 17:29; Status DC Hydroxychloroquine Sulfate (Plaquenil) 400 mg BID PO ; Start 06/19/19 at 21:00; Status UNV Enoxaparin Sodium (Lovenox 80mg Syringe) 75 mg 1X ONCE SQ Last administered on 06/19/19at 16:51; Start 06/19/19 at 16:30; Stop 06/19/19 at 16:31; Status DC Furosemide (Lasix) 40 mg 1X ONCE IVP Last administered on 06/19/19at 16:51; Start 06/19/19 at 17:00; Stop 06/19/19 at 17:01; Status DC Sodium Chloride (Normal Saline Flush) 3 ml QSHIFT PRN IV AFTER MEDS AND BLOOD DRAWS; Start 06/19/19 at 17:45 Sodium Chloride 1,000 ml @ 65 mls/hr [id number] IV Last administered on 06/26/19at 10:14; Start 06/19/19 at 17:31 Acetaminophen (Tylenol) 650 mg PRN Q4HRS PRN PO TEMP OVER 100.4F OR MILD PAIN; Start 06/19/19 at 17:45 Acetaminophen (Tylenol Supp) 650 mg PRN Q4HRS PRN NE TEMP OVER 100.4F OR MILD PAIN; Start 06/19/19 at 17:45 Clonidine HCl (Catapres) 0.1 mg PRN Q6HRS PRN PO SBP>160 OR DBP>90; Start 06/19/19 at 17:45 Sodium Monofluorophosphate (Fleet Adult) 133 ml PRN DAILY PRN NE CONSTIPATION; Start 06/19/19 at 17:45 Docusate Sodium (Colace) 100 mg PRN BID PRN PO CONSTIPATION; Start 06/19/19 at 17:45 Albuterol/ Ipratropium (Duoneb) 3 ml Q4HRS W/A NEB ; Start 06/19/19 at 18:00; Stop 06/20/19 at 17:12; Status DC Guaifenesin (Robitussin) 200 mg PRN Q4HRS PRN PO COUGH; Start 06/19/19 at 17:45 Enoxaparin Sodium (Lovenox 40mg Syringe) 40 mg Q24H SQ ; Start 06/19/19 at 18:00; Status UNV Vancomycin HCl (Vanco Per Pharmacy) 1 each PRN DAILY PRN MC SEE COMMENTS Last administered on 06/26/19at 07:34; Start 06/19/19 at 17:45 Piperacillin Sod/ Tazobactam Sod 3.375 gm/Sodium Chloride 50 ml @ 100 mls/hr Q6HRS IV ; Start 06/19/19 at 18:00; Status Cancel Enoxaparin Sodium (Lovenox Per Pharmacy Treatment Dosing) 1 each PRN DAILY PRN MC SEE COMMENTS; Start 06/19/19 at 17:45; Stop 06/20/19 at 15:01; Status DC Piperacillin Sod/ Tazobactam Sod 3.375 gm/Sodium Chloride 50 ml @ 100 mls/hr Q6HRS IV Last administered on 06/26/19at 05:39; Start 06/20/19 at 00:00 Enoxaparin Sodium (Lovenox 80mg Syringe) 70 mg Q12HR SQ Last administered on 06/20/19at 08:00; Start 06/20/19 at 09:00; Stop 06/20/19 at 15:01; Status DC Vancomycin HCl 1 gm/Sodium Chloride 250 ml @ 250 mls/hr Q12H IV Last administered on 06/20/19at 16:26; Start 06/20/19 at 05:00; Stop 06/21/19 at 05:34; Status DC Vancomycin HCl (Vancomycin Trough Level) 1 each 1X ONCE MC Last administered on 06/21/19at 04:30; Start 06/21/19 at 04:30; Stop 06/21/19 at 04:31; Status DC Hydroxychloroquine Sulfate (Plaquenil) 400 mg 1X ONCE PO Last administered on 06/20/19at 00:07; Start 06/19/19 at 20:00; Stop 06/19/19 at 20:01; Status DC Propofol 100 ml @ As Directed STK-MED ONCE IV ; Start 06/19/19 at 20:33; Stop 06/19/19 at 20:34; Status DC Fentanyl Citrate 30 ml @ 0 mls/hr CONT PRN IV SEE PROTOCOL Last administered on 06/24/19at 05:42; Start 06/19/19 at 21:15; Stop 06/24/19 at 09:02; Status DC Propofol 100 ml @ 0 mls/hr CONT PRN IV SEE PROTOCOL; Start 06/19/19 at 21:15 Fentanyl Citrate (Fentanyl 2ml Vial) 25 mcg PRN Q1HR PRN IV SEE COMMENTS; Start 06/19/19 at 21:15 Fentanyl Citrate (Fentanyl 2ml Vial) 50 mcg PRN Q1HR PRN IV SEE COMMENTS; Start 06/19/19 at 21:15 Chlorhexidine Gluconate (Peridex) 15 ml BID MM Last administered on 06/26/19at 09:00; Start 06/20/19 at 09:00 Morphine Sulfate (Morphine Sulfate) 2 mg PRN Q1HR PRN IV SEE COMMENTS.; Start 06/19/19 at 21:15 Morphine Sulfate (Morphine Sulfate) 4 mg PRN Q1HR PRN IV SEE COMMENTS.; Start 06/19/19 at 21:15 Midazolam HCl 50 mg/Sodium Chloride 50 ml @ 0 mls/hr CONT PRN IV SEE PROTOCOL Last administered on 06/20/19at 01:38; Start 06/19/19 at 21:15; Stop 06/20/19 at 07:27; Status DC Midazolam HCl 100 mg/Sodium Chloride 100 ml @ 6 mls/hr CONT PRN IV SEE PROTOCOL Last administered on 06/26/19at 10:13; Start 06/20/19 at 07:30 Hydroxychloroquine Sulfate (Plaquenil) 200 mg BID PO Last administered on 06/24/19at 08:59; Start 06/20/19 at 21:00; Stop 06/24/19 at 09:01; Status DC Azithromycin 250 mg/Sodium Chloride 250 ml @ 250 mls/hr Q24H IV Last administered on 06/24/19at 08:58; Start 06/20/19 at 10:00; Stop 06/24/19 at 14:44; Status DC Hydroxychloroquine Sulfate (Plaquenil) 400 mg 1X ONCE PO Last administered on 06/20/19at 10:35; Start 06/20/19 at 09:30; Stop 06/20/19 at 09:44; Status DC Acetaminophen (Tylenol) 650 mg PRN Q6HRS PRN PEG MILD PAIN / TEMP Last administered on 06/20/19at 16:26; Start 06/20/19 at 12:30 Info (Anti-Coagulation Monitoring By Pharmacy) 1 each PRN DAILY PRN MC SEE COMMENTS; Start 06/20/19 at 14:30; Status Cancel Enoxaparin Sodium (Lovenox 40mg Syringe) 40 mg Q24H SQ Last administered on 06/24/19at 08:58; Start 06/21/19 at 09:00; Stop 06/24/19 at 15:54; Status DC Albuterol/ Ipratropium (Duoneb) 3 ml PRN Q4HRS PRN NEB SHORTNESS OF BREATH; Start 06/20/19 at 17:15; Stop 06/20/19 at 17:30; Status DC Vancomycin HCl 1.25 gm/Sodium Chloride 250 ml @ 167 mls/hr Q12H IV Last administered on 06/26/19at 06:15; Start 06/21/19 at 06:00 Vancomycin HCl (Vancomycin Trough Level) 1 each 1X ONCE MC Last administered on 06/22/19at 17:30; Start 06/22/19 at 17:30; Stop 06/22/19 at 17:31; Status DC Famotidine (Pepcid Vial) 20 mg BID IVP Last administered on 06/26/19at 10:15; Start 06/22/19 at 21:00 Furosemide (Lasix) 40 mg 1X ONCE IVP Last administered on 06/22/19at 12:22; St art 06/22/19 at 11:45; Stop 06/22/19 at 11:47; Status DC Potassium Chloride/Water 100 ml @ 100 mls/hr Q1H IV Last administered on 06/22/19at 13:29; Start 06/22/19 at 12:00; Stop 06/22/19 at 13:59; Status DC Albumin Human 100 ml @ 100 mls/hr 1X ONCE IV Last administered on 06/22/19at 12:26; Start 06/22/19 at 12:00; Stop 06/22/19 at 12:59; Status DC Mexiletine HCl (Mexitil) 400 mg BID PO Last administered on 06/23/19at 10:12; Start 06/22/19 at 13:00; Stop 06/23/19 at 13:21; Status DC Metoprolol Tartrate (Lopressor) 12.5 mg BID PO Last administered on 06/24/19at 09:00; Start 06/22/19 at 13:00 Ascorbic Acid (Vitamin C) 500 mg DAILY PO Last administered on 06/26/19at 10:16; Start 06/23/19 at 09:00 Zinc Sulfate (Orazinc) 220 mg DAILY PO Last administered on 06/25/19 08:27; Start 06/23/19 at 09:00 Vancomycin HCl (Vancomycin Trough Level) 1 each 1X ONCE MC Last administered on 06/23/19at 05:30; Start 06/23/19 at 05:30; Stop 06/23/19 at 05:31; Status DC Albumin Human 100 ml @ 100 mls/hr 1X ONCE IV Last administered on 06/23/19at 08:35; Start 06/23/19 at 08:00; Stop 06/23/19 at 08:59; Status DC Furosemide (Lasix) 40 mg 1X ONCE IVP Last administered on 06/23/19at 08:35; Start 06/23/19 at 08:00; Stop 06/23/19 at 08:01; Status DC Potassium Chloride/Water 100 ml @ 100 mls/hr 1X ONCE IV Last administered on 06/23/19 10:15; Start 06/23/19 at 08:30; Stop 06/23/19 at 09:29; Status DC Alteplase, Recombinant (Cathflo For Central Catheter Clearance) 1 mg 1X ONCE INT CAT Last administered on 06/23/19 10:16; Start 06/23/19 at 09:30; Stop 06/23/19 at 09:31; Status DC Vecuronium [place] (Norcuron Bolus) 6 mg 1X ONCE IV Last administered on 06/23/19at 09:25; Start 06/23/19 at 09:30; Stop 06/23/19 at 09:31; Status DC Furosemide (Lasix) 40 mg DAILY PO Last administered on 06/26/19 10:16; Start 06/24/19 at 09:00 Potassium Bicarbonate (Potassium Effervescent Tablet) 20 meq DAILY PEG Last administered on 06/26/19 10:15; Start 06/24/19 at 09:00 Amiodarone HCl (Cordarone) 400 mg DAILY PO Last administered on 06/25/19 08:26; Start 06/24/19 at 09:00; Stop 06/25/19 at 12:04; Status DC Dextrose (Dextrose 50%-Water Syringe) 12.5 gm 1X ONCE IV Last administered on 06/24/19at 00:22; Start 06/24/19 at 00:15; Stop 06/24/19 at 00:19; Status DC Fentanyl Citrate 55 ml @ 0 mls/hr CONT PRN IV SEE I/O RECORD Last administered on 06/26/19at 11:49; Start 06/24/19 at 09:15 Vecuronium [place] (Norcuron Bolus) 6 mg 1X ONCE IV Last administered on 06/24/19at 14:41; Start 06/24/19 at 14:15; Stop 06/24/19 at 14:16; Status DC Amino Acids/ Glycerin/ Electrolytes 1,000 ml @ 80 mls/hr [id number] IV Last administered on 06/26/19 10:15; Start 06/24/19 at 14:30 Enoxaparin Sodium (Lovenox 80mg Syringe) 80 mg Q12HR SQ Last administered on 06/26/19 10:17; Start 06/24/19 at 16:00 Vecuronium [place] (Norcuron Bolus) 6 mg Q6HRS PRN IV ANXIETY / AGITATION Last administered on 06/26/19 03:44; Start 06/24/19 at 19:00 Alteplase, Recombinant (Cathflo For Central Catheter Clearance) 1 mg 1X ONCE INT CAT Last administered on 06/25/19 10:07; Start 06/25/19 at 10:00; Stop 06/25/19 at 10:01; Status DC Norepinephrine Bitartrate 8 mg/ Dextrose 258 ml @ 16.254 mls/ hr CONT PRN IV PER PROTOCOL; Start 06/25/19 at 10:30 Amiodarone HCl 150 mg/Dextrose 103 ml @ 618 mls/hr 1X ONCE IV Last administered on 06/25/19at 12:37; Start 06/25/19 at 12:00; Stop 06/25/19 at 12:09; Status DC Amiodarone HCl 450 mg/Dextrose 259 ml @ 0 mls/hr CONT PRN IV SEE I/O RECORD; Start 06/25/19 at 12:00 Amiodarone HCl (Cordarone) 200 mg DAILY PO Last administered on 06/26/19at 10:16; Start 06/26/19 at 09:00 Mexiletine HCl (Mexitil) 400 mg BID PO Last administered on 4/4/20at 10:16; Start 06/25/19 at 21:00 Mexiletine HCl (Mexitil) 400 mg 1X ONCE PO Last administered on 06/25/19at 12:53; Start 06/25/19 at 13:00; Stop 06/25/19 at 13:01; Status DC Vancomycin HCl (Vancomycin Trough Level) 1 each 1X ONCE MC ; Start 06/27/19 at 05:30; Stop 06/27/19 at 05:31 Active Scripts Active Reported Mexiletine Hcl 250 Mg Capsule 450 Mg PO BID Metoprolol Tartrate 100 Mg Tablet 1 Tab PO DAILY Children's Aspirin (Aspirin) 81 Mg Tab.chew 81 Mg PO DAILY Amiodarone Hcl 200 Mg Tablet 1 Tab PO DAILY Vitals/I & O Vital Sign - Last 24 Hours 06/25/19 06/25/19 06/25/19 06/25/19 12:00 12:00 12:17 12:30 Temp 99.1 99.1 Pulse 104 118 Resp 57 B/P (MAP) 177/121 (139) 129/83 (98) Pulse Ox 89 90 O2 Delivery Ventilator Mechanical Ventilator Ventilator 06/25/19 06/25/19 06/25/19 06/25/19 12:37 12:45 12:52 13:00 Pulse 133 130 102 Resp 57 B/P (MAP) 129/83 123/86 (98) 138/68 (91) Pulse Ox 91 O2 Delivery Ventilator Ventilator 06/25/19 06/25/19 06/25/19 06/25/19 13:30 13:45 14:00 14:10 Pulse 104 102 102 102 Resp 20 32 B/P (MAP) 141/90 (107) 149/49 (82) 211/106 (141) 141/90 (107) Pulse Ox 94 94 O2 Delivery Ventilator Ventilator 06/25/19 06/25/19 06/25/19 06/25/19 14:15 14:39 15:00 16:00 Pulse 110 112 Resp 20 B/P (MAP) 92/62 (72) 93/70 (78) Pulse Ox 98 100 O2 Delivery Ventilator Ventilator Mechanical Ventilator 06/25/19 06/25/19 06/25/19 06/25/19 16:00 16:15 17:00 18:00 Pulse 100 96 95 B/P (MAP) 81/66 (71) 70/53 (59) 85/54 (64) Pulse Ox 100 100 98 99 O2 Delivery Ventilator Ventilator Ventilator Ventilator 06/25/19 06/25/19 06/25/19 06/25/19 19:20 19:42 20:00 20:05 Temp 98.6 98.6 Pulse 93 93 Resp 38 B/P (MAP) 100/54 (69) 77/52 (60) Pulse Ox 100 100 O2 Delivery Ventilator Ventilator Mechanical Ventilator Ventilator 06/25/19 06/25/19 06/25/19 06/26/19 21:30 22:30 23:30 00:00 Pulse 94 84 84 Resp 21 29 29 B/P (MAP) 100/70 (80) 109/63 (78) 106/75 (85) Pulse Ox 100 100 100 O2 Delivery Ventilator Ventilator Ventilator Mechanical Ventilator 06/26/19 06/26/19 06/26/19 06/26/19 00:01 00:30 00:35 02:04 Temp 97.8 97.8 97.8 97.8 Pulse 85 82 82 Resp 37 29 33 B/P (MAP) 100/67 (78) 95/62 (73) 100/62 (75) Pulse Ox 100 100 100 100 O2 Delivery Ventilator Ventilator Ventilator Ventilator 06/26/19 06/26/19 06/26/19 06/26/19 03:00 04:00 04:20 04:20 Temp 98.6 98.6 Pulse 86 98 Resp 29 22 B/P (MAP) 107/63 (78) 103/77 (86) Pulse Ox 100 100 100 O2 Delivery Ventilator Mechanical Ventilator Ventilator Ventilator 06/26/19 06/26/19 06/26/19 06/26/19 05:00 06:00 07:00 08:00 Temp 98.1 98.1 Pulse 112 103 100 94 Resp 15 26 24 22 B/P (MAP) 89/69 (76) 93/78 (83) 92/65 (74) 91/67 (75) Pulse Ox 100 100 100 100 O2 Delivery Ventilator Ventilator Ventilator Ventilator 06/26/19 06/26/19 06/26/19 06/26/19 09:00 10:00 10:16 11:00 Pulse 92 90 90 86 Resp 23 31 33 B/P (MAP) 97/69 (78) 103/75 (84) 103/75 109/67 (81) Pulse Ox 100 100 100 O2 Delivery Ventilator Ventilator Ventilator 06/26/19 11:49 Resp 20 O2 Delivery BiPAP/CPAP Intake and Output 06/25/19 06/25/19 06/26/19 15:00 23:00 07:00 Intake Total 763 ml 2268.44 ml 400 ml Output Total 320 ml 475 ml 1010 ml Balance 443 ml 1793.44 ml -610 ml BABAK BUTT MD Jun 26, 2019 11:58
--- NOTE | 2019-06-26 12:21 | PDOC ---
PROGRESS NOTES Subjective Subjective Remains intubated. Needing pressor support now. Objective Objective Vital Signs Date Time Temp Pulse Resp B/P (MAP) Pulse Ox O2 Delivery O2 Flow Rate FiO2 06/26/19 11:49 20 BiPAP/CPAP 06/26/19 11:00 86 109/67 (81) 100 06/26/19 08:00 98.1 98.1 Intake and Output 06/26/19 07:00 Intake Total 3431.44 ml Output Total 1805 ml Balance 1626.44 ml Intake IV Total 2531.44 ml Tube Feeding 900 ml Output Urine Total 1805 ml Physical Exam Physical Exam Discussion with nurse, chart/labs review, telemetry review, no physical exam done Assessment Assessment 1. Acute respiratory failure with ARDS/PNA/CHF/COPD/Covid-19 remains intubated. Completed course of plaquenil and azithromycin. Continue vent management per pulm team 2. Acute on chronic diastolic systolic CHF, continue diuretics 3. Ventricular tachycardia s/p AICD implantation, patient had three shock therapies by device yesterday for slow VT. None since mexiletine resumed. Continue amiodarone. Patient currently DNR - has magnet placed over device to prevent shock therapies. 4. NSTEMI: peaked troponin 2.3, possibly demand mediated, type 2 5. Sepsis/shock: needing pressor support 6. Hypoxic/metabolic encephalopathy 7. AICD 8. HTN: controlled 9. HLP 10. Severe protein malnutrition 11. NICM: EF at 35-40%. 12. DVT RUE: on lovenox therapy per PCP Plan Plan of Care Problems Medical Problems: (1) Altered mental status Status: Acute (2) Elevated brain natriuretic peptide (BNP) level Status: Acute (3) Elevated troponin Status: Acute (4) Suspected COVID-19 virus infection Status: Acute Comment Review of Relevant I have reviewed the following items abdelrahman (where applicable) has been applied. Labs Laboratory Tests Test 06/26/19 05:00 06/26/19 05:56 06/26/19 09:20 White Blood Count 9.6 x10^3/uL (4.0-11.0) Red Blood Count 3.21 x10^6/uL (4.30-5.70) Hemoglobin 9.7 g/dL (13.0-17.5) Hematocrit 30.1 % (39.0-53.0) Mean Corpuscular Volume 94 fL (79-100) Mean Corpuscular Hemoglobin 30 pg (25-35) Mean Corpuscular Hemoglobin Concent 32 g/dL (31-37) Red Cell Distribution Width 18.2 % (11.5-14.5) Platelet Count 348 x10^3/uL (140-400) Neutrophils (%) (Auto) 76 % (31-73) Lymphocytes (%) (Auto) 9 % (24-48) Monocytes (%) (Auto) 13 % (0-9) Eosinophils (%) (Auto) 2 % (0-3) Basophils (%) (Auto) 1 % (0-3) Neutrophils # (Auto) 7.3 x10^3/uL (1.8-7.7) Lymphocytes # (Auto) 0.9 x10^3/uL (1.0-4.8) Monocytes # (Auto) 1.2 x10^3/uL (0.0-1.1) Eosinophils # (Auto) 0.2 x10^3/uL (0.0-0.7) Basophils # (Auto) 0.1 x10^3/uL (0.0-0.2) Sodium Level 141 mmol/L (136-145) Potassium Level 4.4 mmol/L (3.5-5.1) Chloride Level 108 mmol/L (98-107) Carbon Dioxide Level 27 mmol/L (21-32) Anion Gap 6 (6-14) Blood Urea Nitrogen 24 mg/dL (8-26) Creatinine 1.2 mg/dL (0.7-1.3) Estimated GFR (Cockcroft-Gault) 71.4 Glucose Level 121 mg/dL (70-99) Calcium Level 8.4 mg/dL (8.5-10.1) Phosphorus Level 2.6 mg/dL (2.6-4.7) Magnesium Level 2.3 mg/dL (1.8-2.4) Glucose (Fingerstick) 84 mg/dL (70-99) O2 Saturation 92 % (92-99) Arterial Blood pH 7.27 (7.35-7.45) Arterial Blood pCO2 at Patient Temp 54 mmHg (35-46) Arterial Blood pO2 at Patient Temp 72 mmHg (65-108) Arterial Blood HCO3 24 mmol/L (21-28) Arterial Blood Base Excess -3 mmol/L (-3-3) FiO2 60 Microbiology 06/20/19 Blood Culture - Final, Complete NO GROWTH AFTER 5 DAYS Medications Current Medications Amiodarone HCl (Cordarone) 200 mg DAILY PO Last administered on 06/26/19at 10:16; Start 06/26/19 at 09:00 Mexiletine HCl (Mexitil) 400 mg 1X ONCE PO Last administered on 06/25/19at 12:53; Start 06/25/19 at 13:00; Stop 06/25/19 at 13:01; Status DC Mexiletine HCl (Mexitil) 400 mg BID PO Last administered on 06/26/19at 10:16; Start 06/25/19 at 21:00 Vancomycin HCl (Vancomycin Trough Level) 1 each 1X ONCE MC ; Start 06/27/19 at 05:30; Stop 06/27/19 at 05:31 Vitals/I & O Vital Sign - Last 24 Hours 06/25/19 06/25/19 06/25/19 06/25/19 12:17 12:30 12:37 12:45 Temp 99.1 99.1 Pulse 118 133 130 B/P (MAP) 129/83 (98) 129/83 123/86 (98) Pulse Ox 90 O2 Delivery Ventilator 06/25/19 06/25/19 06/25/19 06/25/19 12:52 13:00 13:30 13:45 Pulse 102 104 102 Resp 57 B/P (MAP) 138/68 (91) 141/90 (107) 149/49 (82) Pulse Ox 91 O2 Delivery Ventilator Ventilator 06/25/19 06/25/19 06/25/19 06/25/19 14:00 14:10 14:15 14:39 Pulse 102 102 110 Resp 20 32 20 B/P (MAP) 211/106 (141) 141/90 (107) 92/62 (72) Pulse Ox 94 94 98 O2 Delivery Ventilator Ventilator Ventilator 06/25/19 06/25/19 06/25/19 06/25/19 15:00 16:00 16:00 16:15 Pulse 112 100 B/P (MAP) 93/70 (78) 81/66 (71) Pulse Ox 100 100 100 O2 Delivery Ventilator Mechanical Ventilator Ventilator Ventilator 06/25/19 06/25/19 06/25/19 06/25/19 17:00 18:00 19:20 19:42 Temp 98.6 98.6 Pulse 96 95 93 93 Resp 38 B/P (MAP) 70/53 (59) 85/54 (64) 100/54 (69) 77/52 (60) Pulse Ox 98 99 100 O2 Delivery Ventilator Ventilator Ventilator Ventilator 06/25/19 06/25/19 06/25/19 06/25/19 20:00 20:05 21:30 22:30 Pulse 94 84 Resp 21 29 B/P (MAP) 100/70 (80) 109/63 (78) Pulse Ox 100 100 100 O2 Delivery Mechanical Ventilator Ventilator Ventilator Ventilator 06/25/19 06/26/19 06/26/19 06/26/19 23:30 00:00 00:01 00:30 Temp 97.8 97.8 Pulse 84 85 Resp 29 37 B/P (MAP) 106/75 (85) 100/67 (78) Pulse Ox 100 100 100 O2 Delivery Ventilator Mechanical Ventilator Ventilator Ventilator 06/26/19 06/26/19 06/26/19 06/26/19 00:35 02:04 03:00 04:00 Temp 97.8 97.8 Pulse 82 82 86 Resp 29 33 29 B/P (MAP) 95/62 (73) 100/62 (75) 107/63 (78) Pulse Ox 100 100 100 O2 Delivery Ventilator Ventilator Ventilator Mechanical Ventilator 06/26/19 06/26/19 06/26/19 06/26/19 04:20 04:20 05:00 06:00 Temp 98.6 98.6 Pulse 98 112 103 Resp 22 15 26 B/P (MAP) 103/77 (86) 89/69 (76) 93/78 (83) Pulse Ox 100 100 100 100 O2 Delivery Ventilator Ventilator Ventilator Ventilator 06/26/19 06/26/19 06/26/19 06/26/19 07:00 08:00 09:00 10:00 Temp 98.1 98.1 Pulse 100 94 92 90 Resp 24 22 23 31 B/P (MAP) 92/65 (74) 91/67 (75) 97/69 (78) 103/75 (84) Pulse Ox 100 100 100 100 O2 Delivery Ventilator Ventilator Ventilator Ventilator 06/26/19 06/26/19 06/26/19 10:16 11:00 11:49 Pulse 90 86 Resp 33 20 B/P (MAP) 103/75 109/67 (81) Pulse Ox 100 O2 Delivery Ventilator BiPAP/CPAP Intake and Output 06/25/19 06/25/19 06/26/19 15:00 23:00 07:00 Intake Total 763 ml 2268.44 ml 400 ml Output Total 320 ml 475 ml 1010 ml Balance 443 ml 1793.44 ml -610 ml RINA HODGE MD Jun 26, 2019 12:21
[2019-06-26] MEDS: ZINC SULFATE 220 MG CAPSULE. PO SCH (12:34)
[2019-06-26] MEDS: NOREPINEPHRINE VIAL 8 MG in IV DEXTROSE 5% 250 ML IV PRN (21:33)
[2019-06-27] VITALS (22 sets, daily range): BP systolic 75–108; BP diastolic 53–76
[2019-06-27] MEDS: AMINO AC 3%/ELECTROLYTE/GLYCER 1,000 ML IV SCH ×2 (04:06→17:45)
[2019-06-27] MEDS: MIDAZOLAM HCL 100 MG in IV NORMAL SALINE 100ML 100 ML IV PRN ×2 (05:38→16:25)
[2019-06-27] MEDS: PIPERACILLIN/TAZOBACTAM 3.375 GM in IV NORMAL SALINE 50ML 50 ML IV SCH ×4 (05:42→23:48)
[2019-06-27] MEDS: VANCOMYCIN 1.25 GM in IV NORMAL SALINE 250ML 250 ML IV SCH (06:02)
[2019-06-27 06:29] LABS: BASO % 1 % (0-3); EOS # 0.1 x10^3/uL (0.0-0.7); EOS % 1 % (0-3); HEMATOCRIT 26.1 % (39.0-53.0); HEMOGLOBIN 8.3 g/dL (13.0-17.5); LYMPH # 0.8 x10^3/uL (1.0-4.8); LYMPH % 10 % (24-48); MEAN CORPUSCULAR HEMOGLOBIN 30 pg (25-35); MEAN CORPUSCULAR HGB CONC 32 g/dL (31-37); MEAN CORPUSCULAR VOLUME 96 fL (79-100); MONO # 0.8 x10^3/uL (0.0-1.1); MONO % 10 % (0-9); NEUT % 78 % (31-73); PLATELET COUNT 260 x10^3/uL (140-400); RED BLOOD COUNT 2.72 x10^6/uL (4.30-5.70); RED CELL DISTRIBUTION WIDTH 18.7 % (11.5-14.5); WHITE BLOOD COUNT 7.7 x10^3/uL (4.0-11.0)
[2019-06-27 06:38] LABS: CREATININE 1.3 mg/dL (0.7-1.3); GFR 65.1
[2019-06-27 06:45] LABS: VANC TR 28.9 mcg/mL (10.0-20.0)
[2019-06-27] MEDS: VANCOMYCIN PER PHARMACY MC PRN ×2 (06:51→07:30)
[2019-06-27 07:20] LABS: CALCIUM 6.8 mg/dL (8.5-10.1); CREATININE 1.4 mg/dL (0.7-1.3); GFR 59.8; POTASSIUM 4.3 mmol/L (3.5-5.1)
--- NOTE | 2019-06-27 09:12 | PDOC ---
PROGRESS NOTES Subjective Subjective Intubated and sedated Objective Objective Vital Signs Date Time Temp Pulse Resp B/P (MAP) Pulse Ox O2 Delivery O2 Flow Rate FiO2 06/27/19 06:00 123 32 100 Ventilator 06/27/19 04:00 98.3 98.3 Intake and Output 06/27/19 07:00 Intake Total 8337.31 ml Output Total 2245 ml Balance 6092.31 ml Intake IV Total 5375.31 ml Tube Feeding 1512 ml Other 1450 ml Output Urine Total 2245 ml Physical Exam Physical Exam Discussed with nurse, chart/labs reviewed, telemetry reviewed, no physical exam done but reviewed pulmonary and hospitalist physical exam notes Assessment Assessment 1. Acute respiratory failure with ARDS/PNA/CHF/COPD/Covid-19 remains intubated. Completed course of plaquenil and azithromycin. Continue vent management per pulm team 2. Acute on chronic diastolic systolic CHF, continue diuretics 3. Ventricular tachycardia s/p AICD implantation, patient had three shock therapies by device 06/24 for slow VT. None since mexiletine resumed. Continue amiodarone. Patient currently DNR - has magnet placed over device to prevent shock therapies. 4. NSTEMI: peaked troponin 2.3, possibly demand mediated, type 2 5. Sepsis/shock: needing pressor support 6. Hypoxic/metabolic encephalopathy 7. AICD 8. HTN: controlled 9. HLP 10. Severe protein malnutrition 11. NICM: EF at 35-40%. 12. DVT RUE: on lovenox therapy per PCP Plan Plan of Care Problems Medical Problems: (1) Altered mental status Status: Acute (2) Elevated brain natriuretic peptide (BNP) level Status: Acute (3) Elevated troponin Status: Acute (4) Suspected COVID-19 virus infection Status: Acute Comment Review of Relevant I have reviewed the following items abdelrahman (where applicable) has been applied. Labs Laboratory Tests Test 06/26/19 09:20 06/26/19 12:37 06/26/19 12:42 06/27/19 05:40 O2 Saturation 92 % (92-99) Arterial Blood pH 7.27 (7.35-7.45) Arterial Blood pCO2 at Patient Temp 54 mmHg (35-46) Arterial Blood pO2 at Patient Temp 72 mmHg (65-108) Arterial Blood HCO3 24 mmol/L (21-28) Arterial Blood Base Excess -3 mmol/L (-3-3) FiO2 60 Glucose (Fingerstick) 103 mg/dL (70-99) 272 mg/dL (70-99) White Blood Count 7.7 x10^3/uL (4.0-11.0) Red Blood Count 2.72 x10^6/uL (4.30-5.70) Hemoglobin 8.3 g/dL (13.0-17.5) Hematocrit 26.1 % (39.0-53.0) Mean Corpuscular Volume 96 fL (79-100) Mean Corpuscular Hemoglobin 30 pg (25-35) Mean Corpuscular Hemoglobin Concent 32 g/dL (31-37) Red Cell Distribution Width 18.7 % (11.5-14.5) Platelet Count 260 x10^3/uL (140-400) Neutrophils (%) (Auto) 78 % (31-73) Lymphocytes (%) (Auto) 10 % (24-48) Monocytes (%) (Auto) 10 % (0-9) Eosinophils (%) (Auto) 1 % (0-3) Basophils (%) (Auto) 1 % (0-3) Neutrophils # (Auto) 6.0 x10^3/uL (1.8-7.7) Lymphocytes # (Auto) 0.8 x10^3/uL (1.0-4.8) Monocytes # (Auto) 0.8 x10^3/uL (0.0-1.1) Eosinophils # (Auto) 0.1 x10^3/uL (0.0-0.7) Basophils # (Auto) 0.0 x10^3/uL (0.0-0.2) Sodium Level 137 mmol/L (136-145) Potassium Level 4.3 mmol/L (3.5-5.1) Chloride Level 106 mmol/L (98-107) Carbon Dioxide Level 19 mmol/L (21-32) Anion Gap 12 (6-14) Blood Urea Nitrogen 28 mg/dL (8-26) Creatinine 1.4 mg/dL (0.7-1.3) Estimated GFR (Cockcroft-Gault) 59.8 Glucose Level 215 mg/dL (70-99) Calcium Level 6.8 mg/dL (8.5-10.1) Vancomycin Level Trough 28.9 mcg/mL (10.0-20.0) Vancomycin Last Dose Date 06/26/19 Vancomycin Last Dose Time 1800 Microbiology 06/20/19 Blood Culture - Final, Complete NO GROWTH AFTER 5 DAYS Medications Current Medications Vancomycin HCl (Vancomycin Trough Level) 1 each 1X ONCE MC Last administered on 06/27/19at 05:30; Start 06/27/19 at 05:30; Stop 06/27/19 at 05:31; Status DC Vancomycin HCl (Vancomycin Trough Level) 1 each 1X ONCE MC ; Start 06/30/19 at 17:30; Stop 06/30/19 at 17:31 Vancomycin HCl 1.25 gm/Sodium Chloride 250 ml @ 167 mls/hr Q24H IV ; Start 06/28/19 at 18:00 Vitals/I & O Vital Sign - Last 24 Hours 06/26/19 06/26/19 06/26/19 06/26/19 10:00 10:16 11:00 11:49 Pulse 90 90 86 Resp 31 33 20 B/P (MAP) 103/75 (84) 103/75 109/67 (81) Pulse Ox 100 100 O2 Delivery Ventilator Ventilator BiPAP/CPAP 06/26/19 06/26/19 06/26/19 06/26/19 12:00 12:00 12:30 12:37 Temp 98.2 98.2 Pulse 90 Resp 35 29 B/P (MAP) 116/71 (86) Pulse Ox 100 100 100 O2 Delivery Mechanical Ventilator Ventilator Ventilator Ventilator 06/26/19 06/26/19 06/26/19 06/26/19 13:00 14:00 15:00 16:00 Pulse 90 90 86 Resp 35 35 27 B/P (MAP) 113/84 (94) 107/73 (84) 97/70 (79) Pulse Ox 100 100 100 O2 Delivery Ventilator Ventilator Ventilator Mechanical Ventilator 06/26/19 06/26/19 06/26/19 06/26/19 16:00 17:00 17:33 18:00 Temp 98.2 98.2 Pulse 86 84 84 Resp 26 30 27 B/P (MAP) 97/71 (80) 100/62 (75) 110/74 (86) Pulse Ox 100 100 100 100 O2 Delivery Ventilator Ventilator Ventilator Ventilator 06/26/19 06/26/19 06/26/19 06/26/19 19:00 20:00 20:00 20:28 Temp 98.4 98.4 Pulse 82 82 Resp 27 27 B/P (MAP) 105/59 (74) 108/60 (76) Pulse Ox 100 99 100 O2 Delivery Ventilator Mechanical Ventilator Ventilator Ventilator 06/26/19 06/26/19 06/26/19 06/26/19 21:00 21:01 22:00 23:00 Pulse 88 88 84 86 Resp 30 32 28 B/P (MAP) 121/70 (87) 121/70 106/77 (87) 103/79 (87) Pulse Ox 97 96 100 O2 Delivery Ventilator Ventilator Ventilator 06/27/19 06/27/19 06/27/19 06/27/19 00:00 00:00 01:00 01:12 Temp 98.7 98.7 Pulse 90 90 Resp 31 32 B/P (MAP) 100/69 (79) 91/73 (79) Pulse Ox 98 98 100 O2 Delivery Ventilator Mechanical Ventilator Ventilator Ventilator 06/27/19 06/27/19 06/27/19 06/27/19 02:00 03:00 04:00 04:00 Temp 98.3 98.3 Pulse 101 108 122 Resp 33 33 32 B/P (MAP) 93/68 (76) 100/64 (76) 91/59 (70) Pulse Ox 96 95 94 O2 Delivery Ventilator Ventilator Mechanical Ventilator Ventilator 06/27/19 06/27/19 06/27/19 05:00 05:02 06:00 Pulse 120 123 Resp 31 32 B/P (MAP) 75/53 (60) Pulse Ox 91 100 100 O2 Delivery Ventilator Ventilator Ventilator Intake and Output 06/26/19 06/26/19 06/27/19 15:00 23:00 07:00 Intake Total 750 ml 4357.31 ml 3230 ml Output Total 670 ml 975 ml 600 ml Balance 80 ml 3382.31 ml 2630 ml RINA HODGE MD Jun 27, 2019 09:12
[2019-06-27] MEDS: POTASSIUM BICARB 20 MEQ EFFERVESCENT TABLET. PEG SCH (09:45)
[2019-06-27] MEDS: AMIODARONE HCL 200 MG TABLET. PO SCH (09:46)
[2019-06-27] MEDS: FUROSEMIDE 40 MG TABLET. PO SCH (09:46)
[2019-06-27] MEDS: METOPROLOL TART IMMED RELEASE 25 MG TABLET. PO SCH ×2 (09:47→21:12)
[2019-06-27] MEDS: ZINC SULFATE 220 MG CAPSULE. PO SCH (09:47)
[2019-06-27] MEDS: MEXILETINE HCL 200 MG CAPSULE PO SCH ×2 (09:47→21:14)
[2019-06-27] MEDS: ASCORBIC ACID 500 MG TABLET PO SCH (09:48)
[2019-06-27] MEDS: FAMOTIDINE 20 MG/2 ML VIAL IVP SCH ×2 (09:50→21:11)
--- NOTE | 2019-06-27 09:50 | PDOC ---
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 No acute intracranial abnormality. on ct head Several chronic infarcts bilaterally.Several chronic left frontal, parietal and temporal infarcts. chronic right frontal infarcts. foci of decreased attenuation within the hemispheric white matter, most often due to chronic microvascular ischemia. Mild to moderate brain parenchymal volume loss. Acute metabolic encephalopathy Severe protein-caloric malnutrition Right upper extremity DVT Plan: continue full anticoagulation for his upper extremity DVT guarded prognosis his cardiac meds have restarted by our [facility] consultant continue with supportive measures, ventilatory support follow recommendations from [employer] [facility] consultant further recommendations based on clinical course. History of Present Illness History of Present Illness 06/27/2019 Patient seen and examined in the ICU He remains critically ill and intubated Chart reviewed Discussed with RN Prognosis extremely guarded Vitals Vitals Vital Signs Date Time Temp Pulse Resp B/P (MAP) Pulse Ox O2 Delivery O2 Flow Rate FiO2 06/27/19 09:00 112 26 104/68 (80) 100 Ventilator 06/27/19 08:00 100.1 100.1 Physical Exam Physical Exam General: Other (sedated and intubated) Heart: Regular rate Abdomen: Normal bowel sounds, Soft Extremities: No cyanosis Skin: No rashes, No breakdown Labs LABS Laboratory Tests Test 06/26/19 12:37 06/26/19 12:42 06/27/19 05:40 Glucose (Fingerstick) 103 mg/dL (70-99) 272 mg/dL (70-99) White Blood Count 7.7 x10^3/uL (4.0-11.0) Red Blood Count 2.72 x10^6/uL (4.30-5.70) Hemoglobin 8.3 g/dL (13.0-17.5) Hematocrit 26.1 % (39.0-53.0) Mean Corpuscular Volume 96 fL (79-100) Mean Corpuscular Hemoglobin 30 pg (25-35) Mean Corpuscular Hemoglobin Concent 32 g/dL (31-37) Red Cell Distribution Width 18.7 % (11.5-14.5) Platelet Count 260 x10^3/uL (140-400) Neutrophils (%) (Auto) 78 % (31-73) Lymphocytes (%) (Auto) 10 % (24-48) Monocytes (%) (Auto) 10 % (0-9) Eosinophils (%) (Auto) 1 % (0-3) Basophils (%) (Auto) 1 % (0-3) Neutrophils # (Auto) 6.0 x10^3/uL (1.8-7.7) Lymphocytes # (Auto) 0.8 x10^3/uL (1.0-4.8) Monocytes # (Auto) 0.8 x10^3/uL (0.0-1.1) Eosinophils # (Auto) 0.1 x10^3/uL (0.0-0.7) Basophils # (Auto) 0.0 x10^3/uL (0.0-0.2) Sodium Level 137 mmol/L (136-145) Potassium Level 4.3 mmol/L (3.5-5.1) Chloride Level 106 mmol/L (98-107) Carbon Dioxide Level 19 mmol/L (21-32) Anion Gap 12 (6-14) Blood Urea Nitrogen 28 mg/dL (8-26) Creatinine 1.4 mg/dL (0.7-1.3) Estimated GFR (Cockcroft-Gault) 59.8 Glucose Level 215 mg/dL (70-99) Calcium Level 6.8 mg/dL (8.5-10.1) Vancomycin Level Trough 28.9 mcg/mL (10.0-20.0) Vancomycin Last Dose Date 06/26/19 Vancomycin Last Dose Time 1800 Assessment and Plan Assessmemt and Plan Problems Medical Problems: (1) Altered mental status Status: Acute (2) Elevated brain natriuretic peptide (BNP) level Status: Acute (3) Elevated troponin Status: Acute (4) Suspected COVID-19 virus infection Status: Acute Comment Review of Relevant I have reviewed the following items abdelrahman (where applicable) has been applied. Labs Laboratory Tests Test 06/26/19 05:00 06/26/19 05:56 06/26/19 09:20 06/26/19 12:37 White Blood Count 9.6 x10^3/uL (4.0-11.0) Red Blood Count 3.21 x10^6/uL (4.30-5.70) Hemoglobin 9.7 g/dL (13.0-17.5) Hematocrit 30.1 % (39.0-53.0) Mean Corpuscular Volume 94 fL (79-100) Mean Corpuscular Hemoglobin 30 pg (25-35) Mean Corpuscular Hemoglobin Concent 32 g/dL (31-37) Red Cell Distribution Width 18.2 % (11.5-14.5) Platelet Count 348 x10^3/uL (140-400) Neutrophils (%) (Auto) 76 % (31-73) Lymphocytes (%) (Auto) 9 % (24-48) Monocytes (%) (Auto) 13 % (0-9) Eosinophils (%) (Auto) 2 % (0-3) Basophils (%) (Auto) 1 % (0-3) Neutrophils # (Auto) 7.3 x10^3/uL (1.8-7.7) Lymphocytes # (Auto) 0.9 x10^3/uL (1.0-4.8) Monocytes # (Auto) 1.2 x10^3/uL (0.0-1.1) Eosinophils # (Auto) 0.2 x10^3/uL (0.0-0.7) Basophils # (Auto) 0.1 x10^3/uL (0.0-0.2) Sodium Level 141 mmol/L (136-145) Potassium Level 4.4 mmol/L (3.5-5.1) Chloride Level 108 mmol/L (98-107) Carbon Dioxide Level 27 mmol/L (21-32) Anion Gap 6 (6-14) Blood Urea Nitrogen 24 mg/dL (8-26) Creatinine 1.2 mg/dL (0.7-1.3) Estimated GFR (Cockcroft-Gault) 71.4 Glucose Level 121 mg/dL (70-99) Calcium Level 8.4 mg/dL (8.5-10.1) Phosphorus Level 2.6 mg/dL (2.6-4.7) Magnesium Level 2.3 mg/dL (1.8-2.4) Glucose (Fingerstick) 84 mg/dL (70-99) 103 mg/dL (70-99) O2 Saturation 92 % (92-99) Arterial Blood pH 7.27 (7.35-7.45) Arterial Blood pCO2 at Patient Temp 54 mmHg (35-46) Arterial Blood pO2 at Patient Temp 72 mmHg (65-108) Arterial Blood HCO3 24 mmol/L (21-28) Arterial Blood Base Excess -3 mmol/L (-3-3) FiO2 60 Test 06/26/19 12:42 06/27/19 05:40 Glucose (Fingerstick) 272 mg/dL (70-99) White Blood Count 7.7 x10^3/uL (4.0-11.0) Red Blood Count 2.72 x10^6/uL (4.30-5.70) Hemoglobin 8.3 g/dL (13.0-17.5) Hematocrit 26.1 % (39.0-53.0) Mean Corpuscular Volume 96 fL (79-100) Mean Corpuscular Hemoglobin 30 pg (25-35) Mean Corpuscular Hemoglobin Concent 32 g/dL (31-37) Red Cell Distribution Width 18.7 % (11.5-14.5) Platelet Count 260 x10^3/uL (140-400) Neutrophils (%) (Auto) 78 % (31-73) Lymphocytes (%) (Auto) 10 % (24-48) Monocytes (%) (Auto) 10 % (0-9) Eosinophils (%) (Auto) 1 % (0-3) Basophils (%) (Auto) 1 % (0-3) Neutrophils # (Auto) 6.0 x10^3/uL (1.8-7.7) Lymphocytes # (Auto) 0.8 x10^3/uL (1.0-4.8) Monocytes # (Auto) 0.8 x10^3/uL (0.0-1.1) Eosinophils # (Auto) 0.1 x10^3/uL (0.0-0.7) Basophils # (Auto) 0.0 x10^3/uL (0.0-0.2) Sodium Level 137 mmol/L (136-145) Potassium Level 4.3 mmol/L (3.5-5.1) Chloride Level 106 mmol/L (98-107) Carbon Dioxide Level 19 mmol/L (21-32) Anion Gap 12 (6-14) Blood Urea Nitrogen 28 mg/dL (8-26) Creatinine 1.4 mg/dL (0.7-1.3) Estimated GFR (Cockcroft-Gault) 59.8 Glucose Level 215 mg/dL (70-99) Calcium Level 6.8 mg/dL (8.5-10.1) Vancomycin Level Trough 28.9 mcg/mL (10.0-20.0) Vancomycin Last Dose Date 06/26/19 Vancomycin Last Dose Time 1800 Laboratory Tests Test 06/26/19 12:37 06/26/19 12:42 06/27/19 05:40 Glucose (Fingerstick) 103 mg/dL (70-99) 272 mg/dL (70-99) White Blood Count 7.7 x10^3/uL (4.0-11.0) Red Blood Count 2.72 x10^6/uL (4.30-5.70) Hemoglobin 8.3 g/dL (13.0-17.5) Hematocrit 26.1 % (39.0-53.0) Mean Corpuscular Volume 96 fL (79-100) Mean Corpuscular Hemoglobin 30 pg (25-35) Mean Corpuscular Hemoglobin Concent 32 g/dL (31-37) Red Cell Distribution Width 18.7 % (11.5-14.5) Platelet Count 260 x10^3/uL (140-400) Neutrophils (%) (Auto) 78 % (31-73) Lymphocytes (%) (Auto) 10 % (24-48) Monocytes (%) (Auto) 10 % (0-9) Eosinophils (%) (Auto) 1 % (0-3) Basophils (%) (Auto) 1 % (0-3) Neutrophils # (Auto) 6.0 x10^3/uL (1.8-7.7) Lymphocytes # (Auto) 0.8 x10^3/uL (1.0-4.8) Monocytes # (Auto) 0.8 x10^3/uL (0.0-1.1) Eosinophils # (Auto) 0.1 x10^3/uL (0.0-0.7) Basophils # (Auto) 0.0 x10^3/uL (0.0-0.2) Sodium Level 137 mmol/L (136-145) Potassium Level 4.3 mmol/L (3.5-5.1) Chloride Level 106 mmol/L (98-107) Carbon Dioxide Level 19 mmol/L (21-32) Anion Gap 12 (6-14) Blood Urea Nitrogen 28 mg/dL (8-26) Creatinine 1.4 mg/dL (0.7-1.3) Estimated GFR (Cockcroft-Gault) 59.8 Glucose Level 215 mg/dL (70-99) Calcium Level 6.8 mg/dL (8.5-10.1) Vancomycin Level Trough 28.9 mcg/mL (10.0-20.0) Vancomycin Last Dose Date 06/26/19 Vancomycin Last Dose Time 1800 Microbiology 06/20/19 Blood Culture - Final, Complete NO GROWTH AFTER 5 DAYS Medications Current Medications Piperacillin Sod/ Tazobactam Sod 4.5 gm/Sodium Chloride 100 ml @ 200 mls/hr 1X ONCE IV Last administered on 06/19/19at 16:50; Start 06/19/19 at 16:00; Stop 06/19/19 at 16:29; Status DC Vancomycin HCl 1.25 gm/Sodium Chloride 250 ml @ 166.667 mls/hr 1X ONCE IV Last administered on 06/19/19at 16:51; Start 06/19/19 at 16:00; Stop 06/19/19 at 17:29; Status DC Hydroxychloroquine Sulfate (Plaquenil) 400 mg BID PO ; Start 06/19/19 at 21:00; Status UNV Enoxaparin Sodium (Lovenox 80mg Syringe) 75 mg 1X ONCE SQ Last administered on 06/19/19at 16:51; Start 06/19/19 at 16:30; Stop 06/19/19 at 16:31; Status DC Furosemide (Lasix) 40 mg 1X ONCE IVP Last administered on 06/19/19at 16:51; Start 06/19/19 at 17:00; Stop 06/19/19 at 17:01; Status DC Sodium Chloride (Normal Saline Flush) 3 ml QSHIFT PRN IV AFTER MEDS AND BLOOD DRAWS; Start 06/19/19 at 17:45 Sodium Chloride 1,000 ml @ 65 mls/hr [id number] IV Last administered on 06/26/19at 16:53; Start 06/19/19 at 17:31 Acetaminophen (Tylenol) 650 mg PRN Q4HRS PRN PO TEMP OVER 100.4F OR MILD PAIN; Start 06/19/19 at 17:45 Acetaminophen (Tylenol Supp) 650 mg PRN Q4HRS PRN MD TEMP OVER 100.4F OR MILD PAIN; Start 06/19/19 at 17:45 Clonidine HCl (Catapres) 0.1 mg PRN Q6HRS PRN PO SBP>160 OR DBP>90; Start 06/19/19 at 17:45 Sodium Monofluorophosphate (Fleet Adult) 133 ml PRN DAILY PRN MD CONSTIPATION; Start 06/19/19 at 17:45 Docusate Sodium (Colace) 100 mg PRN BID PRN PO CONSTIPATION; Start 06/19/19 at 17:45 Albuterol/ Ipratropium (Duoneb) 3 ml Q4HRS W/A NEB ; Start 06/19/19 at 18:00; Stop 06/20/19 at 17:12; Status DC Guaifenesin (Robitussin) 200 mg PRN Q4HRS PRN PO COUGH; Start 06/19/19 at 17:45 Enoxaparin Sodium (Lovenox 40mg Syringe) 40 mg Q24H SQ ; Start 06/19/19 at 18:00; Status UNV Vancomycin HCl (Vanco Per Pharmacy) 1 each PRN DAILY PRN MC SEE COMMENTS Last administered on 06/27/19at 07:30; Start 06/19/19 at 17:45 Piperacillin Sod/ Tazobactam Sod 3.375 gm/Sodium Chloride 50 ml @ 100 mls/hr Q6HRS IV ; Start 06/19/19 at 18:00; Status Cancel Enoxaparin Sodium (Lovenox Per Pharmacy Treatment Dosing) 1 each PRN DAILY PRN MC SEE COMMENTS; Start 06/19/19 at 17:45; Stop 06/20/19 at 15:01; Status DC Piperacillin Sod/ Tazobactam Sod 3.375 gm/Sodium Chloride 50 ml @ 100 mls/hr Q6HRS IV Last administered on 06/27/19at 05:42; Start 06/20/19 at 00:00 Enoxaparin Sodium (Lovenox 80mg Syringe) 70 mg Q12HR SQ Last administered on 06/20/19at 08:00; Start 06/20/19 at 09:00; Stop 06/20/19 at 15:01; Status DC Vancomycin HCl 1 gm/Sodium Chloride 250 ml @ 250 mls/hr Q12H IV Last administered on 06/20/19at 16:26; Start 06/20/19 at 05:00; Stop 06/21/19 at 05:34; Status DC Vancomycin HCl (Vancomycin Trough Level) 1 each 1X ONCE MC Last administered on 06/21/19at 04:30; Start 06/21/19 at 04:30; Stop 06/21/19 at 04:31; Status DC Hydroxychloroquine Sulfate (Plaquenil) 400 mg 1X ONCE PO Last administered on 06/20/19at 00:07; Start 06/19/19 at 20:00; Stop 06/19/19 at 20:01; Status DC Propofol 100 ml @ As Directed STK-MED ONCE IV ; Start 06/19/19 at 20:33; Stop 06/19/19 at 20:34; Status DC Fentanyl Citrate 30 ml @ 0 mls/hr CONT PRN IV SEE PROTOCOL Last administered on 06/24/19at 05:42; Start 06/19/19 at 21:15; Stop 06/24/19 at 09:02; Status DC Propofol 100 ml @ 0 mls/hr CONT PRN IV SEE PROTOCOL; Start 06/19/19 at 21:15 Fentanyl Citrate (Fentanyl 2ml Vial) 25 mcg PRN Q1HR PRN IV SEE COMMENTS; Start 06/19/19 at 21:15 Fentanyl Citrate (Fentanyl 2ml Vial) 50 mcg PRN Q1HR PRN IV SEE COMMENTS; Start 06/19/19 at 21:15 Chlorhexidine Gluconate (Peridex) 15 ml BID MM Last administered on 06/26/19at 21:00; Start 06/20/19 at 09:00 Morphine Sulfate (Morphine Sulfate) 2 mg PRN Q1HR PRN IV SEE COMMENTS.; Start 06/19/19 at 21:15 Morphine Sulfate (Morphine Sulfate) 4 mg PRN Q1HR PRN IV SEE COMMENTS.; Start 06/19/19 at 21:15 Midazolam HCl 50 mg/Sodium Chloride 50 ml @ 0 mls/hr CONT PRN IV SEE PROTOCOL Last administered on 06/20/19at 01:38; Start 06/19/19 at 21:15; Stop 06/20/19 at 07:27; Status DC Midazolam HCl 100 mg/Sodium Chloride 100 ml @ 6 mls/hr CONT PRN IV SEE PROTOCOL Last administered on 06/27/19at 05:38; Start 06/20/19 at 07:30 Hydroxychloroquine Sulfate (Plaquenil) 200 mg BID PO Last administered on 06/24/19at 08:59; Start 06/20/19 at 21:00; Stop 06/24/19 at 09:01; Status DC Azithromycin 250 mg/Sodium Chloride 250 ml @ 250 mls/hr Q24H IV Last administered on 06/24/19at 08:58; Start 06/20/19 at 10:00; Stop 06/24/19 at 14:44; Status DC Hydroxychloroquine Sulfate (Plaquenil) 400 mg 1X ONCE PO Last administered on 06/20/19at 10:35; Start 06/20/19 at 09:30; Stop 06/20/19 at 09:44; Status DC Acetaminophen (Tylenol) 650 mg PRN Q6HRS PRN PEG MILD PAIN / TEMP Last administered on 06/20/19at 16:26; Start 06/20/19 at 12:30 Info (Anti-Coagulation Monitoring By Pharmacy) 1 each PRN DAILY PRN MC SEE COMMENTS; Start 06/20/19 at 14:30; Status Cancel Enoxaparin Sodium (Lovenox 40mg Syringe) 40 mg Q24H SQ Last administered on 06/24/19at 08:58; Start 06/21/19 at 09:00; Stop 06/24/19 at 15:54; Status DC Albuterol/ Ipratropium (Duoneb) 3 ml PRN Q4HRS PRN NEB SHORTNESS OF BREATH; Start 06/20/19 at 17:15; Stop 06/20/19 at 17:30; Status DC Vancomycin HCl 1.25 gm/Sodium Chloride 250 ml @ 167 mls/hr Q12H IV Last administered on 06/27/19at 06:02; Start 06/21/19 at 06:00; Stop 06/27/19 at 07:24; Status DC Vancomycin HCl (Vancomycin Trough Level) 1 each 1X ONCE MC Last administered on 06/22/19at 17:30; Start 06/22/19 at 17:30; Stop 06/22/19 at 17:31; Status DC Famotidine (Pepcid Vial) 20 mg BID IVP Last administered on 4/4/20at 20:59; Start 06/22/19 at 21:00 Furosemide (Lasix) 40 mg 1X ONCE IVP Last administered on 06/22/19at 12:22; Start 06/22/19 at 11:45; Stop 06/22/19 at 11:47; Status DC Potassium Chloride/Water 100 ml @ 100 mls/hr Q1H IV Last administered on 06/22/19at 13:29; Start 06/22/19 at 12:00; Stop 06/22/19 at 13:59; Status DC Albumin Human 100 ml @ 100 mls/hr 1X ONCE IV Last administered on 06/22/19at 12:26; Start 06/22/19 at 12:00; Stop 06/22/19 at 12:59; Status DC Mexiletine HCl (Mexitil) 400 mg BID PO Last administered on 06/23/19at 10:12; Start 06/22/19 at 13:00; Stop 06/23/19 at 13:21; Status DC Metoprolol Tartrate (Lopressor) 12.5 mg BID PO Last administered on 06/26/19at 21:01; Start 06/22/19 at 13:00 Ascorbic Acid (Vitamin C) 500 mg DAILY PO Last administered on 06/26/19 10:16; Start 06/23/19 at 09:00 Zinc Sulfate (Orazinc) 220 mg DAILY PO Last administered on 06/26/19at 12:34; Start 06/23/19 at 09:00 Vancomycin HCl (Vancomycin Trough Level) 1 each 1X ONCE MC Last administered on 06/23/19at 05:30; Start 06/23/19 at 05:30; Stop 06/23/19 at 05:31; Status DC Albumin Human 100 ml @ 100 mls/hr 1X ONCE IV Last administered on 06/23/19at 08:35; Start 06/23/19 at 08:00; Stop 06/23/19 at 08:59; Status DC Furosemide (Lasix) 40 mg 1X ONCE IVP Last administered on 06/23/19at 08:35; Sta rt 06/23/19 at 08:00; Stop 06/23/19 at 08:01; Status DC Potassium Chloride/Water 100 ml @ 100 mls/hr 1X ONCE IV Last administered on 06/23/19at 10:15; Start 06/23/19 at 08:30; Stop 06/23/19 at 09:29; Status DC Alteplase, Recombinant (Cathflo For Central Catheter Clearance) 1 mg 1X ONCE INT CAT Last administered on 06/23/19 10:16; Start 06/23/19 at 09:30; Stop 06/23/19 at 09:31; Status DC Vecuronium [place] (Norcuron Bolus) 6 mg 1X ONCE IV Last administered on 06/23/19at 09:25; Start 06/23/19 at 09:30; Stop 06/23/19 at 09:31; Status DC Furosemide (Lasix) 40 mg DAILY PO Last administered on 06/26/19 10:16; Start 06/24/19 at 09:00 Potassium Bicarbonate (Potassium Effervescent Tablet) 20 meq DAILY PEG Last administered on 06/26/19 10:15; Start 06/24/19 at 09:00 Amiodarone HCl (Cordarone) 400 mg DAILY PO Last administered on 06/25/19 08:26; Start 06/24/19 at 09:00; Stop 06/25/19 at 12:04; Status DC Dextrose (Dextrose 50%-Water Syringe) 12.5 gm 1X ONCE IV Last administered on 06/24/19 00:22; Start 06/24/19 at 00:15; Stop 06/24/19 at 00:19; Status DC Fentanyl Citrate 55 ml @ 0 mls/hr CONT PRN IV SEE I/O RECORD Last administered on 06/26/19 11:49; Start 06/24/19 at 09:15 Vecuronium [place] (Norcuron Bolus) 6 mg 1X ONCE IV Last administered on 06/24/19at 14:41; Start 06/24/19 at 14:15; Stop 06/24/19 at 14:16; Status DC Amino Acids/ Glycerin/ Electrolytes 1,000 ml @ 80 mls/hr [id number] IV Last adm inistered on 06/27/19 04:06; Start 06/24/19 at 14:30 Enoxaparin Sodium (Lovenox 80mg Syringe) 80 mg Q12HR SQ Last administered on 06/26/19 21:00; Start 06/24/19 at 16:00 Vecuronium [place] (Norcuron Bolus) 6 mg Q6HRS PRN IV ANXIETY / AGITATION Last administered on 06/26/19at 03:44; Start 06/24/19 at 19:00 Alteplase, Recombinant (Cathflo For Central Catheter Clearance) 1 mg 1X ONCE IN T CAT Last administered on 06/25/19at 10:07; Start 06/25/19 at 10:00; Stop 06/25/19 at 10:01; Status DC Norepinephrine Bitartrate 8 mg/ Dextrose 258 ml @ 16.254 mls/ hr CONT PRN IV PER PROTOCOL Last administered on 06/26/19at 21:33; Start 06/25/19 at 10:30 Amiodarone HCl 150 mg/Dextrose 103 ml @ 618 mls/hr 1X ONCE IV Last administered on 06/25/19at 12:37; Start 06/25/19 at 12:00; Stop 06/25/19 at 12:09; Status DC Amiodarone HCl 450 mg/Dextrose 259 ml @ 0 mls/hr CONT PRN IV SEE I/O RECORD; Start 06/25/19 at 12:00 Amiodarone HCl (Cordarone) 200 mg DAILY PO Last administered on 06/26/19at 10:16; Start 06/26/19 at 09:00 Mexiletine HCl (Mexitil) 400 mg BID PO Last administered on 06/26/19at 21:00; Start 06/25/19 at 21:00 Mexiletine HCl (Mexitil) 400 mg 1X ONCE PO Last administered on 06/25/19at 12:53; Start 06/25/19 at 13:00; Stop 06/25/19 at 13:01; Status DC Vancomycin HCl (Vancomycin Trough Level) 1 each 1X ONCE MC Last administered on 06/27/19at 05:30; Start 06/27/19 at 05:30; Stop 06/27/19 at 05:31; Status DC Vancomycin HCl 1.25 gm/Sodium Chloride 250 ml @ 167 mls/hr Q24H IV ; Start 06/28/19 at 18:00 Vancomycin HCl (Vancomycin Trough Level) 1 each 1X ONCE MC ; Start 06/30/19 at 17:30; Stop 06/30/19 at 17:31 Active Scripts Active Reported Mexiletine Hcl 250 Mg Capsule 450 Mg PO BID Metoprolol Tartrate 100 Mg Tablet 1 Tab PO DAILY Children's Aspirin (Aspirin) 81 Mg Tab.chew 81 Mg PO DAILY Amiodarone Hcl 200 Mg Tablet 1 Tab PO DAILY Vitals/I & O Vital Sign - Last 24 Hours 06/26/19 06/26/19 06/26/19 06/26/19 10:00 10:16 11:00 11:49 Pulse 90 90 86 Resp 31 33 20 B/P (MAP) 103/75 (84) 103/75 109/67 (81) Pulse Ox 100 100 O2 Delivery Ventilator Ventilator BiPAP/CPAP 06/26/19 06/26/19 06/26/19 06/26/19 12:00 12:00 12:30 12:37 Temp 98.2 98.2 Pulse 90 Resp 35 29 B/P (MAP) 116/71 (86) Pulse Ox 100 100 100 O2 Delivery Mechanical Ventilator Ventilator Ventilator Ventilator 06/26/19 06/26/19 06/26/19 06/26/19 13:00 14:00 15:00 16:00 Pulse 90 90 86 Resp 35 35 27 B/P (MAP) 113/84 (94) 107/73 (84) 97/70 (79) Pulse Ox 100 100 100 O2 Delivery Ventilator Ventilator Ventilator Mechanical Ventilator 06/26/19 06/26/19 06/26/19 06/26/19 16:00 17:00 17:33 18:00 Temp 98.2 98.2 Pulse 86 84 84 Resp 26 30 27 B/P (MAP) 97/71 (80) 100/62 (75) 110/74 (86) Pulse Ox 100 100 100 100 O2 Delivery Ventilator Ventilator Ventilator Ventilator 06/26/19 06/26/19 06/26/19 06/26/19 19:00 20:00 20:00 20:28 Temp 98.4 98.4 Pulse 82 82 Resp 27 27 B/P (MAP) 105/59 (74) 108/60 (76) Pulse Ox 100 99 100 O2 Delivery Ventilator Mechanical Ventilator Ventilator Ventilator 06/26/19 06/26/19 06/26/19 06/26/19 21:00 21:01 22:00 23:00 Pulse 88 88 84 86 Resp 30 32 28 B/P (MAP) 121/70 (87) 121/70 106/77 (87) 103/79 (87) Pulse Ox 97 96 100 O2 Delivery Ventilator Ventilator Ventilator 06/27/19 06/27/19 06/27/19 06/27/19 00:00 00:00 01:00 01:12 Temp 98.7 98.7 Pulse 90 90 Resp 31 32 B/P (MAP) 100/69 (79) 91/73 (79) Pulse Ox 98 98 100 O2 Delivery Ventilator Mechanical Ventilator Ventilator Ventilator 06/27/19 06/27/19 06/27/19 06/27/19 02:00 03:00 04:00 04:00 Temp 98.3 98.3 Pulse 101 108 122 Resp 33 33 32 B/P (MAP) 93/68 (76) 100/64 (76) 91/59 (70) Pulse Ox 96 95 94 O2 Delivery Ventilator Ventilator Mechanical Ventilator Ventilator 06/27/19 06/27/19 06/27/19 06/27/19 05:00 05:02 06:00 07:00 Pulse 120 123 116 Resp 31 32 30 B/P (MAP) 75/53 (60) Pulse Ox 91 100 100 99 O2 Delivery Ventilator Ventilator Ventilator Ventilator 06/27/19 06/27/19 08:00 09:00 Temp 100.1 100.1 Pulse 110 112 Resp 27 26 B/P (MAP) 104/68 (80) Pulse Ox 100 100 O2 Delivery Ventilator Ventilator Intake and Output 06/26/19 06/26/19 06/27/19 15:00 23:00 07:00 Intake Total 750 ml 4357.31 ml 3230 ml Output Total 670 ml 975 ml 600 ml Balance 80 ml 3382.31 ml 2630 ml BABAK BUTT MD Jun 27, 2019 09:50
[2019-06-27] MEDS: NOREPINEPHRINE VIAL 8 MG in IV DEXTROSE 5% 250 ML IV PRN (10:06)
[2019-06-27 10:19] LABS: BASE EXCESS ABG -2 mmol/L (-3-3); HCO3 ABG 25 mmol/L (21-28); PCO2 ABG 57 mmHg (35-46); PO2 ABG 62 mmHg (65-108); SAT O2 ABG 90 % (92-99)
[2019-06-27] MEDS: IV NORMAL SALINE 1000ML BAG 1,000 ML IV SCH (10:19)
[2019-06-27 10:33] LABS: FIO2 ABG 80
--- NOTE | 2019-06-27 11:10 | PDOC ---
PULMONARY PROGRESS NOTES Subjective Patient sedated, assist control ventilation. on 80% FiO2 9 of PEEP sedated, no pressors RN reports increase ET secretions multiple runs of V-tac, shocked by AICD 06/24 now turned off per family levophed Vitals Vital Signs Date Time Temp Pulse Resp B/P (MAP) Pulse Ox O2 Delivery O2 Flow Rate FiO2 06/27/19 10:00 115 30 95/59 (71) 100 Ventilator 06/27/19 08:00 100.1 100.1 Comments visuall exam done no respiratory distress, sedated no obvious rash no edema Labs Laboratory Tests Test 06/26/19 05:00 06/26/19 05:56 06/26/19 09:20 06/26/19 12:37 White Blood Count 9.6 x10^3/uL (4.0-11.0) Red Blood Count 3.21 x10^6/uL (4.30-5.70) Hemoglobin 9.7 g/dL (13.0-17.5) Hematocrit 30.1 % (39.0-53.0) Mean Corpuscular Volume 94 fL (79-100) Mean Corpuscular Hemoglobin 30 pg (25-35) Mean Corpuscular Hemoglobin Concent 32 g/dL (31-37) Red Cell Distribution Width 18.2 % (11.5-14.5) Platelet Count 348 x10^3/uL (140-400) Neutrophils (%) (Auto) 76 % (31-73) Lymphocytes (%) (Auto) 9 % (24-48) Monocytes (%) (Auto) 13 % (0-9) Eosinophils (%) (Auto) 2 % (0-3) Basophils (%) (Auto) 1 % (0-3) Neutrophils # (Auto) 7.3 x10^3/uL (1.8-7.7) Lymphocytes # (Auto) 0.9 x10^3/uL (1.0-4.8) Monocytes # (Auto) 1.2 x10^3/uL (0.0-1.1) Eosinophils # (Auto) 0.2 x10^3/uL (0.0-0.7) Basophils # (Auto) 0.1 x10^3/uL (0.0-0.2) Sodium Level 141 mmol/L (136-145) Potassium Level 4.4 mmol/L (3.5-5.1) Chloride Level 108 mmol/L (98-107) Carbon Dioxide Level 27 mmol/L (21-32) Anion Gap 6 (6-14) Blood Urea Nitrogen 24 mg/dL (8-26) Creatinine 1.2 mg/dL (0.7-1.3) Estimated GFR (Cockcroft-Gault) 71.4 Glucose Level 121 mg/dL (70-99) Calcium Level 8.4 mg/dL (8.5-10.1) Phosphorus Level 2.6 mg/dL (2.6-4.7) Magnesium Level 2.3 mg/dL (1.8-2.4) Glucose (Fingerstick) 84 mg/dL (70-99) 103 mg/dL (70-99) O2 Saturation 92 % (92-99) Arterial Blood pH 7.27 (7.35-7.45) Arterial Blood pCO2 at Patient Temp 54 mmHg (35-46) Arterial Blood pO2 at Patient Temp 72 mmHg (65-108) Arterial Blood HCO3 24 mmol/L (21-28) Arterial Blood Base Excess -3 mmol/L (-3-3) FiO2 60 Test 06/26/19 12:42 06/27/19 05:40 06/27/19 09:30 Glucose (Fingerstick) 272 mg/dL (70-99) White Blood Count 7.7 x10^3/uL (4.0-11.0) Red Blood Count 2.72 x10^6/uL (4.30-5.70) Hemoglobin 8.3 g/dL (13.0-17.5) Hematocrit 26.1 % (39.0-53.0) Mean Corpuscular Volume 96 fL (79-100) Mean Corpuscular Hemoglobin 30 pg (25-35) Mean Corpuscular Hemoglobin Concent 32 g/dL (31-37) Red Cell Distribution Width 18.7 % (11.5-14.5) Platelet Count 260 x10^3/uL (140-400) Neutrophils (%) (Auto) 78 % (31-73) Lymphocytes (%) (Auto) 10 % (24-48) Monocytes (%) (Auto) 10 % (0-9) Eosinophils (%) (Auto) 1 % (0-3) Basophils (%) (Auto) 1 % (0-3) Neutrophils # (Auto) 6.0 x10^3/uL (1.8-7.7) Lymphocytes # (Auto) 0.8 x10^3/uL (1.0-4.8) Monocytes # (Auto) 0.8 x10^3/uL (0.0-1.1) Eosinophils # (Auto) 0.1 x10^3/uL (0.0-0.7) Basophils # (Auto) 0.0 x10^3/uL (0.0-0.2) Sodium Level 137 mmol/L (136-145) Potassium Level 4.3 mmol/L (3.5-5.1) Chloride Level 106 mmol/L (98-107) Carbon Dioxide Level 19 mmol/L (21-32) Anion Gap 12 (6-14) Blood Urea Nitrogen 28 mg/dL (8-26) Creatinine 1.4 mg/dL (0.7-1.3) Estimated GFR (Cockcroft-Gault) 59.8 Glucose Level 215 mg/dL (70-99) Calcium Level 6.8 mg/dL (8.5-10.1) Vancomycin Level Trough 28.9 mcg/mL (10.0-20.0) Vancomycin Last Dose Date 06/26/19 Vancomycin Last Dose Time 1800 O2 Saturation 90 % (92-99) Arterial Blood pH 7.27 (7.35-7.45) Arterial Blood pCO2 at Patient Temp 57 mmHg (35-46) Arterial Blood pO2 at Patient Temp 62 mmHg (65-108) Arterial Blood HCO3 25 mmol/L (21-28) Arterial Blood Base Excess -2 mmol/L (-3-3) FiO2 80 Laboratory Tests Test 06/26/19 12:37 06/26/19 12:42 06/27/19 05:40 06/27/19 09:30 Glucose (Fingerstick) 103 mg/dL (70-99) 272 mg/dL (70-99) White Blood Count 7.7 x10^3/uL (4.0-11.0) Red Blood Count 2.72 x10^6/uL (4.30-5.70) Hemoglobin 8.3 g/dL (13.0-17.5) Hematocrit 26.1 % (39.0-53.0) Mean Corpuscular Volume 96 fL (79-100) Mean Corpuscular Hemoglobin 30 pg (25-35) Mean Corpuscular Hemoglobin Concent 32 g/dL (31-37) Red Cell Distribution Width 18.7 % (11.5-14.5) Platelet Count 260 x10^3/uL (140-400) Neutrophils (%) (Auto) 78 % (31-73) Lymphocytes (%) (Auto) 10 % (24-48) Monocytes (%) (Auto) 10 % (0-9) Eosinophils (%) (Auto) 1 % (0-3) Basophils (%) (Auto) 1 % (0-3) Neutrophils # (Auto) 6.0 x10^3/uL (1.8-7.7) Lymphocytes # (Auto) 0.8 x10^3/uL (1.0-4.8) Monocytes # (Auto) 0.8 x10^3/uL (0.0-1.1) Eosinophils # (Auto) 0.1 x10^3/uL (0.0-0.7) Basophils # (Auto) 0.0 x10^3/uL (0.0-0.2) Sodium Level 137 mmol/L (136-145) Potassium Level 4.3 mmol/L (3.5-5.1) Chloride Level 106 mmol/L (98-107) Carbon Dioxide Level 19 mmol/L (21-32) Anion Gap 12 (6-14) Blood Urea Nitrogen 28 mg/dL (8-26) Creatinine 1.4 mg/dL (0.7-1.3) Estimated GFR (Cockcroft-Gault) 59.8 Glucose Level 215 mg/dL (70-99) Calcium Level 6.8 mg/dL (8.5-10.1) Vancomycin Level Trough 28.9 mcg/mL (10.0-20.0) Vancomycin Last Dose Date 06/26/19 Vancomycin Last Dose Time 1800 O2 Saturation 90 % (92-99) Arterial Blood pH 7.27 (7.35-7.45) Arterial Blood pCO2 at Patient Temp 57 mmHg (35-46) Arterial Blood pO2 at Patient Temp 62 mmHg (65-108) Arterial Blood HCO3 25 mmol/L (21-28) Arterial Blood Base Excess -2 mmol/L (-3-3) FiO2 80 Medications Active Scripts Medications Dose Route/Sig Max Daily Dose Days Date Category Mexiletine Hcl 250 Mg Capsule 450 Mg PO BID 06/20/19 Reported Metoprolol Tartrate 100 Mg Tablet 1 Tab PO DAILY 06/20/19 Reported Children's Aspirin (Aspirin) 81 Mg Tab.chew 81 Mg PO DAILY 06/20/19 Reported Amiodarone Hcl 200 Mg Tablet 1 Tab PO DAILY 06/20/19 Reported Comments CXR 06/24 reviewed diffuse bilateral infiltrates Impression . IMPRESSION: 1. Acute respiratory failure due to COVID-19 pneumonia/ ARDS 2. Acute respiratory distress syndrome. 3. COVID-19 4. Bilateral infiltrates compatible with pneumonia, possible superimposed gram- negative, gram-positive, underlying viral. 5. Toxic metabolic encephalopathy. 6. Chronic anemia. 7. Elevated troponin. 8. Elevated total bilirubin, improved 9. Severe protein malnutrition, present upon admission. 10. Recent pacemaker defibrillator placement. 11. V-Tac and shock via AICD 12 shock 13. FRANCISCO Plan . Continue AC mode, Low TV, Adjust FIO2 and PEEP according to ABG , 80%FIO2/ 9 PEEP/ OK with permissive hypercapnia Follow up CXR Prone positional per protocol Plaquenil per protocol Continue Zithromax along with broad-spectrum antibiotics Vanc/ Zosyn. dc Azithromycin at day 5 Nutritional support with tube feeding Continue sedation DVT GI prophylaxis Cardiology f/u vasopressor Spoke with RN, RT,/ Prognosis guarded/ now DNR/ AICD turned off per family request Total cumulative critical care time of 30 minutes reviewing data, labs, adjusting mechanical ventilation, reviewing x-ray ANTOINETTE BARBER MD Jun 27, 2019 11:10
[2019-06-27] MEDS: CHLORHEXIDINE 0.12% 15 ML MOUTHWASH. MM SCH ×2 (11:29→21:12)
[2019-06-27] MEDS: fentaNYL HIGH DOSE PCA 55 ML IV PRN (16:21)
[2019-06-28] VITALS (12 sets, daily range): BP systolic 87–110; BP diastolic 56–91
[2019-06-28] MEDS: IV NORMAL SALINE 1000ML BAG 1,000 ML IV SCH ×3 (02:28→19:41)
[2019-06-28] MEDS: MIDAZOLAM HCL 100 MG in IV NORMAL SALINE 100ML 100 ML IV PRN ×2 (02:29→11:10)
[2019-06-28] MEDS: PIPERACILLIN/TAZOBACTAM 3.375 GM in IV NORMAL SALINE 50ML 50 ML IV SCH ×4 (06:32→23:17)
[2019-06-28 06:54] LABS: CREATININE 1.9 mg/dL (0.7-1.3)
--- NOTE | 2019-06-28 06:54 | RAD ---
EXAM: CHEST ONE VIEW. HISTORY: Ventilated, respiratory failure. COMPARISON: 06/25/2019. FINDINGS: A frontal view of the chest is obtained. An endotracheal tube has its tip 3.5 cm above the cecy. A nasogastric tube has its tip below the inferior margin of the view. A left-sided pacemaker/defibrillator has its leads in the right atrium, right ventricle and a left cardiac vein. Right arm PICC and right subclavian central venous catheters have their tips in the right atrium and superior cavoatrial junction, respectively. Bilateral basilar and peripheral predominant interstitial and airspace opacities are not clearly changed. Small pleural effusions cannot be excluded. There is no pneumothorax. The heart is not enlarged. IMPRESSION: 1. Stable bilateral basilar and peripheral predominant infiltrates. Electronically signed by: Yung Solano MD (06/28/2019 6:51 AM) [facility]
[2019-06-28] MEDS: AMINO AC 3%/ELECTROLYTE/GLYCER 1,000 ML IV SCH ×2 (07:16→18:30)
[2019-06-28] MEDS: CHLORHEXIDINE 0.12% 15 ML MOUTHWASH. MM SCH ×2 (07:17→20:02)
[2019-06-28] MEDS: POTASSIUM BICARB 20 MEQ EFFERVESCENT TABLET. PEG SCH (07:18)
[2019-06-28] MEDS: AMIODARONE HCL 200 MG TABLET. PO SCH (07:19)
[2019-06-28] MEDS: FUROSEMIDE 40 MG TABLET. PO SCH (07:20)
[2019-06-28] MEDS: ZINC SULFATE 220 MG CAPSULE. PO SCH (07:20)
[2019-06-28] MEDS: MEXILETINE HCL 200 MG CAPSULE PO SCH (07:20)
[2019-06-28] MEDS: FAMOTIDINE 20 MG/2 ML VIAL IVP SCH ×2 (07:20→20:01)
[2019-06-28] MEDS: ASCORBIC ACID 500 MG TABLET PO SCH (07:20)
[2019-06-28] MEDS: NOREPINEPHRINE VIAL 8 MG in IV DEXTROSE 5% 250 ML IV PRN ×2 (07:22→18:16)
[2019-06-28] MEDS: METOPROLOL TART IMMED RELEASE 25 MG TABLET. PO SCH ×2 (07:29→20:03)
--- NOTE | 2019-06-28 08:09 | PDOC ---
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 No acute intracranial abnormality. on ct head Several chronic infarcts bilaterally.Several chronic left frontal, parietal and temporal infarcts. chronic right frontal infarcts. foci of decreased attenuation within the hemispheric white matter, most often due to chronic microvascular ischemia. Mild to moderate brain parenchymal volume loss. Acute metabolic encephalopathy Severe protein-caloric malnutrition Right upper extremity DVT Plan: continue full anticoagulation for his upper extremity DVT guarded prognosis his cardiac meds have restarted by our research consultant continue with supportive measures, ventilatory support follow recommendations from research consultant further recommendations based on clinical course. critically stable seems like History of Present Illness History of Present Illness 06/28/2019 Patient seen and examined in the ICU He remains critically ill and intubated No acute events reported overnight Chart reviewed Discussed with RN Prognosis extremely guarded Vitals Vitals Vital Signs Date Time Temp Pulse Resp B/P (MAP) Pulse Ox O2 Delivery O2 Flow Rate FiO2 06/28/19 07:19 98 83/64 06/28/19 06:00 24 97 Ventilator 06/28/19 04:00 98.0 98.0 06/27/19 16:21 4.0 Physical Exam Physical Exam General: Other (sedated and intubated) Heart: Regular rate Abdomen: Normal bowel sounds, Soft Extremities: No cyanosis Skin: No rashes, No breakdown Labs LABS Laboratory Tests Test 06/27/19 09:30 06/27/19 12:03 06/27/19 17:19 06/27/19 23:46 O2 Saturation 90 % (92-99) Arterial Blood pH 7.27 (7.35-7.45) Arterial Blood pCO2 at Patient Temp 57 mmHg (35-46) Arterial Blood pO2 at Patient Temp 62 mmHg (65-108) Arterial Blood HCO3 25 mmol/L (21-28) Arterial Blood Base Excess -2 mmol/L (-3-3) FiO2 80 Glucose (Fingerstick) 114 mg/dL (70-99) 129 mg/dL (70-99) 118 mg/dL (70-99) Test 06/28/19 06:00 Creatinine 1.9 mg/dL (0.7-1.3) Estimated GFR (Cockcroft-Gault) 42.0 Assessment and Plan Assessmemt and Plan Problems Medical Problems: (1) Altered mental status Status: Acute (2) Elevated brain natriuretic peptide (BNP) level Status: Acute (3) Elevated troponin Status: Acute (4) Suspected COVID-19 virus infection Status: Acute Comment Review of Relevant I have reviewed the following items abdelrahman (where applicable) has been applied. Labs Laboratory Tests Test 06/26/19 09:20 06/26/19 12:37 06/26/19 12:42 06/27/19 05:40 O2 Saturation 92 % (92-99) Arterial Blood pH 7.27 (7.35-7.45) Arterial Blood pCO2 at Patient Temp 54 mmHg (35-46) Arterial Blood pO2 at Patient Temp 72 mmHg (65-108) Arterial Blood HCO3 24 mmol/L (21-28) Arterial Blood Base Excess -3 mmol/L (-3-3) FiO2 60 Glucose (Fingerstick) 103 mg/dL (70-99) 272 mg/dL (70-99) White Blood Count 7.7 x10^3/uL (4.0-11.0) Red Blood Count 2.72 x10^6/uL (4.30-5.70) Hemoglobin 8.3 g/dL (13.0-17.5) Hematocrit 26.1 % (39.0-53.0) Mean Corpuscular Volume 96 fL (79-100) Mean Corpuscular Hemoglobin 30 pg (25-35) Mean Corpuscular Hemoglobin Concent 32 g/dL (31-37) Red Cell Distribution Width 18.7 % (11.5-14.5) Platelet Count 260 x10^3/uL (140-400) Neutrophils (%) (Auto) 78 % (31-73) Lymphocytes (%) (Auto) 10 % (24-48) Monocytes (%) (Auto) 10 % (0-9) Eosinophils (%) (Auto) 1 % (0-3) Basophils (%) (Auto) 1 % (0-3) Neutrophils # (Auto) 6.0 x10^3/uL (1.8-7.7) Lymphocytes # (Auto) 0.8 x10^3/uL (1.0-4.8) Monocytes # (Auto) 0.8 x10^3/uL (0.0-1.1) Eosinophils # (Auto) 0.1 x10^3/uL (0.0-0.7) Basophils # (Auto) 0.0 x10^3/uL (0.0-0.2) Sodium Level 137 mmol/L (136-145) Potassium Level 4.3 mmol/L (3.5-5.1) Chloride Level 106 mmol/L (98-107) Carbon Dioxide Level 19 mmol/L (21-32) Anion Gap 12 (6-14) Blood Urea Nitrogen 28 mg/dL (8-26) Creatinine 1.4 mg/dL (0.7-1.3) Estimated GFR (Cockcroft-Gault) 59.8 Glucose Level 215 mg/dL (70-99) Calcium Level 6.8 mg/dL (8.5-10.1) Vancomycin Level Trough 28.9 mcg/mL (10.0-20.0) Vancomycin Last Dose Date 06/26/19 Vancomycin Last Dose Time 1800 Test 06/27/19 09:30 06/27/19 12:03 06/27/19 17:19 06/27/19 23:46 O2 Saturation 90 % (92-99) Arterial Blood pH 7.27 (7.35-7.45) Arterial Blood pCO2 at Patient Temp 57 mmHg (35-46) Arterial Blood pO2 at Patient Temp 62 mmHg (65-108) Arterial Blood HCO3 25 mmol/L (21-28) Arterial Blood Base Excess -2 mmol/L (-3-3) FiO2 80 Glucose (Fingerstick) 114 mg/dL (70-99) 129 mg/dL (70-99) 118 mg/dL (70-99) Test 06/28/19 06:00 Creatinine 1.9 mg/dL (0.7-1.3) Estimated GFR (Cockcroft-Gault) 42.0 Laboratory Tests Test 06/27/19 09:30 06/27/19 12:03 06/27/19 17:19 06/27/19 23:46 O2 Saturation 90 % (92-99) Arterial Blood pH 7.27 (7.35-7.45) Arterial Blood pCO2 at Patient Temp 57 mmHg (35-46) Arterial Blood pO2 at Patient Temp 62 mmHg (65-108) Arterial Blood HCO3 25 mmol/L (21-28) Arterial Blood Base Excess -2 mmol/L (-3-3) FiO2 80 Glucose (Fingerstick) 114 mg/dL (70-99) 129 mg/dL (70-99) 118 mg/dL (70-99) Test 06/28/19 06:00 Creatinine 1.9 mg/dL (0.7-1.3) Estimated GFR (Cockcroft-Gault) 42.0 Microbiology 06/20/19 Blood Culture - Final, Complete NO GROWTH AFTER 5 DAYS Medications Current Medications Piperacillin Sod/ Tazobactam Sod 4.5 gm/Sodium Chloride 100 ml @ 200 mls/hr 1X ONCE IV Last administered on 06/19/19at 16:50; Start 06/19/19 at 16:00; Stop 06/19/19 at 16:29; Status DC Vancomycin HCl 1.25 gm/Sodium Chloride 250 ml @ 166.667 mls/hr 1X ONCE IV Last administered on 06/19/19at 16:51; Start 06/19/19 at 16:00; Stop 06/19/19 at 17:29; Status DC Hydroxychloroquine Sulfate (Plaquenil) 400 mg BID PO ; Start 06/19/19 at 21:00; Status UNV Enoxaparin Sodium (Lovenox 80mg Syringe) 75 mg 1X ONCE SQ Last administered on 06/19/19at 16:51; Start 06/19/19 at 16:30; Stop 06/19/19 at 16:31; Status DC Furosemide (Lasix) 40 mg 1X ONCE IVP Last administered on 06/19/19at 16:51; Start 06/19/19 at 17:00; Stop 06/19/19 at 17:01; Status DC Sodium Chloride (Normal Saline Flush) 3 ml QSHIFT PRN IV AFTER MEDS AND BLOOD DRAWS; Start 06/19/19 at 17:45 Sodium Chloride 1,000 ml @ 65 mls/hr [id number] IV Last administered on 06/28/19at 02:28; Start 06/19/19 at 17:31 Acetaminophen (Tylenol) 650 mg PRN Q4HRS PRN PO TEMP OVER 100.4F OR MILD PAIN; Start 06/19/19 at 17:45 Acetaminophen (Tylenol Supp) 650 mg PRN Q4HRS PRN CO TEMP OVER 100.4F OR MILD PAIN; Start 06/19/19 at 17:45 Clonidine HCl (Catapres) 0.1 mg PRN Q6HRS PRN PO SBP>160 OR DBP>90; Start 06/19/19 at 17:45 Sodium Monofluorophosphate (Fleet Adult) 133 ml PRN DAILY PRN CO CONSTIPATION; Start 06/19/19 at 17:45 Docusate Sodium (Colace) 100 mg PRN BID PRN PO CONSTIPATION; Start 06/19/19 at 17:45 Albuterol/ Ipratropium (Duoneb) 3 ml Q4HRS W/A NEB ; Start 06/19/19 at 18:00; Stop 06/20/19 at 17:12; Status DC Guaifenesin (Robitussin) 200 mg PRN Q4HRS PRN PO COUGH; Start 06/19/19 at 17:45 Enoxaparin Sodium (Lovenox 40mg Syringe) 40 mg Q24H SQ ; Start 06/19/19 at 18:00; Status UNV Vancomycin HCl (Vanco Per Pharmacy) 1 each PRN DAILY PRN MC SEE COMMENTS Last administered on 06/27/19at 07:30; Start 06/19/19 at 17:45 Piperacillin Sod/ Tazobactam Sod 3.375 gm/Sodium Chloride 50 ml @ 100 mls/hr Q6HRS IV ; Start 06/19/19 at 18:00; Status Cancel Enoxaparin Sodium (Lovenox Per Pharmacy Treatment Dosing) 1 each PRN DAILY PRN MC SEE COMMENTS; Start 06/19/19 at 17:45; Stop 06/20/19 at 15:01; Status DC Piperacillin Sod/ Tazobactam Sod 3.375 gm/Sodium Chloride 50 ml @ 100 mls/hr Q6HRS IV Last administered on 06/28/19at 06:32; Start 06/20/19 at 00:00 Enoxaparin Sodium (Lovenox 80mg Syringe) 70 mg Q12HR SQ Last administered on 06/20/19at 08:00; Start 06/20/19 at 09:00; Stop 06/20/19 at 15:01; Status DC Vancomycin HCl 1 gm/Sodium Chloride 250 ml @ 250 mls/hr Q12H IV Last administered on 06/20/19at 16:26; Start 06/20/19 at 05:00; Stop 06/21/19 at 05:34; Status DC Vancomycin HCl (Vancomycin Trough Level) 1 each 1X ONCE MC Last administered on 06/21/19at 04:30; Start 06/21/19 at 04:30; Stop 06/21/19 at 04:31; Status DC Hydroxychloroquine Sulfate (Plaquenil) 400 mg 1X ONCE PO Last administered on 06/20/19at 00:07; Start 06/19/19 at 20:00; Stop 06/19/19 at 20:01; Status DC Propofol 100 ml @ As Directed STK-MED ONCE IV ; Start 06/19/19 at 20:33; Stop 06/19/19 at 20:34; Status DC Fentanyl Citrate 30 ml @ 0 mls/hr CONT PRN IV SEE PROTOCOL Last administered on 06/24/19at 05:42; Start 06/19/19 at 21:15; Stop 06/24/19 at 09:02; Status DC Propofol 100 ml @ 0 mls/hr CONT PRN IV SEE PROTOCOL; Start 06/19/19 at 21:15 Fentanyl Citrate (Fentanyl 2ml Vial) 25 mcg PRN Q1HR PRN IV SEE COMMENTS; Start 06/19/19 at 21:15 Fentanyl Citrate (Fentanyl 2ml Vial) 50 mcg PRN Q1HR PRN IV SEE COMMENTS; Start 06/19/19 at 21:15 Chlorhexidine Gluconate (Peridex) 15 ml BID MM Last administered on 06/28/19at 07:17; Start 06/20/19 at 09:00 Morphine Sulfate (Morphine Sulfate) 2 mg PRN Q1HR PRN IV SEE COMMENTS.; Start 06/19/19 at 21:15 Morphine Sulfate (Morphine Sulfate) 4 mg PRN Q1HR PRN IV SEE COMMENTS.; Start 06/19/19 at 21:15 Midazolam HCl 50 mg/Sodium Chloride 50 ml @ 0 mls/hr CONT PRN IV SEE PROTOCOL Last administered on 06/20/19at 01:38; Start 06/19/19 at 21:15; Stop 06/20/19 at 07:27; Status DC Midazolam HCl 100 mg/Sodium Chloride 100 ml @ 6 mls/hr CONT PRN IV SEE PROTOCOL Last administered on 06/28/19at 02:29; Start 06/20/19 at 07:30 Hydroxychloroquine Sulfate (Plaquenil) 200 mg BID PO Last administered on 06/24/19at 08:59; Start 06/20/19 at 21:00; Stop 06/24/19 at 09:01; Status DC Azithromycin 250 mg/Sodium Chloride 250 ml @ 250 mls/hr Q24H IV Last administered on 06/24/19at 08:58; Start 06/20/19 at 10:00; Stop 06/24/19 at 14:44; Status DC Hydroxychloroquine Sulfate (Plaquenil) 400 mg 1X ONCE PO Last administered on 06/20/19at 10:35; Start 06/20/19 at 09:30; Stop 06/20/19 at 09:44; Status DC Acetaminophen (Tylenol) 650 mg PRN Q6HRS PRN PEG MILD PAIN / TEMP Last administered on 06/20/19at 16:26; Start 06/20/19 at 12:30 Info (Anti-Coagulation Monitoring By Pharmacy) 1 each PRN DAILY PRN MC SEE COMM ENTS; Start 06/20/19 at 14:30; Status Cancel Enoxaparin Sodium (Lovenox 40mg Syringe) 40 mg Q24H SQ Last administered on 06/24/19at 08:58; Start 06/21/19 at 09:00; Stop 06/24/19 at 15:54; Status DC Albuterol/ Ipratropium (Duoneb) 3 ml PRN Q4HRS PRN NEB SHORTNESS OF BREATH; Start 06/20/19 at 17:15; Stop 06/20/19 at 17:30; Status DC Vancomycin HCl 1.25 gm/Sodium Chloride 250 ml @ 167 mls/hr Q12H IV Last administered on 06/27/19at 06:02; Start 06/21/19 at 06:00; Stop 06/27/19 at 07:24; Status DC Vancomycin HCl (Vancomycin Trough Level) 1 each 1X ONCE MC Last administered on 06/22/19at 17:30; Start 06/22/19 at 17:30; Stop 06/22/19 at 17:31; Status DC Famotidine (Pepcid Vial) 20 mg BID IVP Last administered on 06/28/19at 07:20; Start 06/22/19 at 21:00 Furosemide (Lasix) 40 mg 1X ONCE IVP Last administered on 06/22/19at 12:22; Start 06/22/19 at 11:45; Stop 06/22/19 at 11:47; Status DC Potassium Chloride/Water 100 ml @ 100 mls/hr Q1H IV Last administered on 06/22/19at 13:29; Start 06/22/19 at 12:00; Stop 06/22/19 at 13:59; Status DC Albumin Human 100 ml @ 100 mls/hr 1X ONCE IV Last administered on 06/22/19at 12:26; Start 06/22/19 at 12:00; Stop 06/22/19 at 12:59; Status DC Mexiletine HCl (Mexitil) 400 mg BID PO Last administered on 06/23/19at 10:12; Start 06/22/19 at 13:00; Stop 06/23/19 at 13:21; Status DC Metoprolol Tartrate (Lopressor) 12.5 mg BID PO Last administered on 06/27/19at 09:47; Start 06/22/19 at 13:00 Ascorbic Acid (Vitamin C) 500 mg DAILY PO Last administered on 06/28/19at 07:20; Start 06/23/19 at 09:00 Zinc Sulfate (Orazinc) 220 mg DAILY PO Last administered on 06/28/19at 07:20; Start 06/23/19 at 09:00 Vancomycin HCl (Vancomycin Trough Level) 1 each 1X ONCE MC Last administered on 06/23/19at 05:30; Start 06/23/19 at 05:30; Stop 06/23/19 at 05:31; Status DC Albumin Human 100 ml @ 100 mls/hr 1X ONCE IV Last administered on 06/23/19at 08:35; Start 06/23/19 at 08:00; Stop 06/23/19 at 08:59; Status DC Furosemide (Lasix) 40 mg 1X ONCE IVP Last administered on 06/23/19at 08:35; Start 06/23/19 at 08:00; Stop 06/23/19 at 08:01; Status DC Potassium Chloride/Water 100 ml @ 100 mls/hr 1X ONCE IV Last administered on 06/23/19at 10:15; Start 06/23/19 at 08:30; Stop 06/23/19 at 09:29; Status DC Alteplase, Recombinant (Cathflo For Central Catheter Clearance) 1 mg 1X ONCE INT CAT Last administered on 06/23/19 10:16; Start 06/23/19 at 09:30; Stop 06/23/19 at 09:31; Status DC Vecuronium [place] (Norcuron Bolus) 6 mg 1X ONCE IV Last administered on 06/23/19 09:25; Start 06/23/19 at 09:30; Stop 06/23/19 at 09:31; Status DC Furosemide (Lasix) 40 mg DAILY PO Last administered on 06/28/19 07:20; Start 06/24/19 at 09:00 Potassium Bicarbonate (Potassium Effervescent Tablet) 20 meq DAILY PEG Last administered on 06/28/19 07:18; Start 06/24/19 at 09:00 Amiodarone HCl (Cordarone) 400 mg DAILY PO Last administered on 06/25/19 08:26; Start 06/24/19 at 09:00; Stop 06/25/19 at 12:04; Status DC Dextrose (Dextrose 50%-Water Syringe) 12.5 gm 1X ONCE IV Last administered on 06/24/19 00:22; Start 06/24/19 at 00:15; Stop 06/24/19 at 00:19; Status DC Fentanyl Citrate 55 ml @ 0 mls/hr CONT PRN IV SEE I/O RECORD Last administered on 06/27/19 16:21; Start 06/24/19 at 09:15 Vecuronium [place] (Norcuron Bolus) 6 mg 1X ONCE IV Last administered on 06/24/19 14:41; Start 06/24/19 at 14:15; Stop 06/24/19 at 14:16; Status DC Amino Acids/ Glycerin/ Electrolytes 1,000 ml @ 80 mls/hr [id number] IV Last administered on 06/28/19 07:16; Start 06/24/19 at 14:30 Enoxaparin Sodium (Lovenox 80mg Syringe) 80 mg Q12HR SQ Last administered on 06/28/19 07:21; Start 06/24/19 at 16:00 Vecuronium [place] (Norcuron Bolus) 6 mg Q6HRS PRN IV ANXIETY / AGITATION Last administered on 06/26/19 03:44; Start 06/24/19 at 19:00 Alteplase, Recombinant (Cathflo For Central Catheter Clearance) 1 mg 1X ONCE INT CAT Last administered on 06/25/19at 10:07; Start 06/25/19 at 10:00; Stop 06/25/19 at 10:01; Status DC Norepinephrine Bitartrate 8 mg/ Dextrose 258 ml @ 16.254 mls/ hr CONT PRN IV PER PROTOCOL Last administered on 06/28/19at 07:22; Start 06/25/19 at 10:30 Amiodarone HCl 150 mg/Dextrose 103 ml @ 618 mls/hr 1X ONCE IV Last administered on 06/25/19at 12:37; Start 06/25/19 at 12:00; Stop 06/25/19 at 12:09; Status DC Amiodarone HCl 450 mg/Dextrose 259 ml @ 0 mls/hr CONT PRN IV SEE I/O RECORD; Start 06/25/19 at 12:00 Amiodarone HCl (Cordarone) 200 mg DAILY PO Last administered on 06/28/19at 07:19; Start 06/26/19 at 09:00 Mexiletine HCl (Mexitil) 400 mg BID PO Last administered on 06/28/19at 07:20; Start 06/25/19 at 21:00 Mexiletine HCl (Mexitil) 400 mg 1X ONCE PO Last administered on 06/25/19at 12:53; Start 06/25/19 at 13:00; Stop 06/25/19 at 13:01; Status DC Vancomycin HCl (Vancomycin Trough Level) 1 each 1X ONCE MC Last administered on 06/27/19at 05:30; Start 06/27/19 at 05:30; Stop 06/27/19 at 05:31; Status DC Vancomycin HCl 1.25 gm/Sodium Chloride 250 ml @ 167 mls/hr Q24H IV ; Start 06/28/19 at 18:00 Vancomycin HCl (Vancomycin Trough Level) 1 each 1X ONCE MC ; Start 06/30/19 at 17:30; Stop 06/30/19 at 17:31 Active Scripts Active Reported Mexiletine Hcl 250 Mg Capsule 450 Mg PO BID Metoprolol Tartrate 100 Mg Tablet 1 Tab PO DAILY Children's Aspirin (Aspirin) 81 Mg Tab.chew 81 Mg PO DAILY Amiodarone Hcl 200 Mg Tablet 1 Tab PO DAILY Vitals/I & O Vital Sign - Last 24 Hours 06/27/19 06/27/19 06/27/19 06/27/19 09:00 09:10 09:46 09:47 Pulse 112 111 111 Resp 26 B/P (MAP) 104/68 (80) 112/73 112/73 Pulse Ox 100 100 O2 Delivery Ventilator Ventilator 06/27/19 06/27/19 06/27/19 06/27/19 10:00 11:00 12:00 12:00 Temp 100.1 98.8 100.1 98.8 Pulse 115 110 106 Resp 30 27 28 B/P (MAP) 95/59 (71) 108/76 (87) 97/64 (75) Pulse Ox 100 99 100 O2 Delivery Ventilator Mechanical Ventilator O2 Flow Rate 4.0 4.0 06/27/19 06/27/19 06/27/19 06/27/19 12:00 13:00 14:00 15:00 Temp 98.8 98.8 98.8 98.8 98.8 98.8 Pulse 100 98 103 Resp 29 29 28 B/P (MAP) 97/69 (78) 100/74 (83) 96/69 (78) Pulse Ox 100 98 98 99 O2 Delivery Ventilator Ventilator Ventilator Ventilator O2 Flow Rate 4.0 4.0 06/27/19 06/27/19 06/27/19 06/27/19 16:00 16:00 16:20 16:21 Temp 98.5 98.5 Pulse 106 Resp 28 28 B/P (MAP) 90/67 (75) Pulse Ox 99 99 99 O2 Delivery Mechanical Ventilator Ventilator O2 Flow Rate 4.0 4.0 06/27/19 06/27/19 06/27/19 06/27/19 16:51 17:00 18:00 19:00 Pulse 100 96 100 Resp 28 33 31 29 B/P (MAP) 89/64 (72) 96/68 (77) 94/69 (77) Pulse Ox 98 98 98 98 O2 Delivery Ventilator Ventilator Ventilator Ventilator 06/27/19 06/27/19 06/27/19 06/27/19 20:00 20:00 20:18 21:00 Temp 98.4 98.4 Pulse 104 106 Resp 29 20 B/P (MAP) 104/64 (77) 94/67 (76) Pulse Ox 98 98 99 O2 Delivery Mechanical Ventilator Ventilator Ventilator Ventilator 06/27/19 06/27/19 06/27/19 06/27/19 21:12 22:00 23:00 23:34 Pulse 111 110 110 Resp 23 20 B/P (MAP) 98/62 85/63 (70) 90/66 (74) Pulse Ox 98 98 98 O2 Delivery Ventilator Ventilator Ventilator 06/27/19 06/27/19 06/28/19 06/28/19 23:59 23:59 01:11 02:00 Temp 98.1 98.1 Pulse 96 98 96 Resp 22 20 B/P (MAP) 102/76 (85) 101/75 (84) 92/56 (68) Pulse Ox 96 99 99 O2 Delivery Mechanical Ventilator Ventilator Ventilator Ventilator 06/28/19 06/28/19 06/28/19 06/28/19 03:00 04:00 04:00 04:10 Temp 98.0 98.0 Pulse 97 98 Resp 24 B/P (MAP) 88/64 (72) 106/76 (86) Pulse Ox 97 96 97 O2 Delivery Ventilator Ventilator Mechanical Ventilator Ventilator 06/28/19 06/28/19 06/28/19 05:00 06:00 07:19 Pulse 100 98 98 Resp 22 24 B/P (MAP) 88/68 (75) 90/56 (67) 83/64 Pulse Ox 97 97 O2 Delivery Ventilator Ventilator Intake and Output 06/27/19 06/27/19 06/28/19 15:00 23:00 07:00 Intake Total 550 ml 2523 ml 2769 ml Output Total 2435 ml 780 ml 440 ml Balance -1885 ml 1743 ml 2329 ml BABAK BUTT MD Jun 28, 2019 08:09
[2019-06-28] MEDS ORDERED: ANTI-COAG MONITOR BY PHARMACY. MC PRN (08:30)
[2019-06-28 08:32] LABS: BASE EXCESS ABG -6 mmol/L (-3-3); HCO3 ABG 22 mmol/L (21-28); PCO2 ABG 58 mmHg (35-46); PO2 ABG 54 mmHg (65-108); SAT O2 ABG 84 % (92-99)
[2019-06-28] MEDS: VANCOMYCIN PER PHARMACY MC PRN ×4 (08:34→12:29)
--- NOTE | 2019-06-28 09:15 | PDOC ---
PULMONARY PROGRESS NOTES Subjective Patient sedated, assist control ventilation. on 60% FiO2 9 of PEEP sedated, no pressors RN reports increase ET secretions multiple runs of V-tac, shocked by AICD 06/24 now turned off per family levophed Vitals Vital Signs Date Time Temp Pulse Resp B/P (MAP) Pulse Ox O2 Delivery O2 Flow Rate FiO2 06/28/19 08:00 98.5 98 24 110/91 (97) 96 Ventilator 98.5 06/27/19 16:21 4.0 Comments visuall exam done no respiratory distress, sedated no obvious rash no edema Labs Laboratory Tests Test 06/26/19 09:20 06/26/19 12:37 06/26/19 12:42 06/27/19 05:40 O2 Saturation 92 % (92-99) Arterial Blood pH 7.27 (7.35-7.45) Arterial Blood pCO2 at Patient Temp 54 mmHg (35-46) Arterial Blood pO2 at Patient Temp 72 mmHg (65-108) Arterial Blood HCO3 24 mmol/L (21-28) Arterial Blood Base Excess -3 mmol/L (-3-3) FiO2 60 Glucose (Fingerstick) 103 mg/dL (70-99) 272 mg/dL (70-99) White Blood Count 7.7 x10^3/uL (4.0-11.0) Red Blood Count 2.72 x10^6/uL (4.30-5.70) Hemoglobin 8.3 g/dL (13.0-17.5) Hematocrit 26.1 % (39.0-53.0) Mean Corpuscular Volume 96 fL (79-100) Mean Corpuscular Hemoglobin 30 pg (25-35) Mean Corpuscular Hemoglobin Concent 32 g/dL (31-37) Red Cell Distribution Width 18.7 % (11.5-14.5) Platelet Count 260 x10^3/uL (140-400) Neutrophils (%) (Auto) 78 % (31-73) Lymphocytes (%) (Auto) 10 % (24-48) Monocytes (%) (Auto) 10 % (0-9) Eosinophils (%) (Auto) 1 % (0-3) Basophils (%) (Auto) 1 % (0-3) Neutrophils # (Auto) 6.0 x10^3/uL (1.8-7.7) Lymphocytes # (Auto) 0.8 x10^3/uL (1.0-4.8) Monocytes # (Auto) 0.8 x10^3/uL (0.0-1.1) Eosinophils # (Auto) 0.1 x10^3/uL (0.0-0.7) Basophils # (Auto) 0.0 x10^3/uL (0.0-0.2) Sodium Level 137 mmol/L (136-145) Potassium Level 4.3 mmol/L (3.5-5.1) Chloride Level 106 mmol/L (98-107) Carbon Dioxide Level 19 mmol/L (21-32) Anion Gap 12 (6-14) Blood Urea Nitrogen 28 mg/dL (8-26) Creatinine 1.4 mg/dL (0.7-1.3) Estimated GFR (Cockcroft-Gault) 59.8 Glucose Level 215 mg/dL (70-99) Calcium Level 6.8 mg/dL (8.5-10.1) Vancomycin Level Trough 28.9 mcg/mL (10.0-20.0) Vancomycin Last Dose Date 06/26/19 Vancomycin Last Dose Time 1800 Test 06/27/19 09:30 06/27/19 12:03 06/27/19 17:19 06/27/19 23:46 O2 Saturation 90 % (92-99) Arterial Blood pH 7.27 (7.35-7.45) Arterial Blood pCO2 at Patient Temp 57 mmHg (35-46) Arterial Blood pO2 at Patient Temp 62 mmHg (65-108) Arterial Blood HCO3 25 mmol/L (21-28) Arterial Blood Base Excess -2 mmol/L (-3-3) FiO2 80 Glucose (Fingerstick) 114 mg/dL (70-99) 129 mg/dL (70-99) 118 mg/dL (70-99) Test 06/28/19 06:00 Creatinine 1.9 mg/dL (0.7-1.3) Estimated GFR (Cockcroft-Gault) 42.0 Laboratory Tests Test 06/27/19 09:30 06/27/19 12:03 06/27/19 17:19 06/27/19 23:46 O2 Saturation 90 % (92-99) Arterial Blood pH 7.27 (7.35-7.45) Arterial Blood pCO2 at Patient Temp 57 mmHg (35-46) Arterial Blood pO2 at Patient Temp 62 mmHg (65-108) Arterial Blood HCO3 25 mmol/L (21-28) Arterial Blood Base Excess -2 mmol/L (-3-3) FiO2 80 Glucose (Fingerstick) 114 mg/dL (70-99) 129 mg/dL (70-99) 118 mg/dL (70-99) Test 06/28/19 06:00 Creatinine 1.9 mg/dL (0.7-1.3) Estimated GFR (Cockcroft-Gault) 42.0 Medications Active Scripts Medications Dose Route/Sig Max Daily Dose Days Date Category Mexiletine Hcl 250 Mg Capsule 450 Mg PO BID 06/20/19 Reported Metoprolol Tartrate 100 Mg Tablet 1 Tab PO DAILY 06/20/19 Reported Children's Aspirin (Aspirin) 81 Mg Tab.chew 81 Mg PO DAILY 06/20/19 Reported Amiodarone Hcl 200 Mg Tablet 1 Tab PO DAILY 06/20/19 Reported Comments CXR 06/27 reviewed diffuse bilateral infiltrates Impression . IMPRESSION: 1. Acute respiratory failure due to COVID-19 pneumonia/ ARDS 2. Acute respiratory distress syndrome. 3. COVID-19 4. Bilateral infiltrates compatible with pneumonia, possible superimposed gram- negative, gram-positive, underlying viral. 5. Toxic metabolic encephalopathy. 6. Chronic anemia. 7. Elevated troponin. 8. Elevated total bilirubin, improved 9. Severe protein malnutrition, present upon admission. 10. Recent pacemaker defibrillator placement. 11. V-Tac and shock via AICD 12 shock 13. FRANCISCO Plan . Continue AC mode, Low TV, Adjust FIO2 and PEEP according to ABG , 70%FIO2/ increase 10 of PEEP/ OK with permissive hypercapnia Follow up CXR unchanged Prone positional per protocol s/p Plaquenil per protocol broad-spectrum antibiotics Nutritional support with tube feeding Continue sedation DVT GI prophylaxis Cardiology f/u vasopressor ,on 15 mics of levo Spoke with RN, RT,/ Prognosis guarded/ DNR/ AICD turned off per family request Total cumulative critical care time of 30 minutes reviewing data, labs, adjusting mechanical ventilation, reviewing x-ray ANTOINETTE BARBER MD Jun 28, 2019 09:15
--- NOTE | 2019-06-28 09:19 | PDOC ---
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 06/28/19 0919: CARDIO Progress Notes Date and Time Date of Service 06/28/19 Time of Evaluation 0913 Subjective Subjective: Other (intubated/sedated) Vitals Vitals Vital Signs Date Time Temp Pulse Resp B/P (MAP) Pulse Ox O2 Delivery O2 Flow Rate FiO2 06/28/19 08:00 98.5 98 24 110/91 (97) 96 Ventilator 98.5 06/27/19 16:21 4.0 Weight Weight [ ] Input and Output Intake and Output Intake and Output 06/28/19 07:00 Intake Total 5842 ml Output Total 3705 ml Balance 2137 ml Intake IV Total 4942 ml Tube Feeding 900 ml Output Urine Total 1455 ml Gastric Drainage Total 2250 ml Laboratory Labs Laboratory Tests Test 06/27/19 09:30 06/27/19 12:03 06/27/19 17:19 06/27/19 23:46 O2 Saturation 90 % (92-99) Arterial Blood pH 7.27 (7.35-7.45) Arterial Blood pCO2 at Patient Temp 57 mmHg (35-46) Arterial Blood pO2 at Patient Temp 62 mmHg (65-108) Arterial Blood HCO3 25 mmol/L (21-28) Arterial Blood Base Excess -2 mmol/L (-3-3) FiO2 80 Glucose (Fingerstick) 114 mg/dL (70-99) 129 mg/dL (70-99) 118 mg/dL (70-99) Test 06/28/19 06:00 Creatinine 1.9 mg/dL (0.7-1.3) Estimated GFR (Cockcroft-Gault) 42.0 Microbiology Micro Microbiology 06/20/19 Blood Culture - Final, Complete NO GROWTH AFTER 5 DAYS Physical Exam Heart: other (SR, ST) Other Exams visual exam due to COVID, PPE conservation Discussed with RN. Intubated with vent, sedated. prone. No significant edema. BP is marginally low on pressor support. UOP adequate. No significant changes respiratory marte. Assessment Assessment 1. Acute respiratory failure with ARDS/PNA/CHF/COPD/Covid-19 remains intubated/sedated. Completed course of plaquenil, azithromycin. Continue vent management per pulm team 2. Acute on chronic diastolic systolic CHF with NICM; LVEF 35-40% 3. Ventricular tachycardia s/p AICD implantation, patient had three shock therapies by device 06/24 for slow VT. No further significant ectopy with mexiletine, amiodarone therapy. Patient DNR; magnet over device to prevent further shock therapies per family request. 4. NSTEMI: peaked troponin 2.3, possibly demand mediated, type 2 5. Sepsis/shock; pressor support 6. FRANCISCO 7. Hypoxic/metabolic encephalopathy 8. DVT RUE: on lovenox therapy Recommendations Pressors as warranted Continue mexiletine, amiodarone Will hold Lasix therapy with FRANCISCO Ongoing support BECCA BURLESON MD 06/28/19 1245: CARDIO Progress Notes Plan Plan Pt. seen and discussed with RN and GRINDER TENDER. Agree with above GRINDER TENDER note. Poor prognosis. recommend hospice/CC. We are available for any other acute issues. Thanks ORTIZ YBARRA APRN Jun 28, 2019 09:19 BECCA BURLESON MD Jun 28, 2019 12:45
[2019-06-28 09:40] LABS: FIO2 ABG 60
[2019-06-28] MEDS ORDERED: TPN PER PHARMACY MC PRN (14:00)
[2019-06-28] MEDS ORDERED: LIDOCAINE 2% 100 MG/5 ML SYRINGE. IV ONE (14:15)
[2019-06-28] MEDS: LIDOCAINE 2GM/D5W 500ML PREMIX 500 ML IV PRN (14:40)
[2019-06-28] MEDS ORDERED: VANCOMYCIN 1.25 GM in IV NORMAL SALINE 250ML 250 ML IV SCH (18:00)
[2019-06-28] MEDS ORDERED: AMINO ACID IV SCH ×10 (22:00)
[2019-06-28] MEDS ORDERED: DEXTROSE 70% IV SCH ×10 (22:00)
[2019-06-28] MEDS ORDERED: TOTAL PARENTERAL NUTRITION IV SCH ×10 (22:00)
[2019-06-28] MEDS ORDERED: [UNRECOGNIZED DRUG - OTHER] IV SCH ×10 (22:00)
[2019-06-29] MEDS: NOREPINEPHRINE VIAL 8 MG in IV DEXTROSE 5% 250 ML IV PRN (00:06)
[2019-06-29] MEDS: LIDOCAINE 2GM/D5W 500ML PREMIX 500 ML IV PRN (00:06)
[2019-06-29] MEDS ORDERED: VANCOMYCIN RANDOM LEVEL. MC ONE ×2 (06:00)
--- NOTE | 2019-06-29 14:28 | PDOC3 ---
Discharge Summary Visit Information Date of Admission: Jun 19, 2019 Date of Discharge: Jun 29, 2019 Admitting Diagnosis Comment: 1. Patchy bilateral airspace disease, noncardiogenic edema versus atypical infection. POSSIBLE Viral pneumonitis ? covid-19 2. ACUTE HYPOXIC RESP FAILURE 3. ACUTE NSTEMI 4. No acute intracranial abnormality. 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 chronic right frontal infarcts. foci of decreased attenuation within the hemispheric white matter, most often due to chronic microvascular ischemia. Mild to moderate brain parenchymal volume loss. 6. acute metabolic encephalopathy 7. severe protein-caloric malnutrition Final Diagnosis Respiratory failure requiring intubation and mechanical ventilation Covid 19 syndrome Patchy bilateral airspace disease, noncardiogenic edema versus atypical infection. 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 No acute intracranial abnormality. on ct head Several chronic infarcts bilaterally.Several chronic left frontal, parietal and temporal infarcts. chronic right frontal infarcts. foci of decreased attenuation within the hemispheric white matter, most often due to chronic microvascular ischemia. Mild to moderate brain parenchymal volume loss. Acute metabolic encephalopathy Severe protein-caloric malnutrition Right upper extremity DVT Brief Hospital Course Allergies Allergies Coded Allergies Type Severity Reaction Last Updated Verified egg Adverse Reaction Intermediate Nausea and Vomiting 06/28/19 Yes Vital Signs Vital Signs Date Time Temp Pulse Resp B/P (MAP) Pulse Ox O2 Delivery O2 Flow Rate FiO2 06/29/19 04:02 0 0 Ventilator 06/29/19 03:55 1 06/29/19 03:00 06/28/19 23:15 98.3 98.3 Lab Results Laboratory Tests Test 06/27/19 17:19 06/27/19 23:46 06/28/19 06:00 06/28/19 08:30 Glucose (Fingerstick) 129 mg/dL (70-99) 118 mg/dL (70-99) Creatinine 1.9 mg/dL (0.7-1.3) Estimated GFR (Cockcroft-Gault) 42.0 Random Vancomycin Level 32.1 mcg/mL O2 Saturation 84 % (92-99) Arterial Blood pH 7.20 (7.35-7.45) Arterial Blood pCO2 at Patient Temp 58 mmHg (35-46) Arterial Blood pO2 at Patient Temp 54 mmHg (65-108) Arterial Blood HCO3 22 mmol/L (21-28) Arterial Blood Base Excess -6 mmol/L (-3-3) FiO2 60 Brief Hospital Course The patient is a 74-year-old male who was initially brought to the emergency room from his snf for decreased mental status. Patient has progressively deteriorated since admission and required intubation yesterday for respiratory failure. Initial troponin was 2.369 but has decreased to 1.8. BNP is elevated at 3527. Patient is being treated for possible coded 19 infection and remains on a ventilator today. He has a baseline history of hypertension, hyperlipidemia and COPD. We have been able to find some old records. He apparently is usually treated at [facility] where he received a r eplacement of ICD on 06/16/19. He carries a diagnosis of a nonischemic cardiomyopathy with an ejection fraction of 35-40% as well as chronic kidney disease and dementia. The patient initially was hypoxic. He was admitted to the COVID unit and placed on a nonrebreather. He had a T-max of 100.3. He was placed in isolation from the very beginning. His arterial blood gas revealed a pH of 7.48, PaCO2 of 33, pO2 of 45. His white count was not elevated. He was initially empirically started on Plaquenil, a broad spectrum antibiotic, as a result of his previous admission to the hospital for his pacemaker insertion. The patient immediately deteriorated and eventually required intubation by nurse clinical case manager. His imaging studies were reviewed. There are multifocal consolidations in both lungs. Patient received supportive measures but unfortunately could not recover from his COVID 19 infection. His body succumbed to the virus most likely due to his underlying overall health issues that afflicted him prior to the infection, Efforts were made by all consultants to provide the support he needed, communication with the family took place during the hospital stay and all concerns were addressed in an expedite fashion given the gravity of the case. My Jermaine peacefully on the morning of 06/29/2019 Assessment Assessment I was not present in the unit when patient . Discharge Information Condition at Discharge: / Disposition/Orders: Scheduled Amiodarone Hcl (Amiodarone Hcl) 200 Mg Tablet, 1 TAB PO DAILY for heart, #90 Ref 1 (Reported) Entered as Reported by: Emile Martinez on 06/20/19 0039 Last Action: New Order on 06/20/1938 by Emile Martinez Aspirin (Children's Aspirin) 81 Mg Tab.chew, 81 MG PO DAILY for heart, (Reported) Entered as Reported by: Emile Martinez on 06/20/1938 Last Action: New Order on 06/20/1938 by Emile Martinez Metoprolol Tartrate (Metoprolol Tartrate) 100 Mg Tablet, 1 TAB PO DAILY for htn, #60 Ref 5 (Reported) Entered as Reported by: Emlie Martinez on 06/20/1938 Last Action: New Order on 06/20/1938 by Emile Martinez Mexiletine Hcl (Mexiletine Hcl) 250 Mg Capsule, 450 MG PO BID for arrythmia, (Reported) Entered as Reported by: Emile Martinez on 06/20/1938 Last Action: New Order on 06/20/1938 by BABAK Smith MD Jun 29, 2019 14:28
== END 2019-06-28 19:37 | disposition expired | DRG 870 ==
LOC: ER 14:10 → 2 SOUTH 16:16 → 1 WEST ICU 21:00
PROVIDERS: ADMIT Family Medicine; ATTEND Family Medicine
PROC: 5A1955Z Respiratory Ventilation, Greater than 96 Consecutive Hours (ICD-10-PCS; principal; 2019-06-19)
PROC: 0BH17EZ Insertion of Endotracheal Airway into Trachea, Via Natural or Artificial Opening (ICD-10-PCS; 2019-06-19)
PROC: 02HV33Z Insertion of Infusion Device into Superior Vena Cava, Percutaneous Approach (ICD-10-PCS; 2019-06-21)
PROC: B548ZZA Ultrasonography of Superior Vena Cava, Guidance (ICD-10-PCS; 2019-06-21)
DX: A41.9 Sepsis, unspecified organism (principal); U07.1 COVID-19; J96.01 Acute respiratory failure with hypoxia; G92 Toxic encephalopathy; J15.6 Pneumonia due to other Gram-negative bacteria; J12.89 Other viral pneumonia; E43 Unspecified severe protein-calorie malnutrition; I21.4 Non-ST elevation (NSTEMI) myocardial infarction; I50.43 Acute on chronic combined systolic (congestive) and diastolic (congestive) heart failure; R65.21 Severe sepsis with septic shock; G93.1 Anoxic brain damage, not elsewhere classified; I13.0 Hypertensive heart and chronic kidney disease with heart failure and stage 1 through stage 4 chronic kidney disease, or unspecified chronic kidney disease; I42.8 Other cardiomyopathies; I47.2 Ventricular tachycardia; I82.621 Acute embolism and thrombosis of deep veins of right upper extremity; I82.A11 Acute embolism and thrombosis of right axillary vein; J44.0 Chronic obstructive pulmonary disease with (acute) lower respiratory infection; N17.9 Acute kidney failure, unspecified; D64.9 Anemia, unspecified; E78.5 Hyperlipidemia, unspecified; F03.90 Unspecified dementia, unspecified severity, without behavioral disturbance, psychotic disturbance, mood disturbance, and anxiety; M19.90 Unspecified osteoarthritis, unspecified site; N18.9 Chronic kidney disease, unspecified; Z66 Do not resuscitate; Z78.9 Other specified health status; Z79.82 Long term (current) use of aspirin; Z79.899 Other long term (current) drug therapy; Z82.49 Family history of ischemic heart disease and other diseases of the circulatory system; Z87.19 Personal history of other diseases of the digestive system; Z87.891 Personal history of nicotine dependence; Z95.810 Presence of automatic (implantable) cardiac defibrillator; Z68.31 Body mass index [BMI] 31.0-31.9, adult; Z91.012 Allergy to eggs; I25.2 Old myocardial infarction; Z79.01 Long term (current) use of anticoagulants
CPT/HCPCS: 36415; 36569; 36600; 70450; 71045; 74018; 80048; 80053; 80061; 80076; 80202; 81001; 82565; 82803; 82805; 82962; 83605; 83735; 83880; 84100; 84145; 84484; 85007; 85025; 85027; 85379; 85384; 87040; 87635; 87804; 93005; 93971; 94002; 94003; 94760; 96365; 96368; 96372; 96375; J0282; J0456; J0610; J1650; J1940; J2001; J2250; J2543; J2997; J3010; J3370; J3475; J3480; J3490; J7030; J7042; J7050; J7060; P9046; 99285-25; G0378